=== PATIENT | male | born 1955 | race Caucasian/White ===

== ENCOUNTER 2016-09-07 17:57 | Emergency (ER) | payer OTHER ==
[~2016-09-07] VITALS: Ht 170.2 cm; Wt 80.5 kg
[~2016-09-07 17:57] MED LIST: ACET-1256 PO; CLC100X PO; DTR/5 PO; LISI-461 PO; PANT40TA2 PO; PXL20 PO; ROPI0.5T PO; ROSU5TAB PO
[2016-09-07 18:02] VITALS: TEMP 36.8; Ht 170.2 cm; Wt 80.5 kg
[2016-09-07] MEDS ORDERED: OFLOXACIN 0.3% OP SOLN 5 ML BTL OTL STA (18:26)
[2016-09-07] MEDS ORDERED: DIPH-437 PO (18:32)
[2016-09-07] MEDS ORDERED: DOCU100C31 PO (18:32)
[2016-09-07] MEDS ORDERED: OFLO0.3D4 OTL (18:32)
--- NOTE | 2016-09-07 18:34 | EMERGENCY ROOM VISIT NOTE ---
History First contact with patient: 18:14 Chief Complaint: EAR PAIN Stated Complaint: L EAR BLEEDING History of Present Illness The patient is a 61 year old male who presents to the Emergency Room via private vehicle with complaints of "left ear bleeding". The patient states that earlier today, approximately 1.5 hours prior to arrival he was backing up a lawnmower when a stick penetrated the left ear canal. He notes minimal pain but has noticed bleeding therefore came here for evaluation. His tetanus is up- to-date. Review of Systems A complete 6-point Review of Systems was discussed with the patient, with pertinent positives and negatives listed in the History of Present Illness. All remaining Review of Systems questions can be considered negative unless otherwise specified. Past Medical/Surgical History Medical Problems: (1) Anxiety State Nos (2) Corneal abrasion (3) CORNEAL FOREIGN BODY (4) Depressive Disorder Nec (5) Esophageal Reflux (6) Eye foreign body (7) FX CERVICAL VERT NOS-CL (8) GI bleed (9) GI bleed (10) HYPERLIPIDEMIA NEC/NOS (11) HYPERTENSION NOS (12) Lumbago Family History FH: dementia FH: heart disease FATHER Hypertension Social History Smoking Status: Never Smoker Alcohol Use: none Drug Use: none Marital Status: Housing Status: lives alone Occupation Status: disabled Current/Historical Medications Scheduled Docusate Sodium (Docusate Sodium), 1 CAP PO BID Lisinopril (Lisinopril), 10 MG PO QAM Ofloxacin (Otic) (Floxin Otic), 2 DROPS OTL DAILY Oxybutynin Chloride (Ditropan), 5 MG PO HS Pantoprazole (Pantoprazole Sodium), 40 MG PO QAM Paroxetine (Paroxetine HCl), 20 MG PO HS Ropinirole Hydrochloride (Requip), 0.5 MG PO HS Rosuvastatin Calcium (Crestor), 5 MG PO QAM Scheduled PRN Acetaminophen (Tylenol), 1,000 MG PO TID PRN for Pain Acetaminophen/Diphenhydramine (Tylenol Pm), 1 TAB PO HS PRN for Sleep Allergies Coded Allergies: No Known Allergies (Unverified , 08/30/16) Physical Exam Vital Signs Date Time Temp Pulse Resp B/P (MAP) Pulse Ox O2 Delivery O2 Flow Rate FiO2 09/07/16 18:42 65 124/69 98 09/07/16 18:02 36.8 73 18 114/75 96 Room Air Physical Exam VITAL SIGNS - Vital signs and nursing notes were reviewed. Patient is afebrile , normotensive, non-tachycardic and is saturating well on room air 96%. GENERAL -61-year-old male appearing his stated age who is in no acute distress. Communicates well with provider and answers questions appropriately. SKIN - Without rashes. Dry blood in the ear canal. HEAD - NC/AT. EARS - No deformities of external structures noted on gross examination bilaterally. No pain elicited with palpation of the tragus bilaterally. There is dry blood in the left ear canal, with evidence of abrasion/superficial laceration inside the ear canal. No active bleeding. There is dry blood around the TM periphery. The TM does appear to be intact. Medical Decision & Procedures Medications Administered Medications (Trade) Dose Ordered Sig/Stephanie Route Start Time Stop Time Status Last Admin Dose Admin Ofloxacin (Ocuflox 0.3% Oph Soln) 1 drops NOW STAT OTL 09/07/16 18:26 09/07/16 18:29 DC 09/07/16 18:43 1 DROPS Medical Decision Patient was seen and evaluated as above. After obtaining a thorough history and physical examination and was apparent the patient is likely experiencing a small cut on the external ear canal however a very miniscule tympanic perforation Ruled out. For this reason I'll place him on an antibiotic ear drop which is safe in case there is tympanic her for a shunt. This will be ofloxacin eardrops. Patient was provided with this as well as a short-term prescription. He is to take this as directed until he follows up with either his family doctor or ENT doctor which number was provided. His tetanus is up-to -date. He was educated upon worrisome symptoms which to return, had questions prior to discharge, and was discharged home in good condition. In the evaluation treatment this patient following differential diagnoses entertained: Tympanic memory perforation, external ear canal laceration, hemorrhage, among others. Impression Primary Impression: Trauma of ear canal Departure Information Dispostion Home / Self-Care Condition GOOD Prescriptions Ofloxacin (Otic) (FLOXIN OTIC) 0.3 % Dick 2 DROPS OTL DAILY, #10 ML Prov: Edson Berg PA-C 09/07/16 Referrals Renee Galan D.O. (PCP) Solitario Marcos MD Patient Instructions My [facility] Additional Instructions You have been treated in the Emergency Department for an trauma to your ear canal. You were prescribed Ofloxacin to be taken daily. This is an antibiotic.2-3 drops in the left ear daily (one every 8 hours) until you see your family doctor (or 10 days) Stop this medication and contact a medical provider if you were to develop any significant adverse side effects including: wheezing, shortness of breath, passing out, vomiting, or a diffuse rash. Always take antibiotics as directed and COMPLETE the ENTIRE course regardless of the improvement of your symptoms. Please do not submerge her head in water until your ears rechecked by your family doctor or the listed your nose and throat doctor. If you choose to follow-up with your nose and throat doctor please call the number listed to schedule an appointment as soon as possible. If not, please call your family doctor to schedule follow-up. Essentially, you do not want to submerge your head under water until your ear is healed. You will know it is healed by having either your family doctor or the ear nose and throat doctor evaluate it. Please return if worsening pain, or if bleeding would develop. For pain and fever control, you can use the following [id number] medicines (if >12 yo): - Regular strength (325mg/tab) Tylenol (acetaminophen) 2 tabs every 4-6 hours as needed. Do not exceed 12 tablets in a 24 hour period. Avoid taking more than 3 grams (3000 mg) of Tylenol per day. This includes any other sources of acetaminophen you may take on a regular basis. - Regular strength (200 mg/tab) Advil (ibuprofen) 1-2 tabs every 4-6 hours as needed. Do not exceed a dose of 3200 mg per day. You should follow-up with your Primary Care Provider from today's Emergency Department visit. Return to the emergency department if you develop the following symptoms despite treatment course outlined above: headache, fever, intractable pain, increased redness, swelling, or purulent discharge. Please return to emergency department with any new/concerning symptoms.
--- NOTE | 2016-09-07 18:38 | EMERGENCY ROOM VISIT NOTE ---
ED Visit Note First contact with patient: 18:14 I have seen and examined this patient with Edson Berg and generally agree with the treatment plan as discussed. Problem List Medical Problems: (1) Anxiety State Nos Status: Chronic (2) Corneal abrasion Status: Resolved (3) CORNEAL FOREIGN BODY Status: Resolved (4) Depressive Disorder Nec Status: Chronic (5) Esophageal Reflux Status: Chronic (6) Eye foreign body Status: Resolved (7) FX CERVICAL VERT NOS-CL Status: Resolved (8) GI bleed Status: Resolved (9) GI bleed Status: Resolved (10) HYPERLIPIDEMIA NEC/NOS Status: Chronic (11) HYPERTENSION NOS Status: Chronic (12) Lumbago Status: Chronic Current/Historical Medications Scheduled Docusate Sodium (Docusate Sodium), 1 CAP PO BID Lisinopril (Lisinopril), 10 MG PO QAM Ofloxacin (Otic) (Floxin Otic), 2 DROPS OTL DAILY Oxybutynin Chloride (Ditropan), 5 MG PO HS Pantoprazole (Pantoprazole Sodium), 40 MG PO QAM Paroxetine (Paroxetine HCl), 20 MG PO HS Ropinirole Hydrochloride (Requip), 0.5 MG PO HS Rosuvastatin Calcium (Crestor), 5 MG PO QAM Scheduled PRN Acetaminophen (Tylenol), 1,000 MG PO TID PRN for Pain Acetaminophen/Diphenhydramine (Tylenol Pm), 1 TAB PO HS PRN for Sleep Allergies Coded Allergies: No Known Allergies (Unverified , 08/30/16) Vital Signs Date Time Temp Pulse Resp B/P (MAP) Pulse Ox O2 Delivery O2 Flow Rate FiO2 09/07/16 18:02 36.8 73 18 114/75 96 Room Air Departure Information Impression Primary Impression: Trauma of ear canal Dispostion Home / Self-Care Condition GOOD Prescriptions Ofloxacin (Otic) (FLOXIN OTIC) 0.3 % Dick 2 DROPS OTL DAILY, #10 ML Prov: Edson Berg PA-C 09/07/16 Referrals Renee GalanDDgODg (PCP) Solitario Marcos MD Forms WORK / SCHOOL INSTRUCTIONS, HOME CARE DOCUMENTATION FORM, IMPORTANT VISIT INFORMATION Patient Instructions My [facility] Additional Instructions You have been treated in the Emergency Department for an trauma to your ear canal. You were prescribed Ofloxacin to be taken daily. This is an antibiotic. Stop this medication and contact a medical provider if you were to develop any significant adverse side effects including: wheezing, shortness of breath, passing out, vomiting, or a diffuse rash. Always take antibiotics as directed and COMPLETE the ENTIRE course regardless of the improvement of your symptoms. Please do not submerge her head in water until your ears rechecked by your family doctor or the listed your nose and throat doctor. If you choose to follow-up with your nose and throat doctor please call the number listed to schedule an appointment as soon as possible. If not, please call your family doctor to schedule follow-up. Essentially, you do not want to submerge your head under water until your ear is healed. You will know it is healed by having either your family doctor or the ear nose and throat doctor evaluate it. Please return if worsening pain, or if bleeding would develop. For pain and fever control, you can use the following sfrr-cha-prhnedi medicines (if >12 yo): - Regular strength (325mg/tab) Tylenol (acetaminophen) 2 tabs every 4-6 hours as needed. Do not exceed 12 tablets in a 24 hour period. Avoid taking more than 3 grams (3000 mg) of Tylenol per day. This includes any other sources of acetaminophen you may take on a regular basis. - Regular strength (200 mg/tab) Advil (ibuprofen) 1-2 tabs every 4-6 hours as needed. Do not exceed a dose of 3200 mg per day. You should follow-up with your Primary Care Provider from today's Emergency Department visit. Return to the emergency department if you develop the following symptoms despite treatment course outlined above: headache, fever, intractable pain, increased redness, swelling, or purulent discharge. Please return to emergency department with any new/concerning symptoms.
[2016-09-07 18:42] VITALS: BP 124/69; PULSE 65; O2SAT 98
== END 2016-09-07 18:54 | disposition home or self-care (01) ==
LOC: C.EDB 17:58 → C.EDD 18:54
DX: S09.91XA Unspecified injury of ear, initial encounter (principal); W22.8XXA Striking against or struck by other objects, initial encounter; I10 Essential (primary) hypertension; E78.5 Hyperlipidemia, unspecified; K21.9 Gastro-esophageal reflux disease without esophagitis; F32.9 Major depressive disorder, single episode, unspecified; F41.9 Anxiety disorder, unspecified; Z87.19 Personal history of other diseases of the digestive system; Z87.81 Personal history of (healed) traumatic fracture; Z79.899 Other long term (current) drug therapy; Z82.49 Family history of ischemic heart disease and other diseases of the circulatory system

== ENCOUNTER → 2016-09-09 | Day surgery (SDC) | payer OTHER ==
[2016-08-30 10:40] VITALS: BMI 28.0
[~2016-09-09] VITALS: Ht 172.7 cm; Wt 84.1 kg
[~2016-09-09] MED LIST changes: -CLC100X PO; +DIPH-437 PO; +DOCU100C31 PO; +LIDOCAINE HCL 2% 2 ML VIAL (20MG/ML) ONE; +LRS10 PO; +OFLO0.3D4 OTL; +PROPOFOL IV EMULSION 10 MG/ML 20 ML VIAL IV ONE
[2016-09-09 15:17] VITALS: Ht 172.7 cm; Wt 84.1 kg
--- NOTE | 2016-09-09 16:00 | Endo History and Physical ---
History & Physical Date of Service: Sep 09, 2016. Chief Complaint: HX OF RECTAL BLEEDING SEPTEMBER 2016 Referring Physician: DR PAYAN History of Present Illness 61 yo CM who presents for screening colonoscopy. Past Medical History Arthritis, Anxiety, Hypertension Past Surgical History Hx Cardiac Surgery: No Hx Internal Defibrillator: No Hx Pacemaker: No Hx Abdominal Surgery: No Hx Post-Op Nausea and Vomiting: No Hx Cancer Surgery: No Hx Thoracic Surgery: Yes (CERVICAL SURGERY "2 SCREWS IN NECK") Hx Orthopedic: Yes (CERVICAL FUSION( LIMITED ROM) -DUE TO FRACTURE, RIGHT ELBOW SURGERY) Hx Urinary Tract Surgery: No Family History None Social History Smoking Status: Never Smoker Hx Substance Use: No Hx Alcohol Use: No Allergies Coded Allergies: No Known Allergies (Unverified , 09/09/16) Current Medications Reported Home Medications Medications Dose Route/Sig Max Daily Dose Days Date Category Tylenol Pm (Acetaminophen/Diphenhydramine HCl) 500 Mg/25 Mg Tab 1 Tab PO HS PRN 09/07/16 Reported Docusate Sodium 100 Mg Cap 1 Cap PO BID 7 09/07/16 Reported Floxin Otic (Ofloxacin (Otic)) 0.3 % Dick 2 Drops OTL DAILY 09/07/16 Rx Crestor (Rosuvastatin Calcium) 5 Mg Tab 5 Mg PO QAM 08/30/16 Reported Tylenol (Acetaminophen) 500 Mg Tab 1,000 Mg PO TID PRN 08/30/16 Reported Ditropan (Oxybutynin Chloride) 5 Mg Tab 5 Mg PO HS 08/30/16 Reported Lisinopril 10 Mg Tab 10 Mg PO QAM 11/24/15 Reported Pantoprazole Sodium (Pantoprazole) 40 Mg Tab 40 Mg PO QAM 11/24/15 Reported Paroxetine HCl (Paroxetine) 20 Mg Tab 20 Mg PO HS 11/24/15 Reported Requip (Ropinirole Hydrochloride) 0.5 Mg Tab 0.5 Mg PO HS 11/24/15 Reported Vital Signs Weight (Kilograms): 84.09 Height (Feet): 5 Height (Inches): 8 Date Time Temp Pulse Resp B/P (MAP) Pulse Ox O2 Delivery O2 Flow Rate FiO2 09/09/16 15:26 36.7 54 20 125/67 (86) 96 Room Air Physical Exam General Appearance: WD/WN, no apparent distress Respiratory/Chest: Auscultation: breath sounds normal Cardiovascular: Heart Auscultation: RRR Abdomen: Bowel Sounds: normal Inspection & Palpation: soft, non-distended, no tenderness, guarding & rebound Assessment and Plan Assessment: 61 yo CM who presents for screening colonoscopy. Plan: Proceed with colonoscopy.
--- NOTE | 2016-09-09 16:43 | Discharge Instructions ---
Endoscopy Patient Instructions Date / Procedure(s) Performed Sep 09, 2016. Colonoscopy Allergy Information Coded Allergies: No Known Allergies (Unverified , 09/09/16) Discharge Date / Findings Sep 09, 2016. Colon polyps Diverticulosis Internal hemorrhoids Medication Instructions OK to resume all medications today as prescribed Reported Home Medications Medications Dose Route/Sig Max Daily Dose Days Date Category Tylenol Pm (Acetaminophen/Diphenhydramine HCl) 500 Mg/25 Mg Tab 1 Tab PO HS PRN 09/07/16 Reported Docusate Sodium 100 Mg Cap 1 Cap PO BID 7 09/07/16 Reported Floxin Otic (Ofloxacin (Otic)) 0.3 % Dick 2 Drops OTL DAILY 09/07/16 Rx Crestor (Rosuvastatin Calcium) 5 Mg Tab 5 Mg PO QAM 08/30/16 Reported Tylenol (Acetaminophen) 500 Mg Tab 1,000 Mg PO TID PRN 08/30/16 Reported Ditropan (Oxybutynin Chloride) 5 Mg Tab 5 Mg PO HS 08/30/16 Reported Lisinopril 10 Mg Tab 10 Mg PO QAM 11/24/15 Reported Pantoprazole Sodium (Pantoprazole) 40 Mg Tab 40 Mg PO QAM 11/24/15 Reported Paroxetine HCl (Paroxetine) 20 Mg Tab 20 Mg PO HS 11/24/15 Reported Requip (Ropinirole Hydrochloride) 0.5 Mg Tab 0.5 Mg PO HS 11/24/15 Reported Provider Instructions Activity Restrictions - No exercising or heavy lifting for 24 hours. - Do not drink alcohol the day of the procedure. - Do not drive a car or operate machinery until the day after the procedure. - Do not make any important decisions or sign important papers in 24 hours after the procedure. Following Day: - Return to full activity which may include returning to work/school. Diet Start your diet with liquids and light foods (jello, soup, juice, toast). Then eat your usual diet if not nauseated. Treatment For Common After Affects For mild abdominal pain, bloating, or excessive gas: - Rest - Eat lightly - Lie on right side Follow-Up Information Follow-up with DR PAYAN as scheduled Anesthesia Information What You Should Know You have had a procedure that required some medicine to reduce anxiety and discomfort. This treatment is called moderate sedation. After receiving the treatment, you may be sleepy, but you will be able to breathe on your own. The effects of the treatment may last for several hours. Follow these instructions along with Activity/Diet recommendations noted above: * Do NOT do anything where dizziness or clumsiness would be dangerous. * Rest quietly at home today, then you can be up and about tomorrow. * Have a responsible person stay with you the rest of today. * You may have had an I.V. today. If so, you may take the dressing off later today. Recommendations Call your doctor if: * Trouble breathing * Continuous vomiting for more than 24 hours * Temperature above 101 degrees * Severe abdominal pain or bloating * Pain not relieved by pain medicine ordered * There is increased drainage or redness from any incision * A large amount of rectal bleeding greater than 2-3 tablespoons. (If you had a polyp/s removed or have hemorrhoids, a small amount of blood - from the rectum is to be expected.) * You have any unanswered questions or concerns. IN THE EVENT OF A SERIOUS EMERGENCY, GO TO THE NEAREST EMERGENCY ROOM Your discharge instructions were prepared by provider Brady Vincent. Patient Instructions Signature Page Chon Karimi Patient (or Guardian) Signature/Date: I have read and understand the instructions given to me by my caregivers. Caregiver/RN/Doctor Signature/Date: The above-named patient and/or guardian has received patient instructions on this date. + Original Patient Signature Page (only) stays with chart. Please make copy for patient.
--- NOTE | 2016-09-09 17:07 | GI REPORT ---
Procedure Date: 09/09/2016 4:14 PM Procedure: Colonoscopy Indications: Screening for colorectal malignant neoplasm Medicines: Monitored Anesthesia Care Complications: No immediate complications. Estimated Blood Loss: Estimated blood loss: none. Procedure: Pre-Anesthesia Assessment: - Prior to the procedure, a History and Physical was performed, and patient medications and allergies were reviewed. The patient's tolerance of previous anesthesia was also reviewed. The risks and benefits of the procedure and the sedation options and risks were discussed with the patient. All questions were answered, and informed consent was obtained. Prior Anticoagulants: The patient has taken no previous anticoagulant or antiplatelet agents. ASA Grade Assessment: III - A patient with severe systemic disease. After reviewing the risks and benefits, the patient was deemed in satisfactory condition to undergo the procedure. After I obtained informed consent, the scope was passed under direct vision. Throughout the procedure, the patient's blood pressure, pulse, and oxygen saturations were monitored continuously. The scope was introduced through the anus and advanced to the terminal ileum. The colonoscopy was performed without difficulty. The patient tolerated the procedure well. The quality of the bowel preparation was good. The terminal ileum, ileocecal valve, appendiceal orifice, and rectum were photographed. Findings: A 12 mm polyp was found in the ascending colon. The polyp was flat. The polyp was removed with a piecemeal technique using a hot snare. Resection and retrieval were complete. To prevent bleeding after the polypectomy, two hemostatic clips were successfully placed (MR conditional). There was no bleeding at the end of the procedure. A 5 mm polyp was found in the ascending colon. The polyp was sessile. The polyp was removed with a hot snare. Resection and retrieval were complete. Multiple small-mouthed diverticula were found in the sigmoid colon. Non-bleeding internal hemorrhoids were found during retroflexion. The hemorrhoids were small. Impression: - One 12 mm polyp in the ascending colon, removed piecemeal using a hot snare. Resected and retrieved. Clips (MR conditional) were placed. - One 5 mm polyp in the ascending colon, removed with a hot snare. Resected and retrieved. - Diverticulosis in the sigmoid colon. - Non-bleeding internal hemorrhoids. Recommendation: - Resume previous diet. - Continue present medications. - Repeat colonoscopy for surveillance based on pathology results. - Return to primary care physician as previously scheduled. Brady Vincent DO 09/09/2016 5:07:16 PM This report has been signed electronically. Note Initiated On: 09/09/2016 4:14 PM I attest to the content of the Intraoperative Record and orders documented therein, exceptions below
[2016-09-09 17:15] VITALS: BP 129/89; PULSE 52; O2SAT 100
--- NOTE | 2016-09-09 17:15 | Anesthesiology Progress Note ---
Anesthesia Post Op Note Date & Time Sep 09, 2016 at 17:15 Vital Signs Pain Intensity: 0 Vital Signs Past 12 Hours Date Time Temp Pulse Resp B/P (MAP) Pulse Ox O2 Delivery O2 Flow Rate FiO2 09/09/16 17:00 55 20 129/89 (102) 100 Room Air 09/09/16 16:45 56 16 101/66 (78) 96 Room Air 09/09/16 15:26 36.7 54 20 125/67 (86) 96 Room Air Notes Mental Status: alert / awake / arousable, participated in evaluation Pt Amnestic to Procedure: Yes Nausea / Vomiting: adequately controlled Pain: adequately controlled Airway Patency, RR, SpO2: stable & adequate BP & HR: stable & adequate Hydration State: stable & adequate Anesthetic Complications: no major complications apparent
== END | disposition home or self-care (01) ==
LOC: C.GI 14:54
PROVIDERS: ATTEND Internal Medicine
DX: Z12.11 Encounter for screening for malignant neoplasm of colon (principal); D12.2 Benign neoplasm of ascending colon; K57.30 Diverticulosis of large intestine without perforation or abscess without bleeding; D64.9 Anemia, unspecified; K62.5 Hemorrhage of anus and rectum; F41.9 Anxiety disorder, unspecified; I10 Essential (primary) hypertension; M19.90 Unspecified osteoarthritis, unspecified site; Z79.899 Other long term (current) drug therapy

== ENCOUNTER 2016-09-27 12:50 | Emergency (ER) | payer OTHER ==
[~2016-09-27] VITALS: Ht 170.2 cm; Wt 81.9 kg
[~2016-09-27 12:50] MED LIST changes: -DTR/5 PO; -LIDOCAINE HCL 2% 2 ML VIAL (20MG/ML) ONE; -LRS10 PO; +OXYB5TAB74 PO; -PANT40TA2 PO; -PROPOFOL IV EMULSION 10 MG/ML 20 ML VIAL IV ONE; +PRT/40 PO
[2016-09-27 12:53] VITALS: TEMP 36.9; Ht 170.2 cm; Wt 81.9 kg
[2016-09-27] MEDS ORDERED: LRS10 PO (13:03)
[2016-09-27] MEDS ORDERED: LIDO/EPINEPHRINE/SOD BICARB 20 ML VIAL INFIL ONE (13:08)
--- NOTE | 2016-09-27 13:27 | EMERGENCY ROOM VISIT NOTE ---
ED Visit Note First contact with patient: 13:02 Staff note: I have reviewed the Patients chart and have discussed this case with my PA. I generally agree with the ED note and findings.
[2016-09-27 13:53] VITALS: BP 136/86; PULSE 88; O2SAT 98
--- NOTE | 2016-09-27 20:17 | EMERGENCY ROOM VISIT NOTE ---
ED Visit Note First contact with patient: 13:02 CHIEF COMPLAINT: Arm laceration HISTORY OF PRESENT ILLNESS: This 61-year-old male patient presents to the emergency department after they cut the left forearm about 45 minutes ago. The patient was using a pocket knife to cut a piece of cable when it slipped and caused a stab injury to the left forearm . There is no bleeding and there is no pain. The patient denies any other injuries. The patient rates the pain as dull and 2/10. The patient's tetanus shot is up to date. REVIEW OF SYSTEMS: A 6 system review of systems was completed with positives and pertinent negatives listed in the HPI. ALLERGIES: No known allergies MEDICATIONS: See EMR PMH: See EMR SOCIAL HISTORY: Lives locally PHYSICAL EXAM: Vital Signs: Reviewed Nurse's notes, vital signs stable. GENERAL : White male, in no acute distress, well-developed, well-nourished. Skin: There is a 1.5 cm long laceration on the volar aspect of the left forearm. The edges gape apart retraction. There is no foreign material in the wound and it looks clean. There is no active bleeding. No deep structures such as tendons, bones, or significant blood vessels are seen in the base of the wound. Strength 5/5 of the left upper extremity. Capillary refill less than two seconds. Normal sensation to light and sharp touch. EMERGENCY DEPARTMENT COURSE: I examined the patient. Verbal consent was obtained to perform the procedure. Using sterile technique the wound was cleansed with Betadine. The area was sterilely draped. 2 ml of 1% buffered lidocaine was used to anesthetize the laceration on the arm. Once the patient was anesthetized, the wound was copiously irrigated under pressure with sterile saline. The wound was explored and was as described above. The laceration was repaired using 2 simple interrupted 4-0 nylon sutures with the wound edges being well approximated. The patient tolerated the procedure well. Hemostasis was achieved. The area was cleaned with sterile saline and dressed with bacitracin ointment and bandage. The patient was discharged home in good condition. Problem List Medical Problems: (1) Anxiety State Nos Status: Chronic (2) Corneal abrasion Status: Resolved (3) CORNEAL FOREIGN BODY Status: Resolved (4) Depressive Disorder Nec Status: Chronic (5) Esophageal Reflux Status: Chronic (6) Eye foreign body Status: Resolved (7) FX CERVICAL VERT NOS-CL Status: Resolved (8) GI bleed Status: Resolved (9) GI bleed Status: Resolved (10) HYPERLIPIDEMIA NEC/NOS Status: Chronic (11) HYPERTENSION NOS Status: Chronic (12) Lumbago Status: Chronic Current/Historical Medications Scheduled Baclofen (Baclofen), 0.5 TAB PO UD Docusate Sodium (Docusate Sodium), 1 CAP PO BID Lisinopril (Lisinopril), 10 MG PO QAM Pantoprazole (Pantoprazole Sodium), 40 MG PO QAM Paroxetine (Paroxetine HCl), 20 MG PO HS Ropinirole Hydrochloride (Requip), 0.5 MG PO HS Rosuvastatin Calcium (Crestor), 5 MG PO QAM Scheduled PRN Acetaminophen (Tylenol), 1,000 MG PO TID PRN for Pain Acetaminophen/Diphenhydramine (Tylenol Pm), 1 TAB PO HS PRN for Sleep Allergies Coded Allergies: No Known Allergies (Unverified , 09/27/16) Vital Signs Date Time Temp Pulse Resp B/P (MAP) Pulse Ox O2 Delivery O2 Flow Rate FiO2 09/27/16 13:53 88 16 136/86 98 09/27/16 12:53 36.9 73 18 140/85 96 Room Air Medications Administered Medications (Trade) Dose Ordered Sig/Stephanie Route Start Time Stop Time Status Last Admin Dose Admin Lidocaine/ Epinephrine (Buffered Xylocaine/ Epinephrine 1% Inj) 20 ml STK-MED ONCE INFIL 09/27/16 13:08 09/27/16 13:09 DC 09/27/16 13:10 20 ML Departure Information Impression Primary Impression: Forearm laceration Dispostion Home / Self-Care Condition GOOD Forms HOME CARE DOCUMENTATION FORM, IMPORTANT VISIT INFORMATION Patient Instructions My [facility] Additional Instructions Keep wound clean and dry. Do not allow any crusting or dried blood to accumulate on sutures. If this occurs, use a mild soap/water on a Q-tip to clean the wound. Do not use Peroxide to clean the wound as this can delay healing Use an antibiotic ointment like Bacitracin for 3-4 days, then let wound dry. You may bathe and shower as normal, but DO NOT SOAK the wound. Suture removal in about 10 days with your Family Doctor or in the ER. Return sooner for any signs of infection, increasing redness, swelling, or drainage.
== END 2016-09-27 13:54 | disposition home or self-care (01) ==
LOC: C.EDB 12:51 → C.EDD 13:54
DX: S51.812A Laceration without foreign body of left forearm, initial encounter (principal); W26.0XXA Contact with knife, initial encounter; E78.5 Hyperlipidemia, unspecified; I10 Essential (primary) hypertension; K21.9 Gastro-esophageal reflux disease without esophagitis; F41.9 Anxiety disorder, unspecified; F32.9 Major depressive disorder, single episode, unspecified; Z87.19 Personal history of other diseases of the digestive system; Z87.81 Personal history of (healed) traumatic fracture; Z79.899 Other long term (current) drug therapy

== ENCOUNTER → 2017-06-03 | Outpatient (CLI) | payer OTHER ==
[~2017-06-03] MED LIST changes: +GADAVIST IV PRN; +LRS10 PO; -OFLO0.3D4 OTL; -OXYB5TAB74 PO; +PANT40TA2 PO; -PRT/40 PO
--- NOTE | 2017-06-03 13:31 | DIAGNOSTIC IMAGING REPORT ---
ORBITS FOR MRI CLINICAL HISTORY: 61 years-old Male presenting with PRE MRI. TECHNIQUE: 3 views of the orbits were obtained. COMPARISON: None. FINDINGS: No radiopaque intraorbital foreign body. Bony orbits grossly intact. Paranasal sinuses grossly clear. Hypoplastic right frontal sinus. Visualized portion of the calvarium intact. The patient is edentulous. Two lag screw fixation of the dens. IMPRESSION: No intraorbital metallic foreign body to preclude MRI exam. Electronically signed by: Alec Green M.D. 06/03/2017 1:29 PM Dictated Date/Time: 06/03/2017 1:29 PM
--- NOTE | 2017-06-03 14:32 | DIAGNOSTIC IMAGING REPORT ---
MRI OF THE BRAIN COMBO CLINICAL HISTORY: Dizziness. Weight loss. COMPARISON STUDY: CT scan of the facial bones dated 12/25/2008. TECHNIQUE: MRI of the brain was performed utilizing various T1 and T2-weighted sequences in the axial, sagittal, and coronal planes. Contrast-enhanced sequences were acquired following the administration of 7.5 cc of Gadavist. FINDINGS: Brain parenchyma: There is encephalomalacia with internal septations identified in the right frontal lobe, with associated ex vacuo dilatation of the frontal horn of the right lateral ventricle. This has been present dating back to at least 2008. There is no hemorrhage or mass effect. There is no restricted diffusion to suggest acute ischemia. No enhancing mass lesion is identified on the postcontrast images. Esquivel-white matter differentiation is preserved. No extra-axial fluid collection is seen. The cerebellar tonsils are normal in configuration. Ventricles, sulci, and cisterns: Normal in configuration. Pituitary and sella: Unremarkable. Intracranial vasculature: Normal flow voids are maintained at the skull base. Orbits: The bony orbits are grossly intact. Orbital contents are normal in appearance noting bilateral ocular lens implants. Sinuses and mastoids: Clear. Calvarium: Unremarkable. Cervical cord: Partially visualized cervical spinal cord is normal in morphology and signal intensity. IMPRESSION: 1. No acute intracranial abnormality. 2. 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 Correlation with the patient's medical history will be required. Electronically signed by: Steven Ch M.D. 06/03/2017 2:31 PM Dictated Date/Time: 06/03/2017 2:23 PM
== END | disposition home or self-care (01) ==
LOC: C.MRI 13:02
PROVIDERS: ATTEND Family Medicine
DX: R42 Dizziness and giddiness (principal); R63.4 Abnormal weight loss; G93.89 Other specified disorders of brain

== ENCOUNTER 2017-08-11 09:15 | Emergency (ER) | payer OTHER ==
[~2017-08-11] VITALS: Ht 170.2 cm; Wt 73.0 kg
[~2017-08-11 09:15] MED LIST changes: -GADAVIST IV PRN
[2017-08-11 09:20] VITALS: TEMP 36.8; Ht 170.2 cm; Wt 73.0 kg
--- NOTE | 2017-08-11 09:45 | EMERGENCY ROOM VISIT NOTE ---
History Report prepared by Mikaela: Niyah Sheets Under the Supervision of: Dr. Navneet Cui M.D. First contact with patient: 09:33 Chief Complaint: DIZZY Stated Complaint: DIZZINESS History of Present Illness The patient is a 62 year old white male with a past medical history of esophageal reflux, GI bleed, HLD, HTN who presents to the ED with a cc of dizziness beginning last night around 1800. Positive fall, blurry vision. Negative fevers, cough, nausea, vomiting, neck pain, any substance or stimulant use, history of dizziness, or smoking. He reports that he was walking to mow his lawn when he suddenly got dizzy, had blurry vision, and fell. The patient did not eat or drink anything yesterday. He states he feels lightheaded all the time and that getting up too quickly worsens his symptoms. He notes his symptoms feel the same. He saw Dr. Owusu this morning. The patient is not currently on any blood thinning medications. Source of History: patient Onset: 1800 this morning Position: head, other (upper and lower extremities) Quality: other (dizziness) Timing: constant Modifying Factors (Worsening): other (getting up too quickly) Associated Symptoms: + neck pain, No fevers, No cough, No nausea, No vomiting Note: Positive fall, blurry vision. Negative any substance or stimulant use, history of dizziness, or smoking. Review of Systems See HPI for pertinent positives and negatives. A total of ten systems were reviewed and were otherwise negative. Past Medical & Surgical Medical Problems: (1) Anxiety State Nos (2) Corneal abrasion (3) CORNEAL FOREIGN BODY (4) Depressive Disorder Nec (5) Esophageal Reflux (6) Eye foreign body (7) FX CERVICAL VERT NOS-CL (8) GI bleed (9) GI bleed (10) HYPERLIPIDEMIA NEC/NOS (11) HYPERTENSION NOS (12) Lumbago Family History FH: dementia FH: heart disease FATHER Hypertension Social History Smoking Status: Never Smoker Alcohol Use: none Drug Use: none Marital Status: Housing Status: lives alone Occupation Status: disabled Current/Historical Medications Scheduled Docusate Sodium (Docusate Sodium), 1 CAP PO BID Glucosamine-Chondroitin (Glucosamine & Chondroitin 500-400 mg), 1 CAP PO TID Lisinopril (Lisinopril), 10 MG PO QAM Pantoprazole (Pantoprazole Sodium), 40 MG PO QAM Paroxetine (Paroxetine HCl), 20 MG PO HS Rosuvastatin Calcium (Crestor), 5 MG PO QAM [XFactor Plus], 1 DOSE PO DAILY Scheduled PRN Acetaminophen (Tylenol), 1,000 MG PO TID PRN for Pain Acetaminophen/Diphenhydramine (Tylenol Pm), 1 TAB PO HS PRN for Sleep Baclofen (Baclofen), 0.5 MG PO UD PRN for PRN Allergies Coded Allergies: No Known Allergies (Unverified , 08/11/17) Physical Exam Vital Signs Date Time Temp Pulse Resp B/P (MAP) Pulse Ox O2 Delivery O2 Flow Rate FiO2 08/11/17 11:50 63 18 117/83 100 08/11/17 10:12 97 Room Air 08/11/17 10:11 61 08/11/17 09:20 36.8 102 16 118/73 97 Room Air Physical Exam GENERAL: Awake, alert, well-appearing, NAD. Edentulous. HENT: Normocephalic, atraumatic. Small bruise to left forehead. EYES: Normal conjunctiva. Sclera non-icteric. PERRL. No anisocoria. NECK: Supple. No nuchal rigidity. FROM. No midline C spine TTP. RESPIRATORY: CTAB, no rhonchi, wheezing, crackles CARDIAC: RRR, no MRG ABDOMEN: Soft, NTND, BS+ MSK: No chest wall TTP, no LE edema NEURO: GCS 15, CN 2-12 intact, moves all 4s on command SKIN: No rash or jaundice noted. Medical Decision & Procedures ER Provider Diagnostic Interpretation: Radiology results as stated below per my review and radiologist interpretation: CHEST ONE VIEW PORTABLE CLINICAL HISTORY: 62 years-old Male presenting with EVALUATE ALTERED MENTAL STATUS/WEAKNESS. TECHNIQUE: Portable upright AP view of the chest was obtained. COMPARISON: 02/16/2012. FINDINGS: Cardiomediastinal silhouette normal. No focal opacity. No large effusion or pneumothorax. Osseous structures normal. Upper abdomen normal. IMPRESSION: 1. No acute cardiopulmonary disease. Electronically signed by: Alec Green M.D. 08/11/2017 10:07 AM Laboratory Results 08/11/17 10:25 Red Blood Count 4.17, Mean Corpuscular Volume 89.9, Mean Corpuscular Hemoglobin 31.4, Mean Corpuscular Hemoglobin Concent 34.9, Mean Platelet Volume 8.8, Neutrophils (%) (Auto) 69.0, Lymphocytes (%) (Auto) 17.9, Monocytes (%) (Auto) 11.4, Eosinophils (%) (Auto) 0.6, Basophils (%) (Auto) 0.3, Neutrophils # (Auto ) 4.48, Lymphocytes # (Auto) 1.16, Monocytes # (Auto) 0.74, Eosinophils # (Auto ) 0.04, Basophils # (Auto) 0.02 08/11/17 10:25 Test 08/11/17 10:25 08/11/17 11:10 White Blood Count 6.49 K/uL (4.8-10.8) Red Blood Count 4.17 M/uL (4.7-6.1) Hemoglobin 13.1 g/dL (14.0-18.0) Hematocrit 37.5 % (42-52) Mean Corpuscular Volume 89.9 fL (80-100) Mean Corpuscular Hemoglobin 31.4 pg (25-34) Mean Corpuscular Hemoglobin Concent 34.9 g/dl (32-36) Platelet Count 200 K/uL (130-400) Mean Platelet Volume 8.8 fL (7.4-10.4) Neutrophils (%) (Auto) 69.0 % Lymphocytes (%) (Auto) 17.9 % Monocytes (%) (Auto) 11.4 % Eosinophils (%) (Auto) 0.6 % Basophils (%) (Auto) 0.3 % Neutrophils # (Auto) 4.48 K/uL (1.4-6.5) Lymphocytes # (Auto) 1.16 K/uL (1.2-3.4) Monocytes # (Auto) 0.74 K/uL (0.11-0.59) Eosinophils # (Auto) 0.04 K/uL (0-0.5) Basophils # (Auto) 0.02 K/uL (0-0.2) RDW Standard Deviation 42.0 fL (36.4-46.3) RDW Coefficient of Variation 12.9 % (11.5-14.5) Immature Granulocyte % (Auto) 0.8 % Immature Granulocyte # (Auto) 0.05 K/uL (0.00-0.02) Prothrombin Time 11.0 SECONDS (9.0-12.0) Prothromb Time International Ratio 1.0 (0.9-1.1) Activated Partial Thromboplast Time 25.0 SECONDS (21.0-31.0) Partial Thromboplastin Ratio 1.0 Anion Gap 7.0 mmol/L (3-11) Est Creatinine Clear Calc Drug Dose 71.2 ml/min Estimated GFR () 94.1 Estimated GFR (Non- 81.2 BUN/Creatinine Ratio 19.4 (10-20) Calcium Level 8.2 mg/dl (8.5-10.1) Phosphorus Level 3.4 mg/dl (2.5-4.9) Magnesium Level 2.2 mg/dl (1.8-2.4) Total Bilirubin 0.6 mg/dl (0.2-1) Direct Bilirubin 0.1 mg/dl (0-0.2) Aspartate Amino Transf (AST/SGOT) 23 U/L (15-37) Alanine Aminotransferase (ALT/SGPT) 39 U/L (12-78) Alkaline Phosphatase 63 U/L (45-117) Troponin I < 0.015 ng/ml (0-0.045) Total Protein 6.8 gm/dl (6.4-8.2) Albumin 3.5 gm/dl (3.4-5.0) Thyroid Stimulating Hormone (TSH) 1.300 uIu/ml (0.300-4.500) Urine Color YELLOW Urine Appearance CLEAR (CLEAR) Urine pH 5.5 (4.5-7.5) Urine Specific [place] 1.021 (1.000-1.030) Urine Protein NEG (NEG) Urine Glucose (UA) NEG (NEG) Urine Ketones NEG (NEG) Urine Occult Blood NEG (NEG) Urine Nitrite NEG (NEG) Urine Bilirubin NEG (NEG) Urine Urobilinogen NEG (NEG) Urine Leukocyte Esterase NEG (NEG) Laboratory results reviewed by me ECG Per My Interpretation Indication: other (dizziness) Rate (beats per minute): 60 Rhythm: normal sinus Findings: no ectopy, other (normal axis, no STS changes or TWI) ED Course 0937: The patient was evaluated in room A4. A complete history and physical exam was performed. 1135: I reevaluated the patient. Discussed results and discharge instructions: He verbalized understanding and agreement. The patient is ready for discharge. Medical Decision The patient is a 62 year old white male with a past medical history of esophageal reflux, GI bleed, HLD, HTN who presents to the ED with a cc of dizziness beginning last night around 1800. Positive fall, blurry vision. Negative fevers, cough, nausea, vomiting, neck pain, any substance or stimulant use, history of dizziness, or smoking. Nursing notes reviewed. Ancillary studies and prior records reviewed. Differential diagnosis: Etiologies such as metabolic, infection, hypo/hyperglycemia, electrolyte abnormalities, cardiac sources, intracerebral event, toxicologic, neurologic, as well as others were entertained. Patient was seen and evaluated the bedside. The patient did have a fall while walking down an embankment yesterday. Patient states that he did strike his head. Patient did claim that he had some blurry vision for approximately 10-15 minutes. The patient is not taking any blood thinning medications at this time. The patient denies any focal neuro deficits. Of note the patient did not eat or drink very much yesterday. Patient on exam does have a small bruise to left forehead. Patient has no midline C-spine tenderness to palpation. Patient did blood work completed, EKG, troponin, chest x-ray, CT brain. Patient's blood work showed some very mild anemia. The patient did have mild hypocalcemia. Patient was told that he may increase the red meat in his diet and to supplement with calcium and vitamin D. Patient's EKG was nonischemic and without evidence of overt arrhythmia. Troponin negative. Patient's chest x -ray was clear and the patient CT the brain was also negative. The patient may have suffered a concussion. Also of note the patient had not been eating or drinking anything. The patient was told that he should make sure that he eats more frequently and hydrate liberally with clear liquids and avoid alcohol. I do not believe patient requires further evaluation or treatment at this time. Patient was told return if he has any working worsening neurologic symptoms, headache, recurrent episodes of falls or other issues. The patient family member in agreement with the plan of care. Patient was deemed suitable for outpatient follow-up and treatment at this time. Patient was given strict follow-up, discharge, and return precautions. All questions were answered. Patient was deemed suitable for outpatient follow-up at this time. Patient agreed with the plan of care and was safely discharged home. Medication Reconcilliation Current Medication List: was personally reviewed by me Blood Pressure Screening Patient's blood pressure: Normal blood pressure Blood pressure disposition: Did not require urgent referral Impression Primary Impression: Lightheadedness Additional Impressions: Hypocalcemia Anemia Scribe Attestation The scribe's documentation has been prepared under my direction and personally reviewed by me in its entirety. I confirm that the note above accurately reflects all work, treatment, procedures, and medical decision making performed by me. Departure Information Dispostion Home / Self-Care Referrals Renee Galan D.O. (PCP) Forms HOME CARE DOCUMENTATION FORM, IMPORTANT VISIT INFORMATION Patient Instructions Dizziness Fainting Poss Causes, ED Hypocalcemia, ED Mechanical Fall, My [facility] Additional Instructions Please return to the emergency department if you have worsening or recurrent symptoms not amenable to at-home treatment. Please call for a follow-up appointment with her primary care physician. Please take your medications as prescribed. If you have other concerns and/or complaints please feel free to also call your primary care physician's office or return the ED for further evaluation, management, and treatment. Please make sure that you hydrate liberally and try to eat smaller more frequent meals. Take your medications as prescribed. You have been examined and treated today on an emergency basis only. This is not a substitute for, or an effort to provide, complete comprehensive medical care. It is impossible to recognize and treat all injuries or illnesses in a single emergency department visit. It is therefore important that you follow up closely with [facility], your PCP, and/or your specialist(s). Call as soon as possible for an appointment. Thank you for your time and consideration. I look forward to speaking with you again soon. Please don't hesitate to call us if you have any questions. Problem Qualifiers
--- NOTE | 2017-08-11 10:08 | DIAGNOSTIC IMAGING REPORT ---
CHEST ONE VIEW PORTABLE CLINICAL HISTORY: 62 years-old Male presenting with EVALUATE ALTERED MENTAL STATUS/WEAKNESS. TECHNIQUE: Portable upright AP view of the chest was obtained. COMPARISON: 02/16/2012. FINDINGS: Cardiomediastinal silhouette normal. No focal opacity. No large effusion or pneumothorax. Osseous structures normal. Upper abdomen normal. IMPRESSION: 1. No acute cardiopulmonary disease. Electronically signed by: Alec Green M.D. 08/11/2017 10:07 AM Dictated Date/Time: 08/11/2017 10:06 AM
[2017-08-11 10:12] VITALS: O2SAT 97
[2017-08-11 10:39] LABS: BASO % 0.3 %; BASO ABS # 0.02 K/uL (0-0.2); EOS % 0.6 %; EOS ABS # 0.04 K/uL (0-0.5); HEMATOCRIT 37.5 % (42-52); HEMOGLOBIN 13.1 g/dL (14.0-18.0); IG# 0.05 K/uL (0.00-0.02); LYMPH % 17.9 %; LYMPH ABS # 1.16 K/uL (1.2-3.4); MEAN CELL VOLUME 89.9 fL (80-100); MEAN CORPUSCULAR HEMOGLOBIN 31.4 pg (25-34); MEAN CORPUSCULAR HGB CONC 34.9 g/dl (32-36); MEAN PLATELET VOLUME 8.8 fL (7.4-10.4); MONO % 11.4 %; MONO ABS # 0.74 K/uL (0.11-0.59); NEUT ABS # 4.48 K/uL (1.4-6.5); PLATELET COUNT 200 K/uL (130-400); RED CELL DISTRIBUTION WIDTH CV 12.9 % (11.5-14.5); WHITE BLOOD COUNT 6.49 K/uL (4.8-10.8)
[2017-08-11] MEDS ORDERED: [UNRECOGNIZED DRUG - OTHER] PO (10:40)
[2017-08-11] MEDS ORDERED: GLUC1CAP33 PO (10:40)
--- NOTE | 2017-08-11 10:57 | DIAGNOSTIC IMAGING REPORT ---
HEAD WITHOUT CONTRAST (CT) CLINICAL HISTORY: 62 years-old Male presenting with EVALUATE ALTERED MENTAL STATUS/WEAKNESS, dizziness, left parietal head injury today. TECHNIQUE: Multidetector CT imaging of the head was performed without the use of intravenous contrast. IV contrast: None. A dose lowering technique was used consistent with the principles of ALARA (as low as reasonably achievable). COMPARISON: MR brain from 06/03/2017. CT DOSE (mGy.cm): The estimated cumulative dose is 614.27 mGy.cm. FINDINGS: Line Department Supervisor topogram: Unremarkable. Slight ex vacuo dilatation of the frontal horn of right lateral ventricle, unchanged. Redemonstration of cystic encephalomalacia in the inferior right frontal lobe, which is chronic dating back to at least 2008. No mass effect or midline shift. No hemorrhage or acute territorial infarct. No extra-axial fluid collection. Paranasal sinuses and mastoid air cells clear. Calvarium intact. IMPRESSION: 1. No acute intracranial abnormality. Electronically signed by: Alec Green M.D. 08/11/2017 10:56 AM Dictated Date/Time: 08/11/2017 10:51 AM
[2017-08-11 11:08] LABS: ALBUMIN 3.5 gm/dl (3.4-5.0); ALKALINE PHOSPHATASE 63 U/L (45-117); ALT/SGPT 39 U/L (12-78); AST/SGOT 23 U/L (15-37); BLOOD UREA NITROGEN 19 mg/dl (7-18); CALCIUM 8.2 mg/dl (8.5-10.1); CARBON DIOXIDE 25 mmol/L (21-32); CREATININE 0.98 mg/dl (0.60-1.40); GLUCOSE 109 mg/dl (70-99); PHOSPHORUS 3.4 mg/dl (2.5-4.9); POTASSIUM 3.8 mmol/L (3.5-5.1); SODIUM 136 mmol/L (136-145); TOTAL PROTEIN 6.8 gm/dl (6.4-8.2)
[2017-08-11 11:50] VITALS: BP 117/83; PULSE 63; O2SAT 100
== END 2017-08-11 12:30 | disposition home or self-care (01) ==
LOC: C.EDB 09:17 → C.EDA 12:30
DX: R42 Dizziness and giddiness (principal); E83.51 Hypocalcemia; D64.9 Anemia, unspecified; S00.83XA Contusion of other part of head, initial encounter; W17.81XA Fall down embankment (hill), initial encounter; K21.9 Gastro-esophageal reflux disease without esophagitis; E78.5 Hyperlipidemia, unspecified; I10 Essential (primary) hypertension; F41.9 Anxiety disorder, unspecified; F32.9 Major depressive disorder, single episode, unspecified; Z82.49 Family history of ischemic heart disease and other diseases of the circulatory system; Z79.899 Other long term (current) drug therapy

== ENCOUNTER 2023-06-09 07:12 | Inpatient (IN) ==
--- NOTE | 2023-05-19 13:06 | PAT Medication Instructions ---
Medication Instructions Date of Service May 19, 2023 Home Medications acetaminophen 500 mg tablet 500 mg PO Q8H PRN Pain celecoxib 100 mg capsule 100 mg PO BID docusate sodium 100 mg capsule (Stool Softener) 100 mg PO HS meclizine 12.5 mg tablet 12.5 mg PO TID PRN Vertigo polyethylene glycol 3350 17 gram/dose oral powder (Miralax) 17 g PO DAILY PRN Constipation ASK your surgeon for instructions celecoxib 100 mg capsule 100 mg PO BID DO NOT take the morning of surgery polyethylene glycol 3350 17 gram/dose oral powder (Miralax) 17 g PO DAILY PRN Constipation Take morning of surgery With a small sip of water, OTHERWISE NOTHING TO EAT OR DRINK AFTER MIDNIGHT: acetaminophen 500 mg tablet 500 mg PO Q8H PRN Pain (if needed) meclizine 12.5 mg tablet 12.5 mg PO TID PRN Vertigo (if needed) Take evening before surgery acetaminophen 500 mg tablet 500 mg PO Q8H PRN Pain (if needed) docusate sodium 100 mg capsule (Stool Softener) 100 mg PO HS meclizine 12.5 mg tablet 12.5 mg PO TID PRN Vertigo (if needed) polyethylene glycol 3350 17 gram/dose oral powder (Miralax) 17 g PO DAILY PRN Constipation (if needed) Other Notes If you have any questions please call us at [phone] or [phone] or [phone] or [phone]
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
[~2023-06-09 07:12] MED LIST changes: -ACET-1256 PO; +BUPIVACAINE 0.5 % 5 MG/1 ML PF 10ML VIAL ONE; -DIPH-437 PO; -DOCU100C31 PO; -LISI-461 PO; -LRS10 PO; -PANT40TA2 PO; -PXL20 PO; -ROPI0.5T PO; -ROSU5TAB PO
[2023-06-09] MEDS ORDERED: fentaNYL citrate PF 100 MCG/2 ML VIAL ONE (07:30)
[2023-06-09] MEDS ORDERED: MIDAZOLAM HCL 1 MG/ML 2ML VIAL ONE (07:30)
[2023-06-09] MEDS: ACETAMINOPHEN 500 MG TAB PO SCH ×2 (07:50→13:01)
[2023-06-09] MEDS: CeleBREX 200 MG CAP PO SCH (07:51)
[2023-06-09] MEDS: traMADol HCL 50 MG TABLET PO SCH (07:51)
[2023-06-09] MEDS: Scopolamine 1 MG TDSY TD SCH (07:51)
[2023-06-09] MEDS: dexAMETHasone**PF** 10 MG/ML VIAL IV SCH (07:51)
[2023-06-09] MEDS: FAMOTIDINE 20 MG TAB PO SCH (07:51)
[2023-06-09] MEDS: LR 60ML/HR IV SCH (07:52)
[2023-06-09] MEDS ORDERED: fentaNYL citrate PF 100 MCG/2 ML VIAL IV PRN (07:55)
[2023-06-09] MEDS ORDERED: ATROPINE SULFATE 0.1 MG/ML 10ML SYR IV PRN ×2 (07:55)
[2023-06-09] MEDS ORDERED: ePHEDrine sulfate 50 MG/ML AMP IV PRN ×2 (07:55)
[2023-06-09] MEDS ORDERED: ONDANSETRON INJ 2 MG/ML 2 ML VIAL IV PRN ×2 (07:55→10:46)
[2023-06-09] MEDS: LR 500ML BOLUS, THEN 15ML/HR IV SCH (08:19)
--- NOTE | 2023-06-09 08:33 | History & Physical Bridge Note ---
Date of Service June 09, 2023 History & Physical Bridge Note I have examined the patient, reviewed the History & Physical and in the interval since the performance of the History & Physical I have noted the following changes of clinical significance: no changes noted
[2023-06-09] MEDS: TRANEXAMIC ACID 1,000 MG **IV Pre-op IV SCH (08:36)
[2023-06-09] MEDS: ceFAZolin 2000MG 2,000 MG/15 ML SYR IV SCH ×2 (09:06→17:29)
[2023-06-09] MEDS ORDERED: LIDOCAINE 2% 2 ML VIAL/AMP(20MG/ML) INFIL ONE (09:15)
[2023-06-09] MEDS ORDERED: ONDANSETRON INJ 2 MG/ML 2 ML VIAL ONE (09:15)
[2023-06-09] MEDS ORDERED: PROPOFOL IV EMULSION 10 MG/ML 100 ML VIAL IV ONE ×2 (09:15)
[2023-06-09] MEDS: TRANEXAMIC ACID 1,000 MG **IV Intra-op IV SCH (10:07)
[2023-06-09] MEDS: ROPIV 0.5% 246mg, Ketorolac 30mg, EPINEPHrine 0.5mg in NSS INFIL SCH (10:09)
[2023-06-09] MEDS: ROPIVACAINE 0.5% HCL/PF 246 MG, Ketorolac (*for OR use only*) 30 MG, EPINEPHrine 30MG/3... INFIL SCH (10:10)
[2023-06-09] MEDS: ORTHO JOINT ANESTHETIC ONE (10:14)
[2023-06-09] MEDS ORDERED: bisacodyL 10 MG SUPP PR PRN (10:46)
[2023-06-09] MEDS ORDERED: HYDROmorphone INJ 0.5 MG/0.5 ML SYR IV PRN (10:46)
[2023-06-09] MEDS ORDERED: TAMSULOSIN HCL 0.4 MG CAP PO PRN (10:46)
[2023-06-09] MEDS ORDERED: ALUMINUM/MAGNESIUM SUSP 30 ML UDC PO PRN (10:46)
[2023-06-09] MEDS ORDERED: METOCLOPRAMIDE HCL INJ 5 MG/ML 2 ML VIAL IV PRN (10:46)
[2023-06-09] MEDS ORDERED: MAGNESIUM HYDROXIDE SUSP 30 ML UDC PO PRN (10:46)
[2023-06-09] MEDS ORDERED: NALOXONE HCL 0.4 MG/1 ML VIAL/CARP IV PRN (10:46)
[2023-06-09] MEDS ORDERED: diphenhydrAMINE 50 MG/ML VIAL IV PRN (10:46)
--- NOTE | 2023-06-09 10:46 | Operative Report ---
Post Operative Report Pre & Post Diagnosis Operation Date: 06/09/23 09:10 Pre-Op Diagnosis: Right Hip Osteoarthritis Post-Op Diagnosis: Right Hip Osteoarthritis I identified the patient and participated in the time-out.: Yes Procedure Operation Date: 06/09/23 09:10 Actual Procedures p Right Total Hip Arthroplasty(Right) - Alec Reynolds MD Surgeon Alec Reynolds MD Pot Liner Damaso Luque PA-C Estimated Blood Loss 300 Findings Consistent with Post-Op Diagnosis Specimens femoral head Description of Procedure I was present during the entire case assisting with positioning, prepping, draping, wound retraction, wound closure dressing and abduction pillow placement. No fellow present. Please see Dr. Reynolds procedure note for specifics of the case. I attest to the content of the Intraoperative Record and any orders documented therein. Any exceptions are noted below.
[2023-06-09] MEDS ORDERED: POLYETHYLENE (MIRALAX) 17 GM PACK PO PRN (10:49)
[2023-06-09] MEDS ORDERED: ACETAMINOPHEN 500 MG TAB PO PRN (10:49)
--- NOTE | 2023-06-09 10:54 | Operative Report ---
Post Operative Report Pre & Post Diagnosis Operation Date: 06/09/23 09:10 Pre-Op Diagnosis: Right Hip Osteoarthritis Post-Op Diagnosis: Right Hip Osteoarthritis I identified the patient and participated in the time-out.: Yes Procedure Operation Date: 06/09/23 09:10 Actual Procedures p Right Total Hip Arthroplasty(Right) - Alec Reynolds MD Surgeon Alec Reynolds MD Stock Layer Damaso Luque PA-C. No resident or fellow was available to assist. Estimated Blood Loss 300 Findings Consistent with Post-Op Diagnosis Specimens Right femoral head Anesthesia Type Spinal MAC Complications none Disposition Disposition: Recovery Room Indications 67-year-old male with right hip arthritis refractory to conservative management. X-rays demonstrate [id number] disease, subchondral sclerosis, and marginal osteophyte formation. I had a long discussion with him about the risks and benefits of surgery, alternatives to surgery, and expected outcomes. After reviewing all these he elected to proceed with surgery. All questions were a nswered. Informed consent was signed. Description of Procedure Patient was identified in the preoperative holding area where the surgical site, right hip, was marked. A spinal anesthetic was placed, then the patient was brought back to the main operating room, placed in the operating table and moved into the lateral decubitus position. Axillary roll was placed. All bony prominences were padded. Perioperative antibiotics and tranexamic acid 1 gram IV were administered. The operative extremity was prepped and draped in the normal sterile fashion. Prior to incision a multidisciplinary timeout was called. All in the room were in agreement. We began by making an incision for a posterior approach to the hip. We dissected down through subcutaneous tissues to the level of the fascia. The fascia was incised in line with the incision. Charnley bow was placed. Fatty tissue was reflected posteriorly off the back of the greater trochanter to expose the piriformis and short external rotators of the hip. Quadratus femoris was taken off the femur subperiosteally. The piriformis and short external rotators were dissected off the posterior aspect of the hip. A box cut was made in the capsule. Inferior hip capsule was released off the femur. The femoral head was dislocated. The femoral neck cut was made at our preoperative template. The acetabulum was then exposed. The labrum was sharply excised. Contents of the cotyloid fossa were removed with electrocautery. We then began reaming at a size 8 mm less than our preoperative template. We reamed up by 1 [address] the way up to a size 56 mm cup. This gave us good bleeding cancellus bone circumferentially. The acetabulum was then irrigated out and dried. The real Moorcroft Gription cup was then impacted down into position with 45 degrees of lateral opening and 25 degrees of anteversion. A single cancellous bone screw was placed up into the ilium. Excellent fixation was obtained. A trial liner for a 36 mm femoral head was then placed. Next we turned our attention to the femur. The lateral neck was removed with a box osteotome. Intramedullary guide was used to establish the intramedullary canal. We then broached all the way up to a size 4 Actis stem. We began trialing with a high offset neck and a +1.5 head. Hip was reduced. Leg lengths were symmetric. The hip was stable in extension and external rotation, and stable in the sleeper position. At 90 degrees of hip flexion the hip could be internally rotated 70 degrees before levering out of the cup. I was very happy with the stability exam. Therefore the hip was dislocated and the femoral trial was removed. The acetabulum was re-exposed, and the trial liner was removed. [place] hole eliminator screw was placed. An Altrx polyethylene liner for a 36 mm femoral head was then impacted into the shell. The locking mechanism was checked to ensure that it had engaged which it had. The femur was re-exposed. The femoral canal was irrigated and dried. The real size 4 high offset Actis femoral stem was opened up. This was impacted down into position. The 36 mm ceramic femoral head with +1.5 mm offset was opened up and gently impacted down onto the trunnion. The hip was atraumatically reduced. Another 1 gram of IV tranexamic acid was started prior to closure. The wound was irrigated out with sterile Betadine solution. The periarticular injection cocktail was then placed. The short external rotators, piriformis, and posterior capsule were repaired through drill holes in the greater trochanter using #2 Vicryl. The fascia was run with a looped #1 PDS. The subcutaneous layer was closed with #1 PDS. The dermal layer was closed with 2-0 Vicryl. Zip line was used for the skin followed by a Silverlon dressing. A compressive dressing was then placed. The patient was then rolled supine. Leg lengths were rechecked and were symmetric. An abduction pillow was placed. Sedation was lifted and the patient was transferred to the recovery room in stable condition. Summary of implants: Depuy Moorcroft Gription Acetabular Shell Sector Cup, 56 mm outer diameter Moorcroft Cancellous bone screw, 6.5 x 40 mm [place] hole eliminator Moorcroft Altrx Polyethylene Acetabular Liner, Neutral, with a 36 mm inner diameter DePuy Actis collared cementless Femoral stem, 12/14 taper, size 4 high offset 36 mm ceramic femoral head with +1.5 offset Postoperative course: Patient will be admitted overnight from the recovery room. Patient will be weightbearing as tolerated with posterior hip precautions. Aspirin for DVT prophylaxis. Iron supplementation for surgical blood loss anemia. I attest to the content of the Intraoperative Record and any orders documented therein. Any exceptions are noted below.
--- NOTE | 2023-06-09 11:20 | Anesthesiology Progress Note ---
Date of Service June 09, 2023 Anesthesia Post Procedure Vital Signs Vital Signs: Temp Pulse Pulse Resp BP Pulse Ox O2 Del Method 06/09/23 11:15 36.5 C 78 21 109/73 98 Room Air 06/09/23 11:05 77 16 121/78 97 Room Air 06/09/23 10:55 76 19 115/71 100 Room Air 06/09/23 10:45 36.2 C L 88 16 126/78 98 Oxymask 06/09/23 07:39 36.8 C 79 20 141/101 H 96 Room Air O2 Flow Rate 06/09/23 11:15 06/09/23 11:05 06/09/23 10:55 06/09/23 10:45 5 06/09/23 07:39 Notes Mental Status: alert / awake / arousable Patient Amnestic to Procedure: Yes Nausea / Vomiting: adequately controlled Pain: adequately controlled Airway Patency, RR, SpO2: stable & adequate BP & HR: stable & adequate Hydration State: stable & adequate Neuraxial Anesthesia: was administered and sensory block is resolving Anesthetic Complications: no major complications apparent
[2023-06-09] MEDS: SODIUM CHLORIDE 0.9% 1,000 ML IV SCH (12:15)
[2023-06-09] MEDS: Scopolamine CHECK PATCH PLACEMENT SCH (13:01)
[2023-06-09] MEDS: KETOROLAC TROMETHAMINE 15 MG/ML VIAL IV SCH (13:02)
--- NOTE | 2023-06-09 13:47 | XRay Report ---
SINGLE VIEW PELVIS CLINICAL HISTORY: Postoperative examination. FINDINGS: An AP view of the pelvis is compared to study dated 05/27/2023. The skeletal structures are o steopenic. A bipolar right hip arthroplasty is in near anatomic alignment. A single cortical lag scre w transfixes the acetabular cup. No acute fracture is seen. Mild arthritic change is noted in the lef t hip. Bony overgrowth and sclerotic change is seen in the pubic symphysis. Subcutaneous gas and soft tissue edema overlying the right hip are expected postsurgical findings. Phleboliths are seen in the pelvis. IMPRESSION: Expected postoperative findings status post right hip arthroplasty. No acute fracture is seen. Electronically signed by: Steven Ch M.D. 06/09/2023 1:45 PM
--- OUTSIDE RECORDS SUMMARY | 2023-06-09 16:25 | External Medical Summary | Continuity of Care Document ---
Author Name Unknown Organization [address] Address [address] [place] [address] [phone] Care Team Providers Care Software Test Technician Name Role Phone Renee Galan Primary Care Physician [phone] [facility]counter [facility] [id number] Date(s): 05/31/23 - 05/31/[address] [place] [address], [address] [place] [address] [place] [phone] Encounter Diagnosis Body mass index [BMI] 24.0-24.9, adult(Discharge Diagnosis) - 05/31/23 Pre-op exam(Discharge Diagnosis) - 05/31/23 Urinary disorder(Discharge Diagnosis) - 05/31/23 Encounter for other preprocedural examination(Final) - Discharge Disposition: Home or Self Care Attending Physician: DO Galan Kristen M Allergies, Adverse Reactions, Alerts No Known Allergies Assessment and Plan Extracted from: Title:Office Visit Note Author:DO Galan Kriste n M Date:05/31/23 1.Pre-op exam -Benefit >risk -labs reviewed -EKG normal -UC ordered and here -I would strongly encourage care coordination for inpatient rehab even if for a couple days patient has very little support at home. BP recheck 140/80--will continue to follow no change as of now Immunizations Given and Recorded Vaccine Date Status Refusal Reason influenza virus vaccine, inactivated 12/14/22 Abelardo rded influenza virus vaccine, inactivated 1 12/07/21 Gi jessica influenza virus vaccine, inactivated 2 11/18/20 Re corded influenza virus vaccine, inactivated 12/03/19 Abelardo rded influenza virus vaccine, inactivated 3 12/22/18 Gi jessica influenza virus vaccine, inactivated 12/02/17 Give n influenza virus vaccine, inactivated 4 11/15/16 Re corded influenza virus vaccine, inactivated 12/05/15 Give n influenza virus vaccine, inactivated 12/19/14 Give n influenza virus vaccine, inactivated 12/12/13 Give n influenza virus vaccine, inactivated 01/04/13 Give n influenza virus vaccine, inactivated 12/16/11 Give n SARS-CoV-2 (COVID-19) mRNA-1273 vaccine 5 06/20/21 Recorded SARS-CoV-2 (COVID-19) mRNA-1273 vaccine 6 01/12/21 Recorded SARS-CoV-2 (COVID-19) mRNA-1273 vaccine 05/16/20 R ecorded SARS-CoV-2 (COVID-19) mRNA-1273 vaccine 7 04/18/20 Recorded zoster vaccine, inactivated 8 07/09/20 Recorded zoster vaccine, inactivated 9 02/29/20 Recorded tetanus/diphtheria/pertuss, acel (Tdap) 10 06/03/20 Given tetanus/diphtheria/pertuss, acel (Tdap) 12/03/19 R ecorded tetanus/diphtheria/pertuss, acel (Tdap) 03/21/14 R ecorded tetanus/diphtheria/pertuss, acel (Tdap) 11 03/21/14 Recorded tetanus/diphtheria/pertuss, acel (Tdap) 02/13/07 R ecorded pneumococcal 23-valent vaccine 12/03/19 Recorded zoster vaccine live 06/10/16 Recorded zoster vaccine live 12 06/09/16 Recorded 1Result Comment: Zakia Espinoza CMA 2Result Comment: [facility] 3Early/Late Reason: Patient Not Available/Off Unit 4Result Comment: [11/16/2016] given at [facility] 5Result Comment: 2021-09-08: Historical information-source unspecified 6Result Comment: 2021-09-08: Historical information-source unspecified 7Result Comment: 2020-04-24: Historical information-source unspecified 8Result Comment: 2020-09-03: Historical information-source unspecified 9Result Comment: 2020-04-24: Historical information-source unspecified 10Result Comment: Kelly Guthrie LPN 11Result Comment: 2020-04-24: Historical information-source unspecified 12Result Comment: 2020-04-24: Historical information-source unspecified Medications celecoxib 100 mg oral capsule Start: 03/28/23 19:22:00 EST, See Instructions, Disp# 60 cap, Refills: 0, TAKE 1 CAPSULE BY MOUTH TWICE DAILY WITH FOOD, Pharmacy: [facility] Start Date: 03/28/23 Status: Ordered Colace Start: 10/29/21 9:16:00 EDT, 50 mg =, 1 softgel at night Start Date: 10/29/21 Status: Ordered meclizine 12.5 mg oral tablet Start: 12/08/22 11:28:00 EDT, See Instructions, Disp# 100 tab, Refills: 3, TAKE 1 TABLET BY MOUTH EVERY 8 HOURS NEEDED FOR DIZZINESS, Pharmacy: [facility] [address] Start Date: 12/08/22 Status: Ordered MiraLax oral powder for reconstitution Start: 09/18/19 7:43:00 EDT, 17 g =, PO, Daily Start Date: 09/18/19 Status: Ordered PARoxetine 20 mg oral tablet Start: 05/27/23 9:58:00 EST, See Instructions, Disp# 90 tab, Refills: 3, Take 1 tablet by mouth once daily, Pharmacy: [facility] Start Date: 05/27/23 Status: Ordered rosuvastatin 10 mg oral tablet Start: 03/17/23 14:36:00 EST, See Instructions, Disp# 90 tab, Refills: 3, Take 1 tablet by mouth once daily, Pharmacy: [facility] [address] Start Date: 03/17/23 Status: Ordered Tylenol 500 mg oral tablet Start: 07/16/13 9:30:00, 1 tab, PO, q6h, PRN: as needed for pain Start Date: 07/16/13 Status: Ordered Voltaren 1% topical gel Start: 07/07/21 8:15:00 EDT, 4 g =, topical, qid, Disp# 100 g, Refills: 1, not to exceed 16 grams/day/single joint of lower extremities, Pharmacy: [facility] [address] Start Date: 07/07/21 Status: Ordered Mental Status 05/31/23 Barriers to Learning one year None evide nt Mandatory Health Literacy Documentation Yes Health Literacy Communication Barriers N ever Primary Language Belarusian Problem List Condition Confirmation Course Effective Dates Status H ealth Status Informant Overactive bladder Confirmed Active C1 cervical fracture 1 Confirmed 09/18/01 Active C2 cervical fracture Confirmed Active Closed fracture of symphysis pubis Confirmed Active Frontal lobe dementia Confirmed Active DEPRESSION Confirmed Active Depression Confirmed Active Foot joint disorder Confirmed Active Urinary disorder Confirmed Active Dizziness Confirmed Active Vision changes Confirmed Active Frontotemporal dementia Confirmed Active GERD (gastroesophageal reflux disease) Confirmed Active DINORAH (generalized anxiety disorder) Confirmed Active Greater trochanteric bursitis of right hip Confirmed Active Decreased hearing of left ear Confirmed Active H/O fall Confirmed Active HTN (hypertension) Confirmed Active Hyperlipidemia Confirmed Active HYPERTENSION Confirmed Active Loss of balance Confirmed Active Iron deficiency Confirmed Active Hypotension Confirmed Active Memory loss Confirmed Active Osteoarthritis of right hip Confirmed Active Pre-op exam Confirmed Active RLS (restless legs syndrome) Confirmed Active Sacroiliitis Confirmed Active Seizures 2 Confirmed Active Esophageal ulcer Confirmed Active Vertigo Confirmed Active 1s/p fall 2s/p frontal contusion Diagnosis Diagnosis Type Effective Dates Health Status Cl inical Service Informant Body mass index [BMI] 24.0-24.9, adult Discharge Diagnosis 05/31/23 Non-Specified Pre-op exam Discharge Diagnosis 05/31/23 Urinary disorder Discharge Diagnosis 05/31/23 Procedures Procedure Date Related Diagnosis Body Site Status Colonoscopy 1 02/04/22 Completed Colonoscopy 02/11/21 Completed X-ray of cervical spine 2 05/25/19 Completed Plain X-ray of left and righ t shoulder 3 04/10/19 Completed Hip X-ray 4 09/11/18 Completed Colonoscopy and biopsy of colon 5 07/05/18 Completed Colonoscopy 6, 7 09/09/16 Complete d Visceral Arterial Duplex 8 11/03/15 Completed Colonoscopy 9, 10, 11 10/03/15 Com pleted Esophagogastroduodenoscopy 12, 13 10/03/15 Completed Repair of tendon left thumb 14 07/14/15 Completed Injection of sacroiliac joint 01/22/15 Completed CTR - Carpal tunnel release 15 07/04/14 Completed Colposcopy 08/21/13 Completed cataract right eye 12/26/12 Comple chelita XR Left Wrist 16 11/29/12 Complete d Nose fracture 12/2008 Completed ORIF C2 17 10/19/01 Completed Neck fracture 2001 Completed Elbow fracture 18 Complet ed 1One 4 mm polyp in the ascending colon, removed with a cold snare. Resceted and retrieved. Non bleeding internal hemorrohoids. 2IMPRESSION: 1. No acute cervical spinal fracture or subluxation 2. Status post C2 internal fixation. Unchanged postoperative appearance. 3. Moderate multilevel degenerative disc disease and facet arthrosis within the cervical spine. 3impression: no change in mild degenerative chanes within the right shoulder. no fractures. 4XR hip RT 2-3V w pelvis IMPRESSION: No acute fractures Moerate osteoarthritic changes 5To return for re-evaution in June 2021 6await path results. 7fragments of tubular adenoma; repeat in 3 years 8The abdominal aorta is patent and within normal limits: No aneurysm or stenosis identified. No evidence of stenosis in the celiac, hepatic, splenic, superior mesenteric or inferior mesentericarteries. The splenic and superior mesentereic veins are patent with normal flow No significant stenosis of the bilateral proximal renal arteries 91. Severe degree of ischemic colitis involving sigmoid, descending colon, and splenic flexure area.Multiple biopsies obtained. 2. Mild degree of internal hemorrhoids. 7. Preparation suboptimal. 10Pathology results: Descending colon, biopsy--Colonic mucosa wiht chronic ischemic colitis and mild regenerative atypia. Separate fragments of necroinflammatory debris. See note. Note: The clinical impression of ischemic colitis is noted. 11Repeat in 2023 121. Linear esophageal ulcer. 2. Distal reflux esophagitis. 3. Small sliding hiatus hernia. 4 Mild degree of gastritis, biopsied obtained. 13Pathology results: Stomach, antrum, biopsy--Antral mucosa with no significant histopathologic change. See note. Note: Wathin-starry stain is negative for infectious microorganisms 14pinning of the interphlangeal joint of left thumb and repair of zone 2 extensor hallucis longus tendon laceration 15Dr Will performed [facility] 17s/p fall 18right, as a teen Results Orders for Microbiology Reports Name Date Urine Culture (CULTURE, URINE) 05/31/23 Microbiology Reports TEST:Urine.Cx STATUS:Auth (Verified) BODY SITE: SOURCE:Urine COLLECTED DATE/TIME:05/31/23 11:44 AM Status FINAL 06/02/2023 Vital Signs Most recent to oldest [Reference Range]: 1 Height 173.5 cm (05/31/23 11:06 AM) Patient Weight 75.1 kg (05/31/23 11:06 AM) Body Mass Index 24.95 kg/m2 (05/31/23 11:06 AM) Temperature [36.5-37.9 DegC] 35.8 DegC *LOW* (05/31/23 11:06 AM) Heart Rate 74 bpm (05/31/23 11:06 AM) Blood Pressure 160/100mmHg (05/31/23 11:06 AM) Cuff Pulse Pressure 60 mmHg (05/31/23 11:06 AM) Social History Social History Type Response Smoking Status Never smoked cigaret idalmis Sex Male FCM Outpt Note * DO Galan Kristen M: PERFORM, MODIFY Event Display: FCM Outpt Note Authored Date: [id number] Chief Complaint Preop right hip replacement 06/09/23. History of Present Illness Pt presents for pre-op for right hip replacement. HE states his only problem is right hip pain. He had his labs and ekg done at hospital. There was issues with the UC and will repeat here. Review of Systems Review of Systems: Consitutional: No weight loss of significance, no weight gain of significance. Denies fever, insomnia, frequent headaches or fatigue. Eyes: Denies visual change, diplopia, blurred vision, redness, dry eyes, allergic eye irritation Ears: Denies hearing acuity decrease. Denies exposure to loud sounds. Denies tinnitus. Deneisdischarge. Nose: Denies allergies, rhinitis, postnasal drip, nasal polyps, sinus disease or nasal congestion. Denies nosebleeds. Mouth: Denies sore throat, bleeding, non-healing sores, tongue dysfunction or salivary gland dysfunction. Respiratory: Denies history of asthma, wheezing, shortness of breath, persistent cough or mucous production. Cardiovascular: Denies elevated blood pressure, arrhythmia, palpitations, chest pain or shortnessof breath. Gastrointestinal: Denies nausea, heartburn, vomiting, hematemesis, constipation, diarrhea, mucousproduction, melena, hematochezia or abdominal pain. Musculoskeletal: Denies muscular pain Denies muscle spasm, twitching, weakness or palpitations. Integumentary: Denies history of skin cancer. Denies excessive sun exposure. Denies no new moles or skin changes. Lymphatic: Denies new swelling of joints or lymph nodes. Endocrine: Denies thyroid difficulties or neck enlargement. Neurological: Denies paralysis, muscular weakness, dysaesthesia, gait troubles. Psychiatric: Denies mood swings, depressive symptoms, suicidal ideation. Physical Exam Vitals & Measurements T:35.8C HR:74(Monitored) BP:160/100 SpO2:97% HT:173.5cm WT:75.1kg WT:75.100kg(Dosing) BMI:24.95 PHQ2 Data(Data Documented on:05/31/2023 11:05) Emotional health assessment NEGATIVE G: AAAOx3, NAD H: RR normal S1/S2 no M/R/G L: CTA b/l no r/r/w HEENT: external ear canal and TM wnl, oral mucosa moist, no lymphadenopathy A: soft +bs nt nd E: no c/C/E b/l, pos distal pulses P: normal affect and insight, no homicidal/suicidal ideation n: cn2-12 intact no focal deficit Images Labs and EKG from 05/27/23 Assessment/Plan 1.Pre-op exam -Benefit >risk -labs reviewed -EKG normal -UC ordered and here -I would strongly encourage care coordination for inpatient rehab even if for a couple days patienthas very little support at home. BP recheck 140/80--will continue to follow no change as of now Attestation I spent4 mintime in previsit planning including prepping note and chart review . I spent24 time in face to face interaction with patient concerning the issues that brought them in today. 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 DINORAH (generalized anxiety disorder) GERD (gastroesophageal reflux disease) Greater trochanteric bursitis of right hip H/O fall HTN (hypertension) Hyperlipidemia HYPERTENSION Hypotension Iron deficiency Loss of balance Memory loss Osteoarthritis of right hip Overactive bladder Pre-op exam RLS (restless legs syndrome) Sacroiliitis Seizures Vertigo Vision changes Historical Arm numbness Back pain Bilateral carpal tunnel syndrome Blood urea abnormal Bug bite Cataracts, bilateral Cervical ca Cold right foot Constipation Contusion of wrist Procedure/Surgical History Colonoscopy| Service Date: 02/04/2022olonoscopy| Service Date: 02/11/2021X-ray of cervical spine| Service Date: 05/25/2019Plain X-ray of left and right shoulder| Service Date: 04/10/2019Hip X-ray| Service Date: 09/11/2018Colonoscopy and biopsy of colon| Service Date: 07/05/2018 Colonoscopy| Service Date: 09/09/2016Visceral Arterial Duplex| Service Date: 11/03/2015Colonoscopy| Service Date: 10/03/2015Esophagogastroduodenoscopy| Service Date: 10/03/2015Repair of tendon left thumb| Service Date: 07/14/2015Injection of sacroiliac joint| Service Date: 01/22/2015CTR - Carpal tunnel release| Service Date: 07/04/2014Colposcopy| Service Date: 08/21/2013cataract right eye| Service Date: 12/26/2012XR Left Wrist| Service Date: 11/29/2012Nose fracture| Service Date: 12/2008ORIF C2| Service Date: 10/19/2001Neck fracture| Service Date: 2001Elbow fracture Medications acetaminophen(Tylenol 500 mg oral tablet), 1 tab, PO, q6h, PRN celecoxib(celecoxib 100 mg oral capsule), See Instructions diclofenac topical(Voltaren 1% topical gel), 4 g, topical, qid, 1 refills docusate(Colace), 50 mg meclizine(meclizine 12.5 mg oral tablet), See Instructions, 3 refills PARoxetine(PARoxetine 20 mg oral tablet), See Instructions, 3 refills polyethylene glycol 3350(MiraLax oral powder for reconstitution), 17 g, PO, Daily rosuvastatin(rosuvastatin 10 mg oral tablet), See Instructions, 3 refills Allergies NKA Social History Smoking Status Never smoked cigarettes Substance Abuse - Denies Substance Abuse Tobacco - Denies Tobacco Use Use:Never smoker Family History Heart attack: Father. Heart disease: Unknown. Health Status Family Member(s) Family Member(s) Relationship: Father, Age: 70 Years Immunizations Vaccine Date Status influenza virus vaccine, inactivated 12/14/2022 Recorded influenza virus vaccine, inactivated 12/07/2021 Given Comments : Zakia Espinoza, [facility] SARS-CoV-2 (COVID-19) mRNA-1273 vaccine 06/20/2021 Recorded Comments : 2021-09-08: Historical information-source unspecified SARS-CoV-2 (COVID-19) mRNA-1273 vaccine 01/12/2021 Recorded Comments : 2021-09-08: Historical information-source unspecified influenza virus vaccine, inactivated 11/18/2020 Recorded Comments : gisel pederson zoster vaccine, inactivated 07/09/2020 Recorded Comments : 2020-09-03: Historical information-source unspecified tetanus/diphtheria/pertuss, acel (Tdap) 06/03/2020 Given Comments : Kelly Guthrie LPN SARS-CoV-2 (COVID-19) mRNA-1273 vaccine 05/16/2020 Recorded SARS-CoV-2 (COVID-19) mRNA-1273 vaccine 04/18/2020 Recorded Comments : 2020-04-24: Historical information-source unspecified zoster vaccine, inactivated 02/29/2020 Recorded Comments : 2020-04-24: Historical information-source unspecified tetanus/diphtheria/pertuss, acel (Tdap) 12/03/2019 Recorded pneumococcal 23-valent vaccine 12/03/2019 Recorded influenza virus vaccine, inactivated 12/03/2019 Recorded influenza virus vaccine, inactivated 12/22/2018 Given Comments : Patient Not Available/Off Unit influenza virus vaccine, inactivated 12/02/2017 Given influenza virus vaccine, inactivated 11/15/2016 Recorded Comments : [11/16/2016] given at [facility] zoster vaccine live 06/10/2016 Recorded zoster vaccine live 06/09/2016 Recorded Comments : 2020-04-24: Historical information-source unspecified influenza virus vaccine, inactivated 12/05/2015 Given influenza virus vaccine, inactivated 12/19/2014 Given tetanus/diphtheria/pertuss, acel (Tdap) 2014 Recorded tetanus/diphtheria/pertuss, acel (Tdap) 03/21/2014 Recorded Comments : 2020-04-24: Historical information-source unspecified influenza virus vaccine, inactivated 12/12/2013 Given influenza virus vaccine, inactivated 01/04/2013 Given influenza virus vaccine, inactivated 12/16/2011 Given tetanus/diphtheria/pertuss, acel (Tdap) 02/13/2007 Recorded Recommendations Health Maintenance Pending(in the next year) OverDue Medicare Annual Wellness Visit due04/13/23and every 1year Due Adult Social Determinants of Health Screening due05/31/23Unknown Frequency Falls Plan of Care due05/31/23Unknown Frequency Hepatitis C Screening due05/31/23One-time only Due In Future Adult Influenza Vaccine not due until09/18/23and every 1year Satisfied(in the past 1 year) Satisfied Adult Influenza Vaccine on12/14/22.Satisfied by SUSHANT Espinoza Donna Body Mass Index on05/31/23.Satisfied by KORY Wiggins Angela Lipid Screening on06/18/22.Satisfied by Contributor_system, [email or web address] Electronic Signature on File Electronically Reviewed/Signed by: Renee Galan DO Author Signature Dt/Tm:05/31/2023 11:47 AM Department of Family Medicine Electronically Reviewed/Signed by: Renee Galan DO Cosigner Signature Dt/Tm: 05/31/2023 12:28 PM Department of Family Medicine [facility] Patient Care team information Care Team Personnel Name: DO Galan Kristen M Position: Physician - Family Med Member Role: Primary Care Provider Address: Address: [address] [place] [address] Name: Matthew Benites Joy Position: Pharmacist Schedule II Member Role: Pharmacy - Lifetime Care Team Related Persons Name: YENI SOOD Address: home No Address Provided"
[2023-06-09] MEDS: oxyCODONE HCL IR 5 MG TAB (IMMEDIATE RELEASE) PO PRN (16:57)
[2023-06-09] MEDS: FERROUS GLUCONATE 324 MG TAB PO SCH (17:29)
[2023-06-09] MEDS: DOCUSATE SODIUM 100 MG CAP PO SCH (20:22)
[2023-06-09] MEDS: SENNA 8.6 MG TAB PO SCH (20:22)
[2023-06-09] MEDS ORDERED: CELECOXIB 100 MG CAP PO SCH (21:00)
[2023-06-09] MEDS ORDERED: DOCUSATE SODIUM 100 MG CAP PO SCH (21:00)
[2023-06-10 07:02] LABS: Basophils # (auto) 0.02 K/uL (0.00-0.20); Basophils % (auto) 0.2 %; Hematocrit (blood only) 29.8 % (42.0-52.0); Hemoglobin 10.2 g/dl (14.0-18.0); Immature Granulocytes # (auto) 0.05 K/uL (0.01-0.20); Immature Granulocytes % (auto) 0.4 %; Lymphocytes # (auto) 1.22 K/uL (1.20-3.40); Lymphocytes % (auto) 9.7 %; Mean Corpuscular Hemoglobin 31.6 pg (25.0-34.0); Mean Corpuscular Hgb Conc 34.2 g/dL (32.0-36.0); Mean Corpuscular Volume 92.3 fL (80.0-100.0); Mean Platelet Volume 9.8 fL (9.4-12.4); Monocytes # (auto) 1.42 K/uL (0.11-0.59); Monocytes % (auto) 11.3 %; Neutrophils # (auto) 9.84 K/uL (1.40-6.50); Neutrophils % (auto) 78.4 %; Platelet Count 153 K/uL (130-400); RDW Coefficient of Variation 12.8 % (11.5-14.5); RDW Standard Deviation 43.2 fL (36.4-46.3); Red Blood Count 3.23 M/uL (4.70-6.10); White Blood Count 12.55 K/ul (4.8-10.8)
[2023-06-10 07:29] LABS: BUN Creatinine Ratio 20.7 (10-20); Calcium 8.7 mg/dl (8.6-10.3); Est GFR (African American) 74.1 ml/min; Est GFR (Non-African American) 63.9 ml/min
[2023-06-10] MEDS: ASPIRIN 81 MG ECTAB PO SCH (09:18)
[2023-06-10] MEDS: MULTIVITAMIN TAB PO SCH (09:18)
[2023-06-10] MEDS: dexAMETHasone 4 MG TAB PO SCH (09:19)
--- NOTE | 2023-06-10 09:42 | Orthopedic Progress Note ---
Date of Service June 10, 2023 Assessment & Plan (1) S/P total hip arthroplasty: Plan: PT/OT Total hip precautions reviewed Pain controlled p.o. medication DVT prophylaxis with aspirin and EMILEE stockings Keep Silverlon dressing in place Ice with easy wrap Abduction pillow use x 6 weeks Weightbearing as tolerated with walker assistance Plan is to discharge to a rehab or nursing home facility for rehab for the first 2 weeks postoperatively Follow-up at [facility] orthopedics as previously scheduled. With questions contact our clinic at [phone] Admission and Anticipated Discharge Date Admission Date: June 09, 2023 Subjective This 67-year-old male is day 1 status post right total hip arthroplasty. Patient states that he is doing very well this morning. He states that his pain is well-controlled with the medication he has been given. Patient states that he would like to go to a rehab facility, preferably [facility]. He lives alone and states that we discussed placement at his preoperative visit for at least the first 2 weeks for rehab. After speaking with case management they state that most likely [facility] will not accept him and he will need to go to another place for rehab. Case management states that the patient will most likely need to stay over the weekend before they can find placement for him. Currently he denies chest pain, shortness of breath, fever, chills, sweats or numbness or tingling in his right lower extremity. He also denies nausea, vomiting, diarrhea or difficulty voiding. Review of Systems Review of Systems: All systems reviewed & are unremarkable except as noted in Subjective Physical Exam Physical Exam: Right hip: Outer dressing was removed. Silverlon is clean dry and intact and left in place. Patient is able to perform active straight leg raise test. He is able to actively dorsi and plantarflex foot without issue. His quad strength is 4 out of 5. He tolerates light passive hip flexion near 90 degrees and only experiences a slight clicking sensation with light passive internal and external hip rotation. He has no pain with logroll testing. He is neurovascularly intact. Results & Data Vital Signs (Past 12 Hours) Vital Signs Temp Pulse Resp BP Pulse Ox O2 Del Method 06/10/23 07:05 36.9 C 84 18 151/86 H 97 Room Air 06/10/23 03:27 36.6 C 64 18 161/91 H 98 Room Air 06/09/23 22:52 36.5 C 71 16 135/81 96 Room Air Diagnostic Findings Laboratory Results WBC 12.55 K/ul (4.8-10.8) H 06/10/23 06:37 RBC 3.23 M/uL (4.70-6.10) L 06/10/23 06:37 Hgb 10.2 g/dl (14.0-18.0) L 06/10/23 06:37 Hct 29.8 % (42.0-52.0) L 06/10/23 06:37 MCV 92.3 fL (80.0-100.0) 06/10/23 06:37 MCH 31.6 pg (25.0-34.0) 06/10/23 06:37 MCHC 34.2 g/dL (32.0-36.0) 06/10/23 06:37 RDW Std Deviation 43.2 fL (36.4-46.3) 06/10/23 06:37 RDW Coeff of Jeffy 12.8 % (11.5-14.5) 06/10/23 06:37 Plt Count 153 K/uL (130-400) 06/10/23 06:37 MPV 9.8 fL (9.4-12.4) 06/10/23 06:37 Immature Gran % (Auto) 0.4 % 06/10/23 06:37 Neut % (Auto) 78.4 % 06/10/23 06:37 Lymph % (Auto) 9.7 % 06/10/23 06:37 Towns % (Auto) 11.3 % 06/10/23 06:37 Eos % (Auto) 0.0 % 06/10/23 06:37 Baso % (Auto) 0.2 % 06/10/23 06:37 Neut # (Auto) 9.84 K/uL (1.40-6.50) H 06/10/23 06:37 Lymph # (Auto) 1.22 K/uL (1.20-3.40) 06/10/23 06:37 Towns # (Auto) 1.42 K/uL (0.11-0.59) H 06/10/23 06:37 Eos # (Auto) 0.00 K/uL (0.00-0.50) 06/10/23 06:37 Baso # (Auto) 0.02 K/uL (0.00-0.20) 06/10/23 06:37 Immature Gran # (Auto) 0.05 K/uL (0.01-0.20) 06/10/23 06:37 Sodium 138 mmol/L (136-145) 06/10/23 06:37 Potassium 4.0 mmol/L (3.5-5.1) 06/10/23 06:37 Chloride 107 mmol/L (98-107) 06/10/23 06:37 Carbon Dioxide 25 mmol/L (21-32) 06/10/23 06:37 Anion Gap 6 (3-11) 06/10/23 06:37 BUN 24 mg/dl (6-23) H 06/10/23 06:37 Creatinine 1.16 mg/dl (0.6-1.4) 06/10/23 06:37 Est Cr Clr Drug Dosing 51.0 ml/min 06/10/23 06:37 Est GFR ( Amer) 74.1 ml/min 06/10/23 06:37 Est GFR (Non-Af Amer) 63.9 ml/min 06/10/23 06:37 BUN/Creatinine Ratio 20.7 (10-20) H 06/10/23 06:37 Glucose 101 mg/dl (70-99(Fasting)) H 06/10/23 06:37 Calcium 8.7 mg/dl (8.6-10.3) 06/10/23 06:37 Impressions Pelvis X-Ray 06/09/23 10:46 SINGLE VIEW PELVIS CLINICAL HISTORY: Postoperative examination. FINDINGS: An AP view of the pelvis is compared to study dated 05/27/2023. The skeletal structures are osteopenic. A bipolar right hip arthroplasty is in near anatomic alignment. A single cortical lag screw transfixes the acetabular cup. No acute fracture is seen. Mild arthritic change is noted in the left hip. Bony overgrowth and sclerotic change is seen in the pubic symphysis. Subcutaneous gas and soft tissue edema overlying the right hip are expected postsurgical findings. Phleboliths are seen in the pelvis. IMPRESSION: Expected postoperative findings status post right hip arthroplasty. No acute fracture is seen. Electronically signed by: Steven Ch M.D. 06/09/2023 1:45 PM
[2023-06-10] MEDS: MECLIZINE 12.5 MG TAB PO PRN (13:28)
[2023-06-10] MEDS: CeleBREX 200 MG CAP PO SCH (19:20)
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
[2023-06-11] MEDS: LORazepam 0.5 MG TAB PO STA (02:10)
[2023-06-11 05:51] LABS: Basophils # (auto) 0.01 K/uL (0.00-0.20); Basophils % (auto) 0.1 %; Hematocrit (blood only) 29.9 % (42.0-52.0); Hemoglobin 10.7 g/dl (14.0-18.0); Immature Granulocytes # (auto) 0.08 K/uL (0.01-0.20); Immature Granulocytes % (auto) 0.6 %; Lymphocytes # (auto) 1.56 K/uL (1.20-3.40); Lymphocytes % (auto) 11.6 %; Mean Corpuscular Hemoglobin 32.4 pg (25.0-34.0); Mean Corpuscular Hgb Conc 35.8 g/dL (32.0-36.0); Mean Corpuscular Volume 90.6 fL (80.0-100.0); Mean Platelet Volume 9.9 fL (9.4-12.4); Monocytes # (auto) 1.45 K/uL (0.11-0.59); Monocytes % (auto) 10.8 %; Neutrophils # (auto) 10.38 K/uL (1.40-6.50); Neutrophils % (auto) 76.9 %; Platelet Count 158 K/uL (130-400); RDW Standard Deviation 42.5 fL (36.4-46.3); White Blood Count 13.48 K/ul (4.8-10.8)
[2023-06-11 06:06] LABS: Albumin Globulin Ratio 1.7 (0.9-2); Albumin Level 3.8 gm/dl (3.4-5.0); BUN Creatinine Ratio 28.4 (10-20); Calcium 8.8 mg/dl (8.6-10.3); Creatinine Clr Calc Pharmacy 67.3 ml/min; Est GFR (African American) 101.6 ml/min; Est GFR (Non-African American) 87.6 ml/min; Globulin 2.2 gm/dl (2.5-4.0); Potassium 3.8 mmol/L (3.5-5.1)
--- NOTE | 2023-06-11 10:35 | Hospitalist Progress Note ---
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 Has had waxing and waning periods of confusion since admission, but symptoms worsening in the past day 06/09 --> Review of medications he was given Oxycodone 5mg in the morning hours followed by 10mg dose around 13:48 prior to having worsening mental status Overnight team consulted for increased confusion, placement of soft limb restraints for safety Was provided atovan 0.5mg PO x 1 Patient was alert to self/place but not events, appears to be clearing some Would AVOID further benzodiazepines however to prevent worsened confusion Suspect restraint also causing him increased agitation and hopefully able to dc this evening off meds Continue tylenol 1gm q8h as ordered by primary Avoid opiates Delirium prevention strategies, can add melatonin HS prn for sleep CXR obtained, no focal consolidation or pulm edema/atelectasis, 97% on RA Is incontinent at baseline given FTD however attempt UA/cx w/ condom cath as able, may need to st cath. WBC elevated but ?2nd stress/reactive. +BS on exam but no BM. Bowel regimen per primary could consider low dose zyprexa or seroquel if needed as recommended by UTD for tx of agitation in patients w/ frontotemporal dementia Monitor on repeat exams (2) S/P total hip arthroplasty: Plan: POD#2 s/p RIGHT DARIEL Dr Reynolds on 06/08, post op management per primary service. DVT proph w/ ASA 81mg BID. Needing rehab placement at dc avoid opiates as above but would also avoid benzodiazepines could consider low dose zyprexa or seroquel if needed but would hold off benzos/opiates as able. continue tylenol as needed for pain/fever Plan Thank you for allowing hospitalist service to participate in the care of Mr Gallegos Please call with any questions/concerns. Admission and Anticipated Discharge Date Admission Date: June 10, 2023 Supervising Physician Co-Signing Physician Notes The patient was not seen by me. The chart was reviewed. Case discussed with HEIDY Jackson. Agree with assessment and plan Subjective BRIDGE NOTE: Patient evaluated this morning. Hospitalist service consulted last night and seen this morning for concerns for confusion above his baseline. Patient w/ hx frontotemporal dementia at baseline and is alert to person/place but not year or event at present time but does report he has some hip pain from surgery with trying to move around/stand on it. Currently trying to get himself repositioned in bed but unable due to restraints. Opiates have been held further -- he had gotten 5mg twice yesterday in am and additional 10mg dose in afternoon prior to confusion worsening. Holding off further for now. Overnight team provided dose of lorazepam but will hold off further benzos especially given his underlying dementia at baseline RN to obtain urine for examination, does have incontinence at baseline will attempt w/ condom cath. CXR to be obtained to eval for any aspiration overnight contributing given borderline temp but no documented true elevation given WBC elevation and no additional steroids provided. Will hopefully able to discontinue restraints this afternoon as medication wearing off, continue tylenol 1gm q8h for pain control in the meantime. Physical Exam Physical Exam: General 67 yo male attempting to get himself comfortable in bed, moving all extremities, reports he is in the hospital but not alert to events however knows he had hip done/pain at times but not needing anything but repositioned, restraint w/ soft limb RUE HEENT; head atraumatic,normocephalic, mmm Resp: diminished in the bases, no w/c/r, on room air CV: RRR, no significant mrg, no pitting edema/calf tenderness GI: +BS, soft/NT GI: no barrera, bedding is wet with urine MSK/Neuro: dressing to R hip c/d/i, slight redness around incision, ?irritation, minimal edema, slightly tender to palpation Psych: AO to person/place, not year - cooperative with care Results & Data Results & Data Vital Signs (Past 12 Hours) 06/11/23 Range/Units 05:38 WBC 13.48 H (4.8-10.8) K/ul RBC 3.30 L (4.70-6.10) M/uL Hgb 10.7 L (14.0-18.0) g/dl Hct 29.9 L (42.0-52.0) % MCV 90.6 (80.0-100.0) fL MCH 32.4 (25.0-34.0) pg MCHC 35.8 (32.0-36.0) g/dL RDW Std Deviation 42.5 (36.4-46.3) fL RDW Coeff of Jeffy 13.0 (11.5-14.5) % Plt Count 158 (130-400) K/uL MPV 9.9 (9.4-12.4) fL Immature Gran % (Auto) 0.6 % Neut % (Auto) 76.9 % Lymph % (Auto) 11.6 % [place] % (Auto) 10.8 % Eos % (Auto) 0.0 % Baso % (Auto) 0.1 % Neut # (Auto) 10.38 H (1.40-6.50) K/uL Lymph # (Auto) 1.56 (1.20-3.40) K/uL [place] # (Auto) 1.45 H (0.11-0.59) K/uL Eos # (Auto) 0.00 (0.00-0.50) K/uL Baso # (Auto) 0.01 (0.00-0.20) K/uL Immature Gran # (Auto) 0.08 (0.01-0.20) K/uL Sodium 136 (136-145) mmol/L Potassium 3.8 (3.5-5.1) mmol/L Chloride 104 (98-107) mmol/L Carbon Dioxide 24 (21-32) mmol/L Anion Gap 8 (3-11) BUN 25 H (6-23) mg/dl Creatinine 0.88 (0.6-1.4) mg/dl Est Cr Clr Drug Dosing 67.3 ml/min Est GFR ( Amer) 101.6 ml/min Est GFR (Non-Af Amer) 87.6 ml/min BUN/Creatinine Ratio 28.4 H (10-20) Glucose 103 H (70-99(Fasting)) mg/dl Calcium 8.8 (8.6-10.3) mg/dl Total Bilirubin 1.0 (0.2-1.0) mg/dl AST 151 H (13-39) U/L ALT 37 (7-52) U/L Alkaline Phosphatase 45 (34-104) U/L Total Protein 6.0 (6.0-8.3) gm/dl Albumin 3.8 (3.4-5.0) gm/dl Globulin 2.2 L (2.5-4.0) gm/dl Albumin/Globulin Ratio 1.7 (0.9-2) Laboratory Results Chest X-Ray 06/11/23 10:25 XR chest 1V portable CLINICAL HISTORY: Altered mental status, issues w/ PO intake COMPARISON STUDY: Chest radiograph May 25, 2018. FINDINGS: Lung volumes are normal. Lungs are clear. There is no pneumothorax or pleural effusion. Cardiac size is normal. Mediastinal contours are normal. There is no evidence for pulmonary edema. IMPRESSION: No acute cardiopulmonary findings. ACT 112: Negative or not required by law. Electronically signed by: Homero Jaimes M.D. 06/11/2023 10:48 AM PG Care Time/CCT Total # of Minutes Spent Total Time Spent with Patient: Total time spent is greater than 50% in coordination of care (as documented) at patient's floor/unit and/or counseling patient: Coding Level of Care Code None Diagnoses Frontotemporal dementia G31.09; F02.80 S/P total hip arthroplasty Z96.649
--- NOTE | 2023-06-11 10:50 | XRay Report ---
XR chest 1V portable CLINICAL HISTORY: Altered mental status, issues w/ PO intake COMPARISON STUDY: Chest radiograph May 25, 2018. FINDINGS: Lung volumes are normal. Lungs are clear. There is no pneumothorax or pleural effusion. Car diac size is normal. Mediastinal contours are normal. There is no evidence for pulmonary edema. IMPRESSION: No acute cardiopulmonary findings. ACT 112: Negative or not required by law. Electronically signed by: Homero Jaimes M.D. 06/11/2023 10:48 AM
--- NOTE | 2023-06-11 12:30 | Orthopedic Progress Note ---
Date of Service June 11, 2023 Assessment & Plan (1) S/P total hip arthroplasty: Plan: Postop day 2-status post right total hip arthroplasty with Dr. Reynolds PT/OT when able to participate Total hip precautions Oxycodone held for now due to cognitive status. Resume Tylenol as needed for pain. DVT prophylaxis with aspirin 81 mg p.o. twice daily and JOMAR stockings Keep Silverlon dressing in place; reinforce today with Tegaderm at the distal aspect. Ice with easy wrap as needed pain and swelling Abduction pillow use x 6 weeks ; when in bed (if able) and when sitting in chair. If unable to use abduction pillow may use standard pillow between knees when in bed. Weightbearing as tolerated with walker assistance Most likely will need [facility] facility at discharge-Currently pending. Case management involved. Appreciate hospitalist assistance. Follow-up at [facility] orthopedics as previously scheduled. With questions contact our clinic at [phone] Admission and Anticipated Discharge Date Admission Date: June 10, 2023 Subjective Lying in bed, currently in arm restraints. When I entered the room his left leg was hanging off the bed and his right leg was abducted. He was repositioned in bed. Did not complain of any pain in his right hip but did request Tylenol. Per nursing he is pulling at his dressing. There is also some increased redness and swelling around the right hip incision. Was not able to participate in PT or OT today due to being restrained. Review of Systems Review of Systems: Unobtainable due to cognitive status Physical Exam Musculoskeletal: Exam of his right lower extremity: No distal edema. Jomar stocking is in place. Dorsalis pedis and posterior tibial pulses are 1+. He is unable to follow commands for adequate dorsiflexion plantarflexion inversion or eversion of the right ankle. No effusion of the right knee. Silverlon dressing is in place over right hip incision. This was lifted and the incision is clean, dry and intact. Zipline in place. He does have surrounding ecchymosis and edema of the hip incision. There is a Silverlon was reinforced on the distal edge with a Tegaderm. Tolerates gentle movement of the right hip but does reproduce some pain. He was repositioned in bed today and a standard pillow was placed between his knees. Results & Data Vital Signs (Past 12 Hours) Vital Signs O2 Del Method 06/11/23 08:15 Room Air Laboratory Results 06/11/23 Range/Units 05:38 WBC 13.48 H (4.8-10.8) K/ul RBC 3.30 L (4.70-6.10) M/uL Hgb 10.7 L (14.0-18.0) g/dl Hct 29.9 L (42.0-52.0) % MCV 90.6 (80.0-100.0) fL MCH 32.4 (25.0-34.0) pg MCHC 35.8 (32.0-36.0) g/dL RDW Std Deviation 42.5 (36.4-46.3) fL RDW Coeff of Jeffy 13.0 (11.5-14.5) % Plt Count 158 (130-400) K/uL MPV 9.9 (9.4-12.4) fL Immature Gran % (Auto) 0.6 % Neut % (Auto) 76.9 % Lymph % (Auto) 11.6 % [place] % (Auto) 10.8 % Eos % (Auto) 0.0 % Baso % (Auto) 0.1 % Neut # (Auto) 10.38 H (1.40-6.50) K/uL Lymph # (Auto) 1.56 (1.20-3.40) K/uL [place] # (Auto) 1.45 H (0.11-0.59) K/uL Eos # (Auto) 0.00 (0.00-0.50) K/uL Baso # (Auto) 0.01 (0.00-0.20) K/uL Immature Gran # (Auto) 0.08 (0.01-0.20) K/uL Sodium 136 (136-145) mmol/L Potassium 3.8 (3.5-5.1) mmol/L Chloride 104 (98-107) mmol/L Carbon Dioxide 24 (21-32) mmol/L Anion Gap 8 (3-11) BUN 25 H (6-23) mg/dl Creatinine 0.88 (0.6-1.4) mg/dl Est Cr Clr Drug Dosing 67.3 ml/min Est GFR ( Amer) 101.6 ml/min Est GFR (Non-Af Amer) 87.6 ml/min BUN/Creatinine Ratio 28.4 H (10-20) Glucose 103 H (70-99(Fasting)) mg/dl Calcium 8.8 (8.6-10.3) mg/dl Total Bilirubin 1.0 (0.2-1.0) mg/dl AST 151 H (13-39) U/L ALT 37 (7-52) U/L Alkaline Phosphatase 45 (34-104) U/L Total Protein 6.0 (6.0-8.3) gm/dl Albumin 3.8 (3.4-5.0) gm/dl Globulin 2.2 L (2.5-4.0) gm/dl Albumin/Globulin Ratio 1.7 (0.9-2)
[2023-06-11] MEDS ORDERED: OLANZAPINE 2.5 MG TAB PO PRN (14:01)
[2023-06-11] MEDS: OLANZAPINE 2.5 MG TAB PO PRN (17:12)
--- NOTE | 2023-06-11 19:57 | Billing Data ---
Date of Service June 11, 2023 Coding Level of Care Code 59501 IN/OBS CONSULT LVL 3,45M
[2023-06-12 05:53] LABS: Basophils # (auto) 0.03 K/uL (0.00-0.20); Basophils % (auto) 0.3 %; Eosinophils # (auto) 0.03 K/uL (0.00-0.50); Eosinophils % (auto) 0.3 %; Hematocrit (blood only) 28.5 % (42.0-52.0); Hemoglobin 9.7 g/dl (14.0-18.0); Immature Granulocytes # (auto) 0.09 K/uL (0.01-0.20); Immature Granulocytes % (auto) 0.8 %; Lymphocytes # (auto) 1.47 K/uL (1.20-3.40); Lymphocytes % (auto) 13.2 %; Mean Corpuscular Hemoglobin 31.8 pg (25.0-34.0); Mean Corpuscular Volume 93.4 fL (80.0-100.0); Mean Platelet Volume 9.7 fL (9.4-12.4); Neutrophils # (auto) 8.55 K/uL (1.40-6.50); Neutrophils % (auto) 76.4 %; Platelet Count 157 K/uL (130-400); RDW Standard Deviation 44.6 fL (36.4-46.3); Red Blood Count 3.05 M/uL (4.70-6.10); White Blood Count 11.17 K/ul (4.8-10.8)
[2023-06-12 06:13] LABS: Calcium 8.6 mg/dl (8.6-10.3); Creatinine Clr Calc Pharmacy 66.5 ml/min; Est GFR (African American) 101.1 ml/min; Est GFR (Non-African American) 87.2 ml/min; Potassium 3.7 mmol/L (3.5-5.1)
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
--- NOTE | 2023-06-12 11:05 | Orthopedic Progress Note ---
Date of Service June 12, 2023 Assessment & Plan (1) S/P total hip arthroplasty: Plan: Postop day 3-status post right total hip arthroplasty, with post-op delirium, moderately improved today Appreciate internal medicine assistance in managing his delirium and dementia PT/OT when able to participate Total hip precautions Tylenol as needed for pain. No narcotics. Ice. DVT prophylaxis with aspirin 81 mg p.o. twice daily and EMILEE stockings Keep Silverlon dressing in place Abduction pillow use x 6 weeks when in bed (if able) and when sitting in chair. If unable to use abduction pillow may use standard pillow between knees when in bed. Weightbearing as tolerated with walker assistance Most likely will need care home facility at discharge-Currently pending. Case management involved. Follow-up at [facility] orthopedics as previously scheduled. Admission and Anticipated Discharge Date Admission Date: June 10, 2023 Subjective Patient had a challenging day yesterday as he was quite disoriented. Had to be in restraints. Has not been eating much as he says he is full. Not following his hip precautions. Was noted to be trying to eat the foam hip abductor pillow. Seen by internal medicine who is following him.Per nursing he is a little better this morning than he was yesterday.Reports minimal pain in his right hip. No numbness or tingling. Physical Exam Physical Exam: General he is still disoriented. Per my questioning he believes he is in [place]. When asked the year for me he said 2013 but when corrected did seem to know it was 2023. Right hip exam shows his dressing to be clean and dry. No deformity. There is some hematoma under the skin as expected. Moderate swelling appropriate for this stage postoperatively. Distally neurovascularly intact. Results & Data Vital Signs (Past 12 Hours) Vital Signs Temp Pulse Resp BP Pulse Ox O2 Del Method 06/12/23 08:12 37.2 C 98 H 18 122/80 96 Room Air
[2023-06-12] MEDS: OLANZAPINE 2.5 MG TAB PO PRN (11:46)
[2023-06-12] MEDS: SODIUM CHLORIDE 0.9% 1,000 ML IV SCH (11:51)
--- NOTE | 2023-06-12 14:21 | CT Scan Report ---
CT head/brain wo con CLINICAL HISTORY: ams Technique: Contiguous axial CT images of the head were acquired from the base of the skull to the ej yeyo without intravenous contrast administration. Images were viewed in brain, subdural and bone [facility] . Automated dose lowering techniques and/or adjustment according to patient size were utilized for this exam. Comparison: Comparison is made to CT head 06/04/2018 Findings: Exam is limited by patient motion. Areas of decreased attenuation are present in the periventricular and subcortical white matter bilaterally consistent with small vessel ischemic disease. Generalized c erebral atrophy with commensurate enlargement of the ventricles, sulci, and cisterns is also present. There is no acute intracranial hemorrhage or evidence of acute territorial infarction. No shift of t he midline structures, mass effect, or extra-axial abnormalities are shown. Atherosclerotic calcific ations are present in the intracranial segments of the internal carotid arteries. Right frontal lobe encephalomalacia is unchanged from prior exam. Imaged portions of the paranasal sinuses and mastoid air cells are clear. The orbits appear normal. There are no acute fractures of the calvaria or scalp swelling. Impression: No acute intracranial hemorrhage, no evidence of acute territorial infarction or other acute intracra nial disease process. ACT 112: Negative or not required by law. Electronically signed by: Elia Whitehead M.D. 06/12/2023 2:20 PM
[2023-06-12 15:53] LABS: Appearance Urine Clear (Clear); Bacteria Urine Automated Negative (Negative); Blood Urine Negative (Negative); Color Urine Dark Yellow; Glucose Urine UA Negative (Negative); Ketones Urine 2+ (Negative); Leukocyte Esterase Urine Negative (Negative); Nitrite Urine Negative (Negative); Protein Urine 1+ (Negative); RBC Urine Automated 0-4 /hpf (0-4); Specific Gravity Urine 1.028 (1.000-1.030); Urobilinogen Urine Negative (Negative); pH Urine 5.5 (4.5-7.5)
[2023-06-12 15:57] LABS: Bilirubin Urine 1+ (Negative)
--- NOTE | 2023-06-13 07:27 | Hospitalist Progress Note ---
<Statement entered by Sandra Chan MD - 06/13/23 18:13> 67 y/o with frontotemporal dementia and delirium following DARIEL. Stopped metoclopramide and benadryl from orders since these may exacerbate delirium (but no doses given per MAR), will schedule flomax since having some symptoms of urinary retention. 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 Has had waxing and waning periods of confusion since admission, but symptoms worsening in the past day 06/09 --> Review of medications he was given Oxycodone 5mg in the morning hours followed by 10mg dose around 13:48 prior to having worsening mental status/need for consultation Overnight team consulted for increased confusion, placement of soft limb restraints for safety -Provided ativan 0.5mg PO x 1 overnight 06/09-06/10 -Would AVOID further benzodiazepines to prevent worsened confusion, avoid opiates, continue Tylenol 1gm q8h and appears comfortable Added OLANZAPINE if needed given FTD 06/12 Suspect most of symptoms from delirium in the hospital in patient w/ FTD. WBC trending down, likely reactive from surgery/stress CT head NEGATIVE, does note significant brain volume loss/microvascular changes. UA negative for any bacteria/nitrite/leuk esterase or WBC. CXR w/o acute process but will repeat given issues w/ choking w/ water this morning however did well for me yesterday. ?related to olanzapine. Speech to see. Son reports he has had issues with this in the past. s/p 1L IVF overnight for hydration/poor PO intake (suspected due to access/in restraints for safety, high risk for dislocation of his hip and had been eating adductor pillow 2 days ago). Not as dehydrated on exam on repeat and holding off further for now Continue zyprexa 2.5mg PO q4h agitation/hallucinations- cautious use, only if absolutely needed -Had gotten 2 doses past 24 hours Sleepy this morning, issues w/ fluids at times (speech to see) -- no issues for them but will monitor, aspiration precautions Dizziness x 1 this morning, PCP noting hx BPPV/meclizine use and RN to administer x 1, improvement w/ such Review of medications for pain show patient had refused last 5 doses of Tylenol however were scheduled and made 1000mg q8h prn to use for fever/pain and provide dose x 1 now Records requested from PCP office for review * Per son, did not know about Neurology appt or dx FTD suspected. PCP noting patient to have mild-moderate dementia with little family support which has lead to depression and made memory issues worse, relies on meals on wheels and has come to office in the past and said no money. HOWEVER, he notes he has been working on obtaining POA paperwork. If patient has returned to driving this should be suspended Restrains REMOVED IMPROVEMENT IN MENTATION/BACK TO BASELINE PER NURSING AFTERNOON 06/12, if remains such would plan for dc to [facility] in AM (2) S/P total hip arthroplasty: Plan: s/p RIGHT DARIEL Dr Reynolds on 06/08, post op management per primary service. DVT proph w/ ASA 81mg BID. Needing rehab placement at dc as above avoid opiates as above but would also avoid benzodiazepines as likely to worsen MS Zyprexa preferred in FTD for agitation/hallucinations --> had received 2 doses 06/11 and available but cautious use Restraints removed this afternoon, can use 1;1 if needed Plan Thank you for allowing hospitalist service to participate in the care of Mr Gallegos. Restraints removed this afternoon, doing well per nursing/back to baseline Hospitalist service can follow up in AM but if remaining stable overnight would plan for dc to [facility] in AM. CM notified Admission and Anticipated Discharge Date Admission Date: June 10, 2023 Subjective Evaluated this morning, much more calm this morning/sleeping in bed. Difficult to arouse initially but was awoken. Initially reported dizziness but then denied. Got two doses of Zyprexa yesterday, discussed removing restraints and can use 1:1 sitter if needed to avoid further agitation. Taking in water but trying to get excessive intake and RN reported some choking with water but did take his pills this morning. 98% on RA but will check CXR to ensure not aspirating. UA did not appear infected. Denied abdominal pain and not painful on palpation on exam. Speech consulted for completeness however suspect likely from Zyprexa use and got 2 doses and will attempt to avoid unless absolutely needed. PCP messaged me this morning, poor short term memory at baseline. Messaged community mental health social worker and sending most recent office visit but reports baseline memory disorder Patient reports year 2023, in hospital but said "I thought I had another brain surgery". PCP messaged little family support and recs for inpatient rehab upon discharge. Tylenol changed to prn for pain/fever/headache as had been scheduled and refusing prior. CM following and patient needing placement. Per son, did not know about Neurology appt or dx FTD suspected. PCP noting patient to have mild-moderate dementia with little family support which has lead to depression and made memory issues worse, relies on meals on wheels and has come to office in the past and said no money. Physical Exam Physical Exam: General 67 yo male attempting resting in bed this morning, appears more alert to person, knows 2023, initially talking about brain surgery, did not remember having his hip done Head atraumatic, normocephalic, ?baseline blindness (only able to see things right in front of him as brought to his face), mm improved from day prior, trachea midline Resp: even/unlabored, on room air 98% CV: RRR, no significant m/r/g, no pitting edema GI: +BS, soft/NT : no barrera MSK/Neuro: moves all extremities, limited by b/l upper extremities in soft limbs but strength w/ booking agent intact bilaterally, pulses palpable dressing to hip c/d/i, some eechymosis, mild tenderness/edema, calves nontender, pulses palpable Psych: alert to person/year, intermittent to hospital/events, delirium on top of dementia suspected at baseline Results & Data Results & Data Vital Signs (Past 12 Hours) Vital Signs Temp Pulse Resp BP Pulse Ox O2 Del Method 06/13/23 07:15 37.5 C 79 18 151/92 H 98 Room Air 06/12/23 19:47 36.9 C 102 H 18 179/90 H 96 Room Air Laboratory Results 06/13/23 06/12/23 Range/Units 08:09 Unknown WBC 8.39 (4.8-10.8) K/ul RBC 3.05 L (4.70-6.10) M/uL Hgb 9.6 L (14.0-18.0) g/dl Hct 29.1 L (42.0-52.0) % MCV 95.4 (80.0-100.0) fL MCH 31.5 (25.0-34.0) pg MCHC 33.0 (32.0-36.0) g/dL RDW Std Deviation 45.4 (36.4-46.3) fL RDW Coeff of Jeffy 13.1 (11.5-14.5) % Plt Count 191 (130-400) K/uL MPV 9.7 (9.4-12.4) fL Sodium 140 (136-145) mmol/L Potassium 3.5 (3.5-5.1) mmol/L Chloride 109 H (98-107) mmol/L Carbon Dioxide 22 (21-32) mmol/L Anion Gap 9 (3-11) BUN 28 H (6-23) mg/dl Creatinine 0.81 (0.6-1.4) mg/dl Est Cr Clr Drug Dosing 73.1 ml/min Est GFR ( Amer) 105.1 ml/min Est GFR (Non-Af Amer) 90.7 ml/min BUN/Creatinine Ratio 34.6 H (10-20) Glucose 97 (70-99(Fasting)) mg/dl Calcium 8.4 L (8.6-10.3) mg/dl Magnesium 2.1 (1.7-2.4) mg/dl Total Bilirubin 1.4 H (0.2-1.0) mg/dl AST 113 H (13-39) U/L ALT 53 H (7-52) U/L Alkaline Phosphatase 45 (34-104) U/L Total Protein 6.0 (6.0-8.3) gm/dl Albumin 3.4 (3.4-5.0) gm/dl Globulin 2.6 (2.5-4.0) gm/dl Albumin/Globulin Ratio 1.3 (0.9-2) Urine Color Dark Yellow Urine Appearance Clear (Clear) Urine pH 5.5 (4.5-7.5) Ur Specific [place] 1.028 (1.000-1.030) Urine Protein 1+ H (Negative) Urine Glucose (UA) Negative (Negative) Urine Ketones 2+ H (Negative) Urine Blood Negative (Negative) Urine Nitrite Negative (Negative) Urine Bilirubin 1+ H (Negative) Urine Urobilinogen Negative (Negative) Ur Leukocyte Esterase Negative (Negative) Urine WBC (Auto) 1-5 (0-5) /hpf Urine RBC (Auto) 0-4 (0-4) /hpf U Hyaline Cast (Auto) 1-5 (0-5) /lpf U Epithel Cells (Auto) 10-20 H (0-5) /lpf Urine Bacteria (Auto) Negative (Negative) Diagnostic Findings Head CT 06/12/23 13:12 CT head/brain wo con CLINICAL HISTORY: ams Technique: Contiguous axial CT images of the head were acquired from the base of the skull to the vertex without intravenous contrast administration. Images were viewed in brain, subdural and bone windows. Automated dose lowering techniques and/or adjustment according to patient size were utilized for this exam. Comparison: Comparison is made to CT head 06/04/2018 Findings: Exam is limited by patient motion. Areas of decreased attenuation are present in the periventricular and subcortical white matter bilaterally consistent with small vessel ischemic disease. Generalized cerebral atrophy with commensurate enlargement of the ventricles, sulci, and cisterns is also present. There is no acute intracranial hemorrhage or evidence of acute territorial infarction. No shift of the midline structures, mass effect, or extra-axial abnormalities are shown. Atherosclerotic calcifications are present in the intracranial segments of the internal carotid arteries. Right frontal lobe encephalomalacia is unchanged from prior exam. Imaged portions of the paranasal sinuses and mastoid air cells are clear. The orbits appear normal. There are no acute fractures of the calvaria or scalp swelling. Impression: No acute intracranial hemorrhage, no evidence of acute territorial infarction or other acute intracranial disease process. ACT 112: Negative or not required by law. Electronically signed by: Elia Whitehead M.D. 06/12/2023 2:20 PM Chest X-Ray 06/13/23 10:17 XR chest 1V portable CLINICAL HISTORY: ?aspiration COMPARISON STUDY: Chest radiograph June 11, 2023. FINDINGS: Lung volumes are normal. Lungs are clear. There is no pneumothorax or pleural effusion. Cardiac size is normal. Mediastinal contours are normal. There is no evidence for pulmonary edema. IMPRESSION: No acute cardiopulmonary findings. ACT 112: Negative or not required by law. Electronically signed by: Homero Jaimes M.D. 06/13/2023 11:11 AM PG Care Time/CCT Total # of Minutes Spent Total Time Spent with Patient: Total time spent is greater than 50% in coordination of care (as documented) at patient's floor/unit and/or counseling patient: Coding Level of Care Code 90521 SUB INP/OBS CARE Diagnoses Frontotemporal dementia G31.09; F02.80 S/P total hip arthroplasty Z96.649
[2023-06-13 08:37] LABS: Hematocrit (blood only) 29.1 % (42.0-52.0); Hemoglobin 9.6 g/dl (14.0-18.0); Mean Corpuscular Hemoglobin 31.5 pg (25.0-34.0); Mean Corpuscular Volume 95.4 fL (80.0-100.0); Mean Platelet Volume 9.7 fL (9.4-12.4); Platelet Count 191 K/uL (130-400); RDW Coefficient of Variation 13.1 % (11.5-14.5); RDW Standard Deviation 45.4 fL (36.4-46.3); Red Blood Count 3.05 M/uL (4.70-6.10); White Blood Count 8.39 K/ul (4.8-10.8)
[2023-06-13] MEDS: ACETAMINOPHEN 500 MG TAB PO PRN (08:43)
[2023-06-13 08:57] LABS: Albumin Globulin Ratio 1.3 (0.9-2); Albumin Level 3.4 gm/dl (3.4-5.0); BUN Creatinine Ratio 34.6 (10-20); Bilirubin,Total 1.4 mg/dl (0.2-1.0); Calcium 8.4 mg/dl (8.6-10.3); Creatinine Clr Calc Pharmacy 73.1 ml/min; Est GFR (African American) 105.1 ml/min; Est GFR (Non-African American) 90.7 ml/min; Globulin 2.6 gm/dl (2.5-4.0); Magnesium 2.1 mg/dl (1.7-2.4); Potassium 3.5 mmol/L (3.5-5.1)
--- NOTE | 2023-06-13 09:43 | Orthopedic Progress Note ---
Date of Service June 13, 2023 Assessment & Plan (1) S/P total hip arthroplasty: Plan: Postop day 4-status post right total hip arthroplasty, with post-op delirium, moderately improved Appreciate internal medicine assistance in managing his delirium and dementia - likely due to hospitalization and frontotemporal delerium. UA negative. Continue to hold benzo/opioids. PT/OT when able to participate Total hip precautions Tylenol as needed for pain. No narcotics. Ice. DVT prophylaxis with aspirin 81 mg p.o. twice daily and EMILEE stockings Keep Silverlon dressing in place Abduction pillow use x 6 weeks when in bed (if able) and when sitting in chair. If unable to use abduction pillow may use standard pillow between knees when in bed. Weightbearing as tolerated with walker assistance Most likely will need group home facility at discharge-Currently pending. Case management involved. Follow-up at [facility] orthopedics as previously scheduled. Admission and Anticipated Discharge Date Admission Date: June 10, 2023 Subjective Patient seen and examined bedside. He is sleeping and difficult to arouse but does briefly wake and says that he is doing okay. Physical Exam Physical Exam: Patient was somnolent during exam and knee occasionally aroused. Dressing over right hip was clean, dry and intact. Bruising and swelling expected postop. Patient did not appear to have any discomfort when compressing thigh. He was able to slightly wiggle his toes and dorsiflex/plantarflex his ankle. Tolerate some light passive range of motion with his hip. Results & Data Vital Signs (Past 12 Hours) Vital Signs Temp Pulse Resp BP Pulse Ox O2 Del Method 06/13/23 07:28 Room Air 06/13/23 07:15 37.5 C 79 18 151/92 H 98 Room Air Laboratory Results 06/13/23 06/12/23 Range/Units 08:09 Unknown WBC 8.39 (4.8-10.8) K/ul RBC 3.05 L (4.70-6.10) M/uL Hgb 9.6 L (14.0-18.0) g/dl Hct 29.1 L (42.0-52.0) % MCV 95.4 (80.0-100.0) fL MCH 31.5 (25.0-34.0) pg MCHC 33.0 (32.0-36.0) g/dL RDW Std Deviation 45.4 (36.4-46.3) fL RDW Coeff of Jeffy 13.1 (11.5-14.5) % Plt Count 191 (130-400) K/uL MPV 9.7 (9.4-12.4) fL Sodium 140 (136-145) mmol/L Potassium 3.5 (3.5-5.1) mmol/L Chloride 109 H (98-107) mmol/L Carbon Dioxide 22 (21-32) mmol/L Anion Gap 9 (3-11) BUN 28 H (6-23) mg/dl Creatinine 0.81 (0.6-1.4) mg/dl Est Cr Clr Drug Dosing 73.1 ml/min Est GFR ( Amer) 105.1 ml/min Est GFR (Non-Af Amer) 90.7 ml/min BUN/Creatinine Ratio 34.6 H (10-20) Glucose 97 (70-99(Fasting)) mg/dl Calcium 8.4 L (8.6-10.3) mg/dl Magnesium 2.1 (1.7-2.4) mg/dl Total Bilirubin 1.4 H (0.2-1.0) mg/dl AST 113 H (13-39) U/L ALT 53 H (7-52) U/L Alkaline Phosphatase 45 (34-104) U/L Total Protein 6.0 (6.0-8.3) gm/dl Albumin 3.4 (3.4-5.0) gm/dl Globulin 2.6 (2.5-4.0) gm/dl Albumin/Globulin Ratio 1.3 (0.9-2) Urine Color Dark Yellow Urine Appearance Clear (Clear) Urine pH 5.5 (4.5-7.5) Ur Specific [place] 1.028 (1.000-1.030) Urine Protein 1+ H (Negative) Urine Glucose (UA) Negative (Negative) Urine Ketones 2+ H (Negative) Urine Blood Negative (Negative) Urine Nitrite Negative (Negative) Urine Bilirubin 1+ H (Negative) Urine Urobilinogen Negative (Negative) Ur Leukocyte Esterase Negative (Negative) Urine WBC (Auto) 1-5 (0-5) /hpf Urine RBC (Auto) 0-4 (0-4) /hpf U Hyaline Cast (Auto) 1-5 (0-5) /lpf U Epithel Cells (Auto) 10-20 H (0-5) /lpf Urine Bacteria (Auto) Negative (Negative)
--- NOTE | 2023-06-13 11:12 | XRay Report ---
XR chest 1V portable CLINICAL HISTORY: ?aspiration COMPARISON STUDY: Chest radiograph June 11, 2023. FINDINGS: Lung volumes are normal. Lungs are clear. There is no pneumothorax or pleural effusion. Car diac size is normal. Mediastinal contours are normal. There is no evidence for pulmonary edema. IMPRESSION: No acute cardiopulmonary findings. ACT 112: Negative or not required by law. Electronically signed by: Homero Jaimes M.D. 06/13/2023 11:11 AM
[2023-06-13 16:13] LABS: Appearance Urine Clear (Clear); Bilirubin Urine Negative (Negative); Blood Urine Negative (Negative); Color Urine Dark Yellow; Glucose Urine UA Negative (Negative); Ketones Urine 2+ (Negative); Leukocyte Esterase Urine Negative (Negative); Nitrite Urine Negative (Negative); Protein Urine Negative (Negative); Specific Gravity Urine 1.028 (1.000-1.030); Urobilinogen Urine Negative (Negative)
[2023-06-14] MEDS: TAMSULOSIN HCL 0.4 MG CAP PO SCH (08:20)
--- NOTE | 2023-06-14 09:50 | Orthopedic Progress Note ---
Date of Service June 14, 2023 Assessment & Plan (1) S/P total hip arthroplasty: Plan: Postop day 5-status post right total hip arthroplasty, with post-op delirium, moderately improved Appreciate internal medicine assistance in managing his delirium and dementia - likely due to hospitalization and frontotemporal delerium. UA negative. Continue to hold benzo/opioids. PT/OT when able to participate Total hip precautions Tylenol as needed for pain. No narcotics. Ice. DVT prophylaxis with aspirin 81 mg p.o. twice daily and EMILEE stockings Keep Silverlon dressing in place Abduction pillow use x 6 weeks when in bed (if able) and when sitting in chair. If unable to use abduction pillow may use standard pillow between knees when in bed. Weightbearing as tolerated with walker assistance Discharge to [facility] for rehabilitation today Follow-up at [facility] orthopedics as previously scheduled. With questions contact our clinic at [phone] Admission and Anticipated Discharge Date Admission Date: June 10, 2023 Subjective This 67-year-old male is day 5 status post right total hip arthroplasty. Patient is no longer in restraints for being combative following his surgery. He was recently approved for discharge to [facility] for rehab. Order was placed today for transfer to the rehab facility. Patient states that he still has pain in his right hip and significant weakness. He requires two-person assistance to transition from his bed to the bedside chair. Otherwise he denies chest pain, shortness of breath, fever, chills, numbness or tingling in his right lower extremity. He also denies nausea, vomiting, diarrhea or difficulty voiding. Review of Systems Review of Systems: All systems reviewed & are unremarkable except as noted in Subjective Physical Exam Physical Exam: Right hip: Silverlon is clean dry and intact and left in place. Patient is able to perform active straight leg raise test. He is able to actively dorsi and plantarflex foot without issue. His quad strength is 3+ out of 5. He tolerates light passive hip flexion near 90 degrees and only experiences a slight pulling sensation with light passive internal and external hip rotation. He has no pain with logroll testing. He is neurovascularly intact. Results & Data Vital Signs (Past 12 Hours) Vital Signs Temp Pulse Resp BP Pulse Ox O2 Del Method 06/14/23 07:21 36.8 C 75 16 124/76 100 Room Air
--- NOTE | 2023-06-14 09:53 | Discharge Summary ---
Date of Service June 14, 2023 Admission HPI Per Admitting Provider History of Present Illness (including history relevant to procedure): This 67-year-old male presents the clinic today for his preoperative history and physical. Patient states that he has had hip pain for several months. He localizes most of his pain to the lateral aspect of his hip with intermittent radiation into his medial thigh. He describes the pain as sharp in character. Patient states that he uses Tylenol for pain control. Occasionally he will use some IcyHot on his thigh. He had an injection into his trochanteric bursa on 03/02/[address] Vizcarra. Patient states that he is failed conservative dimple tment with physical therapy. He states that as of late he has noticed that his leg feels very heavy and feels like he is going to trip when walking. Patient is electing to proceed with surgical intervention at this time. Review Of Systems: Point review of systems is performed and is unremarkable except for those things stated in the HPI and past medical history. Past Medical History: Problems: Vertigo Frontal lobe dementia Greater trochanteric bursitis of right hip Frontotemporal dementia Foot joint disorder Loss of balance Hypotension Dizziness DINORAH (generalized anxiety disorder) Hyperlipidemia Vision changes GERD (gastroesophageal reflux disease) Decreased hearing of left ear H/O fall Iron deficiency Osteoarthritis of right hip Esophageal ulcer Sacroiliitis RLS (restless legs syndrome) Overactive bladder HTN (hypertension) Depression DEPRESSION HYPERTENSION Seizures Memory loss Closed fracture of symphysis pubis C2 cervical fracture C1 cervical fracture Procedure History Procedure Procedure Date Comments Elbow fracture - right, as a teen Colonoscopy 02/04/2022 - One 4 mm polyp in the ascending colon, removed with a cold snare. Resceted and retrieved. Non bleeding internal hemorrohoids. Colonoscopy 02/11/2021 X-ray of cervical spine 05/25/2019 - IMPRESSION:1. No acute cervical spinal fracture or subluxation2. Status post C2 internal fixation. Unchanged postoperative appearance.3. Moderate multilevel degenerative disc disease and facet arthrosis within the cervical spine. Plain X-ray of left and right shoulder 04/10/2019 - impression: no change in mild degenerative chanes within the right shoulder. no fractures. Hip X-ray 09/11/2018 - XR hip RT 2-3V w pelvisIMPRESSION: No acute fractures Moerate osteoarthritic changes Colonoscopy and biopsy of colon 07/05/2018 - To return for re-evaution in June 2021 Colonoscopy 09/09/2016 - fragments of tubular adenoma; repeat in 3 years - await path results. Visceral Arterial Duplex 11/03/2015 - The abdominal aorta is patent and within normal limits: No aneurysm or stenosis identified.No evidence of stenosis in the celiac, hepatic, splenic, superior mesenteric or inferior mesenteric arteries.The splenic and superior mesentereic veins are patent with normal flowNo significant stenosis of the bilateral proximal renal arteries Esophagogastroduodenoscopy 10/03/2015 - Pathology results: Stomach, antrum, biopsy--Antral mucosa with no significant histopathologic change. See note. Note: Wathin-starry stain is negative for infectious microorganisms - 1. Linear esophageal ulcer.2. Distal reflux esophagitis.3. Small sliding hiatus hernia.4 Mild degree of gastritis, biopsied obtained. Colonoscopy 10/03/2015 - Repeat in 2023 - Pathology results: Descending colon, biopsy--Colonic mucosa wiht chronic ischemic colitis and mild regenerative atypia. Separate fragments of necroinflammatory debris. See note. Note: The clinical impression of ischemic colitis is noted. - 1. Severe degree of ischemic colitis involving sigmoid, descending colon, and splenic flexure area. Multiple biopsies obtained.2. Mild degree of internal hemorrhoids.7. Preparation suboptimal. Repair of tendon left thumb 07/14/2015 - pinning of the interphlangeal joint of left thumb and repair of zone 2 extensor hallucis longus tendon laceration Injection of sacroiliac joint 01/22/2015 CTR - Carpal tunnel release 07/04/2014 - Dr Solis performed Colposcopy 08/21/2013 cataract right eye 12/26/2012 XR Left Wrist 11/29/2012 - [facility] Nose fracture 12/2008 ORIF C2 10/19/2001 - s/p fall Neck fracture 2001 Allergies and Sensitivities: NKA Current Home Meds: (Last Updated 05/26 14:23) PARoxetine (PARoxetine 20 mg oral tablet) Take 1 tablet by mouth once daily acetaminophen (Tylenol 500 mg oral tablet) 1 tab PO q6h PRN: as needed for pain celecoxib (celecoxib 100 mg oral capsule) TAKE 1 CAPSULE BY MOUTH TWICE DAILY WITH FOOD diclofenac topical (Voltaren 1% topical gel) 4 g topical qid not to exceed 16 grams/day/single joint of lower extremities docusate (Colace) 50 mg 1 softgel at night meclizine (meclizine 12.5 mg oral tablet) TAKE 1 TABLET BY MOUTH EVERY 8 HOURS NEEDED FOR DIZZINESS polyethylene glycol 3350 (MiraLax oral powder for reconstitution) 17 g PO Daily rosuvastatin (rosuvastatin 10 mg oral tablet) Take 1 tablet by mouth once daily Initial Wt: 05/26 75.1 kg 165 lb Admission Exam Per Admitting Provider Physical Exam: (relevant to the procedure, including heart and lung evaluation) General: Alert and oriented x 3 with proper grooming and hygiene Eyes: Pupils are equal and reactive to light with accommodation. Extraocular movements are intact Throat: Posterior oropharynx clear with absence of edema, erythema or exudate. Patient has dentures. There is no sign of gingival infection Cardiac: Regular rate and rhythm with no murmurs or gallops appreciated Lungs: Clear to auscultation throughout with no wheezing, rales or rhonchi Abdomen: Nonobese, nondistended, nontender with NABS Extremities: Right hip; patient has no pain with resistance applied while performing an active straight leg raise test. Stinchfield test is positive, ALCIDES test is positive. Scour test is positive. Impingement tests positive. Flexion is limited to 110 degrees, internal rotation to 0 degrees and external rotation to 30 degrees. Patient experiences tenderness to palpation over his posterior lateral hip as well as in his groin. Neuro: Cranial nerves II through XII are intact no motor or sensory deficit Skin: Normal in appearance no open skin areas or discharge Principal Diagnosis Right hip osteoarthritis Discharge Exam Right hip: Silverlon is clean dry and intact and left in place. Patient is able to perform active straight leg raise test. He is able to actively dorsi and plantarflex foot without issue. His quad strength is 3+ out of 5. He tolerates light passive hip flexion near 90 degrees and only experiences a slight pulling sensation with light passive internal and external hip rotation. He has no pain with logroll testing. He is neurovascularly intact. Discharge Data Allergies Allergy/AdvReac Type Severity Reaction Status Date / Time No Known Allergies Allergy Verified 06/09/23 07:48 Consultations 06/11/23 00:49 Consult Hospitalist Routine 06/12/23 14:45 HIM [Consult Health Information Management] Routine Procedures Performed Operation Date: 06/09/23 09:10 Actual Procedures p Right Total Hip Arthroplasty(Right) - Alec Reynolds MD Ordered Studies 06/12/23 13:12 CT head/brain wo con Urgent Hospital Course (1) S/P total hip arthroplasty: Patient required an extended stay in the hospital following his total hip arthroplasty. He was approved for discharge today to [facility]. The discharge was placed. Patient also had some postop delirium and agitation that required soft restraint taking for short-term basis. He is lucid today and states that he definitely needs rehab because his right lower extremity feels very weak. He required 2 person maximum assistance to transfer from his bed to the bedside chair. Patient's follow-up is already scheduled with our clinic. Postop day 5-status post right total hip arthroplasty, with post-op delirium, moderately improved Appreciate internal medicine assistance in managing his delirium and dementia - likely due to hospitalization and frontotemporal delerium. UA negative. Continue to hold benzo/opioids. PT/OT when able to participate Total hip precautions Tylenol as needed for pain. No narcotics. Ice. DVT prophylaxis with aspirin 81 mg p.o. twice daily and EMILEE stockings Keep Silverlon dressing in place Abduction pillow use x 6 weeks when in bed (if able) and when sitting in chair. If unable to use abduction pillow may use standard pillow between knees when in bed. Weightbearing as tolerated with walker assistance Discharge to [facility] for rehabilitation today Follow-up at [facility] orthopedics as previously scheduled. With questions contact our clinic at [phone] Total Time Total Time Spent Total Time Spent (In Minutes): 25 mins Discharge Plan Discharge Items Patient Disposition: Transfer Inpatient Rehab Fac Reason For Visit: POST SURGICAL CARE Discharge Diagnosis: Right hip osteoarthritis Activity: As commented below Lifting: None Bathing: Keep incision dry Bathing Comment: May shower tomorrow Sexual Activity: Wait until after follow-up appointment Exercise/Sports: Wait until after follow-up appointment Driving/Machine Use: No driving until cleared by laboratory specialist Weightbearing: Right weightbearing Weightbearing Comment: as tolerated with walker assistance Non-emergency contact: Surgeon Call non-emergency contact if: you have any medication questions, your pain is not controlled, your temperature is above 101.5, your wound has increased drainage and your wound pain has increased Follow-up/Referrals: Meet Luque PA-C [Physician Web Knitter] - 06/22/23 11:15 am Renee Galan DO [Primary Care Provider] - Diet: Regular Addtl Attending Provider Instructions: Post-operative Instructions Dear Patient and Family/Friends, Before you are discharged from the hospital, it is important to know what to expect when you get home after surgery. To that end, we have created this sheet of discharge instructions which covers many commonly asked questions. Make sure you go through this sheet in its entirety with your nurse before you are discharged. Please note that we will go over the specifics of your surgery and recovery when you return for your first post-operative visit. Sincerely, Dr. Reynolds Medications 1. Oxycodone 5 mg: Take 1-2 tabs every 4-6 hours as needed for postoperative pain control. A prescription for this medication will be sent to your pharmacy. 2. Celebrex 100 mg: Take your regular daily dosage for pain and inflammation relief. 3. Extra strength Tylenol 500 mg: continue your daily regimen for pain relief. 4. Aspirin 81 mg: Take 1 tab twice daily for the first 30 days postoperatively for blood clot prevention. Please purchase this medication. Pain Expect to be in a fair amount of pain after surgery. Remember, our goal is not to eliminate your pain, but to make it tolerable. It is a good idea to stay ahead of your pain by taking the medications you were prescribed once you get home. Typically, the pain starts improving 3-7 days after surgery. You should start weaning off the narcotic pain medication (oxycodone, hydrocodone, hydromorphone, morphine) as soon as your pain improves. Please call our office if your pain is not adequately controlled. Ice Ice your operative site at least 5 times a day for 15-30 minutes at a time. Make sure you have a thin cloth between the ice or cooling unit and your skin to prevent de paz bite. This is especially important if you received a nerve block. Continue icing your operative site for the first 5-7 days after surgery, then as needed. Diet/Nausea/Vomiting Start by drinking clear liquids and eating crackers. If you can tolerate this, then you may resume your normal diet. If you feel nauseated or vomit, take Zofran/ondansetron (if prescribed). Please call our office if you have intractable nausea or vomiting, or, if after hours, you may go to the Emergency Room for help. Constipation Constipation is a common side effect of narcotic pain medication. If you have not had a bowel movement within 2 days after surgery, we recommend purchasing an over the counter laxative such as Milk of Magnesia, Dulcolax, or Miralax from a local pharmacy, and taking it as instructed. Call our clinic if any questions. Nerve block The anesthesia team sometimes places a nerve block to help with post-operative pain control. This results in significant numbness and inability to move the extremity. The nerve block usually wears off in 8-12 hours, but sometimes can last up to 24 hours. Please call our office if you are still unable to move your extremity after 24 hours, unless you received a pain pump to take home. Nerve blocks typically wear off quickly, so start taking pain medication as soon as you start feeling soreness near your surgical site. Weight bearing and Range of Motion. Do not bear any weight through your operative extremity immediately after surgery. If you had upper extremity surgery, do not lift anything with that arm. If you are in a knee brace, keep it locked in place until your follow-up. We will discuss your weight bearing, range of motion, and lifting restrictions in detail at your first post-operative appointment. Continuous Passive Motion (CPM) Machine If you were prescribed a CPM machine, it will start after your first post- operative appointment, at which time we will give you instructions on the range of motion settings and duration of treatment Physical therapy You will be given a prescription for physical therapy or occupational therapy at your first post-operative appointment. Typically, patients start therapy within 1 week of surgery Wound care and showering Leave Silverlon dressing in place until your follow up appointment. It is a water-proof dressing that is removed 14 days after surgery. It is normal to see some dried blood on the dressing. Do not remove your dressing, paper strips or sutures yourself unless you are given permission. Showering is allowed the day after surgery. You may shower with Silverlon dressing in place. Do not scrub or remove any dressings. The wound should not be submerged underwater (i.e. in a bathtub or pool) until 4 weeks after surgery EMILEE stockings If you were given white stockings, these are to be worn at all times except to shower (on both legs) for the first 2 weeks after surgery. Driving You may not drive while taking narcotic pain medication or while in a cast, splint, sling or brace. You, the patient, need to make the final determination about when you are safe to drive, however, the earliest you may consider driving after surgery is below: Hand/Wrist/Elbow Surgery: 3 days Shoulder Surgery: 2 weeks Hip,/Knee/Ankle Surgery: 4 weeks Fracture repair: 6 weeks Return to Work Your return to work depends on what surgery was done and what type of work you do. Please bring any paperwork your employer needs completed to your first post-operative visit. Also, bring a description of your job duties, as this helps us to understand what risks you may face at work. Travel Avoid long distance travel (greater than 1 hour) in airplanes and cars for the first 6 weeks after surgery. If you must travel, you need to have a Doppler ultrasound done before you travel to rule out a blood clot in your legs. Follow-up You should have a follow-up appointment already scheduled 1-2 days after surgery. If not, please contact our office to make this appointment before you leave the hospital. When to call the office It is normal to have swelling and bruising in the limb that was operated on. This will improve with time. It is also normal to have fevers for the first 2 days after surgery. Reasons you should call your doctor include: Uncontrolled pain; Nausea, vomiting, or constipation that does not improve with medication; Fevers over 101.5, chills, sweats; Drainage or bleeding from the wound; Foul odo r; Spreading areas of redness; Any other concerns Pending Studies at Discharge: No Stand-Alone Forms: My [facility] Skilled Items Patient informed of condition?: Yes DNR: No Discharge Level of Care: Acute rehab Communicable Disease: No Discharge Prognosis: Stable Lines: None Urinary Catheter: No Medications and DC Order Prescriptions: New aspirin 81 mg Tablet,Delayed Release (Dr/Ec) 81 mg PO BID 30 Days Qty: 60 0RF oxycodone 5 mg Tablet 5 - 10 mg PO Q4H MDD 6 tabs PRN (Reason: pain) Qty: 28 0RF Continued acetaminophen 500 mg Tablet 500 mg PO Q8H PRN (Reason: Pain) meclizine 12.5 mg Tablet 12.5 mg PO TID PRN (Reason: Vertigo) celecoxib 100 mg Capsule 100 mg PO BID docusate sodium [Stool Softener] 100 mg Capsule 100 mg PO HS polyethylene glycol 3350 [Miralax] 17 gram/dose Powder 17 g PO DAILY PRN (Reason: Constipation) Discharge Orders: Discharge Order (Routine); Ordered 06/14/23 Ordered By: Meet Luque Admission Data Admit Date/Time: 06/10/23 16:55 Attending Provider: Justin Holden Admit Provider: Alec Reynolds Primary Care Provider: Renee Galan Other Providers: [facility]; Bharti Spencer [facility]; Kvng Frausto
--- NOTE | 2023-06-14 12:41 | Hospitalist Progress Note ---
Date of Service June 14, 2023 Assessment & Plan (1) Frontotemporal dementia: Plan: Delirium on Frontotemporal Dementia Known history of prior traumatic brain injury, seen by [facility] in September 2022 for cognitive changes/memory issues and was diagnosed with frontotemporal dementia secondary to TBI Has had waxing and waning periods of confusion since admission, but symptoms worsening in the past day 06/09 --> Review of medications he was given Oxycodone 5mg in the morning hours followed by 10mg dose around 13:48 prior to having worsening mental status/need for consultation Overnight team consulted for increased confusion, placement of soft limb restraints for safety -Provided ativan 0.5mg PO x 1 overnight 06/09-06/10 -Would AVOID further benzodiazepines to prevent worsened confusion, avoid opiates, continue Tylenol 1gm q8h and appears comfortable Added OLANZAPINE if needed given FTD 06/12 Suspect most of symptoms from delirium in the hospital in patient w/ FTD. WBC trending down, likely reactive from surgery/stress CT head NEGATIVE, does note significant brain volume loss/microvascular changes. UA negative for any bacteria/nitrite/leuk esterase or WBC. CXR w/o acute process but will repeat given issues w/ choking w/ water this morning however did well for me yesterday. ?related to olanzapine. Speech to see. Son reports he has had issues with this in the past. s/p 1L IVF overnight for hydration/poor PO intake (suspected due to access/in restraints for safety, high risk for dislocation of his hip and had been eating adductor pillow 2 days ago). Not as dehydrated on exam on repeat and holding off further for now Continue zyprexa 2.5mg PO q4h agitation/hallucinations- cautious use, only if absolutely needed -Had gotten 2 doses past 24 hours Sleepy this morning, issues w/ fluids at times (speech to see) -- no issues for them but will monitor, aspiration precautions Dizziness x 1 this morning, PCP noting hx BPPV/meclizine use and RN to administer x 1, improvement w/ such Review of medications for pain show patient had refused last 5 doses of Tylenol however were scheduled and made 1000mg q8h prn to use for fever/pain and provide dose x 1 now Records requested from PCP office for review * Per son, did not know about Neurology appt or dx FTD suspected. PCP noting patient to have mild-moderate dementia with little family support which has lead to depression and made memory issues worse, relies on meals on wheels and has come to office in the past and said no money. HOWEVER, he notes he has been working on obtaining POA paperwork. If patient has returned to driving this should be suspended Restrains REMOVED IMPROVEMENT IN MENTATION/BACK TO BASELINE PER NURSING AFTERNOON 06/12, if remains such would plan for dc to [facility] in AM (2) S/P total hip arthroplasty: Plan: s/p RIGHT DARIEL Dr Reynolds on 06/08, post op management per primary service. DVT proph w/ ASA 81mg BID. Needing rehab placement at dc as above avoid opiates as above but would also avoid benzodiazepines as likely to worsen MS Nayprexa preferred in FTD for agitation/hallucinations --> had received 2 doses 06/11 and available but cautious use Restraints removed this afternoon, can use 1;1 if needed Plan Thank you for allowing hospitalist service to participate in the care of Mr Gallegos. Restraints removed this afternoon, doing well per nursing/back to baseline From hospitalist point of view, safe to [facility] to [facility] Admission and Anticipated Discharge Date Admission Date: June 10, 2023 Subjective Patient seen and examined, plan by Ortho is to discharge to rehab Review of Systems Review of Systems: All systems reviewed are negative, apart from the ones contained in the history. Physical Exam Physical Exam: The patient is awake, alert and oriented 3, well developed and well nourished, normocephalic and atraumatic, lying in bed and in no acute distress. HEENT--PERRL, EOMI, mucous membranes and oropharynx mildly dry Neck--supple. No JVD. No bruits. Thyroid normal, trachea midline, no adenopathy. Heart--normal S1 and S2. No murmurs, rubs or gallops. Lungs--clear bilaterally, no respiratory distress, no accessory muscle use. Abdomen--normal bowel sounds and soft. Extremities--no cyanosis or clubbing. No edema. Dermatologic--normal skin turgor, normal color, no abnormal lymph nodes, no rash. Neurologic--cranial nerves II through XII grossly intact. Rheumatologic--normal range of motion. Psychiatric--normal affect. Results & Data Results & Data Vital Signs (Past 12 Hours) Vital Signs Temp Pulse Resp BP Pulse Ox O2 Del Method 06/14/23 07:21 98.2 F 75 16 124/76 100 Room Air PG Care Time/CCT Total # of Minutes Spent Total Time Spent with Patient: Total time spent is greater than 50% in coordination of care (as documented) at patient's floor/unit and/or counseling patient: Coding Level of Care Code 15525 SUB INP/OBS CARE 2/35MIN Diagnoses Frontotemporal dementia G31.09; F02.80 S/P total hip arthroplasty Z96.649 Time Spent (min) 35
== END 2023-06-14 14:39 | DRG 470 ==
LOC: ASU 07:12 → 3E 07:12 → OBSVTOIN 10:46 → SUATTDRO 06-10 16:55 → 3E 06-10 21:02

== ENCOUNTER 2023-06-28 18:11 | Inpatient (IN) ==
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
[2023-06-28 20:26] LABS: Basophils # (auto) 0.03 K/uL (0.00-0.20); Basophils % (auto) 0.4 %; Eosinophils # (auto) 0.08 K/uL (0.00-0.50); Hematocrit (blood only) 21.9 % (42.0-52.0); Hemoglobin 7.2 g/dl (14.0-18.0); Immature Granulocytes # (auto) 0.05 K/uL (0.01-0.20); Immature Granulocytes % (auto) 0.6 %; Lymphocytes # (auto) 1.94 K/uL (1.20-3.40); Lymphocytes % (auto) 24.8 %; Mean Corpuscular Hemoglobin 30.9 pg (25.0-34.0); Mean Corpuscular Hgb Conc 32.9 g/dL (32.0-36.0); Mean Platelet Volume 8.6 fL (9.4-12.4); Monocytes # (auto) 0.91 K/uL (0.11-0.59); Monocytes % (auto) 11.7 %; Neutrophils % (auto) 61.5 %; Platelet Count 708 K/uL (130-400); RDW Coefficient of Variation 13.2 % (11.5-14.5); RDW Standard Deviation 45.2 fL (36.4-46.3); Red Blood Count 2.33 M/uL (4.70-6.10); White Blood Count 7.81 K/ul (4.8-10.8)
[2023-06-28 20:37] LABS: Albumin Globulin Ratio 1.1 (0.9-2); Albumin Level 3.3 gm/dl (3.4-5.0); BUN Creatinine Ratio 32.9 (10-20); Bilirubin,Total 0.7 mg/dl (0.2-1.0); Calcium 8.8 mg/dl (8.6-10.3); Creatinine Clr Calc Pharmacy 91.1 ml/min; Est GFR (African American) 108.9 ml/min; Total Protein 6.3 gm/dl (6.0-8.3)
[2023-06-28 20:58] LABS: Polychromasia 1+
[2023-06-28] MEDS: PROPOFOL IV EMULSION 10 MG/ML 20 ML VIAL IV STA (21:37)
[2023-06-28] MEDS: PROPOFOL IV EMULSION 10 MG/ML 20 ML VIAL IV ONE (21:37)
--- NOTE | 2023-06-28 21:44 | Emergency Department Note ---
Pre Sedation Assessment Vital Signs Temp Pulse Resp BP Pulse Ox O2 Del Method O2 Flow Rate 06/28/23 21:35 86 20 125/79 97 Room Air 06/28/23 21:30 77 18 115/72 98 Room Air 06/28/23 21:25 82 22 100 Room Air 06/28/23 21:25 120/78 06/28/23 21:20 133/88 06/28/23 21:20 81 22 99 Room Air 06/28/23 21:15 82 20 130/79 98 Room Air 06/28/23 21:10 85 24 132/82 100 Room Air 06/28/23 21:07 87 20 135/82 99 Room Air 06/28/23 21:05 88 22 139/88 99 Nasal Cannula 2 06/28/23 21:00 83 6 L 98 06/28/23 20:55 89 16 144/83 H 96 Nasal Cannula 2 06/28/23 20:52 88 18 129/89 98 Nasal Cannula 2 06/28/23 20:50 89 16 66/47 L 96 Nasal Cannula 2 06/28/23 20:45 91 H 16 117/82 98 Nasal Cannula 2 06/28/23 20:40 88 16 124/78 96 Nasal Cannula 2 06/28/23 20:35 93 H 15 113/84 97 Nasal Cannula 2 06/28/23 18:35 85 06/28/23 18:20 37 C 82 18 134/81 95 Room Air Cardiovascular + regular rate and + regular rhythm Respiratory + clear to auscultation bilaterally Pre-Sedation Airway Assessment Smoking Status: Never smoker Hx Sleep Apnea: No Short, Thick Neck: Yes Thyromental Distance: > or= 3.5 Finger Breadths Oral Cavity: + Dentures Mallampati Class: II ASA: ASA3 NPO Status Last Oral Intake of Fluids Comment: unknown Last Intake of Solids Comment: unknown Notes The planned sedation has been discussed with the patient. Informed Consent was obtained. I have identified the patient, determined the appropriateness of sedation and have assessed the patient immediately prior to the procedure. All medicine(s) and interventions are by my order.
--- NOTE | 2023-06-28 21:45 | Emergency Department Note ---
Post Sedation Assessment Vital Signs Temp Pulse Resp BP Pulse Ox O2 Del Method O2 Flow Rate 06/28/23 21:35 86 20 125/79 97 Room Air 06/28/23 21:30 77 18 115/72 98 Room Air 06/28/23 21:25 82 22 100 Room Air 06/28/23 21:25 120/78 06/28/23 21:20 133/88 06/28/23 21:20 81 22 99 Room Air 06/28/23 21:15 82 20 130/79 98 Room Air 06/28/23 21:10 85 24 132/82 100 Room Air 06/28/23 21:07 87 20 135/82 99 Room Air 06/28/23 21:05 88 22 139/88 99 Nasal Cannula 2 06/28/23 21:00 83 6 L 98 06/28/23 20:55 89 16 144/83 H 96 Nasal Cannula 2 06/28/23 20:52 88 18 129/89 98 Nasal Cannula 2 06/28/23 20:50 89 16 66/47 L 96 Nasal Cannula 2 06/28/23 20:45 91 H 16 117/82 98 Nasal Cannula 2 06/28/23 20:40 88 16 124/78 96 Nasal Cannula 2 06/28/23 20:35 93 H 15 113/84 97 Nasal Cannula 2 06/28/23 18:35 85 06/28/23 18:20 37 C 82 18 134/81 95 Room Air Recovery Score Activity: Moves 4 extremities Respiration: Deep Breath/Cough Circulation: +/-20% PreAnes Value Consciousness: Fully Awake Oxygen Saturation: > 92% On Room Air Post Anesthesia Score: 10 Post Sedation Plan On clinical assessment, the patient appears to have tolerated the sedation without complications. Patient is recovering as anticipated. Patient will continue to be monitored by nursing and may be discharged when sedation discharge criteria are met per below protocol. Upon Completions of procedure up to 15 minutes continue every 5 minute vital signs and the P.A.R. score; then discharge to a Phase I or Fast Track to Phase II per the following guidelines: * Discharge Patient to appropriate Phase II area if PAR is 8 or greater or return to pre- procedure baseline. The post - procedure orders will be as directed. * If PAR score is less than 8 or not return to pre-procedure baseline then patient will follow Phase I monitoring till PAR is reached for Phase II. The Phase I may be done in procedure room or may call to secure a Phase I area. * If naloxone or flumazenil are used for reversal, hold in Phase I for continued monitoring from when last reversal dose was given for a minimum of 60 minutes or longer pending the nurse and/or physician discretion of patient condition before discharge to Phase II. Please call the Sedation Physician to re-evaluate and complete post-note for discharge to Phase II area. Do NOT discharge from procedure sedation or Phase 1 until post- sedation evaluation note is complete by procedure /sedation MD Sedation Discharge Instructions to be given to the patient at discharge to home. Sedation Data Sedation Times Sedation Start Date: 06/28/23 Sedation Start Time: 20:48 Sedation End Date: 06/28/23 Sedation End Time: 21:15 Total Sedation Time: 27 Procedure Times Procedure Start Time:: 20:48 Procedure End Time: 21:00
--- NOTE | 2023-06-28 22:10 | History & Physical Report ---
Date of Service June 28, 2023 Assessment & Plan (1) Closed dislocation of right hip: Plan: Patient was at [facility] rehab, and woke up on 06/27 complaining of right hip pain He reportedly fell on Saturday 06/24, but was able to participate in PT the following days EMS took x-ray on arrival and found right hip dislocation ED attempted hip reduction, but was unsuccessful Plan is to go to the OR with Dr. Colon at 7 AM on 06/28 Acetaminophen p.o. q4h as needed for pain 13 Dilaudid 0.5-1.0 mg IV q4h as needed for breakthrough pain NPO at midnight A.m. CBC, BMP (2) S/P total hip arthroplasty: Plan: Right total hip arthroplasty on 06/[address] Colon (3) Acute blood loss anemia: Plan: Hgb 7.2 on arrival No signs of active bleeding or bruising around the right hip on clinical exam Per [facility] records, patient has been downtrending gradually since surgery, and this may indicate an acute blood loss anemia in the setting of recent surgery Hold celecoxib Iron panel, retic count, and peripheral smear ordered, pending Trend H&H q4h x 2 Blood consent form obtained over the phone with patient's son & [id number] (see HPI) Type & Cross; 2u pRBCs ordered, held Transfuse for Hgb < 7.0 (4) Frontotemporal dementia: Plan: Patient exhibited some agitation in the ED Will trial Zyprexa 2.5 mg ODT daily PRN for agitation Plan Disposition: Admit to PCU telemetry Full code Keep n.p.o. for now Plan is for surgery on 06/28 at 7 AM VTE PPx: SCDs/teds (will hold chemical DVT PPx prior to surgery) Note: Patient is normally on aspirin 81 mg p.o. BID for DVT PPx, will hold for now prior to surgery History of Present Illness Chief Complaint: Right hip pain Primary Care Provider: DO Chon Frazier is a 68-year-old male with PMH of orthostatic hypotension, frontotemporal dementia, and BPPV. He presented via EMS from [facility] for right hip p ain on 06/27. EMS took an x-ray and found that the right hip was dislocated. Patient has consistently reported 5/10 pain in his right hip and lower back. He is a poor historian at this time. Patient had recent hip surgery with Dr. Colon on 06/08; right hip arthroplasty. He was then discharged from [facility] on 06/13. Per [facility] staff, patient reportedly fell on Saturday 06/24, but then was able to participate in physical therapy and perform maneuvers such as a stand and pivot with two-person assistance from bed to wheelchair without pain or difficulty. Nursing staff also reported that the patient would occasionally "thrash" in the middle of the night. It is believed that the patient woke up with a rate hip dislocation. At present, patient is unable to explain what happened today. He received propofol in the ED prior to attempted hip reduction; however this was not successful. Patient's vitals are stable at time of admission. ED course: Propofol 100 mg IV ROS: Patient endorses Patient denies Phone discussion with patient's son and [id number] to provide them an update regarding OR time for tomorrow. Note: Blood consent form was obtained over the phone, as patient does not exhibit capacity to make medical decision at time of admission. Case was discussed with patient's son (Chon Jerez) and patient's [id number] (Angelica) over the phone. While there is no power of food processing scientist paperwork at present, Chon Jerez is patient's only living child. Over the phone, it was reported that the patient did have a blood transfusion around 20 years ago after falling off the roof and sustaining a traumatic injury. While he has never made his wishes known regarding blood transfusions ahead of time, his son believes that he would be okay with a blood transfusion if needed. Both Dr. Debora Shepard and patient's nurse (Tushar Guthrie RN) were present to witness and verify this phone call conversation. Please call patient's son and/or patient's [id number] following surgery to provide updates, and ask for one of them to come in and sign blood consent form. Please see Dr. Shepard's attestation for any additional changes to treatment plan. Allergies Allergy/AdvReac Type Severity Reaction Status Date / Time No Known Allergies Allergy Verified 06/09/23 07:48 Home Medications Medication Instructions Recorded Confirmed Type acetaminophen 500 mg tablet 500 mg PO Q8H PRN Pain 05/25/18 06/28/23 History celecoxib 100 mg capsule 100 mg PO BID 05/17/23 06/28/23 History docusate sodium 100 mg capsule 100 mg PO HS 05/17/23 06/28/23 History (Stool Softener) meclizine 12.5 mg tablet 12.5 mg PO TID PRN Vertigo 05/17/23 06/28/23 History polyethylene glycol 3350 17 17 g PO DAILY PRN Constipation 05/17/23 06/28/23 History gram/dose oral powder (Miralax) aspirin 81 mg tablet,delayed 81 mg PO BID DVT prophylaxis 30 06/10/23 06/28/23 Rx release days #60 tabs oxycodone 5 mg tablet 5 - 10 mg (1 - 2 x 5 mg) PO Q4H 06/10/23 06/28/23 Rx PRN pain #28 tabs paroxetine HCl 20 mg tablet 20 mg PO DAILY 06/28/23 06/28/23 History rosuvastatin 10 mg tablet 10 mg PO DAILY 06/28/23 06/28/23 History Past Med/Surg History Medical History BPPV (benign paroxysmal positional vertigo) Frontotemporal dementia History of blood transfusion Hyperlipidemia hx of taking a statin, states he currently is not taking (05/17/23 Wendy EDUARDO) History of colon polyps Memory loss d/t brain trauma Osteoarthritis GERD (gastroesophageal reflux disease) controlled, stable per pt Chronic diarrhea Hearing deficit Depression Anxiety Brain trauma "fell off roof 2000, broke neck, brain swelling" Hypertension pt used to take lisinopril, states he currently is not taking (05/17/23 Wendy EDUARDO) Orthostatic hypotension Surgical History History of cranial surgery per pt he has "2 screws holding skull on" History of open reduction and internal fixation (ORIF) procedure right arm--hardware removed History of carpal tunnel release of both wrists History of colonoscopy History of tooth extraction all teeth History of eye surgery right eye "had to be put back in after my fall" Family History Brother Family hx colonic polyps Other No family history of adverse response to anesthesia Social History Smoking Status: Never smoker Second Hand Exposure: No; Do You Dip or Chew Tobacco: No; Hx Alcohol Use: No Hx Substance Use: No Preferred Language: Kyrgyz Communication Ability: Effective Communication Ability Comment: unable to read well due to poor eye sight, but has drivers license Retail Loss Prevention Officer Required: No Beliefs That Will Affect Care: None Current Living Situation: Rehab Current Living Situation Comment: [facility] Feels Safe at Home: Yes Assistive Devices: Denture - Upper, Denture - Lower, Glasses and Hearing Aid - Bilateral Assistive Devices Comment: patient did not have assistive devices with him upon admission Review of Systems Review of Systems: See HPI above Physical Exam Physical Exam: General: Alternates between states of being lethargic/sedated and agitation; non-toxic appearing; frail appearing; SpO2 97% on RA HEENT: normocephalic, atraumatic; no scleral icterus; PERRLA w/ EOMs intact; moist mucus membrane; missing dentistry; unable to assess vision and hearing Neck: supple; no lymphadenopathy; trachea midline Skin: warm, dry without signs of tenting; no cyanosis; no rashes, bruising, lesions, or erythema noted CV: chest wall NTP; RRR; S1/S2 normal; no murmurs/rubs/gallops; pulses intact and symmetric at radial, DP, and PT Lungs: no acute respiratory distress; symmetrical chest wall expansion; clear breath sounds across all lung silva w/o adventitious sounds; no wheezing ABD: Soft, NTP; BS present; no rebound/guarding; no distention Right hip: TTP at point of protrusion; no signs of ecchymosis, bruising, or active bleeding on the hip MSK: Occasional tremors and shaking; no edema noted in the LEs b/l, nonerythematous; patient demonstrates ability to wiggle toes bilaterally (right foot is neurovascularly intact) Neuro: Responds to some questioning, such as where his pain is it; not alert and oriented; sedated/agitated; difficult to understand speech; unable to assess sensation at this time Results & Data Results & Data Vital Signs (Past 12 Hours) Vital Signs Temp Pulse Resp BP Pulse Ox O2 Del Method O2 Flow Rate 06/28/23 21:35 86 20 125/79 97 Room Air 06/28/23 21:30 77 18 115/72 98 Room Air 06/28/23 21:25 82 22 100 Room Air 06/28/23 21:25 120/78 06/28/23 21:20 133/88 06/28/23 21:20 81 22 99 Room Air 06/28/23 21:15 82 20 130/79 98 Room Air 06/28/23 21:10 85 24 132/82 100 Room Air 06/28/23 21:07 87 20 135/82 99 Room Air 06/28/23 21:05 88 22 139/88 99 Nasal Cannula 2 06/28/23 21:00 83 6 L 98 06/28/23 20:55 89 16 144/83 H 96 Nasal Cannula 2 06/28/23 20:52 88 18 129/89 98 Nasal Cannula 2 06/28/23 20:50 89 16 66/47 L 96 Nasal Cannula 2 06/28/23 20:45 91 H 16 117/82 98 Nasal Cannula 2 06/28/23 20:40 88 16 124/78 96 Nasal Cannula 2 06/28/23 20:35 93 H 15 113/84 97 Nasal Cannula 2 06/28/23 18:35 85 06/28/23 18:20 37 C 82 18 134/81 95 Room Air Laboratory Results Abnormal lab results 06/28/23 Range/Units 19:59 RBC 2.33 L (4.70-6.10) M/uL Hgb 7.2 L (14.0-18.0) g/dl Hct 21.9 L (42.0-52.0) % Plt Count 708 H (130-400) K/uL MPV 8.6 L (9.4-12.4) fL [place] # (Auto) 0.91 H (0.11-0.59) K/uL BUN 24 H (6-23) mg/dl BUN/Creatinine Ratio 32.9 H (10-20) Glucose 102 H (70-99(Fasting)) mg/dl AST 43 H (13-39) U/L Albumin 3.3 L (3.4-5.0) gm/dl Diagnostic Findings Laboratory Results WBC 9.11 K/ul (4.8-10.8) 06/29/23 04:11 RBC 2.48 M/uL (4.70-6.10) L 06/29/23 04:11 Hgb 7.5 g/dl (14.0-18.0) L 06/29/23 04:11 Hct 23.3 % (42.0-52.0) L 06/29/23 04:11 MCV 94.0 fL (80.0-100.0) 06/29/23 04:11 MCH 30.2 pg (25.0-34.0) 06/29/23 04:11 MCHC 32.2 g/dL (32.0-36.0) 06/29/23 04:11 RDW Std Deviation 45.3 fL (36.4-46.3) 06/29/23 04:11 RDW Coeff of Jeffy 13.2 % (11.5-14.5) 06/29/23 04:11 Plt Count 706 K/uL (130-400) H 06/29/23 04:11 MPV 8.6 fL (9.4-12.4) L 06/29/23 04:11 Immature Gran % (Auto) 0.7 % 06/29/23 04:11 Neut % (Auto) 71.7 % 06/29/23 04:11 Lymph % (Auto) 16.2 % 06/29/23 04:11 [place] % (Auto) 10.0 % 06/29/23 04:11 Eos % (Auto) 0.9 % 06/29/23 04:11 Baso % (Auto) 0.5 % 06/29/23 04:11 Reticulocyte % (Auto) 3.94 % (0.50-2.00) H 06/28/23 19:59 Neut # (Auto) 6.53 K/uL (1.40-6.50) H 06/29/23 04:11 Lymph # (Auto) 1.48 K/uL (1.20-3.40) 06/29/23 04:11 [place] # (Auto) 0.91 K/uL (0.11-0.59) H 06/29/23 04:11 Eos # (Auto) 0.08 K/uL (0.00-0.50) 06/29/23 04:11 Baso # (Auto) 0.05 K/uL (0.00-0.20) 06/29/23 04:11 Reticulocyte # 0.090 10^6/uL (0.020-0.100) 06/28/23 19:59 Immature Gran # (Auto) 0.06 K/uL (0.01-0.20) 06/29/23 04:11 Polychromasia 1+ 06/29/23 04:11 Sodium 137 mmol/L (136-145) 06/29/23 04:11 Potassium 4.0 mmol/L (3.5-5.1) 06/29/23 04:11 Chloride 104 mmol/L (98-107) 06/29/23 04:11 Carbon Dioxide 25 mmol/L (21-32) 06/29/23 04:11 Anion Gap 8 (3-11) 06/29/23 04:11 BUN 24 mg/dl (6-23) H 06/29/23 04:11 Creatinine 0.74 mg/dl (0.6-1.4) 06/29/23 04:11 Est Cr Clr Drug Dosing 89.9 ml/min 06/29/23 04:11 Est GFR ( Amer) 108.3 ml/min 06/29/23 04:11 Est GFR (Non-Af Amer) 93.5 ml/min 06/29/23 04:11 BUN/Creatinine Ratio 32.4 (10-20) H 06/29/23 04:11 Glucose 100 mg/dl (70-99(Fasting)) H 06/29/23 04:11 Calcium 8.9 mg/dl (8.6-10.3) 06/29/23 04:11 Magnesium 2.1 mg/dl (1.7-2.4) 06/28/23 19:59 Iron 16 mcg/dl (35-175) L 06/28/23 19:59 Ferritin 413.4 ng/ml (8-388) H 06/28/23 19:59 Total Bilirubin 0.7 mg/dl (0.2-1.0) 06/28/23 19:59 AST 43 U/L (13-39) H 06/28/23 19:59 ALT 38 U/L (7-52) 06/28/23 19:59 Alkaline Phosphatase 78 U/L (34-104) 06/28/23 19:59 Total Protein 6.3 gm/dl (6.0-8.3) 06/28/23 19:59 Albumin 3.3 gm/dl (3.4-5.0) L 06/28/23 19:59 Globulin 3.0 gm/dl (2.5-4.0) 06/28/23 19:59 Albumin/Globulin Ratio 1.1 (0.9-2) 06/28/23 19:59 Nasal Screen MRSA (PCR) Negative (Negative) 06/29/23 Unknown Blood Type A Positive 06/28/23 23:35 Antibody Screen NEGATIVE 06/28/23 23:35 Crossmatch See Detail 06/28/23 23:35 Code Status & VTE Plan Code Status Full code (per paperwork signed by Dr. Elia Oliva on 06/14/2023; reconfirmed with patient's son and [id number] over the phone) VTE Prophylaxis Plan VTE Prophylaxis will be ordered: Yes Supervising Physician Co-Signing Physician Notes Patient seen and examined, chart reviewed, case discussed with GAYE Bautista and I agree with the assessment and plan as above. In brief, patient is a 68yo male with frontotemporal dementia presenting from [facility] for right hip pain. He did fall on 06/25/23 but has been able to walk and bear weight - pain started on 49 AM. Reduction attempt in the ER unsuccessful. Plan for OR reduction today with Dr. Reid Patient seen in 460-2, somnolent +S1/2, regular, no m/r/g Lungs CTA Abd soft, NT/ND Ext - warm, well perfused, no bruising or discoloration, NV intact, shortening of RLE Labs and images reviewed Patient does have a low Hgb of 7.2. Per record review, this has been declining since his surgery Assessment/Plan Dislocation of right hip prosthesis with unsuccessful reduction attempt in the ER -Plan for reduction in the OR today with Orthopedic surgery Patient is NPO, ASA on hold -Trend H/H - transfuse if <7, consent has been obtained via phone by Ioana. No bruising, firmness or discoloration to suggest post-operative bleed. Consider imaging if H/H continues to decline -Zyprexa PRN for agitation -Anemia workup with iron labs, peripheral smear and reticulocyte count -Remainder as above PG Care Time/CCT Total # of Minutes Spent Total Time Spent with Patient: Total time spent is greater than 50% in coordination of care (as documented) at patient's floor/unit and/or counseling patient: Coding [place] [address] INT INP/OBS CARE 3/75MIN Patient Type Established Medical Decision Making High Complexity Diagnoses Closed dislocation of right hip S73.004A S/P total hip arthroplasty Z96.649 Acute blood loss anemia D62 Frontotemporal dementia G31.09; F02.80
[2023-06-28] MEDS ORDERED: SODIUM CHLORIDE 0.9% 250 ML IV PRN ×2 (23:22→23:23)
[2023-06-29 00:44] LABS: Hemoglobin 7.3 g/dl (14.0-18.0)
[2023-06-29 00:58] LABS: Reticulocyte % 3.94 % (0.50-2.00)
[2023-06-29 01:00] LABS: Magnesium 2.1 mg/dl (1.7-2.4)
[2023-06-29] MEDS ORDERED: POLYETHYLENE (MIRALAX) 17 GM PACK PO PRN (01:02)
[2023-06-29] MEDS ORDERED: ONDANSETRON INJ 2 MG/ML 2 ML VIAL IV PRN ×2 (01:02→07:25)
[2023-06-29] MEDS: HYDROmorphone INJ 1 MG/ML SYRINGE IV PRN (01:08)
[2023-06-29 01:21] LABS: Ferritin 413.4 ng/ml (8-388)
[2023-06-29] MEDS: ACETAMINOPHEN 325 MG TAB PO PRN (01:40)
[2023-06-29] MEDS: KETOROLAC TROMETHAMINE 15 MG/ML VIAL IV PRN (04:36)
[2023-06-29 04:58] LABS: Basophils # (auto) 0.05 K/uL (0.00-0.20); Basophils % (auto) 0.5 %; Eosinophils # (auto) 0.08 K/uL (0.00-0.50); Eosinophils % (auto) 0.9 %; Hematocrit (blood only) 23.3 % (42.0-52.0); Hemoglobin 7.5 g/dl (14.0-18.0); Immature Granulocytes # (auto) 0.06 K/uL (0.01-0.20); Immature Granulocytes % (auto) 0.7 %; Lymphocytes # (auto) 1.48 K/uL (1.20-3.40); Lymphocytes % (auto) 16.2 %; Mean Corpuscular Hemoglobin 30.2 pg (25.0-34.0); Mean Corpuscular Hgb Conc 32.2 g/dL (32.0-36.0); Mean Platelet Volume 8.6 fL (9.4-12.4); Monocytes # (auto) 0.91 K/uL (0.11-0.59); Neutrophils # (auto) 6.53 K/uL (1.40-6.50); Neutrophils % (auto) 71.7 %; Platelet Count 706 K/uL (130-400); RDW Coefficient of Variation 13.2 % (11.5-14.5); RDW Standard Deviation 45.3 fL (36.4-46.3); Red Blood Count 2.48 M/uL (4.70-6.10); White Blood Count 9.11 K/ul (4.8-10.8)
[2023-06-29 05:07] LABS: BUN Creatinine Ratio 32.4 (10-20); Calcium 8.9 mg/dl (8.6-10.3); Creatinine Clr Calc Pharmacy 89.9 ml/min; Est GFR (African American) 108.3 ml/min; Est GFR (Non-African American) 93.5 ml/min
[2023-06-29 05:42] LABS: Polychromasia 1+
--- NOTE | 2023-06-29 06:49 | Orthopedic Consultation ---
Date of Consultation June 29, 2023 Assessment & Plan (1) Dislocation of internal right hip prosthesis: Plan I spoke with the patient's son, Chon Karimi, about his father. He needs to have his hip reduced under general anesthesia. We will plan to do that this morning. We will put him in a hip brace after surgery. However, I do not know if his mental status will improve from what he has been after surgery. Therefore, I am concerned that his hip could dislocate again as I expect he will continue to be noncompliant with hip precautions. Therefore, we need may need to do another operation to switch him to a more constrained prosthesis either dual mobility acetabulum or a constrained liner. We do not have the appropriate equipment in the hospital to do that today, but possibly tomorrow. In either case, for today he needs to have his hip reduced for his own comfort and to reduce the amount of narcotics he needs for pain control which will inevitably affect his mental status. Chon Jerez is in agreement with the plan. Verbal informed consent was obtained. Procedural site was marked. Proceed to the operating room this morning. Readmitted to internal medicine after his procedure. History of Present Illness Attending Physician: Debora Shepard DO History of Present Illness 68-year-old male, medical history significant for frontotemporal dementia, status post right total hip arthroplasty by myself approximately 3 weeks ago on June 09, 2023. Unfortunately, after surgery, patient has had altered mental status with difficulty following commands and not following his posterior hip precautions. He presented to the emergency room yesterday with a closed prosthetic hip dislocation on the right. The emergency room staff were unable to achieve a closed reduction under sedation. The on-call orthopedic physician, Dr. Rangel, contacted me about the patient last night. He was concerned he would not be able to achieve a closed reduction and a second attempt under sedation. I offered to reduce the hip this morning under general anesthesia. Patient was admitted to internal medicine overnight. He has been n.p.o. since midnight. Allergies Allergy/AdvReac Type Severity Reaction Status Date / Time No Known Allergies Allergy Verified 06/09/23 07:48 Home Medications Medication Instructions Recorded Confirmed Type acetaminophen 500 mg tablet 500 mg PO Q8H PRN Pain 05/25/18 06/28/23 History celecoxib 100 mg capsule 100 mg PO BID 05/17/23 06/28/23 History docusate sodium 100 mg capsule 100 mg PO HS 05/17/23 06/28/23 History (Stool Softener) meclizine 12.5 mg tablet 12.5 mg PO TID PRN Vertigo 05/17/23 06/28/23 History polyethylene glycol 3350 17 17 g PO DAILY PRN Constipation 05/17/23 06/28/23 History gram/dose oral powder (Miralax) aspirin 81 mg tablet,delayed 81 mg PO BID DVT prophylaxis 30 06/10/23 06/28/23 Rx release days #60 tabs oxycodone 5 mg tablet 5 - 10 mg (1 - 2 x 5 mg) PO Q4H 06/10/23 06/28/23 Rx PRN pain #28 tabs paroxetine HCl 20 mg tablet 20 mg PO DAILY 06/28/23 06/28/23 History rosuvastatin 10 mg tablet 10 mg PO DAILY 06/28/23 06/28/23 History Patient History Medical History (Updated 06/29/23 @ 06:57 by Alec Reynolds MD) BPPV (benign paroxysmal positional vertigo) Frontotemporal dementia History of blood transfusion Hyperlipidemia hx of taking a statin, states he currently is not taking (05/17/23 Wendy EDUARDO) History of colon polyps Memory loss d/t brain trauma Osteoarthritis GERD (gastroesophageal reflux disease) controlled, stable per pt Chronic diarrhea Hearing deficit Depression Anxiety Brain trauma "fell off roof 2000, broke neck, brain swelling" Hypertension pt used to take lisinopril, states he currently is not taking (05/17/23 Wendy EDUARDO) Orthostatic hypotension Surgical History (Updated 06/27/23 @ 00:07 by Gabriel Catherine) History of cranial surgery per pt he has "2 screws holding skull on" History of open reduction and internal fixation (ORIF) procedure right arm--hardware removed History of carpal tunnel release of both wrists History of colonoscopy History of tooth extraction all teeth History of eye surgery right eye "had to be put back in after my fall" Family History Brother Family hx colonic polyps Other No family history of adverse response to anesthesia Social History Smoking Status: Never smoker Second Hand Exposure: No; Do You Dip or Chew Tobacco: No; Hx Alcohol Use: No Hx Substance Use: No Preferred Language: Russian Communication Ability: Effective Communication Ability Comment: unable to read well due to poor eye sight, but has drivers license Security Incident Handler Required: No Beliefs That Will Affect Care: None Current Living Situation: Rehab Current Living Situation Comment: [facility] Feels Safe at Home: Yes Assistive Devices: Denture - Upper, Denture - Lower, Glasses and Hearing Aid - Bilateral Assistive Devices Comment: patient did not have assistive devices with him upon admission Physical Exam Physical Exam: On exam, he is sleepy, and difficult to arouse, however is able to follow commands. Right hip exam shows a well-healed incision. The hip is flexed, 80 ducted, and slightly internally rotated. The leg is shortened. These are all consistent with a posterior superior hip dislocation. Distally he is able to wiggle his toes. Palpable dorsalis pedis pulse. Toes are warm and well-perfused. Neurovascular intact. Results & Data Vital Signs (Past 12 Hours) Vital Signs Temp Pulse Pulse Resp BP BP Pulse Ox 06/29/23 03:54 36.7 C 94 H 20 146/78 H 94 06/29/23 01:03 38.2 C H 92 H 18 132/76 92 06/28/23 22:28 85 06/28/23 21:35 86 20 125/79 97 06/28/23 21:30 77 18 115/72 98 06/28/23 21:25 82 22 100 06/28/23 21:25 120/78 06/28/23 21:20 133/88 06/28/23 21:20 81 22 99 06/28/23 21:15 82 20 130/79 98 06/28/23 21:10 85 24 132/82 100 06/28/23 21:07 87 20 135/82 99 06/28/23 21:05 88 22 139/88 99 06/28/23 21:00 83 6 L 98 06/28/23 20:55 89 16 144/83 H 96 06/28/23 20:52 88 18 129/89 98 06/28/23 20:50 89 16 66/47 L 96 06/28/23 20:45 91 H 16 117/82 98 06/28/23 20:40 88 16 124/78 96 04/09/24 20:35 93 H 15 113/84 97 O2 Del Method O2 Flow Rate 06/29/23 03:54 Room Air 06/29/23 01:03 Room Air 06/28/23 22:28 06/28/23 21:35 Room Air 06/28/23 21:30 Room Air 06/28/23 21:25 Room Air 06/28/23 21:25 06/28/23 21:20 06/28/23 21:20 Room Air 06/28/23 21:15 Room Air 06/28/23 21:10 Room Air 06/28/23 21:07 Room Air 06/28/23 21:05 Nasal Cannula 2 06/28/23 21:00 06/28/23 20:55 Nasal Cannula 2 06/28/23 20:52 Nasal Cannula 2 06/28/23 20:50 Nasal Cannula 2 06/28/23 20:45 Nasal Cannula 2 06/28/23 20:40 Nasal Cannula 2 06/28/23 20:35 Nasal Cannula 2 Diagnostic Findings X-rays show a posterior superior hip dislocation.
[2023-06-29] MEDS ORDERED: PROPOFOL IV EMULSION 10 MG/ML 20 ML VIAL IV ONE (07:01)
[2023-06-29] MEDS ORDERED: MIDAZOLAM HCL 1 MG/ML 2ML VIAL ONE (07:01)
[2023-06-29] MEDS ORDERED: LIDOCAINE 2% 2 ML VIAL/AMP(20MG/ML) INFIL ONE (07:01)
[2023-06-29] MEDS ORDERED: fentaNYL citrate PF 100 MCG/2 ML VIAL ONE (07:01)
[2023-06-29] MEDS ORDERED: SUCCINYLCHOLINE 100MG/5ML SYR IV ONE (07:15)
[2023-06-29] MEDS ORDERED: ROCURONIUM BROMIDE 10 MG/ML 5 ML VIAL IV ONE (07:15)
[2023-06-29] MEDS ORDERED: ONDANSETRON INJ 2 MG/ML 2 ML VIAL ONE (07:15)
[2023-06-29] MEDS ORDERED: fentaNYL citrate PF 100 MCG/2 ML VIAL IV PRN (07:25)
[2023-06-29] MEDS ORDERED: ATROPINE SULFATE 0.1 MG/ML 10ML SYR IV PRN (07:25)
[2023-06-29] MEDS ORDERED: HYDROmorphone INJ 1 MG/ML SYRINGE IV PRN (07:25)
[2023-06-29] MEDS ORDERED: ePHEDrine sulfate 50 MG/ML AMP IV PRN (07:25)
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
--- NOTE | 2023-06-29 07:28 | XRay Report ---
XR hip RT 2V w pelvis HISTORY: 68 years-old Male r/o dislocation acute right hip pain COMPARISON: 06/09/2023 TECHNIQUE: AP view of the pelvis with 2 views of the right hip FINDINGS: Right hip arthroplasty. There is superior and posterior dislocation of the femoral head component wit hout acute fracture identified. Soft tissue swelling surrounds the right hip. 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 IMPRESSION: Dislocation of the right hip arthroplasty. ACT 112: Negative or not required by law. The above report was generated using voice recognition software. It may contain grammatical, syntax o r spelling errors. Electronically signed by: Saran Menard M.D. 06/29/2023 7:26 AM
[2023-06-29] MEDS ORDERED: SUGAMMADEX SODIUM 200 MG/2 ML VIAL IV ONE (07:52)
--- NOTE | 2023-06-29 08:08 | XRay Report ---
XR hip RT 1V CLINICAL HISTORY: s/p sedation COMPARISON: Pelvis and right hip radiographs June 28, 2023 at 7:42 PM. FINDINGS: There is persistent superior dislocation of the femoral component of the right hip arthrop lasty with respect to the acetabular cup. No acute fractures are noted. Chronic deformity at the symp hysis pubis is incidentally noted. IMPRESSION: Persistent dislocation of the femoral component of the right hip arthroplasty. ACT 112: Negative or not required by law. Electronically signed by: Homero Jaimes M.D. 06/29/2023 8:07 AM
--- NOTE | 2023-06-29 08:15 | Operative Report ---
Post Operative Report Pre & Post Diagnosis Operation Date: 06/29/23 07:00 Pre-Op Diagnosis: RIGHT Prosthetic HIP DISLOCATION Post-Op Diagnosis: RIGHT Prosthetic HIP DISLOCATION, unable to be reduced under general anesthesia I identified the patient and participated in the time-out.: Yes Procedure Operation Date: 06/29/23 07:00 Actual Procedures Right Hip Closed Reduction(Right) - Alec Reynolds MD Surgeon Alec Reynolds MD Languages And Literature Instructor None Estimated Blood Loss 0 Findings Consistent with Post-Op Diagnosis Specimens None Anesthesia Type General Complications none Disposition Disposition: Recovery Room Indications 68-year-old male, with medical history significant for frontotemporal dementia, status post a right total hip arthroplasty by myself on June 09, 2023, presented to the emergency room yesterday evening from [facility] complaining of right hip pain. An x-ray had been obtained which showed a prosthetic hip dislocation. Per report, the patient had taken a fall approximately 3 days ago at his facility. However he was able to stand and transfer afterwards. Yesterday however he started complaining of hip pain and was unable to stand and transfer. He was noted to be "thrashing while he sleeps". After surgery on June 08 he had seen a decline in his mental status and was not compliant with the posterior hip precautions he had been given. The emergency room had attempted a closed reduction under sedation yesterday evening. Unfortunately, this was unsuccessful. He was therefore admitted to the hospital overnight for a closed reduction under general anesthesia this morning. He was kept n.p.o. I discussed with his son Chon about the procedure. Procedure was indicated to reduce the dislocation in order to decrease his pain. We do not have the appropriate components to do a revision total hip arthroplasty today, therefore I discussed with the son that we would not attempt an open reduction today as we would need to have all available revision arthroplasty components available at the time of an open reduction. I talked to the son about the risks and benefits of the procedure, including the possibility that the hip would not reduce under general anesthesia and that he could possibly need an additional procedure to reduce and stabilize his hip. Verbal informed consent was given by the son and documented in his chart. The procedural site was marked. Description of Procedure Patient was brought to the operating room where general anesthesia was administered on the hospital bed including full muscle paralysis. He was then carefully moved onto the operating room table. C-arm fluoroscopy was brought in and was used to confirm that we could achieve adequate fluoroscopic visualization of the hip. This also confirmed the posterior superior hip dislocation. A sheet was then wrapped around his inner thigh in order to provide a medial to lateral force on the proximal femur. 1 nurse was position holding the sheet. A second operating room nurse was position to hold down the bilateral anterior superior iliac spines to stabilize the pelvis to the operating room table. Prior to beginning the closed reduction a timeout was called. All in the room were in agreement. With the 2 operating room nurses in appropriate position stabilizing the pelvis and providing a medial to lateral force on the proximal femur I then attempted a closed reduction by pulling longitudinal traction with the hip flexed approximately 45 degrees and isolating internal and external rotation as well as slight adduction and abduction. Unfortunately, this reduction attempt was unsuccessful as was confirmed with fluoroscopy. Next, a second attempt was made with myself standing up on the operating room table and playing the leg towards the ceiling had more of a 75 degree of flexion angle for the hip. Again the hip was oscillated in internal and external rotation and adduction to attempt to reduce it. Once again unfortunately, this was unsuccessful, again confirmed with fluoroscopy. Next, we tried another attempt without using the sheet in order to eliminate this as a possible confounder for the attempted reduction. Unfortunately, however this third reduction attempt was also unsuccessful. At this point, fluoroscopy was brought in and and we checked to ensure that there were no fractures which was confirmed. I decided to not attempt a fourth closed reduction maneuver given the fact that he had an excellent stability exam in the operating room when I initially reduced his hip. Likely there is interposed s oft tissue blocking the reduction. Patient will require another procedure to do an open reduction. He was then awoke from anesthesia and transferred to recovery room in stable condition. Postoperative course: I spoke with his son Chon, after the procedure and informed him that we were unable to achieve a closed reduction. I also spoke to him while the nurse Cirilo Oh RN, was standing by about the need to do another procedure of an open reduction, right prosthetic hip dislocation, and revision right total hip arthroplasty. I explained the rationale for the procedure. We talked about the risks and benefits of the procedure. I also talked with him about his low hemoglobin which was 7.2 on his admission to the hospital. Given that he will lose some blood from this revision procedure I think it would be in his best interest that we give him a blood transfusion today of at least 1 unit if not 2. Will leave the final determination on the amount of blood transfused to his internal medicine physician, Dr. Patricia, who I also spoke with about the patient. After reviewing all of the options, his son consented to the blood transfusion today as well as the additional procedure to gabrielle. Patient will be allowed to eat today but should be kept n.p.o. after midnight tonight. I spoke with the [employer] vendor about the revision surgery tomorrow and he will be working on getting the constrained liners and all other appropriate revision total hip equipment available for surgery tomorrow morning. I attest to the content of the Intraoperative Record and any orders documented therein. Any exceptions are noted below.
[2023-06-29] MEDS ORDERED: SODIUM CHLORIDE 0.9% 250 ML IV PRN (08:20)
--- NOTE | 2023-06-29 08:37 | Fluoroscopy Report ---
FL hip RT 1V CLINICAL HISTORY: RIGHT CLOSED REDUCTION HIPright hip arthroplasty dislocation COMPARISON STUDY: Radiograph 06/28/2023 FLUOROSCOPY TIME: 9.9 seconds FLUOROSCOPY IMAGES: 1 EXPOSURE DOSE: 1.54 mGy FINDINGS: Right hip arthroplasty with superior dislocation of the femoral head prosthesis. Severe deg eneration of the pubic symphysis. No acute fracture identified. IMPRESSION: Fluoroscopic assistance as above. ACT 112: Negative or not required by law. Electronically signed by: Saran Menard M.D. 06/29/2023 8:35 AM
--- NOTE | 2023-06-29 08:58 | Anesthesiology Progress Note ---
Date of Service June 29, 2023 Anesthesia Post Procedure Vital Signs Vital Signs: Temp Pulse Pulse Pulse Resp BP BP 06/29/23 08:30 36.6 C 79 20 115/76 06/29/23 08:20 74 12 130/79 06/29/23 08:10 75 15 125/79 06/29/23 08:04 36.2 C L 82 16 124/80 06/29/23 07:21 81 06/29/23 07:06 36.8 C 78 20 114/68 06/29/23 03:54 36.7 C 94 H 20 146/78 H 06/29/23 01:03 38.2 C H 92 H 18 132/76 06/28/23 22:28 85 06/28/23 21:35 86 20 125/79 06/28/23 21:30 77 18 115/72 06/28/23 21:25 82 22 06/28/23 21:25 120/78 06/28/23 21:20 133/88 06/28/23 21:20 81 22 06/28/23 21:15 82 20 130/79 06/28/23 21:10 85 24 132/82 06/28/23 21:07 87 20 135/82 06/28/23 21:05 88 22 139/88 06/28/23 21:00 83 6 L 06/28/23 20:55 89 16 144/83 H 06/28/23 20:52 88 18 129/89 06/28/23 20:50 89 16 66/47 L 06/28/23 20:45 91 H 16 117/82 06/28/23 20:40 88 16 124/78 06/28/23 20:35 93 H 15 113/84 06/28/23 18:35 85 06/28/23 18:20 37 C 82 18 134/81 Pulse Ox O2 Del Method O2 Flow Rate 06/29/23 08:30 97 Room Air 06/29/23 08:20 100 Oxymask 2 06/29/23 08:10 99 Oxymask 4 06/29/23 08:04 99 Oxymask 6 06/29/23 07:21 06/29/23 07:06 97 Room Air 06/29/23 03:54 94 Room Air 06/29/23 01:03 92 Room Air 06/28/23 22:28 06/28/23 21:35 97 Room Air 06/28/23 21:30 98 Room Air 06/28/23 21:25 100 Room Air 06/28/23 21:25 06/28/23 21:20 06/28/23 21:20 99 Room Air 06/28/23 21:15 98 Room Air 06/28/23 21:10 100 Room Air 06/28/23 21:07 99 Room Air 06/28/23 21:05 99 Nasal Cannula 2 06/28/23 21:00 98 06/28/23 20:55 96 Nasal Cannula 2 06/28/23 20:52 98 Nasal Cannula 2 06/28/23 20:50 96 Nasal Cannula 2 06/28/23 20:45 98 Nasal Cannula 2 06/28/23 20:40 96 Nasal Cannula 2 06/28/23 20:35 97 Nasal Cannula 2 06/28/23 18:35 06/28/23 18:20 95 Room Air Transfer of Care Handoff Completed per policy Notes Mental Status: alert / awake / arousable and participated in evaluation Patient Amnestic to Procedure: Yes Nausea / Vomiting: adequately controlled Pain: adequately controlled Airway Patency, RR, SpO2: stable & adequate BP & HR: stable & adequate Hydration State: stable & adequate Anesthetic Complications: no major complications apparent and Pt Satisfied with anesthetic care Notes: lethargicanddemented at baseline
[2023-06-29] MEDS: PANTOprazole 40 MG in SYRINGE 0 ML IV SCH (09:38)
[2023-06-29] MEDS: ROSUVASTATIN CALCIUM 10 MG TAB PO SCH (10:22)
[2023-06-29] MEDS: PARoxetine HCL 20 MG TAB PO SCH (10:22)
--- NOTE | 2023-06-29 11:53 | Hospitalist Progress Note ---
Date of Service June 29, 2023 Assessment & Plan (1) Closed dislocation of right hip: Plan: Patient was at [facility] rehab, and woke up on 06/27 complaining of right hip pain He reportedly fell on Saturday 06/24, but was able to participate in PT the following days EMS took x-ray on arrival and found right hip dislocation ED attempted hip reduction, but was unsuccessful. Dr. Reynolds unable to relocate under general anesthesia on 06/28 Plan for revision of DARIEL on 06/29 Advance diet today and NPO after midnight for otmorrow dc toradol and holding ASA due to anemia and possible bleeding Acetaminophen p.o. q4h as needed for pain 13 Dilaudid 0.5-1.0 mg IV q4h as needed for breakthrough pain A.m. CBC, BMP (2) S/P total hip arthroplasty: Plan: Right total hip arthroplasty on 06/[address] Reynolds was at rehab when fall with dislocation occurred revision planned 06/29 holding ASA for DVT proph (3) Acute blood loss anemia: Plan: Hgb 7.2 on arrival and now stable at 7.5, normocytic, but with significant reactive thrombocytosis likely either to anemia or to hip dislocation TBili normal so not likely hemolysis Probably combination of acute blood loss on chronic anemia iron studies not complete but serum Fe low at 16, ferritin high as APR No signs of active bleeding or bruising around the right hip on clinical exam, no GI bleeding noted Per [facility] records, patient has been downtrending gradually since surgery, and this may indicate an acute blood loss anemia in the setting of recent surgery Hold celecoxib, ASA, and dc toradol started on admission Peripheral smear not much significant but recommended SPEP given progressive anemia to r/o MGUS Blood consent form obtained over the phone with patient's son & damigel [id number] transfuse 1 unit PRBCs today as per Ortho recommendation as surgery tomorrow will involve significant blood loss Check CBC, B12, folate and rest of iron panel this evening Check fecal occult (4) Frontotemporal dementia: Plan: Patient exhibited some agitation in the ED likely from pain continue Zyprexa 2.5 mg ODT daily PRN for agitation (5) Depression: Plan: COntinue Paxil Plan Disposition: continued stay on PCU telemetry Full code VTE PPx: SCDs/teds Note: Patient is normally on aspirin 81 mg p.o. BID for DVT PPx, will hold for now prior to surgery Admission and Anticipated Discharge Date Admission Date: June 28, 2023 Subjective Pt drowsy but wakes up easily and tells me he is cold and is shaking.Has pain in right hip. No bleeding from anywhere and had not yet had a BM to assess for any GI bleeding as per RN. He is otherwise somewhat confused. I discussed his care with Ortho who attempted to relocate the hip under general anesthesia today but could not. Plan for revision of DARIEL tomorrow. Tele with NSR rates 80s Physical Exam Constitutional: WD/WN, vitals as above Respiratory: normal respiratory effort, lungs clear to auscultation Cardiovascular: Rate/Rhythm: regular rate and regular rhythm Heart Sounds: no murmur Extremities: + edema (trace pitting edema legs bilat) Gastrointestinal (Abdomen): normal bowel sounds, soft, nontender, no hepatosplenomegaly Musculoskeletal: Extremities: + leg internally rotated (right) and + leg foreshortened (right); + extremities abnormal to inspection (right hip incision well healed) Neurologic: + not awake (sleeping but wakes up easil y) Results & Data Results & Data Vital Signs (Past 12 Hours) Vital Signs Temp Pulse Pulse Pulse Resp BP BP 06/29/23 11:00 36.8 C 83 16 114/64 06/29/23 10:30 36.8 C 77 16 113/71 06/29/23 10:15 36.9 C 81 16 110/67 06/29/23 09:54 36.5 C 78 18 108/67 06/29/23 08:48 36.4 C L 74 16 130/75 06/29/23 08:30 36.6 C 79 20 115/76 06/29/23 08:20 74 12 130/79 06/29/23 08:10 75 15 125/79 06/29/23 08:04 36.2 C L 82 16 124/80 06/29/23 07:21 81 06/29/23 07:06 36.8 C 78 20 114/68 06/29/23 03:54 36.7 C 94 H 20 146/78 H 06/29/23 01:03 38.2 C H 92 H 18 132/76 Pulse Ox O2 Del Method O2 Flow Rate 06/29/23 11:00 96 06/29/23 10:30 99 06/29/23 10:15 98 06/29/23 09:54 96 06/29/23 08:48 96 Room Air 06/29/23 08:30 97 Room Air 06/29/23 08:20 100 Oxymask 2 06/29/23 08:10 99 Oxymask 4 06/29/23 08:04 99 Oxymask 6 06/29/23 07:21 06/29/23 07:06 97 Room Air 06/29/23 03:54 94 Room Air 06/29/23 01:03 92 Room Air Laboratory Results CBC, BMP, Fe studies, LFTs reviewed PG Care Time/CCT Total # of Minutes Spent Total Time Spent with Patient: Total time spent is greater than 50% in coordination of care (as documented) at patient's floor/unit and/or counseling patient: Coding Level of Care Code 33612 SUB INP/OBS CARE 3/50MIN Diagnoses Closed dislocation of right hip S73.004A S/P total hip arthroplasty Z96.649 Acute blood loss anemia D62 Frontotemporal dementia G31.09; F02.80 Depression F32.9
[2023-06-29 14:03] LABS: Appearance Urine Clear (Clear); Bacteria Urine Automated None Seen (None Seen); Bilirubin Urine Negative (Negative); Blood Urine Negative (Negative); Cast Urine Automated 0-2 /lpf (0-2); Color Urine Dark Yellow; Epithelial Cell Urine Auto 0-2 /hpf (0-2); Glucose Urine UA Negative (Negative); Ketones Urine Trace (Negative); Leukocyte Esterase Urine Negative (Negative); Mucus Urine Present (None Prsent); Nitrite Urine Negative (Negative); Protein Urine 1+ (Negative); RBC Urine Automated 0-2 /hpf (0-2); Specific Gravity Urine 1.031 (1.000-1.030); Urobilinogen Urine Negative (Negative); WBC Urine Automated 0-5 /hpf (0-5)
[2023-06-29 18:13] LABS: Basophils # (auto) 0.05 K/uL (0.00-0.20); Basophils % (auto) 0.7 %; Eosinophils # (auto) 0.11 K/uL (0.00-0.50); Eosinophils % (auto) 1.5 %; Hematocrit (blood only) 24.6 % (42.0-52.0); Hemoglobin 8.1 g/dl (14.0-18.0); Immature Granulocytes # (auto) 0.05 K/uL (0.01-0.20); Immature Granulocytes % (auto) 0.7 %; Lymphocytes # (auto) 1.37 K/uL (1.20-3.40); Lymphocytes % (auto) 18.5 %; Mean Corpuscular Hemoglobin 30.3 pg (25.0-34.0); Mean Corpuscular Hgb Conc 32.9 g/dL (32.0-36.0); Mean Corpuscular Volume 92.1 fL (80.0-100.0); Mean Platelet Volume 8.6 fL (9.4-12.4); Monocytes # (auto) 0.81 K/uL (0.11-0.59); Neutrophils % (auto) 67.6 %; Platelet Count 630 K/uL (130-400); RDW Coefficient of Variation 14.3 % (11.5-14.5); RDW Standard Deviation 48.4 fL (36.4-46.3); Red Blood Count 2.67 M/uL (4.70-6.10); White Blood Count 7.39 K/ul (4.8-10.8)
[2023-06-29 18:28] LABS: Iron 34 mcg/dl (35-175); Total Iron Binding Cap Calc 231 mcg/dl (250-450); Transferrin (FE) Percent Satur 15 % (20-50); Unsaturated Iron Binding Cap 197 mcg/dl (155-355)
[2023-06-29 18:52] LABS: Folate (Folic Acid),Ser orPlas 17.41 ng/ml (>5.38)
[2023-06-29] MEDS: DOCUSATE SODIUM 100 MG CAP PO SCH (20:58)
[2023-06-29] MEDS: HYDROmorphone INJ 0.5 MG/0.5 ML SYR IV PRN (21:03)
--- NOTE | 2023-06-30 00:36 | Emergency Department Note ---
ED Visit Note Procedure note: Date of procedure: 06/28/2023 Time of procedure: 2047 Right hip dislocation reduction: Time out was performed at 2047 Consent was obtained and signed for right hip dislocation/reduction attempt. Under sedation, utilizing traction with flexion at the hip and the right knee, internal and external rotation was applied without successful reduction of the right hip despite multiple attempts. Secondary to multiple attempts and prolonged sedation time procedure was aborted. Patient tolerated the procedure without issue. Motor and sensory function remained intact in the right lower extremity on reevaluation following the procedure attempt. .
[2023-06-30] MEDS ORDERED: BUPIVACAINE 0.5 % 5 MG/1 ML PF 10ML VIAL ONE (06:33)
[2023-06-30 06:51] LABS: Basophils # (auto) 0.05 K/uL (0.00-0.20); Basophils % (auto) 0.6 %; Eosinophils # (auto) 0.23 K/uL (0.00-0.50); Eosinophils % (auto) 2.9 %; Hemoglobin 8.6 g/dl (14.0-18.0); Immature Granulocytes # (auto) 0.06 K/uL (0.01-0.20); Immature Granulocytes % (auto) 0.8 %; Lymphocytes # (auto) 1.47 K/uL (1.20-3.40); Lymphocytes % (auto) 18.7 %; Mean Corpuscular Hemoglobin 29.8 pg (25.0-34.0); Mean Corpuscular Hgb Conc 31.9 g/dL (32.0-36.0); Mean Corpuscular Volume 93.4 fL (80.0-100.0); Mean Platelet Volume 8.6 fL (9.4-12.4); Monocytes # (auto) 0.77 K/uL (0.11-0.59); Monocytes % (auto) 9.8 %; Neutrophils % (auto) 67.2 %; Platelet Count 655 K/uL (130-400); Red Blood Count 2.89 M/uL (4.70-6.10); White Blood Count 7.88 K/ul (4.8-10.8)
[2023-06-30 07:09] LABS: BUN Creatinine Ratio 28.2 (10-20); Calcium 8.7 mg/dl (8.6-10.3); Creatinine Clr Calc Pharmacy 85.3 ml/min; Est GFR (Non-African American) 91.5 ml/min; Potassium 4.2 mmol/L (3.5-5.1)
[2023-06-30] MEDS: CYANOCOBALAMIN 1000 MCG/ML VIAL IM SCH (08:20)
[2023-06-30] MEDS: LACTATED RINGER'S 1,000 ML IV SCH ×2 (08:46→10:28)
[2023-06-30] MEDS ORDERED: LIDOCAINE 2% 2 ML VIAL/AMP(20MG/ML) INFIL ONE ×2 (09:47→11:44)
[2023-06-30] MEDS ORDERED: MIDAZOLAM HCL 1 MG/ML 2ML VIAL ONE (09:47)
[2023-06-30] MEDS ORDERED: DEXAMETHASONE SOD INJ 4 MG/ML VIAL ONE (09:47)
[2023-06-30] MEDS ORDERED: ONDANSETRON INJ 2 MG/ML 2 ML VIAL ONE (09:47)
[2023-06-30] MEDS ORDERED: PROPOFOL IV EMULSION 10 MG/ML 20 ML VIAL IV ONE (09:47)
[2023-06-30] MEDS ORDERED: fentaNYL citrate PF 100 MCG/2 ML VIAL ONE ×3 (09:48→12:16)
--- NOTE | 2023-06-30 10:23 | Orthopedic Progress Note ---
Date of Service June 30, 2023 Assessment & Plan (1) Dislocation of internal right hip prosthesis: Plan: Status post unsuccessful attempts at closed reduction right hip yesterday. He is on for a right total hip revision with Dr. Reynolds later today. He is currently NPO. Consent has been obtained by Dr. Reynolds and is on patient chart. Ancef and TXA ordered for preoperative doses to be given closer to his surgery time. Bedrest Ice to right hip as needed. Will continue to follow. Admission and Anticipated Discharge Date Admission Date: June 28, 2023 Subjective Patient awake in bed, doing well. Complains of right hip pain. Physical Exam Musculoskeletal: Exam of right hip: right leg shortened, held in a flexed position. Distal pulses 1+, I am able to straigten his leg. He is able to move his ankle. Does not follow commands to check strength. Gross sensation seems to be intact, but compromised due to patient's confusion. Results & Data Vital Signs (Past 12 Hours) Vital Signs Temp Pulse Pulse Resp BP Pulse Ox O2 Del Method 06/30/23 07:54 89 06/30/23 07:40 36.6 C 89 17 148/79 H 97 Room Air 06/30/23 03:08 36.9 C 72 16 133/78 96 Room Air 06/29/23 22:55 36.5 C 87 18 138/76 92 Room Air
--- NOTE | 2023-06-30 10:47 | Orthopedic Progress Note ---
Date of Service June 30, 2023 Assessment & Plan (1) Dislocation of internal right hip prosthesis: Plan: Informed consent is already been obtained from his son as the patient's mental status is not amenable to providing informed consent. He has been n.p.o. since midnight last night. Surgical sites been marked. Plan is to proceed to the operating room today for an open reduction of the right prosthetic hip dislocation and revision to a dual mobility cup versus a constrained liner. Readmit to internal medicine after surgery. Admission and Anticipated Discharge Date Admission Date: June 28, 2023 Subjective patient seen and examined on a.m. rounds. He reports his hip still hurts. Denies numbness or tingling in his foot. Physical Exam Physical Exam: on exam, his mental status is improved from yesterday. Still confused however. He is able to follow commands. Right lower extremity exam shows the leg to be shortened and internally rotated. Adducted and slightly flexed at the hip. he is able to wiggle his toes and fi res his tib ant gastrocsoleus. Reports sensation intact to light touch over the dorsal and plantar aspects of the foot. Results & Data Vital Signs (Past 12 Hours) Vital Signs Temp Pulse Pulse Resp BP Pulse Ox O2 Del Method 06/30/23 07:54 89 06/30/23 07:40 36.6 C 89 17 148/79 H 97 Room Air 06/30/23 03:08 36.9 C 72 16 133/78 96 Room Air 06/29/23 22:55 36.5 C 87 18 138/76 92 Room Air Laboratory Results Hemoglobin this morning was 8.6, hematocrit 27. Platelets 655.
[2023-06-30] MEDS ORDERED: PROMETHAZINE HCL 6.25 MG in SODIUM CHLORIDE 0.9% 50 ML IV PRN (10:53)
[2023-06-30] MEDS ORDERED: ePHEDrine sulfate 50 MG/ML AMP IV PRN (10:53)
[2023-06-30] MEDS ORDERED: ATROPINE SULFATE 0.1 MG/ML 10ML SYR IV PRN (10:53)
[2023-06-30] MEDS ORDERED: ONDANSETRON INJ 2 MG/ML 2 ML VIAL IV PRN ×2 (10:53→14:12)
[2023-06-30] MEDS: TRANEXAMIC ACID / 0.7% NACL 1000MG/100ML BAG IV ONE (11:05)
[2023-06-30] MEDS: TRANEXAMIC ACID / 0.7% NACL 1,000 MG/100 ML BAG IV ONE (11:05)
[2023-06-30] MEDS: ceFAZolin 2000MG 2,000 MG/15 ML SYR IV ONE (11:18)
[2023-06-30] MEDS ORDERED: ROCURONIUM BROMIDE 10 MG/ML 5 ML VIAL IV ONE ×10 (11:44→12:50)
[2023-06-30] MEDS ORDERED: PHENYLEPHRINE 100MCG/ML 10ML SYR IV ONE (12:10)
[2023-06-30] MEDS ORDERED: SUGAMMADEX SODIUM 200 MG/2 ML VIAL IV ONE (12:27)
[2023-06-30] MEDS ORDERED: ALBUMIN HUMAN 5% 12.5 GM/250 ML VIAL IV ONE (12:47)
--- NOTE | 2023-06-30 13:26 | Operative Report ---
Post Operative Report Pre & Post Diagnosis Operation Date: 06/30/23 10:40 Pre-Op Diagnosis: Dislocation of internal right hip prosthesis I identified the patient and participated in the time-out.: Yes Procedure Operation Date: 06/30/23 10:40 Actual Procedures p Right Hip Prosthetic Open Reduction Internal Fixation with Total Hip Revision(Right) - Alec Reynolds MD Surgeon Alec Goldstein University [employer] Rec[employer]iter [place] Estimated Blood Loss 0 Findings Consistent with Post-Op Diagnosis Irreducible closed dislocation total hip replacement likely been out for several weeks with marked contraction adhesions and inability to be located without University Relations Recruiter attending surgeon Specimens See Dr. Goldstein'sreport Indications Inability to relocate total hip dislocation required attending level assistance I was requested to come in urgently. Description of Procedure Please see attending surgeon's operative report. I was there to help with the assistance of retraction and tissue mobilization and resection and ultimately relocation of his hip. I was present approximately 40 minutes. I attest to the content of the Intraoperative Record and any orders documented therein. Any exceptions are noted below.
[2023-06-30 13:49] LABS: Hemoglobin 7.5 g/dl (14.0-18.0)
[2023-06-30] MEDS: ORTHO JOINT ANESTHETIC ONE (13:58)
[2023-06-30] MEDS: ROPIVACAINE 0.5% HCL/PF 246 MG, Ketorolac (*for OR use only*) 30 MG, EPINEPHrine 30MG/3... INFIL SCH (13:58)
[2023-06-30] MEDS ORDERED: MoRPHine SULFATE 2 MG/ML CARP ONE (13:58)
[2023-06-30] MEDS: ceFAZolin 2,000 MG/15 ML IV PUSH IV ONE (13:59)
[2023-06-30] MEDS ORDERED: METOCLOPRAMIDE HCL INJ 5 MG/ML 2 ML VIAL IV PRN (14:12)
[2023-06-30] MEDS ORDERED: NALOXONE HCL 0.4 MG/1 ML VIAL/CARP IV PRN (14:12)
[2023-06-30] MEDS ORDERED: oxyCODONE HCL IR 5 MG TAB (IMMEDIATE RELEASE) PO PRN (14:12)
[2023-06-30] MEDS ORDERED: MAGNESIUM HYDROXIDE SUSP 30 ML UDC PO PRN (14:12)
[2023-06-30] MEDS ORDERED: TAMSULOSIN HCL 0.4 MG CAP PO PRN (14:12)
[2023-06-30] MEDS ORDERED: bisacodyL 10 MG SUPP PR PRN (14:12)
[2023-06-30] MEDS ORDERED: ALUMINUM/MAGNESIUM SUSP 30 ML UDC PO PRN (14:12)
[2023-06-30] MEDS ORDERED: VANCOMYCIN CONSULT ACTIVE PRN (14:12)
--- NOTE | 2023-06-30 14:15 | Operative Report ---
Post Operative Report Pre & Post Diagnosis Operation Date: 06/30/23 10:40 Pre-Op Diagnosis: Dislocation of internal right hip prosthesis Post-Op Diagnosis: Dislocation of internal right hip prosthesis I identified the patient and participated in the time-out.: Yes Procedure Operation Date: 06/30/23 10:40 Actual Procedures p Right Hip Prosthetic dislocation Open Reduction with Total Hip Revision(Right) - Alec Reynolds MD Surgeon Alec Reynolds MD Junior Php Developer Rodney Arias MD, Jose Martin Brownlee MD and HOWARD Luque PA-C Estimated Blood Loss 500 Findings Consistent with Post-Op Diagnosis Specimens cultures were sent. 2 sets of swabs, 1 superficial to the fascia and the second 1 deep to the fascia. Tissue cultures also sent. Anesthesia Type General Complications none Disposition Disposition: Recovery Room Indications 68-year-old male, medical history injury significant for frontotemporal dementia, Status post total hip arthroplasty by myself on June 09, 2023. He presented to the emergency room on Tuesday evening, 2 days ago, from his rehab facility, with a complaint of right hip pain. X-rays at the facility had shown a dislocation. He underwent an attempted closed reduction in the emergency room Under heavy IV sedation on Tuesday night. This was unsuccessful. Yesterday, I attempted a closed reduction under general anesthesia and muscle paralysis which was also unsuccessful. he has had a lot of changes to his mental status since after his first surgery and has not been able to follow his posterior hip precautions. therefore, it is uncertain how long ago he dislocated his hip. He did have reported fall at his facility 3 days ago. Having failed a closed reduction he is now a candidate for an open reduction of his prosthetic hip dislocation as well as revision total hip to a dual mobility liner to decrease the risk of recurrent dislocation. I had a long discussion with patient's son about the risks and benefits of surgery, alternatives to surgery, and expected outcomes. Patient was not able to provide informed consent given his mental status. His son did give consent for the procedure. The risks and benefits the procedure procedure were explained at length. All questions were answered. Informed consent was signed. Description of Procedure Patient was identified in the preoperative holding area where his surgical site was marked. He was brought back to the operating room where he was placed on the operating room table and general anesthesia was administered. Perioperative antibiotics were administered. 2 g of IV tranexamic acid were administered. He had received 1 unit of blood overnight and his hemoglobin this morning was 8.6. We started another unit of blood given the expected blood loss with the procedure. He was carefully moved in the lateral decubitus position. Axillary roll was placed. All bony prominences were padded. He was prepped and draped in the usual sterile fashion. Prior to incision a multidisciplinary timeout was called. All in the room were in agreement. I began by opening up his previous incision. This was extended proximally another 2 cm and distally another 3 cm to expose normal tissue planes. Fragments of the Vicryl suture and PDS suture were then removed from the wound. culture swabs were obtained of the subcutaneous tissues prior to entering the fascia. The fascia was then opened by cutting his previous suture and removing the PDS suture through the fascia. There is a significant amount of hematoma under the fascia. This was evacuated. Deep culture swabs were obtained. Additionally tissue from the subfascial layer was removed and sent for culture. There is significant scarring of the quadratus femoris to the gluteus meaghan. This was released with electrocautery to expose the normal soft tissue plane. His gluteal sling was released. A Charnley bow was then placed. The femoral prosthesis was noted and the femoral head was removed. We then proceeded to expose the hip. My partner Dr. Jt Henderson assisted me during this portion of the procedure. Patient had abundant scar tissue around the hip indicating some chronicity to the hip dislocation. The gluteus minimus tendon and superior capsule was excised with electrocautery. We did not dissect out the sciatic nerve but I placed a retractor directly on the posterior aspect of the acetabular component taking great care to not place any retractors near the sciatic nerve. Inferior capsule was then released. Anterior capsule was then further released. Once we had completed our capsular releases we were then able to assess the femoral stem. It was securely fixated. Due to concern for fracture elected to not remove the femoral stem. Retractor was placed to retract the femoral head anteriorly and expose the acetabulum. Polyethylene liner of the acetabulum was circumferentially exposed. The extraction device was used to remove the polyethylene liner. We then remove th e apex hole eliminator. We placed a +4 polyethylene liner for a 28 head. Trial 28 head was placed on the trunnion. We attempted to reduce this to see if we could get a constrained liner in him. Unfortunately however the +4 liner sat so proud that we could not get the head over the liner and reduced the hip. Therefore, the trial femoral head was removed and the acetabulum was reexposed. We elected to do a dual mobility component as an alternative. The apex hole eliminator screw was placed back into the center of the acetabular shell. The acetabulum was irrigated out and dried. The metal liner 56/49 for the dual mobility acetabular component was then impacted into the shell. The Eckert taper engaged which we are happy with. Next, we opened up a 49/28 by mentum Ultrex polyethylene outer head and a 28+1.5 offset ceramic inner head. These were assembled on the back table. The trunnion was cleaned and dried. The bipolar head was then tapped onto the trunnion. We attempted to reduce the hip. Unfortunately, we are not able to achieve enough distal translation of the femoral head to reduce the hip. Therefore, we remove the femoral head. Additional soft tissue releases were undertaken of the anterior capsule of the hip. We also released subperiosteally along the femur along the posterior border of the vastus lateralis. Meticulous hemostasis was ensured. After approximately 3-4 more attempts, each of which was by additional soft tissue releases we were finally able to reduce the, dual mobility head into the shell With significant difficulty. Approximately 45 minutes to an hour was spent performing all of our soft tissue releases to attempt to get the femoral head reduced into the acetabular shell. With the hip reduced we then brought the hip into extension. There was still some anterior capsular tightness. This was released with electrocautery. I was then able to get him into approximately 20 degrees of hip extension. He was stable in the sleeper position. Leg lengths were checked and were symmetric. Wound was then irrigated out with approximately 3 L of normal saline. The wound was dried and meticulous hemostasis was ensured. wound was dried and 2 g of vancomycin powder was then placed throughout the wound around the prosthesis and below the fascia. The posterior capsular layer was not amenable to repair to the posterior aspect of the greater trochanter. Therefore, the fascia was run with a looped #1 PDS. #1 PDS was used in the subcutaneous fat layer. Skin was closed with 2-0 Prolene in vertical mattress fashion. A Prevena wound VAC was placed. Patient was then awoke from anesthesia, and transferred to recovery room in stable condition. Postoperative course: Should be noted that the patient was given a second unit of blood starting just prior to closure. He will be readmitted to the internal medicine service. He will be weightbearing as tolerated with a walker, posterior hip precautions, and a brace. We will keep him on vancomycin, Ancef, and rifampin until his cultures return. Aspirin for DVT prophylaxis. I attest to the content of the Intraoperative Record and any orders documented therein. Any exceptions are noted below.
[2023-06-30] MEDS ORDERED: ACETAMINOPHEN 500 MG TAB PO PRN (14:17)
--- NOTE | 2023-06-30 14:21 | Operative Report ---
Post Operative Report Pre & Post Diagnosis Operation Date: 06/30/23 10:40 Pre-Op Diagnosis: Dislocation of internal right hip prosthesis Post-Op Diagnosis: Dislocation of internal right hip prosthesis I identified the patient and participated in the time-out.: Yes Procedure Operation Date: 06/30/23 10:40 Actual Procedures p Right Hip Prosthetic dislocation Open Reduction with Total Hip Revision(Right) - Alec Reynolds MD Surgeon Alec Reynolds MD Cryogenics Engineer Rodney Arias MD, Jose Martin Brownlee MD and HOWARD Luque PA-C Estimated Blood Loss 500 Findings Consistent with Post-Op Diagnosis Specimens none Description of Procedure I was present during the entire case assisting with positioning, prepping, draping, wound retraction, wound closure and prevena placement. Fellow and Dr. Arias also present. I served as an extra set of hands during the case. Please see Dr. Reynolds procedure note for specifics of the case. I attest to the content of the Intraoperative Record and any orders documented therein. Any exceptions are noted below.
--- NOTE | 2023-06-30 14:26 | Operative Report ---
Post Operative Report Pre & Post Diagnosis Operation Date: 06/30/23 10:40 Pre-Op Diagnosis: Dislocation of internal right hip prosthesis Post-Op Diagnosis: Dislocation of internal right hip prosthesis I identified the patient and participated in the time-out.: Yes Procedure Operation Date: 06/30/23 10:40 Actual Procedures p Right Hip Prosthetic dislocation Open Reduction with Total Hip Revision(Right) - Alec Reynolds MD Surgeon Alec Reynolds MD Pallet Assembler Rodney Arias MD, Jose Martin Brownlee MD and HOWARD Luque PA-C Estimated Blood Loss 500 Findings Consistent with Post-Op Diagnosis Same as postoperative diagnosis. Specimens The fluid from the Right hip and tissue around the hip were sent for culture and sensitivity. Description of Procedure Please see detailed operative note. I attest to the content of the Intraoperative Record and any orders documented therein. Any exceptions are noted below.
[2023-06-30] MEDS: fentaNYL citrate PF 100 MCG/2 ML VIAL IV PRN (14:57)
--- NOTE | 2023-06-30 15:07 | Anesthesiology Progress Note ---
Date of Service June 30, 2023 Anesthesia Post Procedure Vital Signs Vital Signs: Temp Pulse Pulse Pulse Resp BP BP 06/30/23 15:00 70 19 123/70 06/30/23 14:50 67 15 117/61 06/30/23 14:40 72 19 118/80 06/30/23 14:30 70 17 117/77 06/30/23 14:21 36.2 C L 66 17 114/71 06/30/23 10:22 37.1 C 78 18 142/86 H 06/30/23 07:54 89 06/30/23 07:40 36.6 C 89 17 148/79 H 06/30/23 03:08 36.9 C 72 16 133/78 06/29/23 22:55 36.5 C 87 18 138/76 06/29/23 19:47 37.5 C 80 16 119/73 06/29/23 16:00 92 H Pulse Ox O2 Del Method 06/30/23 15:00 95 Room Air 06/30/23 14:50 99 Room Air 06/30/23 14:40 96 Room Air 06/30/23 14:30 98 Room Air 06/30/23 14:21 96 Room Air 06/30/23 10:22 96 Room Air 06/30/23 07:54 06/30/23 07:40 97 Room Air 06/30/23 03:08 96 Room Air 06/29/23 22:55 92 Room Air 06/29/23 19:47 97 Room Air 06/29/23 16:00 Transfer of Care Handoff Completed per policy Notes Mental Status: alert / awake / arousable and participated in evaluation Patient Amnestic to Procedure: Yes Nausea / Vomiting: adequately controlled Pain: adequately controlled Airway Patency, RR, SpO2: stable & adequate BP & HR: stable & adequate Hydration State: stable & adequate Anesthetic Complications: no major complications apparent
[2023-06-30] MEDS: ceFAZolin 330 MG/ML 1 GM VIAL ONE (15:49)
[2023-06-30] MEDS: KETOROLAC TROMETHAMINE 15 MG/ML VIAL IV SCH (15:49)
[2023-06-30] MEDS: SODIUM CHLORIDE 0.9% 1,000 ML IV SCH (15:57)
--- NOTE | 2023-06-30 17:05 | Hospitalist Progress Note ---
Date of Service June 30, 2023 Assessment & Plan (1) Closed dislocation of right hip: Plan: Patient was at [facility] rehab, and woke up on 06/27 complaining of right hip pain He reportedly fell on Saturday 06/24, but was able to participate in PT the following days EMS took x-ray on arrival and found right hip dislocation ED attempted hip reduction, but was unsuccessful. Dr. Reynolds unable to relocate under general anesthesia on 06/28 Now s/p very difficult revision of DARIEL on 06/29 with EBL 500 mL, evacuation of hematoma and multiple swabs taken of deep tissue for culture. Transfused 2 units intraoperatively of blood Acetaminophen p.o. q4h as needed for pain 13 Dilaudid 0.5-1.0 mg IV q4h as needed for breakthrough pain Follow deep wound cultures Will need close monitoring of CBC, BMP, blood pressures PT/OT evaluations when okay with orthopedics Aspirin twice daily for DVT prophylaxis reinstituted (2) S/P total hip arthroplasty: Plan: Right total hip arthroplasty on 06/[address] Reynolds was at rehab when fall with dislocation occurred Now s/p revision on 06/29 as above Reinstituted aspirin twice daily for DVT prophylaxis (3) Acute blood loss anemia: Plan: Hgb 7.2 on arrival, normocytic, but with significant reactive thrombocytosis likely either to anemia or to hip dislocation TBili normal so not likely hemolysis Probably combination of acute blood loss on chronic anemia and intraoperatively found large hematoma under the fascia likely bleeding from the dislocation iron studies consistent with mild iron deficiency with transferrin saturation 15%, ferritin high as an acute phase reactant no GI bleeding noted Peripheral smear not much significant but recommended SPEP given progressive anemia to r/o MGUS Blood consent form obtained over the phone with patient's son & [id number]-was transfused 1 unit PRBCs on 06/28 prior to surgery and given 2 more units of blood intraoperatively for excessive blood loss during surgery B12 low normal, folate normal Check fecal occult-pending Peripheral smear reviewed-SPEP pending, reactive thrombocytosis Follow CBC in the morning Transfuse as needed Monitor for volume overload given IV fluids and large amount of blood products transfused Giving gentle IV fluids until adequately taking p.o. postoperatively (4) Frontotemporal dementia: Plan: Patient exhibited some agitation in the ED likely from pain continue Zyprexa 2.5 mg ODT daily PRN for agitation Continue pain control (5) Depression: Plan: COntinue Paxil Plan Disposition: continued stay on PCU telemetry, but eventually will need rehab placement Full code VTE PPx: SCDs/teds, aspirin Admission and Anticipated Discharge Date Admission Date: June 28, 2023 Subjective Pt had DARIEL revision today. Had 2 units PRBCs during surgery, EBL 500mL. ALso had significant old hematoma evacuated and fluid from joint sent for culture, started on abx. Pt still drowsy after return from PACU, having a lot of pain Tele with sinus rhythm, rates 70-80s Physical Exam Constitutional: WD/WN, vitals as above Respiratory: normal respiratory effort, lungs clear to auscultation Cardiovascular: Rate/Rhythm: regular rate and regular rhythm Heart Sounds: no murmur Extremities: + edema (trace pitting edema legs bilat) Gastrointestinal (Abdomen): normal bowel sounds, soft, nontender, no hepatosplenomegaly Musculoskeletal: Extremities: + extremities abnormal to inspection (right hip dressing in place) Neurologic: awake (sleeping but wakes up easily) Results & Data Results & Data Vital Signs (Past 12 Hours) Vital Signs Temp Pulse Pulse Pulse Resp BP BP 06/30/23 15:15 72 14 108/66 06/30/23 15:10 36.9 C 66 12 106/66 06/30/23 15:00 70 19 123/70 06/30/23 14:50 67 15 117/61 06/30/23 14:40 72 19 118/80 06/30/23 14:30 70 17 117/77 06/30/23 14:21 36.2 C L 66 17 114/71 06/30/23 10:22 37.1 C 78 18 142/86 H 06/30/23 07:54 89 06/30/23 07:40 36.6 C 89 17 148/79 H Pulse Ox O2 Del Method 06/30/23 15:15 97 Room Air 06/30/23 15:10 96 Room Air 06/30/23 15:00 95 Room Air 06/30/23 14:50 99 Room Air 06/30/23 14:40 96 Room Air 06/30/23 14:30 98 Room Air 06/30/23 14:21 96 Room Air 06/30/23 10:22 96 Room Air 06/30/23 07:54 06/30/23 07:40 97 Room Air Laboratory Results CBC, BMP reviewed PG Care Time/CCT Total # of Minutes Spent Total Time Spent with Patient: Total time spent is greater than 50% in coordination of care (as documented) at patient's floor/unit and/or counseling patient: Coding Level of Care Code 17808 SUB INP/OBS CARE 3/50MIN Diagnoses Closed dislocation of right hip S73.004A S/P total hip arthroplasty Z96.649 Acute blood loss anemia D62 Frontotemporal dementia G31.09; F02.80 Depression F32.9
--- NOTE | 2023-06-30 17:41 | XRay Report ---
XR pelvis 1-2V routine CLINICAL HISTORY: In PACU - Post Surgical COMPARISON STUDY: Right hip 06/28/2023. FINDINGS: The patient is status post open reduction of the right femoral prosthesis dislocation. The alignment is now anatomic. No acute fractures within the pelvis or hips. The hardware appears intact. A Lincoln catheter is noted. IMPRESSION: Status post open reduction of the right femoral prosthesis dislocation. Alignment appear s anatomic. No fractures. ACT 112: Negative or not required by law. Electronically signed by: Walter Llanos M.D. 06/30/2023 5:40 PM
[2023-06-30] MEDS: ceFAZolin 2000MG 2,000 MG/15 ML SYR IV SCH (20:03)
[2023-06-30] MEDS: diphenhydrAMINE 50 MG/ML VIAL IV PRN (20:08)
[2023-06-30] MEDS: SENNA 8.6 MG TAB PO SCH (20:35)
[2023-06-30] MEDS: rifAMPin 300 MG CAPSULE PO SCH (20:35)
[2023-06-30] MEDS: ASPIRIN 81 MG ECTAB PO SCH (20:35)
[2023-06-30] MEDS: DOCUSATE SODIUM 100 MG CAP PO SCH (21:00)
[2023-06-30] MEDS ORDERED: ASPIRIN 81 MG ECTAB PO SCH (21:00)
[2023-06-30] MEDS ORDERED: CeleBREX 200 MG CAP PO SCH (21:00)
[2023-06-30] MEDS: ACETAMINOPHEN 500 MG TAB PO SCH (22:14)
[2023-07-01] MEDS: oxyCODONE HCL IR 5 MG TAB (IMMEDIATE RELEASE) PO PRN (00:04)
[2023-07-01] MEDS ORDERED: VANCOMYCIN HCL 1,250 MG in SODIUM CHLORIDE 0.9% 500 ML IV SCH (00:15)
[2023-07-01] MEDS: VANCOMYCIN HCL 1,250 MG in SODIUM CHLORIDE 0.9% 250 ML IV SCH (00:45)
[2023-07-01] MEDS: OLANZapine ZYDIS 5 MG ORALLY DIS. TAB PO PRN (02:00)
[2023-07-01 04:46] LABS: Basophils # (auto) 0.03 K/uL (0.00-0.20); Basophils % (auto) 0.4 %; Eosinophils # (auto) 0.06 K/uL (0.00-0.50); Eosinophils % (auto) 0.8 %; Hematocrit (blood only) 22.8 % (42.0-52.0); Hemoglobin 7.4 g/dl (14.0-18.0); Immature Granulocytes # (auto) 0.05 K/uL (0.01-0.20); Immature Granulocytes % (auto) 0.7 %; Lymphocytes % (auto) 15.8 %; Mean Corpuscular Hemoglobin 29.7 pg (25.0-34.0); Mean Corpuscular Hgb Conc 32.5 g/dL (32.0-36.0); Mean Corpuscular Volume 91.6 fL (80.0-100.0); Mean Platelet Volume 8.4 fL (9.4-12.4); Monocytes # (auto) 0.77 K/uL (0.11-0.59); Monocytes % (auto) 10.2 %; Neutrophils # (auto) 5.47 K/uL (1.40-6.50); Neutrophils % (auto) 72.1 %; Platelet Count 428 K/uL (130-400); RDW Coefficient of Variation 14.8 % (11.5-14.5); RDW Standard Deviation 49.9 fL (36.4-46.3); Red Blood Count 2.49 M/uL (4.70-6.10); White Blood Count 7.58 K/ul (4.8-10.8)
[2023-07-01 05:03] LABS: BUN Creatinine Ratio 24.5 (10-20); Creatinine Clr Calc Pharmacy 65.2 ml/min; Est GFR (African American) 85.9 ml/min; Est GFR (Non-African American) 74.1 ml/min; Potassium 4.7 mmol/L (3.5-5.1)
[2023-07-01 05:23] LABS: Polychromasia 1+
[2023-07-01] MEDS: ACETAMINOPHEN 1,000 MG/100 ML VIAL IV SCH (05:49)
[2023-07-01] MEDS: dexAMETHasone 4 MG TAB PO SCH (07:38)
[2023-07-01] MEDS: MULTIVITAMIN TAB PO SCH (07:40)
[2023-07-01] MEDS: CELECOXIB 100 MG CAP PO SCH (07:40)
--- NOTE | 2023-07-01 11:09 | Orthopedic Progress Note ---
Date of Service July 01, 2023 Assessment & Plan (1) History of revision of total replacement of right hip joint: Plan: Weightbearing as tolerated with walker assistance and T scope brace Abduction pillow use x 6 weeks Continue vancomycin, Ancef and rifampin until a aerobic and anaerobic studies are finalized. Gram stain showed no growth on any other cultures Patient's hemoglobin is currently 7.4 and his hematocrit is 22.8. Transfusion of packed red blood cells will be per medicine service discretion DVT prophylaxis with aspirin and EMILEE stockings Pain controlled p.o. medication Patient will need a 1 week follow-up for Prevena removal He will also need transfer to either rehab or intermediate facility Case management to follow With questions contact her clinic at [phone] Admission and Anticipated Discharge Date Admission Date: June 28, 2023 Subjective This 68-year-old male is day 1 status post right total hip revision arthroplasty due to periprosthetic dislocation. Patient states he is doing fairly well this morning. He states he does have some pain in the hip area. States he is unable to lift leg off the bed. He is asking about going to [facility] for rehab. Currently he denies chest pain, shortness of breath, fever, chills, sweats or numbness or tingling in his right lower extremity. He also denies nausea, vomiting, diarrhea and currently has a Lincoln catheter in place. Review of Systems Review of Systems: All systems reviewed & are unremarkable except as noted in Subjective Physical Exam Physical Exam: Right lower extremity: Lanie is in place and working effectively. Patient does have some tenderness to palpation over the lateral aspect of the right hip. He is unable to perform an active straight leg raise test. He is able to actively dorsi and plantarflex his foot. I was able to passively straighten his leg to 0 degrees of extension. Light passive hip flexion to about 65 degrees of flexion causes some tension hip. As does very light passive internal and external hip rotation. I did place a T scope hip brace on the patient's right lower extremity today setting it to allow for 70 degrees of flexion. Patient states that the brace felt fairly comfortable. He was neurovascularly intact in the right lower extremity. Results & Data Vital Signs (Past 12 Hours) Vital Signs Temp Pulse Pulse Resp BP BP Pulse Ox 07/01/23 07:30 72 07/01/23 07:00 36.9 C 82 20 106/66 92 07/01/23 03:55 37.6 C H 86 14 128/74 91 07/01/23 02:04 37.3 C 92 H 18 100/55 L 92 O2 Del Method 07/01/23 07:30 07/01/23 07:00 Room Air 07/01/23 03:55 Room Air 07/01/23 02:04 Room Air Diagnostic Findings Laboratory Results WBC 7.58 K/ul (4.8-10.8) 07/01/23 04:31 RBC 2.49 M/uL (4.70-6.10) L 07/01/23 04:31 Hgb 7.4 g/dl (14.0-18.0) L 07/01/23 04:31 Hct 22.8 % (42.0-52.0) L 07/01/23 04:31 MCV 91.6 fL (80.0-100.0) 07/01/23 04:31 MCH 29.7 pg (25.0-34.0) 07/01/23 04:31 MCHC 32.5 g/dL (32.0-36.0) 07/01/23 04:31 RDW Std Deviation 49.9 fL (36.4-46.3) H 07/01/23 04:31 RDW Coeff of Jeffy 14.8 % (11.5-14.5) H 07/01/23 04:31 Plt Count 428 K/uL (130-400) H 07/01/23 04:31 MPV 8.4 fL (9.4-12.4) L 07/01/23 04:31 Immature Gran % (Auto) 0.7 % 07/01/23 04:31 Neut % (Auto) 72.1 % 07/01/23 04:31 Lymph % (Auto) 15.8 % 07/01/23 04:31 Nuckolls % (Auto) 10.2 % 07/01/23 04:31 Eos % (Auto) 0.8 % 07/01/23 04:31 Baso % (Auto) 0.4 % 07/01/23 04:31 Reticulocyte % (Auto) 3.94 % (0.50-2.00) H 06/28/23 19:59 Neut # (Auto) 5.47 K/uL (1.40-6.50) 07/01/23 04:31 Lymph # (Auto) 1.20 K/uL (1.20-3.40) 07/01/23 04:31 Nuckolls # (Auto) 0.77 K/uL (0.11-0.59) H 07/01/23 04:31 Eos # (Auto) 0.06 K/uL (0.00-0.50) 07/01/23 04:31 Baso # (Auto) 0.03 K/uL (0.00-0.20) 07/01/23 04:31 Reticulocyte # 0.090 10^6/uL (0.020-0.100) 06/28/23 19:59 Immature Gran # (Auto) 0.05 K/uL (0.01-0.20) 07/01/23 04:31 Polychromasia 1+ 07/01/23 04:31 Peripher Smr Path Cons 06/28/23 19:59 Sodium 133 mmol/L (136-145) L 07/01/23 04:31 Potassium 4.7 mmol/L (3.5-5.1) 07/01/23 04:31 Chloride 103 mmol/L (98-107) 07/01/23 04:31 Carbon Dioxide 24 mmol/L (21-32) 07/01/23 04:31 Anion Gap 6 (3-11) 07/01/23 04:31 BUN 25 mg/dl (6-23) H 07/01/23 04:31 Creatinine 1.02 mg/dl (0.6-1.4) 07/01/23 04:31 Est Cr Clr Drug Dosing 65.2 ml/min 07/01/23 04:31 Est GFR ( Amer) 85.9 ml/min 07/01/23 04:31 Est GFR (Non-Af Amer) 74.1 ml/min 07/01/23 04:31 BUN/Creatinine Ratio 24.5 (10-20) H 07/01/23 04:31 Glucose 102 mg/dl (70-99(Fasting)) H 07/01/23 04:31 Calcium 8.0 mg/dl (8.6-10.3) L 07/01/23 04:31 Magnesium 2.1 mg/dl (1.7-2.4) 06/28/23 19:59 Iron 34 mcg/dl (35-175) L 06/29/23 17:38 TIBC 231 mcg/dl (250-450) L 06/29/23 17:38 Unsaturated IBC 197 mcg/dl (155-355) 06/29/23 17:38 Transferrin % Sat 15 % (20-50) L 06/29/23 17:38 Ferritin 413.4 ng/ml (8-388) H 06/28/23 19:59 Total Bilirubin 0.7 mg/dl (0.2-1.0) 06/28/23 19:59 AST 43 U/L (13-39) H 06/28/23 19:59 ALT 38 U/L (7-52) 06/28/23 19:59 Alkaline Phosphatase 78 U/L (34-104) 06/28/23 19:59 Total Protein 6.3 gm/dl (6.0-8.3) 06/28/23 19:59 Albumin 3.3 gm/dl (3.4-5.0) L 06/28/23 19:59 Globulin 3.0 gm/dl (2.5-4.0) 06/28/23 19:59 Albumin/Globulin Ratio 1.1 (0.9-2) 06/28/23 19:59 Vitamin B12 252 pg/ml (180-914) 06/29/23 17:38 Folate 17.41 ng/ml (>5.38) 06/29/23 17:38 Urine Color Dark Yellow 06/29/23 Unknown Urine Appearance Clear (Clear) 06/29/23 Unknown Urine pH 6.0 (4.5-7.5) 06/29/23 Unknown Ur Specific [place] 1.031 (1.000-1.030) H 06/29/23 Unknown Urine Protein 1+ (Negative) H 06/29/23 Unknown Urine Glucose (UA) Negative (Negative) 06/29/23 Unknown Urine Ketones Trace (Negative) H 06/29/23 Unknown Urine Blood Negative (Negative) 06/29/23 Unknown Urine Nitrite Negative (Negative) 06/29/23 Unknown Urine Bilirubin Negative (Negative) 06/29/23 Unknown Urine Urobilinogen Negative (Negative) 06/29/23 Unknown Ur Leukocyte Esterase Negative (Negative) 06/29/23 Unknown Urine WBC (Auto) 0-5 /hpf (0-5) 06/29/23 Unknown Urine RBC (Auto) 0-2 /hpf (0-2) 06/29/23 Unknown U Hyaline Cast (Auto) 0-2 /lpf (0-2) 06/29/23 Unknown U Epithel Cells (Auto) 0-2 /hpf (0-2) 06/29/23 Unknown Urine Bacteria (Auto) None Seen (None Seen) 06/29/23 Unknown Urine Mucus Present (None Prsent) A 06/29/23 Unknown Nasal Screen MRSA (PCR) Negative (Negative) 06/29/23 Unknown Stool Occult Bld Scrn Cancelled 06/29/23 Unknown Blood Type A Positive 06/28/23 23:35 Antibody Screen NEGATIVE 06/28/23 23:35 Crossmatch See Detail 06/28/23 23:35 Impressions Hip/Pelvis X-Ray 06/28/23 19:05 XR hip RT 2V w pelvis HISTORY: 68 years-old Male r/o dislocation acute right hip pain COMPARISON: 06/09/2023 TECHNIQUE: AP view of the pelvis with 2 views of the right hip FINDINGS: Right hip arthroplasty. There is superior and posterior dislocation of the femoral head component without acute fracture identified. Soft tissue swelling surrounds the right hip. 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 IMPRESSION: Dislocation of the right hip arthroplasty. ACT 112: Negative or not required by law. The above report was generated using voice recognition software. It may contain grammatical, syntax or spelling errors. Electronically signed by: Saran Menard M.D. 06/29/2023 7:26 AM Hip X-Ray 06/29/23 07:00 FL hip RT 1V CLINICAL HISTORY: RIGHT CLOSED REDUCTION HIPright hip arthroplasty dislocation COMPARISON STUDY: Radiograph 06/28/2023 FLUOROSCOPY TIME: 9.9 seconds FLUOROSCOPY IMAGES: 1 EXPOSURE DOSE: 1.54 mGy FINDINGS: Right hip arthroplasty with superior dislocation of the femoral head prosthesis. Severe degeneration of the pubic symphysis. No acute fracture identified. IMPRESSION: Fluoroscopic assistance as above. ACT 112: Negative or not required by law. Electronically signed by: Saran Menard M.D. 06/29/2023 8:35 AM Pelvis X-Ray 06/30/23 14:12 XR pelvis 1-2V routine CLINICAL HISTORY: In PACU - Post Surgical COMPARISON STUDY: Right hip 06/28/2023. FINDINGS: The patient is status post open reduction of the right femoral prosthesis dislocation. The alignment is now anatomic. No acute fractures within the pelvis or hips. The hardware appears intact. A Lincoln catheter is noted. IMPRESSION: Status post open reduction of the right femoral prosthesis dislocation. Alignment appears anatomic. No fractures. ACT 112: Negative or not required by law. Electronically signed by: Walter Llanos M.D. 06/30/2023 5:40 PM
[2023-07-01] MEDS ORDERED: SODIUM CHLORIDE 0.9% 250 ML IV PRN (11:16)
[2023-07-01] MEDS: LACTATED RINGER'S 250 ML IV ONE (11:30)
--- NOTE | 2023-07-01 14:46 | Hospitalist Progress Note ---
Date of Service July 01, 2023 Assessment & Plan (1) Closed dislocation of right hip: Plan: Patient was at [facility], and woke up on 06/27 complaining of right hip pain He reportedly fell on Saturday 06/24, but was able to participate in PT the following days EMS took x-ray on arrival and found right hip dislocation ED attempted hip reduction, but was unsuccessful. Dr. Reynolds unable to relocate under general anesthesia on 06/28 Now s/p very difficult revision of DARIEL on 06/29 with EBL 500 mL, evacuation of hematoma and multiple swabs taken of deep tissue for culture. Transfused i unit preop, 2 units intraoperatively of blood, and now getting a 4th unit on POD#1 Acetaminophen p.o. q4h as needed for pain 13 Dilaudid 0.5-1.0 mg IV q4h as needed for breakthrough pain Follow deep wound cultures-Gram stain with mod WBCs, no organisms Will need close monitoring of CBC, BMP, blood pressures PT/OT evaluations when okay with orthopedics Aspirin twice daily for DVT prophylaxis reinstituted (2) S/P total hip arthroplasty: Plan: Right total hip arthroplasty on 06/[address] Reynolds was at rehab when fall with dislocation occurred Now s/p revision on 06/29 as above Reinstituted aspirin twice daily for DVT prophylaxis (3) Acute blood loss anemia: Plan: Hgb 7.2 on arrival, normocytic, but with significant reactive thrombocytosis likely either to anemia or to hip dislocation TBili normal so not likely hemolysis Probably combination of acute blood loss on chronic anemia and intraoperatively found large hematoma under the fascia likely bleeding from the dislocation Fe studies c/w mild iron deficiency with transferrin saturation 15%, ferritin high as an acute phase reactant no GI bleeding noted Peripheral smear not much significant but recommended SPEP given progressive anemia to r/o MGUS Was transfused 1 unit PRBCs on 06/28 prior to surgery and given 2 more units of blood intraoperatively for excessive blood loss during surgery Hypotensive in 80s systolc on 06/30, hgb down again to 7.4--> give a 4th unit PRBCs B12 low normal, folate normal Check fecal occult-pending Peripheral smear reviewed-SPEP pending, reactive thrombocytosis Follow CBC in the morning Monitor for volume overload given IV fluids and large amount of blood products transfused (4) Frontotemporal dementia: Plan: Patient exhibited some agitation in the ED likely from pain continue Zyprexa 2.5 mg ODT daily PRN for agitation Continue pain control Much improved mentation on 06/30 (5) Depression: Plan: Continue Paxil Plan Disposition: continued stay on PCU telemetry, but eventually will need rehab placement Full code VTE PPx: SCDs/teds, aspirin Admission and Anticipated Discharge Date Admission Date: June 28, 2023 Subjective Pt reports some pain in hip, feeling cold and then hot as per nursing. Much more awake and oriented today. Hypotensive earlier and now getting another unit of blood transfused. Denies CP, SOB No BM yet Tele with NSR rate 70-80s Physical Exam Constitutional: WD/WN, vitals as above Respiratory: normal respiratory effort, lungs clear to auscultation Cardiovascular: Rate/Rhythm: regular rate and regular rhythm Heart Sounds: no murmur Extremities: + edema (trace pitting edema legs bilat) Gastrointestinal (Abdomen): normal bowel sounds, soft, nontender, no hepatosplenomegaly Musculoskeletal: Extremities: + extremities abnormal to inspection (right hip dressing in place, hip immobilizer in place on right) Neurologic: awake; no focal motor deficits (can move ankles and feet bilat) and not confused Psychiatric: Orientation: alert, oriented to person, oriented to place and cooperative Genitourinary: Lincoln in place with clear yellow urine Results & Data Results & Data Vital Signs (Past 12 Hours) Vital Signs Temp Pulse Pulse Pulse Resp BP BP 07/01/23 14:10 36.9 C 73 18 105/67 07/01/23 13:54 37.5 C 75 16 105/63 07/01/23 13:30 37.4 C 77 18 105/62 07/01/23 13:00 37.6 C H 81 18 104/67 07/01/23 12:40 36.8 C 78 20 107/67 07/01/23 12:25 37.3 C 76 18 100/63 07/01/23 12:07 36.8 C 75 18 110/70 07/01/23 11:50 37.0 C 75 16 07/01/23 11:41 76 18 07/01/23 07:30 72 07/01/23 07:00 36.9 C 82 20 106/66 04/12/24 03:55 37.6 C H 86 14 BP Pulse Ox O2 Del Method 07/01/23 14:10 97 07/01/23 13:54 95 07/01/23 13:30 96 07/01/23 13:00 94 07/01/23 12:40 98 07/01/23 12:25 96 07/01/23 12:07 97 07/01/23 11:50 97 Room Air 07/01/23 11:41 101/64 95 Room Air 07/01/23 07:30 07/01/23 07:00 92 Room Air 07/01/23 03:55 128/74 91 Room Air Laboratory Results CBC, BMP, wound cxs reviewed PG Care Time/CCT Total # of Minutes Spent Total Time Spent with Patient: Total time spent is greater than 50% in coordination of care (as documented) at patient's floor/unit and/or counseling patient: Coding Level of Care Code 33796 SUB INP/OBS CARE 2/35MIN Diagnoses Closed dislocation of right hip S73.004A S/P total hip arthroplasty Z96.649 Acute blood loss anemia D62 Frontotemporal dementia G31.09; F02.80 Depression F32.9
[2023-07-02] MEDS: MELATONIN 3 MG TAB PO PRN (00:52)
[2023-07-02] MEDS: LORazepam 0.5 MG in SYRINGE 0.25 ML IV STA (03:46)
[2023-07-02 04:10] LABS: Basophils # (auto) 0.02 K/uL (0.00-0.20); Basophils % (auto) 0.2 %; Eosinophils # (auto) 0.08 K/uL (0.00-0.50); Eosinophils % (auto) 0.8 %; Hemoglobin 8.6 g/dl (14.0-18.0); Immature Granulocytes # (auto) 0.08 K/uL (0.01-0.20); Immature Granulocytes % (auto) 0.8 %; Lymphocytes # (auto) 1.35 K/uL (1.20-3.40); Lymphocytes % (auto) 12.8 %; Mean Corpuscular Hemoglobin 29.4 pg (25.0-34.0); Mean Corpuscular Hgb Conc 33.1 g/dL (32.0-36.0); Mean Corpuscular Volume 88.7 fL (80.0-100.0); Mean Platelet Volume 8.9 fL (9.4-12.4); Monocytes # (auto) 0.87 K/uL (0.11-0.59); Monocytes % (auto) 8.2 %; Neutrophils # (auto) 8.16 K/uL (1.40-6.50); Neutrophils % (auto) 77.2 %; Platelet Count 447 K/uL (130-400); RDW Standard Deviation 48.3 fL (36.4-46.3); Red Blood Count 2.93 M/uL (4.70-6.10); White Blood Count 10.56 K/ul (4.8-10.8)
[2023-07-02 04:41] LABS: BUN Creatinine Ratio 22.1 (10-20); Calcium 8.3 mg/dl (8.6-10.3); Est GFR (African American) 93.6 ml/min; Est GFR (Non-African American) 80.8 ml/min; Magnesium 1.8 mg/dl (1.7-2.4); Potassium 3.8 mmol/L (3.5-5.1)
--- NOTE | 2023-07-02 09:00 | Hospitalist Progress Note ---
Date of Service July 02, 2023 Assessment & Plan (1) Closed dislocation of right hip: Plan: Patient was at [facility], and woke up on 06/27 complaining of right hip pain He reportedly fell on Saturday 06/24, but was able to participate in PT the following days EMS took x-ray on arrival and found right hip dislocation ED attempted hip reduction, but was unsuccessful. Dr. Reynolds unable to relocate under general anesthesia on 06/28 Now s/p very difficult revision of DARIEL on 06/29 with EBL 500 mL, evacuation of hematoma and multiple swabs taken of deep tissue for culture. Transfused i unit preop, 2 units intraoperatively of blood, and a 4th unit on POD#1 Hemoglobin has now stabilized at 8.6 and he is hemodynamically stable Acetaminophen p.o. q4h as needed for pain 13 Continue Dilaudid 0.5-1.0 mg IV q4h as needed for breakthrough pain Follow deep wound cultures-Gram stain with mod WBCs, no organisms and cultures negative thus far Will need close monitoring of CBC, BMP, blood pressures PT/OT evaluations when not as agitated Aspirin twice daily for DVT prophylaxis reinstituted (2) Acute encephalopathy: Plan: Having worsening agitation and confusion on the night of 06/30 and 07/01 trying to pull off medical equipment and hit staff, yelling and confused I believe this is likely related to pain as well as lack of sleep Discussed with nursing about staying on top of pain control Will give IM Zyprexa to help with severe agitation Cloth mitts to prevent him from hurting himself by pulling his Lincoln catheter out and pulling off his hip brace Supportive care, promote sleep-wake cycles Ensure he is hydrated if not taking p.o. and moving bowels regularly Lincoln catheter in place and is draining (3) S/P total hip arthroplasty: Plan: Right total hip arthroplasty on 06/[address] Reynolds was at rehab when fall with dislocation occurred Now s/p revision on 06/29 as above Reinstituted aspirin twice daily for DVT prophylaxis (4) Acute blood loss anemia: Plan: Hgb 7.2 on arrival, normocytic, but with significant reactive thrombocytosis likely either to anemia or to hip dislocation TBili normal so not likely hemolysis Probably combination of acute blood loss on chronic anemia and intraoperatively found large hematoma under the fascia likely bleeding from the dislocation Fe studies c/w mild iron deficiency with transferrin saturation 15%, ferritin high as an acute phase reactant no GI bleeding noted Peripheral smear not much significant but recommended SPEP given progressive anemia to r/o MGUS Was transfused 1 unit PRBCs on 06/28 prior to surgery and given 2 more units of blood intraoperatively for excessive blood loss during surgery Hypotensive in 80s systolc on 06/30, hgb down again to 7.4--> gave a 4th unit PRBCs and hemoglobin now stable at 8.6 B12 low normal, folate normal Check fecal occult-pending Peripheral smear reviewed-SPEP pending, reactive thrombocytosis Follow CBC in the morning Monitor for volume overload given IV fluids and large amount of blood products transfused (5) Frontotemporal dementia: Plan: Patient exhibited some agitation in the ED likely from pain continue Zyprexa 2.5 mg ODT daily PRN for agitation Continue pain control Much improved mentation on 06/30 but worsened again on 07/01 as above (6) Depression: Plan: Continue Paxil Plan Disposition: continued stay on PCU telemetry, but eventually will need rehab placement Full code VTE PPx: SCDs/teds, aspirin Admission and Anticipated Discharge Date Admission Date: June 28, 2023 Subjective Patient very agitated through the night as per nursing report. He was flailing around, trying to rip off his hip immobilizer, trying to hit staff and trying to rip out his Lincoln catheter and IV. He was given IV Ativan, a dose of Dilaudid for pain, as well as oral Zyprexa. When I saw him this morning, he was agitated and yelling, doing similar things trying to rip off equipment. He did calm down slightly when I talked to him. I do believe that he gets like this when he is having a lot of pain-the nurse was unable to give him further IV Dilaudid which did help but later he became agitated and was yelling out again. Cloth mitts were placed and he was also given a low-dose of IM Zyprexa which helped him rest. Telemetry with sinus bradycardia and normal sinus rhythm with rates in the 50s to 80s I also called his son and left a voicemail explaining that the patient was agitated and asked if the son could come in to sit with him. Physical Exam Constitutional: WD/WN, vitals as above Agitated, he would not let me examine him Respiratory: normal respiratory effort; no cough Cardiovascular: Extremities: + edema (trace pitting edema legs bilat) Musculoskeletal: Extremities: + extremities abnormal to inspection (right hip dressing in place, hip immobilizer in place on right) Neurologic: awake; no focal motor deficits (can move ankles and feet bilat) Psychiatric: Orientation: alert, oriented to person and + guarded; + uncooperative Results & Data Results & Data Vital Signs (Past 12 Hours) Vital Signs Temp Pulse Pulse Resp BP BP Pulse Ox 07/02/23 08:00 79 07/02/23 07:43 36.7 C 75 18 105/60 98 07/02/23 03:25 36.9 C 84 17 120/78 94 07/02/23 00:29 78 07/01/23 23:01 36.5 C 72 18 105/61 94 O2 Del Method 07/02/23 08:00 07/02/23 07:43 Room Air 07/02/23 03:25 Room Air 07/02/23 00:29 07/01/23 23:01 Room Air Laboratory Results CBC, BMP, magnesium and wound cultures reviewed PG Care Time/CCT Total # of Minutes Spent Total Time Spent with Patient: Total time spent is greater than 50% in coordination of care (as documented) at patient's floor/unit and/or counseling patient: Coding Level of Care Code 35193 SUB INP/OBS CARE 3/50MIN Diagnoses Closed dislocation of right hip S73.004A Acute encephalopathy G93.40 S/P total hip arthroplasty Z96.649 Acute blood loss anemia D62 Frontotemporal dementia G31.09; F02.80 Depression F32.9
[2023-07-02] MEDS: OLANZapine 10 MG/2.1 ML SDV IM STA (10:46)
[2023-07-03 06:28] LABS: BUN Creatinine Ratio 22.4 (10-20); Basophils # (auto) 0.02 K/uL (0.00-0.20); Basophils % (auto) 0.2 %; Calcium 8.5 mg/dl (8.6-10.3); Creatinine Clr Calc Pharmacy 87.5 ml/min; Eosinophils # (auto) 0.29 K/uL (0.00-0.50); Eosinophils % (auto) 3.3 %; Est GFR (African American) 107.1 ml/min; Est GFR (Non-African American) 92.4 ml/min; Hematocrit (blood only) 26.4 % (42.0-52.0); Hemoglobin 8.6 g/dl (14.0-18.0); Immature Granulocytes % (auto) 2.2 %; Lymphocytes # (auto) 1.15 K/uL (1.20-3.40); Lymphocytes % (auto) 12.9 %; Magnesium 1.8 mg/dl (1.7-2.4); Mean Corpuscular Hemoglobin 29.3 pg (25.0-34.0); Mean Corpuscular Hgb Conc 32.6 g/dL (32.0-36.0); Mean Corpuscular Volume 89.8 fL (80.0-100.0); Monocytes # (auto) 0.69 K/uL (0.11-0.59); Monocytes % (auto) 7.8 %; Neutrophils # (auto) 6.54 K/uL (1.40-6.50); Neutrophils % (auto) 73.6 %; Platelet Count 463 K/uL (130-400); Potassium 3.7 mmol/L (3.5-5.1); RDW Coefficient of Variation 14.8 % (11.5-14.5); RDW Standard Deviation 48.5 fL (36.4-46.3); Red Blood Count 2.94 M/uL (4.70-6.10); White Blood Count 8.89 K/ul (4.8-10.8)
[2023-07-03] MEDS: MECLIZINE 12.5 MG TAB PO PRN (07:44)
[2023-07-03] MEDS: CYANOCOBALAMIN (B-12) 500 MCG TABLET PO SCH (08:58)
--- NOTE | 2023-07-03 09:53 | Hospitalist Progress Note ---
Date of Service July 03, 2023 Assessment & Plan (1) Closed dislocation of right hip: Plan: Patient was at [facility] rehab, and woke up on 06/27 complaining of right hip pain He reportedly fell on Saturday 06/24, but was able to participate in PT the following days EMS took x-ray on arrival and found right hip dislocation ED attempted hip reduction, but was unsuccessful. Dr. Reynolds unable to relocate under general anesthesia on 06/28 Now s/p very difficult revision of DARIEL on 06/29 with EBL 500 mL, evacuation of hematoma and multiple swabs taken of deep tissue for culture. Transfused 1 unit PRBCs preop, 2 units intraoperatively, and a 4th unit on POD#1 Hemoglobin has now stabilized at 8.6 and he remains hemodynamically stable Continue acetaminophen p.o. q4h as needed for pain 13 Continue Dilaudid 0.5-1.0 mg IV q4h as needed for breakthrough pain Follow deep wound cultures-Gram stain with mod WBCs, no organisms and cultures negative thus far. On Rifampin empirically as per Ortho Will need close monitoring of CBC, BMP, blood pressures PT/OT evaluations pending due to agitation and delirium hopefully can be completed today Aspirin twice daily for DVT prophylaxis reinstituted Continue abduction pillow and hip immobilizer (2) Acute encephalopathy: Plan: Having worsening agitation and confusion on the night of 06/30 and 07/01 trying to pull off medical equipment and hit staff, yelling and confused I believe this is likely related to pain as well as lack of sleep Discussed with nursing about staying on top of pain control Received 1 dose IM Zyprexa 07/01 to help with severe agitation Cloth mitts to prevent him from hurting himself by pulling his Lincoln catheter out and pulling off his hip brace have now been removed He was given IV Benadryl on 07/02 by nursing supposedly for sleep but it is not indicated for this-I have discontinued this order as it can worsen delirium Supportive care, promote sleep-wake cycles-will give scheduled Zyprexa p.o. at bedtime Ensure he is hydrated if not taking p.o. and moving bowels regularly Lincoln catheter in place and is draining (3) S/P total hip arthroplasty: Plan: Right total hip arthroplasty on 06/[address] Reynolds was at rehab when fall with dislocation occurred Now s/p revision on 06/29 as above Reinstituted aspirin twice daily for DVT prophylaxis (4) Acute blood loss anemia: Plan: Hgb 7.2 on arrival, normocytic, but with significant reactive thrombocytosis likely either to anemia or to hip dislocation TBili normal so not likely hemolysis Probably combination of acute blood loss on chronic anemia and intraoperatively found large hematoma under the fascia likely bleeding from the dislocation Fe studies c/w mild iron deficiency with transferrin saturation 15%, ferritin high as an acute phase reactant no GI bleeding noted Peripheral smear not much significant but recommended SPEP given progressive anemia to r/o MGUS Was transfused 1 unit PRBCs on 06/28 prior to surgery and given 2 more units of blood intraoperatively for excessive blood loss during surgery Hypotensive in 80s systolic on 06/30, hgb down again to 7.4--> gave a 4th unit PRBCs and hemoglobin now stable at 8.6 B12 low normal-replaced with IM and now po B12 Folate normal Check fecal occult-pending Peripheral smear reviewed-SPEP pending, reactive thrombocytosis Follow CBC in the morning Monitor for volume overload given IV fluids and large amount of blood products transfused (5) Frontotemporal dementia: Plan: Patient Continues to have some agitation likely from pain and lack of sleep Make Zyprexa 2.5 mg ODT at bedtime scheduled Continue pain control Much improved mentation on 06/30 but worsened again on 07/01 and slightly better on 07/02 (6) Depression: Plan: Continue Paxil Plan Disposition: continued stay on PCU telemetry, but eventually will need rehab placement, PT and OT were finally able to work with him on 07/02 Full code VTE PPx: SCDs/teds, aspirin Admission and Anticipated Discharge Date Admission Date: June 28, 2023 Subjective Patient out of restraints today but remains confused and is frequently flailing his arms around and in and out of sleep when I saw him. He was able to tell me that he is having pain in his hip. Telemetry with normal sinus rhythm with rates in the 70s to 80s Physical Exam Constitutional: WD/WN, vitals as above Respiratory: normal respiratory effort, lungs clear to auscultation normal respiratory effort; no cough Cardiovascular: Rate/Rhythm: regular rate and regular rhythm Heart Sounds: no murmur Gastrointestinal (Abdomen): normal bowel sounds, soft, nontender, no hepatosplenomegaly Musculoskeletal: Extremities: + extremities abnormal to inspection (right hip dressing in place, hip immobilizer in place on right) Neurologic: Lethargic but wakes up to verbal stimulus, frequently putting arms up in the air Psychiatric: Orientation: + not alert and + not oriented x 3 Apperance: + disheveled Genitourinary: Lincoln catheter in place draining clear yellow urine Results & Data Results & Data Vital Signs (Past 12 Hours) Vital Signs Temp Pulse Pulse Resp BP BP Pulse Ox 07/03/23 08:00 95 H 07/03/23 07:07 36.9 C 83 15 109/61 94 07/03/23 03:30 36.8 C 81 15 99/61 L 96 07/03/23 01:00 07/03/23 00:35 80 07/03/23 00:00 87 107/66 07/02/23 22:24 36.9 C 74 17 92/48 L 94 Pulse Ox O2 Del Method O2 Del Method 07/03/23 08:00 07/03/23 07:07 Room Air 07/03/23 03:30 Room Air 07/03/23 01:00 96 Room Air 07/03/23 00:35 07/03/23 00:00 07/02/23 22:24 Room Air Laboratory Results CBC, BMP, magnesium reviewed Wound cultures from intraoperatively all preliminary negative PG Care Time/CCT Total # of Minutes Spent Total Time Spent with Patient: Total time spent is greater than 50% in coordination of care (as documented) at patient's floor/unit and/or counseling patient: Coding Level of Care Code 71851 SUB INP/OBS CARE 3/50MIN Diagnoses Closed dislocation of right hip S73.004A Acute encephalopathy G93.40 S/P total hip arthroplasty Z96.649 Acute blood loss anemia D62 Frontotemporal dementia G31.09; F02.80 Depression F32.9
[2023-07-03] MEDS: HYDROmorphone INJ 0.5 MG/0.5 ML SYR IV PRN (17:55)
[2023-07-03] MEDS: OLANZapine ZYDIS 5 MG ORALLY DIS. TAB PO SCH (21:53)
--- NOTE | 2023-07-04 09:40 | Orthopedic Progress Note ---
Date of Service July 04, 2023 Assessment & Plan (1) History of revision of total replacement of right hip joint: Plan: Weightbearing as tolerated with walker assistance and T scope brace Abduction pillow use x 6 weeks Continue vancomycin and rifampin. ID consulted. DVT prophylaxis with aspirin and EMILEE stockings Pain control per primary Follow up with [facility] in 1 week for prevena removal He will also need transfer to either rehab or snf facility Case management to follow With questions contact her clinic at [phone] Admission and Anticipated Discharge Date Admission Date: June 28, 2023 Subjective Pt seen and examined bedside. S/p right hip open reduction right total hip revision. Nurse bedside as well. Reports patients blood pressure was low this morning and he reported being somewhat dizzy. He says his pain is better after the pain medication. Denies SOB, F/C. NO N/t or calf pain. Physical Exam Physical Exam: General: Pt laying in hospital bed AA&O, in NAD, calm and cooperative during ex am Lower Extremity: Prevena intact and suctioning properly. Pt has full ROM of ankle and all 5 digits. Calf supple and non tender. Sensation in tact distally. Skin pink and perfusable. SCDs in place. Hip brace and abduction pillow in place. Results & Data Vital Signs (Past 12 Hours) Vital Signs Temp Pulse Pulse Resp BP BP Pulse Ox 07/04/23 09:25 98/55 L 07/04/23 08:53 37.3 C 81 18 90/47 L 94 07/04/23 07:39 83 07/04/23 06:52 37.4 C 86 20 135/74 94 07/04/23 02:40 36.8 C 79 16 124/74 94 07/03/23 23:29 80 07/03/23 22:49 37.3 C 80 20 130/75 93 O2 Del Method 07/04/23 09:25 07/04/23 08:53 Room Air 07/04/23 07:39 07/04/23 06:52 Room Air 07/04/23 02:40 Room Air 07/03/23 23:29 07/03/23 22:49 Room Air Laboratory Results Microbiology 06/30/23 12:30 Gram Stain - Final Hip,Right Aerobic and Anaerobic Culture - Preliminary No growth to date. 06/30/23 11:45 Gram Stain - Final Hip Aerobic and Anaerobic Culture - Preliminary No growth to date. One of his cultures growing coag negative staph
[2023-07-04 12:39] LABS: Basophils # (auto) 0.04 K/uL (0.00-0.20); Basophils % (auto) 0.6 %; Eosinophils # (auto) 0.21 K/uL (0.00-0.50); Eosinophils % (auto) 3.2 %; Hematocrit (blood only) 26.7 % (42.0-52.0); Hemoglobin 8.4 g/dl (14.0-18.0); Immature Granulocytes # (auto) 0.09 K/uL (0.01-0.20); Immature Granulocytes % (auto) 1.4 %; Lymphocytes # (auto) 1.31 K/uL (1.20-3.40); Lymphocytes % (auto) 19.8 %; Mean Corpuscular Hemoglobin 29.1 pg (25.0-34.0); Mean Corpuscular Hgb Conc 31.5 g/dL (32.0-36.0); Mean Corpuscular Volume 92.4 fL (80.0-100.0); Mean Platelet Volume 8.7 fL (9.4-12.4); Monocytes # (auto) 0.72 K/uL (0.11-0.59); Monocytes % (auto) 10.9 %; Neutrophils # (auto) 4.24 K/uL (1.40-6.50); Neutrophils % (auto) 64.1 %; Platelet Count 406 K/uL (130-400); RDW Coefficient of Variation 14.2 % (11.5-14.5); RDW Standard Deviation 48.1 fL (36.4-46.3); Red Blood Count 2.89 M/uL (4.70-6.10); White Blood Count 6.61 K/ul (4.8-10.8)
--- NOTE | 2023-07-04 12:48 | Hospitalist Progress Note ---
Date of Service July 04, 2023 Assessment & Plan (1) Closed dislocation of right hip: Plan: Patient was at [facility] rehab, and woke up on 06/27 complaining of right hip pain. Unfortunately, he suffered dislocation of right hip prosthesis that was initially placed on June 08 of this year. He subsequently had revision of the right total hip arthroplasty on June 29. Appreciate orthopedic consultation and recommendations. (2) Acute encephalopathy: Plan: Delirium developed while hospitalized. Seroquel at bedtime replaces Zyprexa. Supportive care. Will discontinue one-on-one supervision probably tomorrow morning, July 04 at which point he can return to [facility]. (3) S/P total hip arthroplasty: Plan: Right total hip arthroplasty on 06/09/[address] Reynolds. Unfortunately, he suffered a dislocation of the prosthesis while at rehab at [facility]. Subsequent revision on June 29. Continue aspirin 81 mg twice daily for DVT prophylaxis. (4) Acute blood loss anemia: Plan: He has received multiple units of packed red blood cells this admission. Hemoglobin now stable at 8.6. Oral iron replacement has been started. Serial labs. (5) Frontotemporal dementia: Plan: Chronic. Supportive care. Seroquel at bedtime replaces Zyprexa. Will likely discontinue one-on-one supervision tomorrow morning, July 04 (6) Depression: Plan: Stable. Treated with Paxil Plan Hopeful discharge to [facility] tomorrowJuly 04 Admission and Anticipated Discharge Date Admission Date: June 28, 2023 Subjective Awake and alert. He still appears to be confused. Seroquel 25 mg at bedtime replaces Zyprexa. Cultures are negative. Rifampin has been discontinued. He is now on iron supplementation until his hemoglobin returns to normal. Hemoglobin stable at 8.6. Will discontinue one-on-one supervision tomorrow morning, July 04, and then he can return to [facility]. Review of Systems 2 Review of Systems: The patient is unable to reliably answer any questions regarding review of systems at this time Physical Exam 2 Physical Exam: General-alert but disoriented. No fever, no chills HEENT-head atraumatic and normocephalic, pupils equal and reactive to light, extraocular muscles intact Neck-no lymphadenopathy or thyromegaly, trachea midline Chest-clear to auscultation. No rales, wheezing or rhonchi Cardiac-regular rate and rhythm, normal S1 and S2, no murmurs Abdomen-normal bowel sounds, nontender, no hepatosplenomegaly Extremities-no cyanosis, clubbing, or edema Skinright hip surgical site unremarkable Neuro-cranial nerves II through XII intact, motor and sensory function within normal limits, strength symmetrical, no focal deficits Psych-normal affect, normal mood Results & Data Results & Data Vital Signs (Past 12 Hours) Vital Signs Temp Pulse Pulse Resp BP Pulse Ox O2 Del Method 07/04/23 11:09 36.9 C 74 20 110/66 95 Room Air 07/04/23 09:25 98/55 L 07/04/23 08:53 37.3 C 81 18 90/47 L 94 Room Air 07/04/23 07:39 83 07/04/23 06:52 37.4 C 86 20 135/74 94 Room Air 07/04/23 02:40 36.8 C 79 16 124/74 94 Room Air Laboratory Results 07/04/23 12:22 PG Care Time/CCT Total # of Minutes Spent Total Time Spent with Patient: Total time spent is greater than 50% in coordination of care (as documented) at patient's floor/unit and/or counseling patient: Coding Level of Care Code 96758 SUB INP/OBS CARE 3/50MIN Diagnoses Closed dislocation of right hip S73.004A Acute encephalopathy G93.40 S/P total hip arthroplasty Z96.649 Acute blood loss anemia D62 Frontotemporal dementia G31.09; F02.80 Depression F32.9
[2023-07-04 12:52] LABS: Calcium 8.2 mg/dl (8.6-10.3); Est GFR (African American) 110.8 ml/min; Est GFR (Non-African American) 95.6 ml/min; Potassium 3.9 mmol/L (3.5-5.1)
[2023-07-04] MEDS ORDERED: VANCOMYCIN CONSULT ACTIVE PRN (13:14)
--- NOTE | 2023-07-04 13:46 | Pharmacy Report ---
Pharmacy PK ABX Note - Date of Service July 04, 2023 - Assessment and Plan Assessment 68 year old M receiving started on vancomycin and rifampin for joint infection. Preliminary cultures with coagulase negative staph. Patient is s/p hip replacement 06/08. He suffered dislocation of prosthesis and required hip revision 06/29. Day # 1 of antimicrobial therapy. Plan Vancomycin * Loading dose: 1750 mg iv x 1 (~23 mg/kg iv) * Maintenance dose: 1250 mg IV every 12 hours * Regimen is predicted to achieve target AUC/RAIMUNDO of 400-600 mg/L.hr * Will plan to collect level if continued >48 hours Pharmacy will continue to follow and will adjust dose/frequency as necessary. Thank you. Pharmacy has transitioned to AUC monitoring for vancomycin. AUC/RAIMUNDO is the preferred PK/PD target and is associated with decreased risk of nephrotoxicity compared to traditional trough targets.
[2023-07-04] MEDS: VANCOMYCIN HCL 1,750 MG in SODIUM CHLORIDE 0.9% 500 ML IV ONE (14:04)
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
[2023-07-04] MEDS: FERROUS SULFATE 325 MG TAB PO SCH (17:41)
[2023-07-04] MEDS: QUEtiapine FUMARATE 25 MG TABLET PO SCH (20:58)
[2023-07-04] MEDS: rifAMPin 300 MG CAPSULE PO SCH (20:58)
[2023-07-04] MEDS: VANCOMYCIN HCL 1,250 MG in SODIUM CHLORIDE 0.9% 250 ML IV SCH (23:26)
[2023-07-05 06:29] LABS: Creatinine Clr Calc Pharmacy 103.9 ml/min; Est GFR (Non-African American) 99.2 ml/min
--- NOTE | 2023-07-05 09:27 | Infectious Disease Progress Nt ---
Date of Service July 05, 2023 Assessment & Plan (1) History of revision of total replacement of right hip joint: (2) Depression: (3) S/P total hip arthroplasty: Plan #Right hip revision with hematoma evacuation and liner exchange, OR CoNS 06/29 #R DARIEL 06/08 68-year-old male, frontotemporal dementia, orthostatic hypotension, Status post total hip arthroplasty on 06/09/23. Patient presented with right hip pain on 06/27 to [facility] from [facility] after he s/p fall. Xrays at the facility had shown a dislocation. He underwent an attempted closed reduction in the emergency room, which was unsuccessful followed by a closed reduction under general anesthesia which was also unsuccessful. Admission vitals stable, WBC 10.5, Cr 0.9, MRSA screen negative. He didnt receive abx prior to procedures. He underwent difficult revision on 06/29 with evacuation of hematoma, polyethylene liner exchanged. He was also TF prbcs intraoperatively. OR notes .. significant amount of hematoma under the fascia.. evacuated. Deep culture swabs were obtained. Additionally tissue from the subfascial layer was removed and sent for culture, vancomycin powder added. OR cx growing CoNS, rare no sensi to follow RECOMMEND: sensi to ConS pending, I called micro, apparently growth in just one colony Blood cultures, if these are neg at 48 hours, plan to place PICC line C/W Vancomycin, pharmacy following levels Rifampin started, pharm following to ensure no drug interactions, monitor LFTs Anticipate 6 weeks, possible suppressive therapy ID will follow Marisol Vazquez MD Infectious Diseases [facility], [facility] Admission and Anticipated Discharge Date Admission Date: June 28, 2023 Subjective Subsequent visit was provided via telemedicine using two-way real-time interactive telecommunication between the patient and the telemedicine provider. For the duration of the visit, the provider was performing the assessment from a different facility than the patient. This includesuse of bluetooth stethoscope forauscultationperformed by the telepresenter that the telemedicine provider can hear if described in the physical exam. Tape Cutter contact information: Please call [facility] . (Phone Number For Physician Use Only) After establishing a telemedicine visit, patient was: Patient was verified with two unique identifiers, Patient/authorized rep acknowledged consent and understanding and Gave permission to continue telehealth session Time Spent with Patient: Subsequent => 35 min Physical Exam Physical Exam: NAD answers minimal questions but confused R hip with stabilizer PIV Results & Data Vital Signs (Past 12 Hours) Vital Signs Temp Pulse Pulse Resp BP BP Pulse Ox 07/05/23 07:00 36.5 C 74 18 143/77 H 96 07/05/23 03:29 37.1 C 71 16 136/80 95 07/04/23 22:39 36.8 C 73 18 127/77 95 07/04/23 22:00 75 O2 Del Method 07/05/23 07:00 Room Air 07/05/23 03:29 Room Air 07/04/23 22:39 Room Air 07/04/23 22:00 Laboratory Results Short CBC 07/04/23 Range/Units 12:22 WBC 6.61 (4.8-10.8) K/ul Hgb 8.4 L (14.0-18.0) g/dl Hct 26.7 L (42.0-52.0) % Plt Count 406 H (130-400) K/uL BMP 07/04/23 07/05/23 12:22 05:50 Sodium 136 Potassium 3.9 Chloride 104 Carbon Dioxide 25 BUN 14 Creatinine 0.70 0.64 Glucose 111 H Calcium 8.2 L Microbiology 06/30/23 11:45 Hip Gram Stain - Final 06/30/23 11:45 Hip Aerobic and Anaerobic Culture - Final No growth 06/30/23 11:45 Hip,Right Gram Stain - Final 06/30/23 11:45 Hip,Right Aerobic and Anaerobic Culture - Preliminary Coag neg staph not lugdunensis 06/30/23 12:30 Hip,Right Gram Stain - Final 06/30/23 12:30 Hip,Right Aerobic and Anaerobic Culture - Preliminary No growth to date. Medications Administered Current Inpatient Medications Acetaminophen (Acetaminophen 325 Mg Tab) 650 mg PO Q4H PRN PRN Reason: Fever/Mild Pain (Pain 1,2,3) Stop: 07/28/23 23:39 Last Admin: 07/05/23 03:22 Dose: 650 mg Al Hydrox/Mg Hydrox/Simethicone (Aluminum/Magnesium Susp 30 Ml Udc) 15 ml PO Q4H PRN PRN Reason: Heartburn Stop: 07/30/23 14:11 Aspirin (Aspirin 81 Mg Ectab) 81 mg PO BID SAMANTHA Stop: 07/30/23 20:59 Last Admin: 07/05/23 08:19 Dose: 81 mg Bisacodyl (Bisacodyl 10 Mg Supp) 10 mg MN DAILY PRN PRN Reason: Constipation Stop: 07/30/23 14:11 Celecoxib (Celecoxib 100 Mg Cap) 100 mg PO BID [facility] Stop: 07/31/23 08:59 Last Admin: 07/05/23 08:19 Dose: 100 mg Cyanocobalamin (Cyanocobalamin (B-12) 500 Mcg Tablet) 1,000 mcg PO QAM [facility] Stop: 08/02/23 08:59 Last Admin: 07/05/23 08:19 Dose: 1,000 mcg Docusate Sodium (Docusate Sodium 100 Mg Cap) 100 mg PO BID [facility] Stop: 07/30/23 20:59 Last Admin: 07/05/23 08:19 Dose: 100 mg Ferrous Sulfate (Ferrous Sulfate 325 Mg Tab) 325 mg PO BIDM [facility] Stop: 08/03/23 16:59 Last Admin: 07/05/23 08:18 Dose: 325 mg Vancomycin HCl 1,250 mg/ (Sodium Chloride) 275 mls @ 200 mls/hr IV Q12H [facility] Stop: 08/16/23 00:00 Last Infusion: 07/05/23 00:49 Dose: Infused Magnesium Hydroxide (Magnesium Hydroxide Susp 30 Ml Udc) 30 ml PO Q6H PRN PRN Reason: Constipation Stop: 07/30/23 14:11 Meclizine HCl (Meclizine 12.5 Mg Tab) 12.5 mg PO TID PRN PRN Reason: Vertigo Stop: 07/29/23 01:01 Last Admin: 07/03/23 07:44 Dose: 12.5 mg Melatonin (Melatonin 3 Mg Tab) 6 mg PO HS PRN PRN Reason: Sleep Stop: 08/01/23 00:10 Last Admin: 07/04/23 20:56 Dose: 6 mg Miscellaneous Information (Vancomycin Consult Active) 1 each N/A UD PRN PRN Reason: Consult Stop: 08/03/23 13:13 Multivitamins (Multivitamin Tab) 1 tab PO QAM [facility] Stop: 07/31/23 08:59 Last Admin: 07/05/23 08:19 Dose: 1 tab Naloxone HCl (Naloxone Hcl 0.4 Mg/1 Ml Vial/Carp) 0.1 mg IV Q5M PRN PRN Reason: Oversedation/Resp Depression Stop: 07/30/23 14:11 Ondansetron HCl (Ondansetron Inj 2 Mg/Ml 2 Ml Vial) 4 mg IV Q6H PRN PRN Reason: Nausea And Vomiting Stop: 07/30/23 14:11 Oxycodone HCl (Oxycodone Hcl Ir 5 Mg Tab (Immediate Release)) 5 - 10 mg PO Q4H PRN PRN Reason: pain Stop: 07/14/23 14:16 Last Admin: 07/04/23 20:55 Dose: 10 mg Paroxetine HCl (Paroxetine Hcl 20 Mg Tab) 20 mg PO DAILY SAMANTHA Stop: 07/29/23 08:59 Last Admin: 07/05/23 08:19 Dose: 20 mg Polyethylene Glycol (Polyethylene (Miralax) 17 Gm Pack) 17 gm PO DAILY PRN PRN Reason: Constipation Stop: 07/29/23 01:01 Quetiapine Fumarate (Quetiapine Fumarate 25 Mg Tablet) 25 mg PO HS SAMANTHA Stop: 08/03/23 20:59 Last Admin: 07/04/23 20:58 Dose: 25 mg Rifampin (Rifampin 300 Mg Capsule) 300 mg PO BID SAMANTHA Stop: 08/15/23 20:59 Last Admin: 07/05/23 08:19 Dose: 300 mg Rosuvastatin Calcium (Rosuvastatin Calcium 10 Mg Tab) 10 mg PO DAILY SAMANTHA Stop: 07/29/23 08:59 Last Admin: 07/05/23 08:19 Dose: 10 mg Sennosides (Senna 8.6 Mg Tab) 17.2 mg PO HS SAMANTHA Stop: 07/30/23 20:59 Last Admin: 07/04/23 20:57 Dose: 17.2 mg
[2023-07-05 09:41] LABS: Albumin 2.9 g/dL (3.8-4.8); Alpha 1 Globulin 0.5 g/dL (0.2-0.3); Alpha 2 Globulin 0.9 g/dL (0.5-0.9); Beta-1-Globulin 0.4 g/dL (0.4-0.6); Beta-2-Globulin 0.4 g/dL (0.2-0.5); Gamma Globulin 0.9 g/dL (0.8-1.7); Monoclonal Protein Band 1 0.4 g/dL (NONE DETECTED); Monoclonal Protein Band 2 DNR g/dL (NONE DETECTED); Monoclonal Protein Band 3 DNR g/dL (NONE DETECTED); Total Protein 5.9 g/dL (6.1-8.1)
--- NOTE | 2023-07-05 10:23 | Orthopedic Progress Note ---
Date of Service July 05, 2023 Assessment & Plan (1) History of revision of total replacement of right hip joint: Plan: Weightbearing as tolerated with walker assistance and T scope brace Abduction pillow use x 6 weeks Continue vancomycin and rifampin. ID consulted. ID recommends PICC/midline placement for administration of the vancomycin Patient signed consent for PICC line placement. I attempted to contact this time to keep him in the loop. There is no answer so I left a message on his machine to contact me back. DVT prophylaxis with aspirin and EMILEE stockings Pain control per primary Follow up with [facility] in 1 week for prevena removal He will also need transfer to either rehab or senior care facility Case management to follow With questions contact her clinic at [phone] Admission and Anticipated Discharge Date Admission Date: June 28, 2023 Subjective This 68-year-old male seen today 5 days status post right hip revision arthroplasty status post dislocation. Patient is alert and oriented but states he has difficulty remembering things due to the previous traumatic brain injury. His T scope hip brace is in place. His Prevena is functioning properly. Currently he denies any pain. He also has no complaint of chest pain, shortness of breath, fever, chills, sweats or numbness or tingling in his right lower extremity. States that his right leg does feel weak. He states he does not remember speaking with the infectious disease doctor. He states that he will need to go to rehab has been to [facility] before but is not sure if that is where he will be going following discharge at this point. Review of Systems Review of Systems: All systems reviewed & are unremarkable except as noted in Subjective Physical Exam Physical Exam: Right lower extremity: Lanie is in place and working effectively. Patient does have some tenderness to palpation over the lateral aspect of the right hip. He is unable to perform an active straight leg raise test. He is able to actively dorsi and plantarflex his foot. I was able to passively straighten his leg to 0 degrees of extension. Light passive hip flexion to about 60 degrees of flexion causes no pain. Patient does feel some slight tension with very light passive internal and external hip rotation. T scope hip brace in proper position and patient states that he feels comfortable. He was neurovascularly intact in the right lower extremity. Results & Data Vital Signs (Past 12 Hours) Vital Signs Temp Pulse Resp BP BP Pulse Ox O2 Del Method 04/16/24 07:00 36.5 C 74 18 143/77 H 96 Room Air 07/05/23 03:29 37.1 C 71 16 136/80 95 Room Air 07/04/23 22:39 36.8 C 73 18 127/77 95 Room Air Diagnostic Findings Laboratory Results WBC 6.61 K/ul (4.8-10.8) 07/04/23 12: RBC 2.89 M/uL (4.70-6.10) L 07/04/23 12:22 Hgb 8.4 g/dl (14.0-18.0) L 07/04/23 12:22 Hct 26.7 % (42.0-52.0) L 07/04/23 12: MCV 92.4 fL (80.0-100.0) 07/04/23 12: MCH 29.1 pg (25.0-34.0) 07/04/23 12: MCHC 31.5 g/dL (32.0-36.0) L 07/04/23 12: RDW Std Deviation 48.1 fL (36.4-46.3) H 07/04/23 12: RDW Coeff of Jeffy 14.2 % (11.5-14.5) 07/04/23 12: Plt Count 406 K/uL (130-400) H 07/04/23 12:22 MPV 8.7 fL (9.4-12.4) L 07/04/23 12: Immature Gran % (Auto) 1.4 % 07/04/23 12: Neut % (Auto) 64.1 % 07/04/23 12:22 Lymph % (Auto) 19.8 % 07/04/23 12: [place] % (Auto) 10.9 % 07/04/23 12: Eos % (Auto) 3.2 % 07/04/23 12: Baso % (Auto) 0.6 % 07/04/23 12:22 Reticulocyte % (Auto) 3.94 % (0.50-2.00) H 06/28/23 19:59 Neut # (Auto) 4.24 K/uL (1.40-6.50) 07/04/23 12: Lymph # (Auto) 1.31 K/uL (1.20-3.40) 07/04/23 12:22 [place] # (Auto) 0.72 K/uL (0.11-0.59) H 07/04/23 12:22 Eos # (Auto) 0.21 K/uL (0.00-0.50) 07/04/23 12:22 Baso # (Auto) 0.04 K/uL (0.00-0.20) 07/04/23 12:22 Reticulocyte # 0.090 10^6/uL (0.020-0.100) 06/28/23 19:59 Immature Gran # (Auto) 0.09 K/uL (0.01-0.20) 07/04/23 12:22 Polychromasia 1+ 07/01/23 04:31 Peripher Smr Path Cons 06/28/23 19:59 Sodium 136 mmol/L (136-145) 07/04/23 12:22 Potassium 3.9 mmol/L (3.5-5.1) 07/04/23 12:22 Chloride 104 mmol/L (98-107) 07/04/23 12:22 Carbon Dioxide 25 mmol/L (21-32) 07/04/23 12:22 Anion Gap 7 (3-11) 07/04/23 12:22 BUN 14 mg/dl (6-23) 07/04/23 12:22 Creatinine 0.64 mg/dl (0.6-1.4) 07/05/23 05:50 Est Cr Clr Drug Dosing 103.9 ml/min 07/05/23 05:50 Est GFR ( Amer) 115.0 ml/min 07/05/23 05:50 Est GFR (Non-Af Amer) 99.2 ml/min 07/05/23 05:50 BUN/Creatinine Ratio 20.0 (10-20) 07/04/23 12:22 Glucose 111 mg/dl (70-99(Fasting)) H 07/04/23 12:22 Calcium 8.2 mg/dl (8.6-10.3) L 07/04/23 12:22 Magnesium 1.8 mg/dl (1.7-2.4) 07/03/23 05:31 Iron 34 mcg/dl (35-175) L 06/29/23 17:38 TIBC 231 mcg/dl (250-450) L 06/29/23 17:38 Unsaturated IBC 197 mcg/dl (155-355) 06/29/23 17:38 Transferrin % Sat 15 % (20-50) L 06/29/23 17:38 Ferritin 413.4 ng/ml (8-388) H 06/28/23 19:59 Total Bilirubin 0.7 mg/dl (0.2-1.0) 06/28/23 19:59 AST 43 U/L (13-39) H 06/28/23 19:59 ALT 38 U/L (7-52) 06/28/23 19:59 Alkaline Phosphatase 78 U/L (34-104) 06/28/23 19:59 Total Protein 6.3 gm/dl (6.0-8.3) 06/28/23 19:59 Total Protein (PEP) 5.9 g/dL (6.1-8.1) L 06/30/23 05:53 Albumin 3.3 gm/dl (3.4-5.0) L 06/28/23 19:59 Albumin (PEP) 2.9 g/dL (3.8-4.8) L 06/30/23 05:53 Globulin 3.0 gm/dl (2.5-4.0) 06/28/23 19:59 Albumin/Globulin Ratio 1.1 (0.9-2) 06/28/23 19:59 Iigbf-7-Tmoacpqwx 0.5 g/dL (0.2-0.3) H 06/30/23 05:53 Mjryk-8-Macyxjqua 0.9 g/dL (0.5-0.9) 06/30/23 05:53 Ziye-9-Bynunslq 0.4 g/dL (0.4-0.6) 06/30/23 05:53 Kngj-2-Fkupatrn 0.4 g/dL (0.2-0.5) 06/30/23 05:53 Gamma Globulins 0.9 g/dL (0.8-1.7) 06/30/23 05:53 Monoclonal Peak 3 DNR g/dL (NONE DETECTED) 06/30/23 05:53 Ser Monoclonl Protein 0.4 g/dL (NONE DETECTED) H 06/30/23 05:53 Ser Monoclonal Prot 2 DNR g/dL (NONE DETECTED) 06/30/23 05:53 PEP Interpretation SEE NOTE 06/30/23 05:53 Vitamin B12 252 pg/ml (180-914) 06/29/23 17:38 Folate 17.41 ng/ml (>5.38) 06/29/23 17:38 Urine Color Dark Yellow 06/29/23 Unknown Urine Appearance Clear (Clear) 06/29/23 Unknown Urine pH 6.0 (4.5-7.5) 06/29/23 Unknown Ur Specific [place] 1.031 (1.000-1.030) H 06/29/23 Unknown Urine Protein 1+ (Negative) H 06/29/23 Unknown Urine Glucose (UA) Negative (Negative) 06/29/23 Unknown Urine Ketones Trace (Negative) H 06/29/23 Unknown Urine Blood Negative (Negative) 06/29/23 Unknown Urine Nitrite Negative (Negative) 06/29/23 Unknown Urine Bilirubin Negative (Negative) 06/29/23 Unknown Urine Urobilinogen Negative (Negative) 06/29/23 Unknown Ur Leukocyte Esterase Negative (Negative) 06/29/23 Unknown Urine WBC (Auto) 0-5 /hpf (0-5) 06/29/23 Unknown Urine RBC (Auto) 0-2 /hpf (0-2) 06/29/23 Unknown U Hyaline Cast (Auto) 0-2 /lpf (0-2) 06/29/23 Unknown U Epithel Cells (Auto) 0-2 /hpf (0-2) 06/29/23 Unknown Urine Bacteria (Auto) None Seen (None Seen) 06/29/23 Unknown Urine Mucus Present (None Prsent) A 06/29/23 Unknown Nasal Screen MRSA (PCR) Negative (Negative) 06/29/23 Unknown Stool Occult Bld Scrn Cancelled 06/29/23 Unknown Blood Type A Positive 06/28/23 23:35 Antibody Screen NEGATIVE 06/28/23 23:35 Crossmatch See Detail 06/28/23 23:35 Impressions Hip/Pelvis X-Ray 06/28/23 19:05 XR hip RT 2V w pelvis HISTORY: 68 years-old Male r/o dislocation acute right hip pain COMPARISON: 06/09/2023 TECHNIQUE: AP view of the pelvis with 2 views of the right hip FINDINGS: Right hip arthroplasty. There is superior and posterior dislocation of the femoral head component without acute fracture identified. Soft tissue swelling surrounds the right hip. 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 IMPRESSION: Dislocation of the right hip arthroplasty. ACT 112: Negative or not required by law. The above report was generated using voice recognition software. It may contain grammatical, syntax or spelling errors. Electronically signed by: Saran Menard M.D. 06/29/2023 7:26 AM Hip X-Ray 06/29/23 07:00 FL hip RT 1V CLINICAL HISTORY: RIGHT CLOSED REDUCTION HIPright hip arthroplasty dislocation COMPARISON STUDY: Radiograph 06/28/2023 FLUOROSCOPY TIME: 9.9 seconds FLUOROSCOPY IMAGES: 1 EXPOSURE DOSE: 1.54 mGy FINDINGS: Right hip arthroplasty with superior dislocation of the femoral head prosthesis. Severe degeneration of the pubic symphysis. No acute fracture identified. IMPRESSION: Fluoroscopic assistance as above. ACT 112: Negative or not required by law. Electronically signed by: Saran Menard M.D. 06/29/2023 8:35 AM Pelvis X-Ray 06/30/23 14:12 XR pelvis 1-2V routine CLINICAL HISTORY: In PACU - Post Surgical COMPARISON STUDY: Right hip 06/28/2023. FINDINGS: The patient is status post open reduction of the right femoral prosthesis dislocation. The alignment is now anatomic. No acute fractures within the pelvis or hips. The hardware appears intact. A Lincoln catheter is noted. IMPRESSION: Status post open reduction of the right femoral prosthesis dislocation. Alignment appears anatomic. No fractures. ACT 112: Negative or not required by law. Electronically signed by: Walter Llanos M.D. 06/30/2023 5:40 PM
--- NOTE | 2023-07-05 15:18 | Hospitalist Progress Note ---
Date of Service July 05, 2023 Assessment & Plan (1) Closed dislocation of right hip: Plan: Patient was at [facility] rehab, and woke up on 06/27 complaining of right hip pain. Unfortunately, he suffered dislocation of right hip prosthesis that was initially placed on June 08 of this year. He subsequently had revision of the right total hip arthroplasty on June 29. Appreciate orthopedic consultation and recommendations. Staph isolated from the right hip area at the time of surgery on June 29. Infectious disease has recommended intravenous vancomycin therapy for 6 weeks. PICC line needs to be placed but getting consent may be a problem if there is not a medical POA. (2) Acute encephalopathy: Plan: Delirium developed while hospitalized. Seroquel at bedtime replaces Zyprexa. Supportive care. (3) S/P total hip arthroplasty: Plan: Right total hip arthroplasty on 06/09/[address] Reynolds. Unfortunately, he suffered a dislocation of the prosthesis while at rehab at [facility]. Subsequent revision on June 29. Continue aspirin 81 mg twice daily for DVT prophylaxis, oral rifampin for concerns about biofilm developing on the prosthesis from orthopedic standpoint, and parenteral vancomycin for the next 6 weeks. (4) Acute blood loss anemia: Plan: He has received multiple units of packed red blood cells this admission. Hemoglobin now stable. Oral iron replacement has been started. Serial labs. (5) Frontotemporal dementia: Plan: Chronic. Supportive care. Seroquel at bedtime replaces Zyprexa. (6) Depression: Plan: Stable. Treated with Paxil Plan Hopeful discharge back to [facility] after PICC line has been placed. He will continue with intravenous vancomycin for the next 6 weeks. Admission and Anticipated Discharge Date Admission Date: June 28, 2023 Subjective Alert. Demented. Afebrile. No significant change in clinical status. Infectious disease recommends intravenous vancomycin for 6 weeks. Hopefully there is a medical POA who can sign the consent form for PICC line placement since he does not have the capacity to make that decision. Review of Systems 2 Review of Systems: The patient is unable to reliably answer any questions regarding review of systems at this time Physical Exam 2 Physical Exam: General-alert but disoriented. No fever, no chills HEENT-head atraumatic and normocephalic, pupils equal and reactive to light, extraocular muscles intact Neck-no lymphadenopathy or thyromegaly, trachea midline Chest-clear to auscultation. No rales, wheezing or rhonchi Cardiac-regular rate and rhythm, normal S1 and S2, no murmurs Abdomen-normal bowel sounds, nontender, no hepatosplenomegaly Extremities-no cyanosis, clubbing, or edema Skinright hip surgical site unremarkable Neuro-cranial nerves II through XII intact, motor and sensory function within normal limits, strength symmetrical, no focal deficits Psych-normal affect, normal mood Results & Data Results & Data Vital Signs (Past 12 Hours) Vital Signs Temp Pulse Resp BP BP Pulse Ox O2 Del Method 07/05/23 10:45 36.7 C 73 16 102/65 97 Room Air 07/05/23 07:00 36.5 C 74 18 143/77 H 96 Room Air 07/05/23 03:29 37.1 C 71 16 136/80 95 Room Air Laboratory Results 07/04/23 12:22 07/05/23 05:50 PG Care Time/CCT Total # of Minutes Spent Total Time Spent with Patient: Total time spent is greater than 50% in coordination of care (as documented) at patient's floor/unit and/or counseling patient: Coding Level of Care Code 36986 SUB INP/OBS CARE 3/50MIN Diagnoses Closed dislocation of right hip S73.004A Acute encephalopathy G93.40 S/P total hip arthroplasty Z96.649 Acute blood loss anemia D62 Frontotemporal dementia G31.09; F02.80 Depression F32.9
[2023-07-06 07:39] LABS: Basophils # (auto) 0.05 K/uL (0.00-0.20); Basophils % (auto) 0.8 %; Eosinophils # (auto) 0.23 K/uL (0.00-0.50); Eosinophils % (auto) 3.6 %; Hematocrit (blood only) 26.7 % (42.0-52.0); Hemoglobin 8.3 g/dl (14.0-18.0); Immature Granulocytes % (auto) 1.6 %; Lymphocytes # (auto) 1.04 K/uL (1.20-3.40); Lymphocytes % (auto) 16.1 %; Mean Corpuscular Hemoglobin 28.7 pg (25.0-34.0); Mean Corpuscular Hgb Conc 31.1 g/dL (32.0-36.0); Mean Corpuscular Volume 92.4 fL (80.0-100.0); Monocytes # (auto) 0.75 K/uL (0.11-0.59); Monocytes % (auto) 11.6 %; Neutrophils # (auto) 4.27 K/uL (1.40-6.50); Neutrophils % (auto) 66.3 %; Platelet Count 413 K/uL (130-400); RDW Coefficient of Variation 13.6 % (11.5-14.5); RDW Standard Deviation 46.7 fL (36.4-46.3); Red Blood Count 2.89 M/uL (4.70-6.10); White Blood Count 6.44 K/ul (4.8-10.8)
[2023-07-06 07:59] LABS: BUN Creatinine Ratio 17.2 (10-20); Calcium 8.6 mg/dl (8.6-10.3); Creatinine Clr Calc Pharmacy 103.9 ml/min; Est GFR (Non-African American) 99.2 ml/min; Potassium 3.8 mmol/L (3.5-5.1)
--- NOTE | 2023-07-06 09:33 | Hospitalist Progress Note ---
Date of Service July 06, 2023 Assessment & Plan (1) Closed dislocation of right hip: Plan: Patient was at [facility] rehab, and woke up on 06/27 complaining of right hip pain. Unfortunately, he suffered dislocation of right hip prosthesis that was initially placed on June 08 of this year. He subsequently had revision of the right total hip arthroplasty on June 29. Appreciate orthopedic consultation and recommendations. Staph isolated from the right hip area at the time of surgery on June 29. Infectious disease has recommended intravenous vancomycin therapy for 6 weeks. PICC line needs to be placed for ongoing IV antibiotic therapy. I spoke to the patient's son, also named Chon, who will come to the hospital today, July 05, to sign the consent form for the patient. (2) Acute encephalopathy: Plan: Delirium developed while hospitalized. Seroquel at bedtime replaces Zyprexa. Supportive care. (3) S/P total hip arthroplasty: Plan: Right total hip arthroplasty on 06/09/[address] Reynolds. Unfortunately, he suffered a dislocation of the prosthesis while at rehab at [facility]. Subsequent revision on June 29. Continue aspirin 81 mg twice daily for DVT prophylaxis, oral rifampin for concerns about biofilm developing on the prosthesis from orthopedic standpoint, and parenteral vancomycin for the next 6 weeks. (4) Acute blood loss anemia: Plan: He has received multiple units of packed red blood cells this admission. Hemoglobin now stable. Oral iron replacement has been started. Serial labs. (5) Frontotemporal dementia: Plan: Chronic. Supportive care. Seroquel at bedtime replaces Zyprexa. (6) Depression: Plan: Stable. Treated with Paxil Plan [facility] is determined that the patient is not suitable for their facility. His son has agreed to pursue center care placement at the time of discharge, hopefully this week after the PICC line is placed. He is medically stable for discharge. He will continue with intravenous vancomycin for the next 6 weeks. Admission and Anticipated Discharge Date Admission Date: June 28, 2023 Subjective The patient is awake and alert. No significant change in clinical status. I spoke to his son, Chon, by phone this morning and the son is going to come to the hospital to sign the consent form for PICC line or midline placement for ongoing IV antibiotic therapy post discharge. Infectious disease has recommended intravenous vancomycin for the next 6 weeks. Review of Systems 2 Review of Systems: The patient is unable to reliably answer any questions regarding review of systems at this time Physical Exam 2 Physical Exam: General-alert but disoriented. No fever, no chills HEENT-head atraumatic and normocephalic, pupils equal and reactive to light, extraocular muscles intact Neck-no lymphadenopathy or thyromegaly, trachea midline Chest-clear to auscultation. No rales, wheezing or rhonchi Cardiac-regular rate and rhythm, normal S1 and S2, no murmurs Abdomen-normal bowel sounds, nontender, no hepatosplenomegaly Extremities-no cyanosis, clubbing, or edema Skinright hip surgical site unremarkable Neuro-cranial nerves II through XII intact, motor and sensory function within normal limits, strength symmetrical, no focal deficits Psych-normal affect, normal mood Results & Data Results & Data Vital Signs (Past 12 Hours) Vital Signs Temp Pulse Pulse Resp BP BP Pulse Ox 07/06/23 07:15 36.7 C 62 17 146/86 H 98 07/06/23 04:00 37 C 76 16 146/83 H 07/05/23 23:00 37 C 71 18 144/80 H 96 07/05/23 22:00 77 O2 Del Method 07/06/23 07:15 Room Air 07/06/23 04:00 Room Air 07/05/23 23:00 Room Air 07/05/23 22:00 Laboratory Results 07/06/23 07:09 07/06/23 07:09 PG Care Time/CCT Total # of Minutes Spent Total Time Spent with Patient: Total time spent is greater than 50% in coordination of care (as documented) at patient's floor/unit and/or counseling patient: Coding Level of Care Code 09091 SUB INP/OBS CARE 3/50MIN Diagnoses Closed dislocation of right hip S73.004A Acute encephalopathy G93.40 S/P total hip arthroplasty Z96.649 Acute blood loss anemia D62 Frontotemporal dementia G31.09; F02.80 Depression F32.9
[2023-07-06] MEDS: VANCOMYCIN LEVEL ONE (10:21)
--- NOTE | 2023-07-06 11:38 | Pharmacy Report ---
Pharmacy PK ABX Note - Date of Service July 06, 2023 - Assessment and Plan Assessment 07/05: Vancomycin level today came back at ~12 mcg/ml - this dosing is correlating to goal AUC/RAIMUNDO 400-600. Plan to continue same regimen. 07/03: 68 year old M receiving started on vancomycin and rifampin for joint infection. Preliminary cultures with coagulase negative staph. Patient is s/p hip replacement 06/08. He suffered dislocation of prosthesis and required hip revision 06/29. Day # 1 of antimicrobial therapy. Plan Vancomycin * Continue vancomycin 1250 mg iv q 12 hours based upon level today Pharmacy will continue to follow and will adjust dose/frequency as necessary. Thank you. Pharmacy has transitioned to AUC monitoring for vancomycin. AUC/RAIMUNDO is the preferred PK/PD target and is associated with decreased risk of nephrotoxicity compared to traditional trough targets.
--- NOTE | 2023-07-06 12:41 | Infectious Disease Progress Nt ---
Date of Service July 06, 2023 Assessment & Plan (1) History of revision of total replacement of right hip joint: (2) Depression: (3) S/P total hip arthroplasty: Plan #Right hip revision with hematoma evacuation and liner exchange, OR CoNS 06/29 #R DARIEL 06/08 68-year-old male, frontotemporal dementia, orthostatic hypotension, Status post total hip arthroplasty on 06/09/23. Patient presented with right hip pain on 06/27 to [facility] from [facility] after he s/p fall. Xrays at the facility had shown a dislocation. He underwent an attempted closed reduction in the emergency room, which was unsuccessful followed by a closed reduction under general anesthesia which was also unsuccessful. Admission vitals stable, WBC 10.5, Cr 0.9, MRSA screen negative. He didnt receive abx prior to procedures. He underwent difficult revision on 06/29 with evacuation of hematoma, polyethylene liner exchanged. He was also TF prbcs intraoperatively. OR notes .. significant amount of hematoma under the fascia.. evacuated. Deep culture swabs were obtained. Additionally tissue from the subfascial layer was removed and sent for culture, vancomycin powder added. OR cx growing CoNS, rare no sensi to follow This has now been updated to Oxacillin R, Dapto S, Vanco S (RAIMUNDO 2), Tetracycline S, Bactrim R, Clinda R 07/03 Blood cultures NG RECOMMEND: Blood cultures are NG at 48 hours--> plan to place PICC line DC Vancomycin, Start Daptomycin 6mg/kg IV daily, check baseline CPK, hold statin Rifampin started, pharm following to ensure no drug interactions, monitor LFTs Plan: Daptomycin 450mg IV daily x 6 weeks through 08/10/23 - weekly CBC with diff, CMP, CPK levels Rifampin is better studied with Staph aureus bacteremia, d/w Ortho, from my standpoint does not need the Rifampin Once Daptomycin is completed, start doxycycline 100mg po BID with food for 1 year suppression. Strong recommendation for ID follow up in community for close follow up Marisol Vazquez MD Infectious Diseases [facility], [facility] Admission and Anticipated Discharge Date Admission Date: June 28, 2023 Subjective This patient recommendation is based on a telemedicine consult request which was completed asynchronously through chart review and information provided by the primary physician. The patient was not seen or examined today. The evaluation is consultative in nature and all patient care and treatment decisions can either be accepted or rejected by the patient's primary hospital-based treating physician using their own independent medical judgment for their patient. Time Spent Reviewing Chart: 31+ minutes Results & Data Vital Signs (Past 12 Hours) Vital Signs Temp Pulse Resp BP BP Pulse Ox O2 Del Method 07/06/23 11:53 36.8 C 73 15 106/67 97 Room Air 07/06/23 07:15 36.7 C 62 17 146/86 H 98 Room Air 07/06/23 04:00 37 C 76 16 146/83 H Room Air Laboratory Results Laboratory Results - last 48 hr 06/30/23 07/04/23 07/05/23 05:53 12:22 05:50 WBC RBC Hgb Hct MCV MCH MCHC RDW Std Deviation RDW Coeff of Jeffy Plt Count MPV Immature Gran % (Auto) Neut % (Auto) Lymph % (Auto) [place] % (Auto) Eos % (Auto) Baso % (Auto) Neut # (Auto) Lymph # (Auto) [place] # (Auto) Eos # (Auto) Baso # (Auto) Immature Gran # (Auto) Sodium 136 Potassium 3.9 Chloride 104 Carbon Dioxide 25 Anion Gap 7 BUN 14 Creatinine 0.70 0.64 Est Cr Clr Drug Dosing 95.0 103.9 Est GFR ( Amer) 110.8 115.0 Est GFR (Non-Af Amer) 95.6 99.2 BUN/Creatinine Ratio 20.0 Glucose 111 H Calcium 8.2 L Total Protein (PEP) 5.9 L Albumin (PEP) 2.9 L Kzjku-3-Dclpgaknt 0.5 H Anwxb-4-Npbrhmiby 0.9 Opdg-8-Qehvqijt 0.4 Lmmt-4-Qzoskqqv 0.4 Gamma Globulins 0.9 Monoclonal Peak 3 DNR Ser Monoclonl Protein 0.4 H Ser Monoclonal Prot 2 DNR PEP Interpretation SEE NOTE Random Vancomycin 07/06/23 07/06/23 07:09 09:39 WBC 6.44 RBC 2.89 L Hgb 8.3 L Hct 26.7 L MCV 92.4 MCH 28.7 MCHC 31.1 L RDW Std Deviation 46.7 H RDW Coeff of Jeffy 13.6 Plt Count 413 H MPV 9.0 L Immature Gran % (Auto) 1.6 Neut % (Auto) 66.3 Lymph % (Auto) 16.1 Hemphill % (Auto) 11.6 Eos % (Auto) 3.6 Baso % (Auto) 0.8 Neut # (Auto) 4.27 Lymph # (Auto) 1.04 L Hemphill # (Auto) 0.75 H Eos # (Auto) 0.23 Baso # (Auto) 0.05 Immature Gran # (Auto) 0.10 Sodium 137 Potassium 3.8 Chloride 106 Carbon Dioxide 25 Anion Gap 6 BUN 11 Creatinine 0.64 Est Cr Clr Drug Dosing 103.9 Est GFR ( Amer) 115.0 Est GFR (Non-Af Amer) 99.2 BUN/Creatinine Ratio 17.2 Glucose 105 H Calcium 8.6 Total Protein (PEP) Albumin (PEP) Fygkz-2-Vsskxzmev Beknt-9-Uluhjcour Jhwo-4-Ylbwjhxq Ajgk-8-Ucuhofxb Gamma Globulins Monoclonal Peak 3 Ser Monoclonl Protein Ser Monoclonal Prot 2 PEP Interpretation Random Vancomycin 11.9
[2023-07-06] MEDS: LORazepam 0.5 MG in SYRINGE 0.25 ML IV STA (18:44)
[2023-07-06] MEDS: QUEtiapine FUMARATE 25 MG TABLET PO SCH (20:09)
[2023-07-06] MEDS: OLANZapine 10 MG/2.1 ML SDV IM STA (21:55)
[2023-07-07] MEDS: OLANZapine 10 MG/2.1 ML SDV IM STA ×2 (00:31→02:50)
[2023-07-07] MEDS: HALOPERIDOL LACTATE 5 MG/ML 1 ML VIAL IM STA (01:31)
[2023-07-07] MEDS: LORazepam 1 MG in SYRINGE 0.5 ML IV STA (02:47)
[2023-07-07 06:49] LABS: Creatinine Clr Calc Pharmacy 97.8 ml/min; Est GFR (African American) 112.1 ml/min; Est GFR (Non-African American) 96.8 ml/min
[2023-07-07] MEDS: LORazepam 0.5 MG in SYRINGE 0.25 ML IV PRN (08:50)
--- NOTE | 2023-07-07 12:34 | Hospitalist Progress Note ---
Date of Service July 07, 2023 Assessment & Plan (1) Closed dislocation of right hip: Plan: Patient was at [facility], and woke up on 06/27 complaining of right hip pain. Unfortunately, he suffered dislocation of right hip prosthesis that was initially placed on June 08 of this year. He subsequently had revision of the right total hip arthroplasty on June 29. Appreciate orthopedic consultation and recommendations. Staph isolated from the right hip area at the time of surgery on June 29. Infectious disease has recommended intravenous vancomycin therapy for 6 weeks. PICC line needs to be placed for ongoing IV antibiotic therapy. Consent has been obtained. It was signed by his son. The procedure is pending. (2) Acute encephalopathy: Plan: Delirium developed while hospitalized. Seroquel dosage uptitrated today, July 06. Nighttime behavior continues to be a problem. Supportive care. (3) S/P total hip arthroplasty: Plan: Right total hip arthroplasty on 06/09/[address] Reynolds. Unfortunately, he suffered a dislocation of the prosthesis while at rehab at [facility]. Subsequent revision on June 29. Continue aspirin 81 mg twice daily for DVT prophylaxis, oral rifampin for concerns about biofilm developing on the prosthesis from orthopedic standpoint, and parenteral vancomycin for the next 6 weeks. He will need weekly lab studies while on antibiotics according to infectious disease (4) Acute blood loss anemia: Plan: He has received multiple units of packed red blood cells this admission. Hemoglobin now stable. Oral iron replacement has been started. Serial labs. (5) Frontotemporal dementia: Plan: Chronic. Supportive care. Unfortunately he has episodes of agitation. Continue Seroquel with dosage up titration today, July 06 (6) Depression: Plan: Stable. Treated with Paxil Plan [facility] has determined that the patient is not suitable for their facility. His son has agreed to pursue [facility] placement at the time of discharge. PICC line needs to be placed first and he needs to have his behavior control before they will accept him. He will continue with intravenous vancomycin for the next 6 weeks along with oral rifampin, the duration of rifampin to determined by orthopedics. Admission and Anticipated Discharge Date Admission Date: June 28, 2023 Subjective The patient is asleep at the time of my rounds. PICC line has been ordered and is pending. He had behavior issues again last night and apparently took a swing at a nurse. Seroquel increased from 25 mg twice a day to 3 times a day dosing. Infectious disease consultation recommended intravenous vancomycin for 6 weeks. Orthopedics has the patient also on oral rifampin. He will need weekly laboratory studies while he is on antibiotics. Hopeful eventual discharge to [facility] when behavior is controlled Review of Systems 2 Review of Systems: The patient is unable to reliably answer any questions regarding review of systems at this time Physical Exam 2 Physical Exam: General-asleep at the time of my examination today, July 06. No fever, no chills HEENT-head atraumatic and normocephalic, pupils equal and reactive to light Neck-no lymphadenopathy or thyromegaly, trachea midline Chest-clear to auscultation. No rales, wheezing or rhonchi Cardiac-regular rate and rhythm, normal S1 and S2, no murmurs Abdomen-normal bowel sounds, nontender, no hepatosplenomegaly Extremities-no cyanosis, clubbing, or edema Skinright hip surgical site unremarkable Neuro-cranial nerves II through XII intact, motor and sensory function within normal limits, strength symmetrical, no focal deficits Psych-baseline dementia. Occasional agitation Results & Data Results & Data Vital Signs (Past 12 Hours) Vital Signs Temp Pulse Resp BP BP Pulse Ox O2 Del Method 07/07/23 08:37 72 22 149/87 H 98 Room Air 07/07/23 03:14 36.6 C 91 H 19 167/85 H 94 Room Air 07/07/23 01:00 O2 Del Method 07/07/23 08:37 07/07/23 03:14 07/07/23 01:00 Room Air Laboratory Results 07/06/23 07:09 07/07/23 06:04 PG Care Time/CCT Total # of Minutes Spent Total Time Spent with Patient: Total time spent is greater than 50% in coordination of care (as documented) at patient's floor/unit and/or counseling patient: Coding Level of Care Code 47674 SUB INP/OBS CARE 3/50MIN Diagnoses Closed dislocation of right hip S73.004A Acute encephalopathy G93.40 S/P total hip arthroplasty Z96.649 Acute blood loss anemia D62 Frontotemporal dementia G31.09; F02.80 Depression F32.9
[2023-07-07] MEDS: QUEtiapine FUMARATE 25 MG TABLET PO SCH (15:27)
[2023-07-07] MEDS: traMADol HCL 50 MG TABLET PO PRN (23:20)
--- NOTE | 2023-07-08 10:18 | Orthopedic Progress Note ---
Date of Service July 08, 2023 Assessment & Plan (1) History of revision of total replacement of right hip joint: Plan: Weightbearing as tolerated with walker assistance and T scope brace PT/OT Abduction pillow use x 6 weeks Continue vancomycin and rifampin. ID consulted. ID recommends PICC/midline placement for administration of the vancomycin Patient signed consent for PICC line placement. DVT prophylaxis with aspirin and EMILEE stockings Pain control and psych meds per primary Follow up with [facility] in 1 week for Post op follow up Keep silverlon in place He will also need transfer to penitentiary facility (Transfer to [place] care pending Case management to follow With questions contact her clinic at [phone] Admission and Anticipated Discharge Date Admission Date: June 28, 2023 Subjective Patient is pleasantly resting in his bed this morning. The nurse states that he was just released from his restraints about an hour ago. Apparently he became combative yesterday and was swinging at the nurses. Medicine service increased Seroquel from 25 mg twice a day to 3 times a day dosing. Infectious disease consultation recommended intravenous vancomycin for 6 weeks. Currently patient is also on oral rifampin. He will need weekly laboratory studies while he is on antibiotics. Patient states that he thinks the plan is for him to be discharged to [facility] and [facility]entiary care. Review of Systems Review of Systems: All systems reviewed & are unremarkable except as noted in Subjective Physical Exam Physical Exam: Right lower extremity: Lanie was removed and Silverlon was placed yesterday. Patient does have some tenderness to palpation over the lateral aspect of the right hip. He is unable to perform an active straight leg raise test. He is able to actively dorsi and plantarflex his foot. I was able to passively straighten his leg near 0 degrees of extension. Light passive hip flexion to about 60 degrees of flexion causes no pain. T scope hip brace in proper position and patient states that it feels fairly comfortable. He was neurovascularly intact in the right lower extremity. Results & Data Vital Signs (Past 12 Hours) Vital Signs Temp Pulse Pulse Pulse Resp BP Pulse Ox 07/08/23 09:00 66 07/08/23 08:00 07/08/23 07:04 36.7 C 63 19 124/79 93 07/08/23 04:37 36.9 C 69 14 114/73 95 07/07/23 23:24 36.8 C 70 16 134/84 94 O2 Del Method 07/08/23 09:00 07/08/23 08:00 Room Air 07/08/23 07:04 Room Air 07/08/23 04:37 Room Air 07/07/23 23:24 Room Air Diagnostic Findings Laboratory Results WBC 6.44 K/ul (4.8-10.8) 07/06/23 07:09 RBC 2.89 M/uL (4.70-6.10) L 07/06/23 07:09 Hgb 8.3 g/dl (14.0-18.0) L 07/06/23 07:09 Hct 26.7 % (42.0-52.0) L 07/06/23 07:09 MCV 92.4 fL (80.0-100.0) 07/06/23 07:09 MCH 28.7 pg (25.0-34.0) 07/06/23 07:09 MCHC 31.1 g/dL (32.0-36.0) L 07/06/23 07:09 RDW Std Deviation 46.7 fL (36.4-46.3) H 07/06/23 07:09 RDW Coeff of Jeffy 13.6 % (11.5-14.5) 07/06/23 07:09 Plt Count 413 K/uL (130-400) H 07/06/23 07:09 MPV 9.0 fL (9.4-12.4) L 07/06/23 07:09 Immature Gran % (Auto) 1.6 % 07/06/23 07:09 Neut % (Auto) 66.3 % 07/06/23 07:09 Lymph % (Auto) 16.1 % 07/06/23 07:09 Morrison % (Auto) 11.6 % 07/06/23 07:09 Eos % (Auto) 3.6 % 07/06/23 07:09 Baso % (Auto) 0.8 % 07/06/23 07:09 Reticulocyte % (Auto) 3.94 % (0.50-2.00) H 06/28/23 19:59 Neut # (Auto) 4.27 K/uL (1.40-6.50) 07/06/23 07:09 Lymph # (Auto) 1.04 K/uL (1.20-3.40) L 07/06/23 07:09 Morrison # (Auto) 0.75 K/uL (0.11-0.59) H 07/06/23 07:09 Eos # (Auto) 0.23 K/uL (0.00-0.50) 07/06/23 07:09 Baso # (Auto) 0.05 K/uL (0.00-0.20) 07/06/23 07:09 Reticulocyte # 0.090 10^6/uL (0.020-0.100) 06/28/23 19:59 Immature Gran # (Auto) 0.10 K/uL (0.01-0.20) 07/06/23 07:09 Polychromasia 1+ 07/01/23 04:31 Peripher Smr Path Cons 06/28/23 19:59 Sodium 137 mmol/L (136-145) 07/06/23 07:09 Potassium 3.8 mmol/L (3.5-5.1) 07/06/23 07:09 Chloride 106 mmol/L (98-107) 07/06/23 07:09 Carbon Dioxide 25 mmol/L (21-32) 07/06/23 07:09 Anion Gap 6 (3-11) 07/06/23 07:09 BUN 11 mg/dl (6-23) 07/06/23 07:09 Creatinine 0.68 mg/dl (0.6-1.4) 07/07/23 06:04 Est Cr Clr Drug Dosing 97.8 ml/min 07/07/23 06:04 Est GFR ( Amer) 112.1 ml/min 07/07/23 06:04 Est GFR (Non-Af Amer) 96.8 ml/min 07/07/23 06:04 BUN/Creatinine Ratio 17.2 (10-20) 07/06/23 07:09 Glucose 105 mg/dl (70-99(Fasting)) H 07/06/23 07:09 Calcium 8.6 mg/dl (8.6-10.3) 07/06/23 07:09 Magnesium 1.8 mg/dl (1.7-2.4) 07/03/23 05:31 Iron 34 mcg/dl (35-175) L 06/29/23 17:38 TIBC 231 mcg/dl (250-450) L 06/29/23 17:38 Unsaturated IBC 197 mcg/dl (155-355) 06/29/23 17:38 Transferrin % Sat 15 % (20-50) L 06/29/23 17:38 Ferritin 413.4 ng/ml (8-388) H 06/28/23 19:59 Total Bilirubin 0.7 mg/dl (0.2-1.0) 06/28/23 19:59 AST 43 U/L (13-39) H 06/28/23 19:59 ALT 38 U/L (7-52) 06/28/23 19:59 Alkaline Phosphatase 78 U/L (34-104) 06/28/23 19:59 Total Protein 6.3 gm/dl (6.0-8.3) 06/28/23 19:59 Total Protein (PEP) 5.9 g/dL (6.1-8.1) L 06/30/23 05:53 Albumin 3.3 gm/dl (3.4-5.0) L 06/28/23 19:59 Albumin (PEP) 2.9 g/dL (3.8-4.8) L 06/30/23 05:53 Globulin 3.0 gm/dl (2.5-4.0) 06/28/23 19:59 Albumin/Globulin Ratio 1.1 (0.9-2) 06/28/23 19:59 Fkhtk-1-Tmtziafok 0.5 g/dL (0.2-0.3) H 06/30/23 05:53 Cgyoo-5-Ksrhitjzr 0.9 g/dL (0.5-0.9) 06/30/23 05:53 Srba-1-Cfmxmeed 0.4 g/dL (0.4-0.6) 06/30/23 05:53 Knrr-6-Slocnanb 0.4 g/dL (0.2-0.5) 06/30/23 05:53 Gamma Globulins 0.9 g/dL (0.8-1.7) 06/30/23 05:53 Monoclonal Peak 3 DNR g/dL (NONE DETECTED) 06/30/23 05:53 Ser Monoclonl Protein 0.4 g/dL (NONE DETECTED) H 06/30/23 05:53 Ser Monoclonal Prot 2 DNR g/dL (NONE DETECTED) 06/30/23 05:53 PEP Interpretation SEE NOTE 06/30/23 05:53 Vitamin B12 252 pg/ml (180-914) 06/29/23 17:38 Folate 17.41 ng/ml (>5.38) 06/29/23 17:38 Urine Color Dark Yellow 06/29/23 Unknown Urine Appearance Clear (Clear) 06/29/23 Unknown Urine pH 6.0 (4.5-7.5) 06/29/23 Unknown Ur Specific [place] 1.031 (1.000-1.030) H 06/29/23 Unknown Urine Protein 1+ (Negative) H 06/29/23 Unknown Urine Glucose (UA) Negative (Negative) 06/29/23 Unknown Urine Ketones Trace (Negative) H 06/29/23 Unknown Urine Blood Negative (Negative) 06/29/23 Unknown Urine Nitrite Negative (Negative) 06/29/23 Unknown Urine Bilirubin Negative (Negative) 06/29/23 Unknown Urine Urobilinogen Negative (Negative) 06/29/23 Unknown Ur Leukocyte Esterase Negative (Negative) 06/29/23 Unknown Urine WBC (Auto) 0-5 /hpf (0-5) 06/29/23 Unknown Urine RBC (Auto) 0-2 /hpf (0-2) 06/29/23 Unknown U Hyaline Cast (Auto) 0-2 /lpf (0-2) 06/29/23 Unknown U Epithel Cells (Auto) 0-2 /hpf (0-2) 06/29/23 Unknown Urine Bacteria (Auto) None Seen (None Seen) 06/29/23 Unknown Urine Mucus Present (None Prsent) A 06/29/23 Unknown Nasal Screen MRSA (PCR) Negative (Negative) 06/29/23 Unknown Stool Occult Bld Scrn Cancelled 06/29/23 Unknown Random Vancomycin 17.0 mcg/ml (10-20) 07/08/23 08:46 Blood Type A Positive 06/28/23 23:35 Antibody Screen NEGATIVE 06/28/23 23:35 Crossmatch See Detail 06/28/23 23:35 Impressions Hip/Pelvis X-Ray 06/28/23 19:05 XR hip RT 2V w pelvis HISTORY: 68 years-old Male r/o dislocation acute right hip pain COMPARISON: 06/09/2023 TECHNIQUE: AP view of the pelvis with 2 views of the right hip FINDINGS: Right hip arthroplasty. There is superior and posterior dislocation of the femoral head component without acute fracture identified. Soft tissue swelling surrounds the right hip. 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 IMPRESSION: Dislocation of the right hip arthroplasty. ACT 112: Negative or not required by law. The above report was generated using voice recognition software. It may contain grammatical, syntax or spelling errors. Electronically signed by: Saran Menard M.D. 06/29/2023 7:26 AM Hip X-Ray 06/29/23 07:00 FL hip RT 1V CLINICAL HISTORY: RIGHT CLOSED REDUCTION HIPright hip arthroplasty dislocation COMPARISON STUDY: Radiograph 06/28/2023 FLUOROSCOPY TIME: 9.9 seconds FLUOROSCOPY IMAGES: 1 EXPOSURE DOSE: 1.54 mGy FINDINGS: Right hip arthroplasty with superior dislocation of the femoral head prosthesis. Severe degeneration of the pubic symphysis. No acute fracture identified. IMPRESSION: Fluoroscopic assistance as above. ACT 112: Negative or not required by law. Electronically signed by: Saran Menard M.D. 06/29/2023 8:35 AM Pelvis X-Ray 06/30/23 14:12 XR pelvis 1-2V routine CLINICAL HISTORY: In PACU - Post Surgical COMPARISON STUDY: Right hip 06/28/2023. FINDINGS: The patient is status post open reduction of the right femoral prosthesis dislocation. The alignment is now anatomic. No acute fractures within the pelvis or hips. The hardware appears intact. A Lincoln catheter is noted. IMPRESSION: Status post open reduction of the right femoral prosthesis dislocation. Alignment appears anatomic. No fractures. ACT 112: Negative or not required by law. Electronically signed by: Walter Llanos M.D. 06/30/2023 5:40 PM
--- NOTE | 2023-07-08 11:19 | Pharmacy Report ---
Pharmacy PK ABX Note - Date of Service July 08, 2023 - Assessment and Plan Assessment 07/07: Vancomycin level = 17 mcg/ml at 08:46 AM today. 07/05: Vancomycin level today came back at ~12 mcg/ml - this dosing is correlating to goal AUC/RAIMUNDO 400-600. Plan to continue same regimen. 07/03: 68 year old M receiving started on vancomycin and rifampin for joint infection. Preliminary cultures with coagulase negative staph. Patient is s/p hip replacement 06/08. He suffered dislocation of prosthesis and required hip revision 06/29. Day # 1 of antimicrobial therapy. Plan Vancomycin * Current regimen: 1250 mg IV every 12 hours * Random level obtained today resulted as 17 mcg/mL. Predicted AUC at steady state: 466 mg/L.hr. This is within goal AUC/RAIMUNDO of 400-600 mg/L.hr but at the lower end of goal range for Osteomyelitis. * Increase to Vancomycin 1500 mg IV every 12 hours starting today at noon. * This is predicted to achieve target AUC/RAIMUNDO of 547 mg/L.hr with probability of nephrotoxicity at 13%. * Repeat random level ordered for: 07/10/23 @ 09:00. Pharmacy will continue to follow and will adjust dose/frequency as necessary. Thank you. Pharmacy has transitioned to AUC monitoring for vancomycin. AUC/RAIMUNDO is the preferred PK/PD target and is associated with decreased risk of nephrotoxicity compared to traditional trough targets.
[2023-07-08] MEDS: VANCOMYCIN HCL 1,500 MG in SODIUM CHLORIDE 0.9% 500 ML IV SCH (11:48)
--- NOTE | 2023-07-08 12:03 | Hospitalist Progress Note ---
Date of Service July 08, 2023 Assessment & Plan (1) Closed dislocation of right hip: Plan: Patient was at [facility], and woke up on 06/27 complaining of right hip pain. Unfortunately, he suffered dislocation of right hip prosthesis that was initially placed on June 08 of this year. He subsequently had revision of the right total hip arthroplasty on June 29. Appreciate orthopedic consultation and recommendations. Staph isolated from the right hip area at the time of surgery on June 29. Infectious disease has recommended intravenous vancomycin therapy for 6 weeks. PICC line pending for ongoing IV antibiotic therapy. Consent has been obtained. (2) Acute encephalopathy: Plan: Delirium developed while hospitalized. Seroquel dosage uptitrated on July 06. Today, July 07, he is alert and oriented. Will try to get the PICC line placed today, July 07. Supportive care. (3) S/P total hip arthroplasty: Plan: Right total hip arthroplasty on 06/09/[address] Reynolds. Unfortunately, he suffered a dislocation of the prosthesis while at rehab at [facility]. Subsequent revision on June 29. Continue aspirin 81 mg twice daily for DVT prophylaxis, oral rifampin for concerns about biofilm developing on the prosthesis from orthopedic standpoint, and parenteral vancomycin for the next 6 weeks. He will need weekly lab studies while on antibiotics according to infectious disease (4) Acute blood loss anemia: Plan: He has received multiple units of packed red blood cells this admission. Hemoglobin now stable. Oral iron replacement has been started. Serial labs. (5) Frontotemporal dementia: Plan: Chronic. Supportive care. Seroquel 3 times a day dosing seems to have helped. (6) Depression: Plan: Stable. Treated with Paxil Plan [facility] has determined that the patient is not suitable for their facility. His son has agreed to pursue [facility] placement at the time of discharge. PICC line needs to be placed. He will continue with intravenous vancomycin for the next 6 weeks along with oral rifampin. The duration of rifampin to determined by orthopedics. Admission and Anticipated Discharge Date Admission Date: June 28, 2023 Subjective The patient is remarkably alert and oriented today, July 07. Increasing the Seroquel to 3 times a day dosing may have been the answer here. Will try to get the PICC line placed today. The patient is aware that this needs to get done. His son signed the consent form. He will require intravenous vancomycin for the next 6 weeks according to infectious disease recommendations. Review of Systems 2 Review of Systems: Constitutional-no fever or chills ENT-no blurred vision, no double vision, no epistaxis, no sore throat Respiratory-no cough, no wheezing, no shortness of breath Cardiac-no palpitations, no chest pain, no syncope GI-no nausea, vomiting, diarrhea, melena, hematochezia -no urinary retention, no urinary incontinence, no dysuria, no hematuria Musculoskeletal-no joint pain, no muscle tenderness Skin-no bruising, no rashes, no pruritus Neuro-no isolated weakness, no paresthesia, no weakness Psych-no depression, no anxiety Physical Exam 2 Physical Exam: General-alert and oriented. No complaints. No fever, no chills HEENT-head atraumatic and normocephalic, pupils equal and reactive to light Neck-no lymphadenopathy or thyromegaly, trachea midline Chest-clear to auscultation. No rales, wheezing or rhonchi Cardiac-regular rate and rhythm, normal S1 and S2, no murmurs Abdomen-normal bowel sounds, nontender, no hepatosplenomegaly Extremities-no cyanosis, clubbing, or edema Skinright hip surgical site unremarkable Neuro-cranial nerves II through XII intact, motor and sensory function within normal limits, strength symmetrical, no focal deficits Psych-normal affect. Results & Data Results & Data Vital Signs (Past 12 Hours) Vital Signs Temp Pulse Pulse Resp BP Pulse Ox O2 Del Method 07/08/23 10:26 36.5 C 72 19 133/81 95 Room Air 07/08/23 09:00 66 07/08/23 08:00 Room Air 07/08/23 07:04 36.7 C 63 19 124/79 93 Room Air 07/08/23 04:37 36.9 C 69 14 114/73 95 Room Air Laboratory Results 07/06/23 07:09 07/07/23 06:04 PG Care Time/CCT Total # of Minutes Spent Total Time Spent with Patient: Total time spent is greater than 50% in coordination of care (as documented) at patient's floor/unit and/or counseling patient: Coding Level of Care Code 23382 SUB INP/OBS CARE 2/35MIN Diagnoses Closed dislocation of right hip S73.004A Acute encephalopathy G93.40 S/P total hip arthroplasty Z96.649 Acute blood loss anemia D62 Frontotemporal dementia G31.09; F02.80 Depression F32.9
[2023-07-09] MEDS: IRON SUCROSE 200 MG in 0.9 % SODIUM CHLORIDE 100 ML IV ONE (11:20)
--- NOTE | 2023-07-09 11:51 | Hospitalist Progress Note ---
Date of Service July 09, 2023 Assessment & Plan (1) Closed dislocation of right hip: Plan: Patient was at [facility] rehab, and woke up on 06/27 complaining of right hip pain. Unfortunately, he suffered dislocation of right hip prosthesis that was initially placed on June 08 of this year. He subsequently had revision of the right total hip arthroplasty on June 29. Appreciate orthopedic consultation and recommendations. Staph isolated from the right hip area at the time of surgery on June 29. Infectious disease has recommended intravenous vancomycin therapy for 6 weeks. PICC line has been placed in the right upper extremity on July 07. Switching to daptomycin appears to be cost prohibitive for him to return to the longterm. (2) Acute encephalopathy: Plan: Delirium developed while hospitalized. Seroquel dosage uptitrated to 25 mg 3 times daily on July 06. Mental status was noted to have improved greatly on July 07. Supportive care. (3) S/P total hip arthroplasty: Plan: Right total hip arthroplasty on 06/09/[address] Reynolds. Unfortunately, he suffered a dislocation of the prosthesis while at rehab at [facility]. Subsequent revision on June 29. Continue aspirin 81 mg twice daily for DVT prophylaxis, oral rifampin for concerns about biofilm developing on the prosthesis from orthopedic standpoint, and parenteral vancomycin for the next 6 weeks. He will need weekly lab studies while on antibiotics according to infectious disease (4) Acute blood loss anemia: Plan: He has received multiple units of packed red blood cells this admission. Hemoglobin now stable. Oral iron replacement has been started. Serial labs. (5) Iron deficiency: Plan: Continue parenteral iron replacement for 3 days. Currently day 1. (6) Frontotemporal dementia: Plan: Chronic. Supportive care. Seroquel 3 times a day dosing seems to have helped with behavior issues (7) Depression: Plan: Stable. Treated with Paxil Plan [facility] has determined that the patient is not suitable for their facility. His son has agreed to pursue [facility] placement at the time of discharge. Final arrangements are pending. He will remain on intravenous vancomycin for the next 6 weeks. The duration of rifampin to determined by orthopedics. Admission and Anticipated Discharge Date Admission Date: June 28, 2023 Subjective The patient remains alert and is oriented to name and place. The PICC line has been placed on the right upper extremity but is uncovered. And nursing staff instructed to cover it with a Mj wrap to prevent the patient from pulling it out. He remains on intravenous vancomycin currently. Switching to daptomycin may be cost prohibitive at the longterm. Iron levels are low and parenteral iron replacement has been started. Venofer day 1 of 3. He seems to be tolerating the Seroquel 25 mg 3 times a day quite well. He also remains on rifampin to prevent biofilm developing at the prosthetic site. This was ordered by orthopedics. Review of Systems 2 Review of Systems: Constitutional-no fever or chills ENT-no blurred vision, no double vision, no epistaxis, no sore throat Respiratory-no cough, no wheezing, no shortness of breath Cardiac-no palpitations, no chest pain, no syncope GI-no nausea, vomiting, diarrhea, melena, hematochezia -no urinary retention, no urinary incontinence, no dysuria, no hematuria Musculoskeletal-no joint pain, no muscle tenderness Skin-no bruising, no rashes, no pruritus Neuro-no isolated weakness, no paresthesia, no weakness Psych-no depression, no anxiety Physical Exam 2 Physical Exam: General-alert and oriented. No complaints. No fever, no chills HEENT-head atraumatic and normocephalic, pupils equal and reactive to light Neck-no lymphadenopathy or thyromegaly, trachea midline Chest-clear to auscultation. No rales, wheezing or rhonchi Cardiac-regular rate and rhythm, normal S1 and S2, no murmurs Abdomen-normal bowel sounds, nontender, no hepatosplenomegaly Extremities-no cyanosis, clubbing, or edema Skinright hip surgical site unremarkable Neuro-cranial nerves II through XII intact, motor and sensory function within normal limits, strength symmetrical, no focal deficits Psych-normal affect. Results & Data Results & Data Vital Signs (Past 12 Hours) Vital Signs Temp Pulse Resp BP Pulse Ox O2 Del Method 07/09/23 07:56 37.7 C H 80 18 143/76 H 97 Room Air Laboratory Results 07/06/23 07:09 07/07/23 06:04 PG Care Time/CCT Total # of Minutes Spent Total Time Spent with Patient: Total time spent is greater than 50% in coordination of care (as documented) at patient's floor/unit and/or counseling patient: Coding Level of Care Code 33282 SUB INP/OBS CARE 3/50MIN Diagnoses Closed dislocation of right hip S73.004A Acute encephalopathy G93.40 S/P total hip arthroplasty Z96.649 Acute blood loss anemia D62 Iron deficiency E61.1 Frontotemporal dementia G31.09; F02.80 Depression F32.9
[2023-07-10] MEDS: LORazepam 0.5 MG in SYRINGE 0.25 ML IV PRN (05:06)
[2023-07-10 08:12] LABS: Est GFR (African American) 117.3 ml/min; Est GFR (Non-African American) 101.2 ml/min
--- NOTE | 2023-07-10 10:20 | Pharmacy Report ---
Pharmacy PK ABX Note - Date of Service July 10, 2023 - Assessment and Plan Assessment 07/09: Vancomycin level = 20.9 mcg/mL, which is associated with a slightly supratherapeutic AUC of 610. Will reduce dose slightly. 07/07: Vancomycin level = 17 mcg/ml at 08:46 AM today. 07/05: Vancomycin level today came back at ~12 mcg/ml - this dosing is correlating to goal AUC/RAIMUNDO 400-600. Plan to continue same regimen. 07/03: 68 year old M receiving started on vancomycin and rifampin for joint infection. Preliminary cultures with coagulase negative staph. Patient is s/p hip replacement 06/08. He suffered dislocation of prosthesis and required hip revision 06/29. Day # 1 of antimicrobial therapy. Plan Vancomycin * Current regimen: 1250 mg IV every 12 hours * Random level obtained today resulted as 20.9 mcg/mL. Predicted AUC at steady state: 610 mg/L.hr * Goal AUC/RAIMUNDO of 400-600 mg/L.hr * Decrease to vancomycin 1250 mg IV every 12 hours starting today at 1600 * This is predicted to achieve target AUC/RAIMUNDO of 514 mg/L.hr with probability of nephrotoxicity at 8%. * Repeat random level ordered for: 07/12/23 @ 03:30. Pharmacy will continue to follow and will adjust dose/frequency as necessary. Thank you. Pharmacy has transitioned to AUC monitoring for vancomycin. AUC/RAIMUNDO is the preferred PK/PD target and is associated with decreased risk of nephrotoxicity compared to traditional trough targets.
[2023-07-10] MEDS: VANCOMYCIN LEVEL SCH (11:54)
[2023-07-10] MEDS: IRON SUCROSE 200 MG in 0.9 % SODIUM CHLORIDE 100 ML IV ONE (11:59)
--- NOTE | 2023-07-10 15:57 | Hospitalist Progress Note ---
Date of Service July 10, 2023 Assessment & Plan (1) Closed dislocation of right hip: Plan: Patient was at [facility] rehab, and woke up on 06/27 complaining of right hip pain. Unfortunately, he suffered dislocation of right hip prosthesis that was initially placed on June 08 of this year. He subsequently had revision of the right total hip arthroplasty on June 29. Appreciate orthopedic consultation and recommendations. Staph isolated from the right hip area at the time of surgery on June 29. Infectious disease has recommended intravenous vancomycin therapy for 6 weeks. PICC line has been placed in the right upper extremity on July 07. Switching to daptomycin appears to be cost prohibitive for him to return to the shelter. (2) Acute encephalopathy: Plan: Delirium developed while hospitalized. Seroquel dosage uptitrated to 25 mg 3 times daily on July 06. Mental status was noted to have improved greatly on July 07. Supportive care. (3) S/P total hip arthroplasty: Plan: Right total hip arthroplasty on 06/09/[address] Reynolds. Unfortunately, he suffered a dislocation of the prosthesis while at rehab at [facility]. Subsequent revision on June 29. Continue aspirin 81 mg twice daily for DVT prophylaxis, oral rifampin for concerns about biofilm developing on the prosthesis from orthopedic standpoint, and parenteral vancomycin for the next 6 weeks. He will need weekly lab studies while on antibiotics according to infectious disease (4) Acute blood loss anemia: Plan: He has received multiple units of packed red blood cells this admission. Hemoglobin now stable. Oral iron replacement has been started. Serial labs. (5) Iron deficiency: Plan: Continue parenteral iron replacement for 3 days. Currently day 2. (6) Frontotemporal dementia: Plan: Chronic. Supportive care. Seroquel 3 times a day dosing seems to have helped with behavior issues (7) Depression: Plan: Stable. Treated with Paxil Plan [facility] has determined that the patient is not suitable for their facility. His son has agreed to pursue [facility] at the time of discharge. Final arrangements are pending. He will remain on intravenous vancomycin for the next 6 weeks. The duration of rifampin to determined by orthopedics. Admission and Anticipated Discharge Date Admission Date: June 28, 2023 Subjective Awake and alert. Oriented to name and place. He has some discomfort on the lower aspect of the right hip surgical site. No overlying cellulitis. This may be from underlying hemorrhage causing the pain but no overt cellulitis. Parenteral Venofer day 2 of 3 today, July 09. Afebrile. Vital signs are stable. Infectious disease consultation appreciated. PICC line was placed on the right upper extremity on July 07. He will undergo 6 weeks of intravenous vancomycin therapy. Review of Systems 2 Review of Systems: Constitutional-no fever or chills ENT-no blurred vision, no double vision, no epistaxis, no sore throat Respiratory-no cough, no wheezing, no shortness of breath Cardiac-no palpitations, no chest pain, no syncope GI-no nausea, vomiting, diarrhea, melena, hematochezia -no urinary retention, no urinary incontinence, no dysuria, no hematuria Musculoskeletal-no joint pain, no muscle tenderness Skin-no bruising, no rashes, no pruritus Neuro-no isolated weakness, no paresthesia, no weakness Psych-no depression, no anxiety Physical Exam 2 Physical Exam: General-alert and oriented. No complaints. No fever, no chills HEENT-head atraumatic and normocephalic, pupils equal and reactive to light Neck-no lymphadenopathy or thyromegaly, trachea midline Chest-clear to auscultation. No rales, wheezing or rhonchi Cardiac-regular rate and rhythm, normal S1 and S2, no murmurs Abdomen-normal bowel sounds, nontender, no hepatosplenomegaly Extremities-no cyanosis, clubbing, or edema Skinright hip surgical site unremarkable Neuro-cranial nerves II through XII intact, motor and sensory function within normal limits, strength symmetrical, no focal deficits Psych-normal affect. Results & Data Results & Data Vital Signs (Past 12 Hours) Vital Signs Temp Pulse Pulse Resp BP BP Pulse Ox 07/10/23 12:35 37.2 C 75 16 137/82 97 07/10/23 12:18 37.2 C 80 16 154/82 H 96 07/10/23 11:59 37.4 C 79 16 157/73 H 96 07/10/23 08:06 37.0 C 72 16 159/78 H 92 07/10/23 07:30 77 18 145/82 H O2 Del Method 07/10/23 12:35 Room Air 07/10/23 12:18 Room Air 07/10/23 11:59 Room Air 07/10/23 08:06 Room Air 07/10/23 07:30 Laboratory Results 07/06/23 07:09 07/10/23 07:21 PG Care Time/CCT Total # of Minutes Spent Total Time Spent with Patient: Total time spent is greater than 50% in coordination of care (as documented) at patient's floor/unit and/or counseling patient: Coding Level of Care Code 00452 SUB INP/OBS CARE 2/35MIN Diagnoses Closed dislocation of right hip S73.004A Acute encephalopathy G93.40 S/P total hip arthroplasty Z96.649 Acute blood loss anemia D62 Iron deficiency E61.1 Frontotemporal dementia G31.09; F02.80 Depression F32.9
[2023-07-10] MEDS: VANCOMYCIN HCL 1,250 MG in SODIUM CHLORIDE 0.9% 250 ML IV SCH (17:10)
--- NOTE | 2023-07-11 09:18 | Orthopedic Progress Note ---
Date of Service July 11, 2023 Assessment & Plan (1) History of revision of total replacement of right hip joint: Plan: Patient is more oriented today during his exam. He is doing fair. He will be weightbearing as tolerated with walker assistance and T scope brace hip tscope brace was adjusted this morning at approximately 11:30 and nursing present as well as PT PT/OT Abduction pillow use x 6 weeks in bed, pillow between knees while seated in upright chair. Recommend continuing infectious disease's recommendations for IV antibiotics x 6 weeks, continue rifampin 6 months while on IV antibiotics, then transitioning to doxycycline 100mg BID x 1 year once IV antibiotics are completed. Recommend he be followed by infectious disease during this time as well Will need LFT, Chem panel monitored weekly while on IV antibiotics and rifampin. DVT prophylaxis with aspirin and EMILEE stockings Pain control and psych meds per primary Follow up with [facility] in 1 week for Post op follow up Keep silverlon in place, will have sutures removed this week upon Dr. Reynolds's approval Recommend transitioning to [facility] facility (Transfer to [place] care pending) Case management to follow With questions contact her clinic at [phone] Admission and Anticipated Discharge Date Admission Date: June 28, 2023 Subjective Patient is a 68-year-old male who is in a patient Dr. Sim off. He has a history of having a revision of a total hip arthroplasty of the right hip on 06/29/2028 that was found to be infected. He was seen bedside this a.m. He is alert and pleasant he is oriented to person. He states he is not having any pain in his hip he does complain of some pain in his back. He states he is not able to sleep very well otherwise he feels he is doing better. He denies any fevers or chills, chest pain or shortness of breath. He denies any calf pain. He does report he has been trying to participate with physical therapy. Review of Systems Review of Systems: Please refer to HPI Physical Exam Physical Exam: General: Patient is alert oriented to person he is pleasant and conversive this morning. Integumentary/musculoskeletal: PICC is in place. Negative for any erythema surrounding area.Patient is sitting upright in bed with abduction pillow in place. His skin is normal in color and temperature dressing, Silverlon, is in place and negative for any soiling. He has no palpable tenderness surrounding this area. He is able to actively assist do hip flexion and tolerates passive hip internal and external rotation. He is only able to do a straight leg raise without assistance. He is able to actively dorsiflex and plantarflex ankle. His calf is soft and nontender. Results & Data Vital Signs (Past 12 Hours) Vital Signs Temp Pulse Resp BP Pulse Ox O2 Del Method 07/11/23 07:15 37.1 C 81 18 144/80 H 94 Room Air
[2023-07-11 11:23] LABS: Basophils # (auto) 0.04 K/uL (0.00-0.20); Basophils % (auto) 0.5 %; Eosinophils # (auto) 0.22 K/uL (0.00-0.50); Eosinophils % (auto) 2.8 %; Hematocrit (blood only) 26.3 % (42.0-52.0); Hemoglobin 8.5 g/dl (14.0-18.0); Immature Granulocytes # (auto) 0.15 K/uL (0.01-0.20); Immature Granulocytes % (auto) 1.9 %; Lymphocytes # (auto) 1.24 K/uL (1.20-3.40); Lymphocytes % (auto) 15.6 %; Mean Corpuscular Hemoglobin 28.8 pg (25.0-34.0); Mean Corpuscular Hgb Conc 32.3 g/dL (32.0-36.0); Mean Corpuscular Volume 89.2 fL (80.0-100.0); Mean Platelet Volume 8.9 fL (9.4-12.4); Monocytes # (auto) 0.65 K/uL (0.11-0.59); Monocytes % (auto) 8.2 %; Neutrophils # (auto) 5.63 K/uL (1.40-6.50); Platelet Count 438 K/uL (130-400); RDW Coefficient of Variation 13.9 % (11.5-14.5); RDW Standard Deviation 45.2 fL (36.4-46.3); Red Blood Count 2.95 M/uL (4.70-6.10); White Blood Count 7.93 K/ul (4.8-10.8)
[2023-07-11 11:25] LABS: Albumin Level 3.1 gm/dl (3.4-5.0); Bilirubin,Total 0.6 mg/dl (0.2-1.0); Calcium 8.8 mg/dl (8.6-10.3); Creatinine Clr Calc Pharmacy 107.3 ml/min; Est GFR (African American) 116.5 ml/min; Est GFR (Non-African American) 100.5 ml/min; Potassium 3.9 mmol/L (3.5-5.1); Total Protein 6.1 gm/dl (6.0-8.3)
[2023-07-11] MEDS: ACETAMINOPHEN 500 MG TAB PO SCH (16:21)
[2023-07-11] MEDS: QUEtiapine FUMARATE 25 MG TABLET PO SCH ×2 (17:14→17:37)
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
[2023-07-12] MEDS: LORazepam 0.5 MG in SYRINGE 0.25 ML IV PRN (03:02)
[2023-07-12 03:38] LABS: Basophils # (auto) 0.05 K/uL (0.00-0.20); Basophils % (auto) 0.6 %; Eosinophils # (auto) 0.34 K/uL (0.00-0.50); Eosinophils % (auto) 4.2 %; Hematocrit (blood only) 29.9 % (42.0-52.0); Hemoglobin 9.4 g/dl (14.0-18.0); Immature Granulocytes # (auto) 0.11 K/uL (0.01-0.20); Immature Granulocytes % (auto) 1.3 %; Lymphocytes # (auto) 1.68 K/uL (1.20-3.40); Lymphocytes % (auto) 20.5 %; Mean Corpuscular Hemoglobin 28.2 pg (25.0-34.0); Mean Corpuscular Hgb Conc 31.4 g/dL (32.0-36.0); Mean Corpuscular Volume 89.8 fL (80.0-100.0); Mean Platelet Volume 8.8 fL (9.4-12.4); Monocytes # (auto) 0.82 K/uL (0.11-0.59); Neutrophils # (auto) 5.19 K/uL (1.40-6.50); Neutrophils % (auto) 63.4 %; Platelet Count 463 K/uL (130-400); RDW Coefficient of Variation 13.8 % (11.5-14.5); RDW Standard Deviation 44.5 fL (36.4-46.3); Red Blood Count 3.33 M/uL (4.70-6.10); White Blood Count 8.19 K/ul (4.8-10.8)
[2023-07-12 03:50] LABS: Albumin Level 3.3 gm/dl (3.4-5.0); Bilirubin,Total 0.7 mg/dl (0.2-1.0); Creatinine Clr Calc Pharmacy 97.8 ml/min; Est GFR (African American) 112.1 ml/min; Est GFR (Non-African American) 96.8 ml/min; Globulin 3.3 gm/dl (2.5-4.0); Magnesium 1.8 mg/dl (1.7-2.4); Potassium 3.9 mmol/L (3.5-5.1); Total Protein 6.6 gm/dl (6.0-8.3)
[2023-07-12] MEDS: VANCOMYCIN LEVEL ONE (04:37)
[2023-07-12] MEDS: HALOPERIDOL LACTATE 5 MG/ML 1 ML VIAL IM STA (04:49)
[2023-07-12] MEDS: IRON SUCROSE 300 MG in SODIUM CHLORIDE 0.9% 250 ML IV ONE (07:58)
--- NOTE | 2023-07-12 08:49 | Pharmacy Report ---
Pharmacy PK ABX Note - Date of Service July 12, 2023 - Assessment and Plan Assessment 07/11: Vancomycin level =24.5mcg/mL, which predicts a therapeutic AUC of 556, continue current regimen 07/09: Vancomycin level = 20.9 mcg/mL, which is associated with a slightly supratherapeutic AUC of 610. Will reduce dose slightly. 07/07: Vancomycin level = 17 mcg/ml at 08:46 AM today. 07/05: Vancomycin level today came back at ~12 mcg/ml - this dosing is correlating to goal AUC/RAIMUNDO 400-600. Plan to continue same regimen. 07/03: 68 year old M receiving started on vancomycin and rifampin for joint infection. Preliminary cultures with coagulase negative staph. Patient is s/p hip repla cement 06/08. He suffered dislocation of prosthesis and required hip revision 06/29. Day # 1 of antimicrobial therapy. Plan Vancomycin * Current regimen: 1250 mg IV every 12 hours * Random level obtained today resulted as 14.5 mcg/mL. Predicted AUC at steady state: 556 mg/L.hr with probability of nephrotoxicity at 10% * Goal AUC/RAIMUNDO of 400-600 mg/L.hr * Repeat random level to be ordered later this week or sooner based on clinical status Pharmacy will continue to follow and will adjust dose/frequency as necessary. Thank you. Pharmacy has transitioned to AUC monitoring for vancomycin. AUC/RAIMUNDO is the preferred PK/PD target and is associated with decreased risk of nephrotoxicity compared to traditional trough targets.
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
--- NOTE | 2023-07-12 12:03 | Hospitalist Progress Note ---
Date of Service July 12, 2023 Assessment & Plan (1) Closed dislocation of right hip: Plan: Patient was at [facility] rehab, and woke up on 06/27 complaining of right hip pain. Unfortunately, he suffered dislocation of right hip prosthesis that was initially placed on June 08 of this year. He subsequently had revision of the right total hip arthroplasty on June 29. Appreciate orthopedic consultation and recommendations. Coag negative Staph isolated from the right hip area at the time of surgery on June 29. Infectious disease has recommended intravenous vancomycin therapy for 6 weeks through 08/10/23, along with rifampin Then, doxycycline 100mg po bid x 1 year along with rifampin x 3 more months through 11/10/23 PICC line not yet placed due to agitation Needs once weekly CBC, CMP while on antibiotics As per Ortho: He will be weightbearing as tolerated with walker assistance and T scope brace, PT/OT, and abduction pillow use x 6 weeks in bed, pillow between knees while seated in upright chair. F/u with Ortho around 07/17 Keep silverlon dressing in place and have sutures removed this week with Ortho surgeon's approval (2) Restlessness and agitation: Plan: Has been present since admission that I have noticed, even before being started on Seroquel. He did receive a few doses of Zyprexa at the rehab prior to admission though His tremor and movements are bilateral in upper extremities and sometimes torso twists to the sides, is conscious and recognizes it is happening, it is frustrating Sometimes goes away with deep breathing and relaxing, focusing on a task, and able to feed himself without any tremor His Seroquel dose was titrated up due to agitation and not sleeping, some delirium as well----> perhaps tremor persisting because of atypical antipsychotic? Lytes fairly stable. With severe anemia requiring multiple blood transfusions, could be from iron deficiency? 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 He is expected to have behavioral dysregulation and supportive care and delirium precautions are recommended as well as trazodone 25 mg at bedtime for sleep instead of Seroquel. Avoidance of benzodiazepines is recommended but can use Seroquel as needed for agitation Neurology thinks the tremor is behavioral in origin and is secondary to agitation/overstimulation and recommends supporting his delirium as above. (3) Acute encephalopathy: Plan: Delirium developed while hospitalized. Is significantly improved with in creasing doses of Seroquel, however trying trazodone for sleep at night as he is not getting any sleep at all and has required multiple nights of IM Zyprexa, IM Haldol, and is also being given IV Ativan by nighttime staff Supportive care Start trazodone 25 mg p.o. at bedtime and uptitrate as needed Try Zyprexa 5 mg p.o. x 2 today and discontinue Seroquel. If Zyprexa helps, will switch to that as needed. Continue Seroquel 50 mg at bedtime as needed agitation if trazodone not helping with sleep and agitation Support sleep-wake cycles Give him tasks to do and distractions Get him out of bed with physical therapy is much as possible Appreciate neurology consultation Ensure bowels are moving properly, regular meals as he is doing Encouraged pain control with tramadol and Tylenol as needed with nursing staff (4) S/P total hip arthroplasty: Plan: Right total hip arthroplasty on 06/09/[address] Reynolds. Unfortunately, he suffered a dislocation of the prosthesis while at rehab at [facility]. Subsequent revision on June 29. Continue aspirin 81 mg twice daily for DVT prophylaxis, oral rifampin for concerns about biofilm developing on the prosthesis from orthopedic standpoint, and parenteral vancomycin for the next 6 weeks. He will need weekly lab studies while on antibiotics according to infectious disease (5) Acute blood loss anemia: Plan: He has received multiple units of packed red blood cells this admission. Hemoglobin now stable. Oral iron replacement has been started and also received Venofer 700mg IV total Hgb improved now up to 9.4 Follow CBC once weekly while on antibiotics (6) Iron deficiency: Plan: Received parenteral iron replacement for 3 days and hemoglobin improving (7) Frontotemporal dementia: Plan: Chronic. 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 Treated with Paxil Plan DVT proph-ASA 81mg po bid, SCDs [facility]po[facility] has determined that the patient is not suitable for their facility. His son has agreed to pursue [facility] placement at the time of discharge. Awaiting improvement from mentation standpoint but insurance authorization is being pursued Discussed care at length with son and DIL at bedside on 07/10 Admission and Anticipated Discharge Date Admission Date: June 28, 2023 Subjective Patient again was very agitated and restless through the whole night and barely slept at all despite getting IV Ativan, IM Haldol per the overnight doctor. When I saw him this morning, he was continuously crying out, sometimes with obscenities and very agitated. However, when given a tray of food in front of him, he was easily able to feed himself and was much more calm. I reviewed the neurology consultation. The patient was agreeable to taking Zyprexa after lunch to try to sleep and it required a total of 10 mg to get him to finally settle down from his significant agitation. Physical Exam Constitutional: WD/WN, vitals as above Respiratory: normal respiratory effort, lungs clear to auscultation normal respiratory effort; no cough Cardiovascular: Rate/Rhythm: regular rate and regular rhythm Heart Sounds: no murmur Extremities: no edema Gastrointestinal (Abdomen): normal bowel sounds, soft, nontender, no hepatosplenomegaly Neurologic: awake; no focal motor deficits (can move ankles and feet bilat) Psychiatric: Orientation: alert, oriented to person and cooperative Restless, agitated, frequently calling out. Easily redirectable and can calm down when focusing on a task Results & Data Results & Data Vital Signs (Past 12 Hours) Vital Signs Temp Pulse Resp BP Pulse Ox O2 Del Method 07/12/23 07:30 36.9 C 86 18 136/77 94 Room Air Laboratory Results CBC, BMP, magnesium, LFTs reviewed PG Care Time/CCT Total # of Minutes Spent Total Time Spent with Patient: Total time spent is greater than 50% in coordination of care (as documented) at patient's floor/unit and/or counseling patient: Coding Level of Care Code 81379 SUB INP/OBS CARE 2/35MIN Diagnoses Closed dislocation of right hip S73.004A Restlessness and agitation R45.1 Acute encephalopathy G93.40 S/P total hip arthroplasty Z96.649 Acute blood loss anemia D62 Iron deficiency E61.1 Frontotemporal dementia G31.09; F02.80 Depression F32.9
[2023-07-12] MEDS: OLANZapine ZYDIS 5 MG ORALLY DIS. TAB PO ONE ×2 (12:08→15:17)
[2023-07-12] MEDS: traZODone HCL 50 MG TAB PO SCH (21:42)
[2023-07-12] MEDS: QUEtiapine FUMARATE 25 MG TABLET PO PRN (21:43)
--- NOTE | 2023-07-13 19:32 | Hospitalist Progress Note ---
Date of Service July 13, 2023 Assessment & Plan (1) Closed dislocation of right hip: Plan: Patient was at [facility], and woke up on 06/27 complaining of right hip pain. Unfortunately, he suffered dislocation of right hip prosthesis that was initially placed on June 08 of this year. He subsequently had revision of the right total hip arthroplasty on June 29. Appreciate orthopedic consultation and recommendations. Coag negative Staph isolated from the right hip area at the time of surgery on June 29. Infectious disease has recommended IV vancomycin therapy for 6 weeks through 08/10/23, along with rifampin Then, doxycycline 100mg po bid x 1 year along with rifampin x 3 more months through 11/10/23 PICC line not yet placed due to agitation but can place 07/13 now that agitation improved Needs once weekly CBC, CMP while on antibiotics As per Ortho: weightbearing as tolerated with walker and T scope brace, PT/OT, and abduction pillow use x 6 weeks in bed, pillow between knees while seated in upright chair. F/u with Ortho around 07/17 Keep silverlon dressing in place and have sutures removed this week with Ortho surgeon's approval (2) Restlessness and agitation: Plan: Has been present since admission even before being started on Seroquel. He did receive a few doses of Zyprexa at the rehab prior to admission though His tremor and movements are bilateral in upper extremities and sometimes torso twists to the sides, is conscious and recognizes it is happening, it is frustrating Sometimes goes away with deep breathing and relaxing, focusing on a task, and able to feed himself without any tremor His Seroquel dose was titrated up due to agitation and not sleeping, some delirium as well----> perhaps tremor persisting because of atypical antipsychotic? Lytes fairly stable. With severe anemia requiring multiple blood transfusions, could be from iron deficiency? 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 He is expected to have behavioral dysregulation and supportive care and delirium precautions are recommended as well as trazodone 25 mg at bedtime for sleep instead of Seroquel. Avoidance of benzodiazepines is recommended but can use Seroquel as needed for agitation Neurology thinks the tremor is behavioral in origin and is secondary to agitation/overstimulation and recommends supporting his delirium as above. Having a much better day now that he slept all night after receiving trazodone and seroquel 50mg. Increase trazodone to 50mg hs and keep Zyprexa as a 5mg daily prn dose Continue supportive care, avoid overstimulation (3) Acute encephalopathy: Plan: Delirium developed while hospitalized. Is significantly improved with increasing doses of Seroquel, however trying trazodone for sleep at night as he is not getting any sleep at all and has required multiple nights of IM Zyprexa, IM Haldol, and is also being given IV Ativan by nighttime staff Improved today as above Supportive care Started trazodone 25 mg p.o. at bedtime and uptitrate to 50mg Zyprexa 5mg daily prn agitation as this med seemed to help more than Seroquel Support sleep-wake cycles Give him tasks to do and distractions, Get him out of bed with physical therapy is much as possible Appreciate neurology consultation Ensure bowels are moving properly, regular meals as he is doing Encouraged pain control with tramadol and Tylenol as needed with nursing staff (4) S/P total hip arthroplasty: Plan: Right total hip arthroplasty on 06/09/[address] Reynolds. Unfortunately, he suffered a dislocation of the prosthesis while at rehab at [facility]. Subsequent revision on June 29. Continue aspirin 81 mg twice daily for DVT prophylaxis, oral rifampin for concerns about biofilm developing on the prosthesis from orthopedic standpoint, and parenteral vancomycin for the next 6 weeks. He will need weekly lab studies while on antibiotics according to infectious disease (5) Acute blood loss anemia: Plan: He has received multiple units of packed red blood cells this admission. Hemoglobin now stable. Oral iron replacement has been started and also received Venofer 700mg IV total Hgb improved now up to 9.4 Follow CBC once weekly while on antibiotics (6) Iron deficiency: Plan: Received parenteral iron replacement for 3 days and hemoglobin improving (7) Frontotemporal dementia: Plan: Chronic. 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 Treated with Paxil Plan DVT proph-ASA 81mg po bid, SCDs Dispo-[facility] has determined that the patient is not suitable for their facility. His son has agreed to pursue [facility] placement at the time of discharge. Awaiting improvement from mentation standpoint but insurance authorization is obtained as of 07/12 Discussed care at length with son on 07/12 Admission and Anticipated Discharge Date Admission Date: June 28, 2023 Subjective Pt having his best day yet-very calm, slept mostly all night.Denies pain. Not agitated at all, tremors gone. Physical Exam Constitutional: WD/WN, vitals as above Respiratory: normal respiratory effort, lungs clear to auscultation normal respiratory effort; no cough Cardiovascular: Rate/Rhythm: regular rate and regular rhythm Heart Sounds: no murmur Extremities: no edema Gastrointestinal (Abdomen): normal bowel sounds, soft, nontender, no hepatosplenomegaly Musculoskeletal: Extremities: + extremities abnormal to inspection (right hip dressing in place c/d/i) Neurologic: awake; no focal motor deficits (can move ankles and feet bilat) and not confused Psychiatric: Orientation: alert, oriented to person, oriented to place and cooperative very calm, no tremors Genitourinary: no testicular masses, no penis abnormality (with condom catheter in place) Results & Data Results & Data Vital Signs (Past 12 Hours) Vital Signs Temp Pulse Resp BP Pulse Ox O2 Del Method 07/13/23 15:47 36.7 C 69 18 134/77 97 Room Air 07/13/23 07:41 36.8 C 86 18 156/91 H 96 Room Air PG Care Time/CCT Total # of Minutes Spent Total Time Spent with Patient: Total time spent is greater than 50% in coordination of care (as documented) at patient's floor/unit and/or counseling patient: Coding Level of Care Code 30325 SUB INP/OBS CARE 2/35MIN Diagnoses Closed dislocation of right hip S73.004A Restlessness and agitation R45.1 Acute encephalopathy G93.40 S/P total hip arthroplasty Z96.649 Acute blood loss anemia D62 Iron deficiency E61.1 Frontotemporal dementia G31.09; F02.80 Depression F32.9
[2023-07-13] MEDS: traZODone HCL 50 MG TAB PO SCH (20:12)
[2023-07-14] MEDS: OLANZapine ZYDIS 5 MG ORALLY DIS. TAB PO PRN (00:12)
[2023-07-14 08:58] LABS: Basophils # (auto) 0.07 K/uL (0.00-0.20); Eosinophils # (auto) 0.25 K/uL (0.00-0.50); Eosinophils % (auto) 3.5 %; Hematocrit (blood only) 29.5 % (42.0-52.0); Hemoglobin 9.2 g/dl (14.0-18.0); Immature Granulocytes # (auto) 0.08 K/uL (0.01-0.20); Immature Granulocytes % (auto) 1.1 %; Lymphocytes # (auto) 1.52 K/uL (1.20-3.40); Lymphocytes % (auto) 21.1 %; Mean Corpuscular Hemoglobin 28.3 pg (25.0-34.0); Mean Corpuscular Hgb Conc 31.2 g/dL (32.0-36.0); Mean Corpuscular Volume 90.8 fL (80.0-100.0); Mean Platelet Volume 8.5 fL (9.4-12.4); Monocytes # (auto) 0.67 K/uL (0.11-0.59); Monocytes % (auto) 9.3 %; Platelet Count 483 K/uL (130-400); RDW Coefficient of Variation 14.3 % (11.5-14.5); RDW Standard Deviation 46.4 fL (36.4-46.3); Red Blood Count 3.25 M/uL (4.70-6.10); White Blood Count 7.19 K/ul (4.8-10.8)
[2023-07-14 09:10] LABS: BUN Creatinine Ratio 17.9 (10-20); Calcium 9.3 mg/dl (8.6-10.3); Creatinine Clr Calc Pharmacy 99.3 ml/min; Est GFR (African American) 112.8 ml/min; Est GFR (Non-African American) 97.4 ml/min; Potassium 4.4 mmol/L (3.5-5.1)
--- NOTE | 2023-07-14 09:34 | Orthopedic Progress Note ---
Date of Service July 14, 2023 Assessment & Plan (1) History of revision of total replacement of right hip joint: Plan: He will be weightbearing as tolerated with walker assistance and T scope brace PT/OT Abduction pillow use x 6 weeks in bed, pillow between knees while seated in upright chair. Recommend continuing infectious disease's recommendations for IV antibiotics x 6 weeks, continue rifampin 6 months while on IV antibiotics, then transitioning to doxycycline 100mg BID x 1 year once IV antibiotics are completed. Recommend he be followed by infectious disease during this time as well Will need LFT, Chem panel monitored weekly while on IV antibiotics and rifampin. DVT prophylaxis with aspirin and EMILEE stockings Pain control and psych meds per primary Follow up with [facility] in 4 weeks from today for Post op follow up with Dr Reynolds with x rays of right hip Sutures removed today and steri strip applied Transfer to [place] [facility] possible today pending patients behavior With questions contact our clinic at [phone] Admission and Anticipated Discharge Date Admission Date: June 28, 2023 Subjective Pt seen and examined bedside. Confused. He says that he is having pain in his hip. Denies N/t down his leg or any calf pain. Physical Exam Physical Exam: Patient yelling upon entering the room. Was calm during visit. Lower Extremity: Dressing removed, incision well approximated, nearly healed, no signs of infection. No bruising or swelling. Pt has full ROM of ankle and all 5 digits. Calf supple and non tender. Sensation in tact distally. Skin pink and perfusable. SCDs in place. Pt able to tolerated gentle ROM of hip in abduction, adduction to neutral, flexion and slight internal and external rotation. Pt unable to do SLR. Sutures removed and steri strips applied. Results & Data Vital Signs (Past 12 Hours) Vital Signs Temp Pulse Resp BP Pulse Ox O2 Del Method 07/14/23 08:23 36.8 C 82 17 155/86 H 94 Room Air
--- NOTE | 2023-07-14 11:01 | Psychiatric Consultation ---
Date of Consultation July 14, 2023 Impression / Recommendations Impression This is a 68-year-old white male with frontotemporal dementia and involuntary movement disorder. Seroquel appears to be home medication that was discontinued in the hospital due to concerns about involuntary movement. The patient had reported being stable on Seroquel in the past. In the context of frontotemporal dementia this is consistent with treatment recommendations. (1) Frontotemporal dementia: Plan 07/14/23: -Team may need to reach out to her outpatient provider to gather detailed information about involuntary movement disorder. Patient may have a choreoathetoid movement from a primary movement disorder diagnosis like Aurelio or neuroacanthosis. In the meantime avoid other antipsychotics especially Haldol and antipsychotics with strong D2 receptor antagonism. In this case Zyprexa is unlikely to be a better choice than Seroquel. Recommend resuming Seroquel. -Keeping in mind concerns about delirium in elderly hospitalized and post-op, avoid medications with strong anticholinergic effect. Paroxetine does have strong anticholinergic effect, team may choose to continue this medication if the patient had been stable on it for a long time (it is listed at as a home medication). -Avoid trazodone due possible liver dysfunction. -Recommend frequent reorientation Overall, I spent a total of 60 minutes with this case, including review of chart,review of records,direct evaluation of the patient,coordination with nursing, and documentation. Psych History Chief Complaint "[]". History of Present Illness Per hospitalis note dated 07/12/23: " . . .Has been present since admission even before being started on Seroquel. He did receive a few doses of Zyprexa at the rehab prior to admission though His tremor and movements are bilateral in upper extremities and sometimes torso twists to the sides, is conscious and recognizes it is happening, it is frustrating Sometimes goes away with deep breathing and relaxing, focusing on a task, and able to feed himself without any tremor His Seroquel dose was titrated up due to agitation and not sleeping, some delirium as well----> perhaps tremor persisting because of atypical antipsychotic? . . .Delirium developed while hospitalized. Is significantly improved with increasing doses of Seroquel, however trying trazodone for sleep at night as he is not getting any sleep at all and has required multiple nights of IM Zyprexa, IM Haldol, and is also being given IV Ativan by nighttime staff . . ." Per Neurology note dated 07/12/23: ". . 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 . .treatment is with SSRI, such as paroxetine (current med) . .. expect patient to have behavoiral dysregulation secondary to underlying FTD . . . care and delirium precuations. . ." MRI on record (04/21/23): Report states ". . . Focal encephalomalacia in the left frontal lobe is unchanged and likely chronic. . ." Imaging shows chronic fronto-temporal changes. Patient evaluated at bedside. He was calm and cooperative. Patient was alert and oriented in person and place situation. He was partially disoriented in time but able to gain orientation rapidly. There was no sign of agitation, irritability, or violent behavior. He did not appear internally preoccupied. Patient did not exhibit inappropriate/disinhibited behavior at the time of the interview. He was aware of his recent surgery, complaining of pain in the location of the surgery (hip). When asked about involuntary movements, the patient reported he has "I condition" the patient may clear that he has a provider who takes care of this "condition" but was not able to provide diagnosis. On exam the patient had dysarthria, mild tremors. 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 Allergies Allergy/AdvReac Type Severity Reaction Status Date / Time No Known Allergies Allergy Verified 06/09/23 07:48 Home Medications Medication Instructions Recorded Confirmed Type acetaminophen 500 mg tablet 500 mg PO Q8H PRN Pain 05/25/18 06/28/23 History celecoxib 100 mg capsule 100 mg PO BID 05/17/23 06/28/23 History docusate sodium 100 mg capsule 100 mg PO HS 05/17/23 06/28/23 History (Stool Softener) meclizine 12.5 mg tablet 12.5 mg PO TID PRN Vertigo 05/17/23 06/28/23 History polyethylene glycol 3350 17 17 g PO DAILY PRN Constipation 05/17/23 06/28/23 History gram/dose oral powder (Miralax) aspirin 81 mg tablet,delayed 81 mg PO BID DVT prophylaxis 30 06/10/23 06/28/23 Rx release days #60 tabs oxycodone 5 mg tablet 5 - 10 mg (1 - 2 x 5 mg) PO Q4H 06/10/23 06/28/23 Rx PRN pain #28 tabs paroxetine HCl 20 mg tablet 20 mg PO DAILY 06/28/23 06/28/23 History rosuvastatin 10 mg tablet 10 mg PO DAILY 06/28/23 06/28/23 History Patient History Medical History BPPV (benign paroxysmal positional vertigo) Frontotemporal dementia History of blood transfusion Hyperlipidemia hx of taking a statin, states he currently is not taking (05/17/23 Wendy RN) History of colon polyps Memory loss d/t brain trauma Osteoarthritis GERD (gastroesophageal reflux disease) controlled, stable per pt Chronic diarrhea Hearing deficit Depression Anxiety Brain trauma "fell off roof 2000, broke neck, brain swelling" Hypertension pt used to take lisinopril, states he currently is not taking (05/17/23 Wendy EDUARDO) Orthostatic hypotension Surgical History History of cranial surgery per pt he has "2 screws holding skull on" History of open reduction and internal fixation (ORIF) procedure right arm--hardware removed History of carpal tunnel release of both wrists History of colonoscopy History of tooth extraction all teeth History of eye surgery right eye "had to be put back in after my fall" Family History Brother Family hx colonic polyps Other No family history of adverse response to anesthesia Social History Smoking Status: Never smoker Second Hand Exposure: No; Do You Dip or Chew Tobacco: No; Hx Alcohol Use: No Hx Substance Use: No Preferred Language: Occitan Communication Ability: Effective Communication Ability Comment: unable to read well due to poor eye sight, but has drivers 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 Beliefs That Will Affect Care: None Current Living Situation: Rehab Current Living Situation Comment: [facility] health Feels Safe at Home: Yes Assistive Devices: Walker Physical Exam Vital Signs (Past 24 Hours): Last Vital Signs Temp 36.8 C 07/14/23 08:23 Pulse 82 07/14/23 08:23 Resp 17 07/14/23 08:23 BP 155/86 H 07/14/23 08:23 Pulse Ox 94 07/14/23 08:23 O2 Del Method Room Air 07/14/23 08:23 O2 Flow Rate 2 06/29/23 08:20 Results & Data (PSY) Medications Administered Acetaminophen (Acetaminophen 500 Mg Tab) 1,000 mg PO TID SAMANTHA Stop: 08/10/23 14:59 Last Admin: 07/14/23 08:44 Dose: 1,000 mg Documented By: Admin: 07/13/23 20:14 Dose: 1,000 mg Documented By: Admin: 07/13/23 12:35 Dose: 1,000 mg Documented By: Admin: 07/13/23 08:22 Dose: 1,000 mg Documented By: Admin: 07/12/23 21:44 Dose: 1,000 mg Documented By: Admin: 07/12/23 14:23 Dose: Not Given Documented By: Admin: 07/12/23 07:44 Dose: 1,000 mg Documented By: Admin: 07/11/23 20:29 Dose: 1,000 mg Documented By: Admin: 07/11/23 16:21 Dose: 1,000 mg Documented By: CRYSTAL Aspirin (Aspirin 81 Mg Ectab) 81 mg PO BID SAMANTHA Stop: 07/30/23 20:59 Last Admin: 07/14/23 08:44 Dose: 81 mg Documented By: Admin: 07/13/23 20:13 Dose: 81 mg Documented By: Admin: 07/13/23 08:22 Dose: 81 mg Documented By: Admin: 07/12/23 21:44 Dose: 81 mg Documented By: Admin: 07/12/23 07:46 Dose: 81 mg Documented By: Admin: 07/11/23 20:30 Dose: 81 mg Documented By: Admin: 07/11/23 08:07 Dose: 81 mg Documented By: Admin: 07/10/23 21:02 Dose: 81 mg Documented By: Admin: 07/10/23 07:57 Dose: 81 mg Documented By: Admin: 07/09/23 22:11 Dose: 81 mg Documented By: Admin: 07/09/23 08:35 Dose: 81 mg Documented By: Admin: 07/08/23 20:14 Dose: 81 mg Documented By: Admin: 07/08/23 08:31 Dose: 81 mg Documented By: Admin: 07/07/23 20:52 Dose: 81 mg Documented By: Admin: 07/07/23 08:52 Dose: 81 mg Documented By: Admin: 07/06/23 20:08 Dose: 81 mg Documented By: Admin: 07/06/23 08:54 Dose: 81 mg Documented By: Admin: 07/05/23 20:03 Dose: 81 mg Documented By: Admin: 07/05/23 08:19 Dose: 81 mg Documented By: Admin: 07/04/23 20:57 Dose: 81 mg Documented By: Admin: 07/04/23 08:08 Dose: 81 mg Documented By: Admin: 07/03/23 21:51 Dose: 81 mg Documented By: Admin: 07/03/23 07:44 Dose: 81 mg Documented By: Admin: 07/02/23 19:07 Dose: 81 mg Documented By: Admin: 07/02/23 08:31 Dose: Not Given Documented By: Admin: 07/01/23 19:57 Dose: 81 mg Documented By: Admin: 07/01/23 09:04 Dose: 81 mg Documented By: Admin: 06/30/23 20:35 Dose: 81 mg Documented By: JENNY Celecoxib (Celecoxib 100 Mg Cap) 100 mg PO BID SAMANTHA Stop: 07/31/23 08:59 Last Admin: 07/14/23 08:45 Dose: 100 mg Documented By: Admin: 07/13/23 20:14 Dose: 100 mg Documented By: Admin: 07/13/23 08:22 Dose: 100 mg Documented By: Admin: 07/12/23 21:42 Dose: 100 mg Documented By: Admin: 07/12/23 07:46 Dose: 100 mg Documented By: Admin: 07/11/23 20:30 Dose: 100 mg Documented By: Admin: 07/11/23 08:07 Dose: 100 mg Documented By: Admin: 07/10/23 21:01 Dose: 100 mg Documented By: Admin: 07/10/23 07:58 Dose: 100 mg Documented By: Admin: 07/09/23 22:11 Dose: 100 mg Documented By: Admin: 07/09/23 08:35 Dose: 100 mg Documented By: Admin: 07/08/23 20:14 Dose: 100 mg Documented By: Admin: 07/08/23 08:31 Dose: 100 mg Documented By: Admin: 07/07/23 20:51 Dose: 100 mg Documented By: Admin: 07/07/23 15:26 Dose: Not Given Documented By: Admin: 07/06/23 20:09 Dose: 100 mg Documented By: Admin: 07/06/23 08:54 Dose: 100 mg Documented By: Admin: 07/05/23 20:03 Dose: 100 mg Documented By: Admin: 07/05/23 08:19 Dose: 100 mg Documented By: Admin: 07/04/23 20:57 Dose: 100 mg Documented By: Admin: 07/04/23 08:08 Dose: 100 mg Documented By: Admin: 07/03/23 21:53 Dose: 100 mg Documented By: Admin: 07/03/23 07:44 Dose: 100 mg Documented By: Admin: 07/02/23 19:08 Dose: 100 mg Documented By: Admin: 07/02/23 08:34 Dose: Not Given Documented By: Admin: 07/01/23 20:01 Dose: 100 mg Documented By: Admin: 07/01/23 07:40 Dose: 100 mg Documented By: DAA Cyanocobalamin (Cyanocobalamin (B-12) 500 Mcg Tablet) 1,000 mcg PO QAM SAMANTHA Stop: 08/02/23 08:59 Last Admin: 07/14/23 08:46 Dose: 1,000 mcg Documented By: Admin: 07/13/23 08:22 Dose: 1,000 mcg Documented By: Admin: 07/12/23 07:45 Dose: 1,000 mcg Documented By: Admin: 07/11/23 08:08 Dose: 1,000 mcg Documented By: Admin: 07/10/23 07:59 Dose: 1,000 mcg Documented By: Admin: 07/09/23 08:35 Dose: 1,000 mcg Documented By: Admin: 07/08/23 08:31 Dose: 1,000 mcg Documented By: Admin: 07/07/23 15:26 Dose: Not Given Documented By: Admin: 07/06/23 08:55 Dose: 1,000 mcg Documented By: Admin: 07/05/23 08:19 Dose: 1,000 mcg Documented By: Admin: 07/04/23 08:08 Dose: 1,000 mcg Documented By: Admin: 07/03/23 08:58 Dose: 1,000 mcg Documented By: JONATHAN Docusate Sodium (Docusate Sodium 100 Mg Cap) 100 mg PO BID SAMANTHA Stop: 07/30/23 20:59 Last Admin: 07/14/23 08:44 Dose: 100 mg Documented By: Admin: 07/13/23 20:17 Dose: 100 mg Documented By: Admin: 07/13/23 08:22 Dose: 100 mg Documented By: Admin: 07/12/23 21:42 Dose: 100 mg Documented By: Admin: 07/12/23 07:58 Dose: 100 mg Documented By: Admin: 07/11/23 20:33 Dose: 100 mg Documented By: Admin: 07/11/23 08:11 Dose: 100 mg Documented By: Admin: 07/10/23 21:07 Dose: 100 mg Documented By: Admin: 07/10/23 08:03 Dose: 100 mg Documented By: Admin: 07/09/23 22:12 Dose: 100 mg Documented By: Admin: 07/09/23 08:34 Dose: 100 mg Documented By: Admin: 07/08/23 20:14 Dose: 100 mg Documented By: Admin: 07/08/23 08:31 Dose: 100 mg Documented By: Admin: 07/07/23 20:51 Dose: 100 mg Documented By: Admin: 07/07/23 15:26 Dose: Not Given Documented By: Admin: 07/06/23 20:07 Dose: 100 mg Documented By: Admin: 07/06/23 08:55 Dose: 100 mg Documented By: Admin: 07/05/23 20:01 Dose: 100 mg Documented By: Admin: 07/05/23 08:19 Dose: 100 mg Documented By: Admin: 07/04/23 22:11 Dose: Not Given Documented By: Admin: 07/04/23 08:07 Dose: 100 mg Documented By: Admin: 07/03/23 21:51 Dose: 100 mg Documented By: Admin: 07/03/23 07:43 Dose: 100 mg Documented By: Admin: 07/02/23 19:09 Dose: Not Given Documented By: Admin: 07/02/23 08:34 Dose: Not Given Documented By: Admin: 07/01/23 19:58 Dose: Not Given Documented By: Admin: 07/01/23 07:41 Dose: 100 mg Documented By: Admin: 06/30/23 21:00 Dose: Not Given Documented By: KJBeatriz Ferrous Sulfate (Ferrous Sulfate 325 Mg Tab) 325 mg PO BIDM SAMANTHA Stop: 08/03/23 16:59 Last Admin: 07/14/23 08:46 Dose: 325 mg Documented By: Admin: 07/13/23 15:40 Dose: 325 mg Documented By: Admin: 07/13/23 08:22 Dose: 325 mg Documented By: Admin: 07/12/23 18:33 Dose: 325 mg Documented By: Admin: 07/12/23 07:44 Dose: 325 mg Documented By: Admin: 07/11/23 17:10 Dose: 325 mg Documented By: Admin: 07/11/23 08:07 Dose: 325 mg Documented By: Admin: 07/10/23 17:11 Dose: 325 mg Documented By: Admin: 07/10/23 07:57 Dose: 325 mg Documented By: Admin: 07/09/23 17:39 Dose: 325 mg Documented By: Admin: 07/09/23 08:34 Dose: 325 mg Documented By: Admin: 07/08/23 17:03 Dose: 325 mg Documented By: Admin: 07/08/23 08:31 Dose: 325 mg Documented By: Admin: 07/07/23 17:51 Dose: 325 mg Documented By: Admin: 07/07/23 15:26 Dose: Not Given Documented By: Admin: 07/06/23 17:28 Dose: 325 mg Documented By: CHRIS(2) Admin: 07/06/23 08:55 Dose: 325 mg Documented By: Admin: 07/05/23 16:33 Dose: 325 mg Documented By: Admin: 07/05/23 08:18 Dose: 325 mg Documented By: Admin: 07/04/23 17:41 Dose: 325 mg Documented By: DLH Vancomycin HCl 1,250 mg/ (Sodium Chloride) 275 mls @ 200 mls/hr IV Q12H SAMANTHA Stop: 08/21/23 15:59 Last Infusion: 07/14/23 05:31 Dose: Infused Documented By: Admin: 07/14/23 04:02 Dose: 200 mls/hr Documented By: Infusion: 07/13/23 20:24 Dose: Infused Documented By: Infusion: 07/13/23 17:02 Dose: 0 mls/hr Documented By: Admin: 07/13/23 15:40 Dose: 200 mls/hr Documented By: Infusion: 07/13/23 06:11 Dose: Infused Documented By: Admin: 07/13/23 04:44 Dose: 200 mls/hr Documented By: Infusion: 07/12/23 17:35 Dose: Infused Documented By: Admin: 07/12/23 15:17 Dose: 200 mls/hr Documented By: Infusion: 07/12/23 06:15 Dose: Infused Documented By: Admin: 07/12/23 04:38 Dose: 200 mls/hr Documented By: Infusion: 07/11/23 17:59 Dose: Infused Documented By: Admin: 07/11/23 16:21 Dose: 200 mls/hr Documented By: Infusion: 07/11/23 05:29 Dose: Infused Documented By: Admin: 07/11/23 04:06 Dose: 200 mls/hr Documented By: Infusion: 07/10/23 18:39 Dose: Infused Documented By: Admin: 07/10/23 17:10 Dose: 200 mls/hr Documented By: CEF Melatonin (Melatonin 3 Mg Tab) 6 mg PO HS PRN PRN Reason: Sleep Stop: 08/01/23 00:10 Last Admin: 07/12/23 21:42 Dose: 6 mg Documented By: Admin: 07/11/23 20:28 Dose: 6 mg Documented By: Admin: 07/10/23 21:04 Dose: 6 mg Documented By: Admin: 07/09/23 02:01 Dose: 6 mg Documented By: Admin: 07/06/23 20:07 Dose: 6 mg Documented By: Admin: 07/05/23 20:02 Dose: 6 mg Documented By: Admin: 07/04/23 20:56 Dose: 6 mg Documented By: Admin: 07/02/23 00:52 Dose: 6 mg Documented By: SARAH Multivitamins (Multivitamin Tab) 1 tab PO QAM SAMANTHA Stop: 07/31/23 08:59 Last Admin: 07/14/23 08:46 Dose: 1 tab Documented By: Admin: 07/13/23 08:22 Dose: 1 tab Documented By: Admin: 07/12/23 07:46 Dose: 1 tab Documented By: Admin: 07/11/23 08:08 Dose: 1 tab Documented By: Admin: 07/10/23 08:00 Dose: 1 tab Documented By: Admin: 07/09/23 08:35 Dose: 1 tab Documented By: Admin: 07/08/23 08:31 Dose: 1 tab Documented By: Admin: 07/07/23 15:27 Dose: Not Given Documented By: Admin: 07/06/23 08:55 Dose: 1 tab Documented By: Admin: 07/05/23 08:19 Dose: 1 tab Documented By: Admin: 07/04/23 08:07 Dose: 1 tab Documented By: Admin: 07/03/23 07:43 Dose: 1 tab Documented By: Admin: 07/02/23 08:34 Dose: Not Given Documented By: Admin: 07/01/23 07:40 Dose: 1 tab Documented By: DAA Olanzapine (Olanzapine Zydis 5 Mg Orally Dis. Tab) 5 mg PO DAILY PRN PRN Reason: agitation Stop: 08/12/23 19:44 Last Admin: 07/14/23 00:12 Dose: 5 mg Documented By: LISANDRA Paroxetine HCl (Paroxetine Hcl 20 Mg Tab) 20 mg PO DAILY SAMANTHA Stop: 07/29/23 08:59 Last Admin: 07/14/23 08:45 Dose: 20 mg Documented By: Admin: 07/13/23 08:22 Dose: 20 mg Documented By: Admin: 07/12/23 07:46 Dose: 20 mg Documented By: Admin: 07/11/23 08:08 Dose: 20 mg Documented By: Admin: 07/10/23 08:00 Dose: 20 mg Documented By: Admin: 07/09/23 08:34 Dose: 20 mg Documented By: Admin: 07/08/23 08:31 Dose: 20 mg Documented By: Admin: 07/07/23 08:52 Dose: 20 mg Documented By: Admin: 07/06/23 08:54 Dose: 20 mg Documented By: Admin: 07/05/23 08:19 Dose: 20 mg Documented By: Admin: 07/04/23 08:07 Dose: 20 mg Documented By: Admin: 07/03/23 07:44 Dose: 20 mg Documented By: Admin: 07/02/23 08:34 Dose: Not Given Documented By: Admin: 07/01/23 07:41 Dose: 20 mg Documented By: DAIrene Admin: 06/30/23 15:40 Dose: Not Given Documented By: Admin: 06/29/23 10:22 Dose: 20 mg Documented By: ROHIT Rifampin (Rifampin 300 Mg Capsule) 300 mg PO BID SAMANTHA Stop: 08/15/23 20:59 Last Admin: 07/14/23 08:45 Dose: 300 mg Documented By: Admin: 07/13/23 20:13 Dose: 300 mg Documented By: Admin: 07/13/23 08:23 Dose: 300 mg Documented By: Admin: 07/12/23 21:44 Dose: 300 mg Documented By: Admin: 07/12/23 07:47 Dose: 300 mg Documented By: Admin: 07/11/23 20:30 Dose: 300 mg Documented By: Admin: 07/11/23 08:09 Dose: 300 mg Documented By: Admin: 07/10/23 21:02 Dose: 300 mg Documented By: Admin: 07/10/23 08:01 Dose: 300 mg Documented By: Admin: 07/09/23 22:12 Dose: 300 mg Documented By: Admin: 07/09/23 08:34 Dose: 300 mg Documented By: Admin: 07/08/23 20:15 Dose: 300 mg Documented By: Admin: 07/08/23 08:31 Dose: 300 mg Documented By: Admin: 07/07/23 20:51 Dose: 300 mg Documented By: Admin: 07/07/23 15:27 Dose: Not Given Documented By: Admin: 07/06/23 20:08 Dose: 300 mg Documented By: Admin: 07/06/23 08:54 Dose: 300 mg Documented By: Admin: 07/05/23 20:03 Dose: 300 mg Documented By: Admin: 07/05/23 08:19 Dose: 300 mg Documented By: Admin: 07/04/23 20:58 Dose: 300 mg Documented By: KESHAV Rosuvastatin Calcium (Rosuvastatin Calcium 10 Mg Tab) 10 mg PO DAILY SAMANTHA Stop: 07/29/23 08:59 Last Admin: 07/14/23 08:45 Dose: 10 mg Documented By: Admin: 07/13/23 08:22 Dose: 10 mg Documented By: Admin: 07/12/23 07:47 Dose: 10 mg Documented By: Admin: 07/11/23 08:09 Dose: 10 mg Documented By: Admin: 07/10/23 08:02 Dose: 10 mg Documented By: Admin: 07/09/23 08:35 Dose: 10 mg Documented By: Admin: 07/08/23 08:31 Dose: 10 mg Documented By: Admin: 07/07/23 15:27 Dose: Not Given Documented By: Admin: 07/06/23 08:55 Dose: 10 mg Documented By: Admin: 07/05/23 08:19 Dose: 10 mg Documented By: Admin: 07/04/23 08:14 Dose: 10 mg Documented By: Admin: 07/03/23 07:43 Dose: 10 mg Documented By: Admin: 07/02/23 08:34 Dose: Not Given Documented By: Admin: 07/01/23 07:43 Dose: 10 mg Documented By: Admin: 06/30/23 15:41 Dose: Not Given Documented By: Admin: 06/29/23 10:22 Dose: 10 mg Documented By: ROHIT Sennosides (Senna 8.6 Mg Tab) 17.2 mg PO HS SAMANTHA Stop: 07/30/23 20:59 Last Admin: 07/13/23 20:12 Dose: 17.2 mg Documented By: Admin: 07/12/23 21:43 Dose: 17.2 mg Documented By: Admin: 07/11/23 20:30 Dose: 17.2 mg Documented By: Admin: 07/10/23 21:02 Dose: 17.2 mg Documented By: Admin: 07/09/23 22:17 Dose: Not Given Documented By: Admin: 07/08/23 20:15 Dose: 17.2 mg Documented By: Admin: 07/07/23 20:52 Dose: 17.2 mg Documented By: Admin: 07/06/23 20:08 Dose: 17.2 mg Documented By: Admin: 07/05/23 20:05 Dose: Not Given Documented By: Admin: 07/04/23 20:57 Dose: 17.2 mg Documented By: Admin: 07/03/23 21:52 Dose: 17.2 mg Documented By: Admin: 07/02/23 19:11 Dose: 17.2 mg Documented By: Admin: 07/01/23 19:55 Dose: 17.2 mg Documented By: Admin: 06/30/23 20:35 Dose: 17.2 mg Documented By: JENNY Tramadol HCl (Tramadol Hcl 50 Mg Tablet) 50 mg PO Q6H PRN PRN Reason: Pain Stop: 08/06/23 13:36 Last Admin: 07/14/23 04:28 Dose: 50 mg Documented By: Admin: 07/13/23 21:38 Dose: 50 mg Documented By: Admin: 07/13/23 06:16 Dose: 50 mg Documented By: Admin: 07/12/23 21:41 Dose: 50 mg Documented By: Admin: 07/12/23 11:14 Dose: 50 mg Documented By: Admin: 07/12/23 02:55 Dose: 50 mg Documented By: Admin: 07/11/23 20:28 Dose: 50 mg Documented By: Admin: 07/09/23 14:26 Dose: 50 mg Documented By: Admin: 07/07/23 23:20 Dose: 50 mg Documented By: SANDY Trazodone HCl (Trazodone Hcl 50 Mg Tab) 50 mg PO HS SAMANTHA Stop: 08/12/23 20:59 Last Admin: 07/13/23 20:12 Dose: 50 mg Documented By: LISANDR[place] [address] IN/OBS CONSULT LVL 4,60M Patient Type New History Expanded Problem Focused Exam Expanded Problem Focused Medical Decision Making Moderate Complexity Diagnoses Frontotemporal dementia G31.09; F02.80 Time Spent (min) 60
--- NOTE | 2023-07-14 11:49 | Communication Note ---
Date of Service: July 14, 2023 Typical and most atypical antipsychotics increase morbidity and mortality in elderly patients with frontotemporal dementia. Patient B12 level, although reported as within normal limits by the lab, is low for neuropsychiatric purposes. Recommended level should be 378790. Recommend a one-time dose B12 injection 1000 mcg IM. Recommend getting ammonia level.
[2023-07-14] MEDS: HALOPERIDOL LACTATE 5 MG/ML 1 ML VIAL IM STA (12:26)
--- NOTE | 2023-07-14 13:28 | XRay Report ---
XR pelvis 1-2V routine CLINICAL HISTORY: 2 weeks s/p revision total hip. Right hip pain. COMPARISON STUDY: Pelvis 06/30/2023. FINDINGS: There is again noted a right total hip arthroplasty. The hardware appears intact. No abnorm al periprosthetic lucency. No acute fracture or dislocation within the pelvis or hips. Soft tissues a re unremarkable. The sacrum appears intact. Advanced osteitis pubis remains unchanged. This is likely chronic. IMPRESSION: 1. No fracture or dislocation within the pelvis or hips. 2. Right total hip arthroplasty. The hardware appears intact. ACT 112: Negative or not required by law. Electronically signed by: Walter Llanos M.D. 07/14/2023 1:27 PM
[2023-07-14] MEDS: CYANOCOBALAMIN 1000 MCG/ML VIAL IM ONE (15:51)
--- NOTE | 2023-07-14 17:29 | Hospitalist Progress Note ---
Date of Service July 14, 2023 Assessment & Plan (1) Closed dislocation of right hip: Plan: Patient was at [facility] rehab, and woke up on 06/27 complaining of right hip pain. Unfortunately, he suffered dislocation of right hip prosthesis that was initially placed on June 08 of this year. He subsequently had revision of the right total hip arthroplasty on June 29. Appreciate orthopedic consultation and recommendations. Coag negative Staph isolated from the right hip area at the time of surgery on June 29. Infectious disease has recommended IV vancomycin therapy for 6 weeks through 08/10/23, along with rifampin Then, doxycycline 100mg po bid x 1 year along with rifampin x 3 more months through 11/10/23 PICC line not yet placed due to agitation Needs once weekly CBC, CMP while on antibiotics As per Ortho: weightbearing as tolerated with walker and T scope brace, PT/OT, and abduction pillow use x 6 weeks in bed, pillow between knees while seated in upright chair. F/u with Ortho around 07/17 Keep silverlon dressing in place and have sutures removed this week with Ortho surgeon's approval (2) Restlessness and agitation: Plan: Has been present since admission even before being started on Seroquel. He did receive a few doses of Zyprexa at the rehab prior to admission though His tremor and movements are bilateral in upper extremities and sometimes torso twists to the sides, is conscious and recognizes it is happening, it is frustrating Sometimes goes away with deep breathing and relaxing, focusing on a task, and able to feed himself without any tremor His Seroquel dose was titrated up due to agitation and not sleeping, some delirium as well----> perhaps tremor persisting because of atypical antipsychotic? Lytes fairly stable. With severe anemia requiring multiple blood transfusions, could be from iron deficiency? 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 He is expected to have behavioral dysregulation and supportive care and delirium precautions are recommended as well as trazodone 25 mg at bedtime for sleep instead of Seroquel. Avoidance of benzodiazepines is recommended but can use Seroquel as needed for agitation Neurology thinks the tremor is behavioral in origin and is secondary to agitation/overstimulation and recommends supporting his delirium as above. However after making the medication adjustments per neurology recommendations, patient's agitation got worse. He was taken off of Seroquel and was started on trazodone which made his agitation worse. Psychiatry was consulted. They recommended discontinuing trazodone. They recommended against Zyprexa and Haldol. They recommended starting the patient back on Seroquel 50 mg p.o. nightly and 25 mg Seroquel as needed, not to exceed a total of 100 mg in 24 hours. Orders changed per psychiatry recommendations Continue supportive care, avoid overstimulation (3) Acute encephalopathy: Plan: Delirium developed while hospitalized. Is significantly improved with increasing doses of Seroquel, however trying trazodone for sleep at night as he is not getting any sleep at all and has required multiple nights of IM Zyprexa, IM Haldol, and is also being given IV Ativan by nighttime staff Improved today as above Supportive care Discontinue trazodone, Zyprexa, Haldol. Treat with Seroquel only Support sleep-wake cycles Give him tasks to do and distractions, Get him out of bed with physical therapy is much as possible Appreciate neurology consultation Ensure bowels are moving properly, regular meals as he is doing Encouraged pain control with tramadol and Tylenol as needed with nursing staff (4) S/P total hip arthroplasty: Plan: Right total hip arthroplasty on 06/09/[address] Reynolds. Unfortunately, he suffered a dislocation of the prosthesis while at rehab at [facility]. Subsequent revision on June 29. Continue aspirin 81 mg twice daily for DVT prophylaxis, oral rifampin for concerns about biofilm developing on the prosthesis from orthopedic standpoint, and parenteral vancomycin for the next 6 weeks. He will need weekly lab studies while on antibiotics according to infectious disease (5) Acute blood loss anemia: Plan: He has received multiple units of packed red blood cells this admission. Hemoglobin now stable. Oral iron replacement has been started and also received Venofer 700mg IV total Hgb improved now up to 9.4 Follow CBC once weekly while on antibiotics (6) Iron deficiency: Plan: Received parenteral iron replacement for 3 days and hemoglobin improving (7) Frontotemporal dementia: Plan: Chronic. 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 Treated with Paxil Plan DVT proph-ASA 81mg po bid, SCDs [facility] has determined that the patient is not suitable for their facility. His son has agreed to pursue [facility] placement at the time of discharge. Awaiting improvement from mentation standpoint but insurance authorization is obtained as of 07/12 Admission and Anticipated Discharge Date Admission Date: June 28, 2023 Subjective Patient has been very agitated overnight. Per nurse, has been yelling all night long Review of Systems Review of Systems: Unobtainable due to cognitive status Physical Exam Physical Exam: General: Awake, conversant. Pleasantly confused during my encounter Heart: S1, S2/regular rate and rhythm, no murmur rubs or gallops Lungs: Clear to auscultation bilaterally. Normal effort Abdomen: Soft/nontender/nondistended. No hepatosplenomegaly Extremities: No clubbing/cyanosis. No edema Behavior: Appropriate, cooperative Results & Data Results & Data Vital Signs (Past 12 Hours) Vital Signs Temp Pulse Resp BP Pulse Ox O2 Del Method 07/14/23 15:15 37.3 C 83 16 125/76 94 Room Air 07/14/23 08:23 36.8 C 82 17 155/86 H 94 Room Air Laboratory Results Abnormal lab results 07/14/23 Range/Units 08:31 RBC 3.25 L (4.70-6.10) M/uL Hgb 9.2 L (14.0-18.0) g/dl Hct 29.5 L (42.0-52.0) % MCHC 31.2 L (32.0-36.0) g/dL RDW Std Deviation 46.4 H (36.4-46.3) fL Plt Count 483 H (130-400) K/uL MPV 8.5 L (9.4-12.4) fL [place] # (Auto) 0.67 H (0.11-0.59) K/uL PG Care Time/CCT Total # of Minutes Spent Total Time Spent with Patient: Total time spent is greater than 50% in coordination of care (as documented) at patient's floor/unit and/or counseling patient: Coding Level of Care Code 41774 SUB INP/OBS CARE 2/35MIN Diagnoses Closed dislocation of right hip S73.004A Restlessness and agitation R45.1 Acute encephalopathy G93.40 S/P total hip arthroplasty Z96.649 Acute blood loss anemia D62 Iron deficiency E61.1 Frontotemporal dementia G31.09; F02.80 Depression F32.9
[2023-07-14] MEDS: QUEtiapine FUMARATE 25 MG TABLET PO SCH (19:52)
[2023-07-15] MEDS: QUEtiapine FUMARATE 25 MG TABLET PO PRN (02:16)
[2023-07-15] MEDS: QUEtiapine FUMARATE 25 MG TABLET PO ONE (05:45)
[2023-07-15] MEDS: MoRPHine SULFATE 2 MG/ML CARP IV STA (06:14)
[2023-07-15] MEDS ORDERED: VANCOMYCIN LEVEL ONE (15:00)
--- NOTE | 2023-07-15 16:01 | Pharmacy Report ---
Pharmacy PK ABX Note - Date of Service July 15, 2023 - Assessment and Plan Assessment 07/14: Vancomycin level = 16.4 mcg/mL; predicted AUC 548 mg/dL. Continue current regimen. 07/11: Vancomycin level =14.5mcg/mL, which predicts a therapeutic AUC of 556, c ontinue current regimen 07/09: Vancomycin level = 20.9 mcg/mL, which is associated with a slightly supratherapeutic AUC of 610. Will reduce dose slightly. 07/07: Vancomycin level = 17 mcg/ml at 08:46 AM today. 07/05: Vancomycin level today came back at ~12 mcg/ml - this dosing is correlating to goal AUC/RAIMUNDO 400-600. Plan to continue same regimen. 07/03: 68 year old M receiving started on vancomycin and rifampin for joint infection. Preliminary cultures with coagulase negative staph. Patient is s/p hip replacement 06/08. He suffered dislocation of prosthesis and required hip revision 06/29. Day # 1 of antimicrobial therapy. Plan Vancomycin * Current regimen: 1250 mg IV every 12 hours * Random level obtained today resulted as 16.4 mcg/mL. Predicted AUC at steady state: 548 mg/L.hr with probability of nephrotoxicity at 10% * Goal AUC/RAIMUNDO of 400-600 mg/L.hr * Repeat random level to be ordered later this week or sooner based on clinical status Pharmacy will continue to follow and will adjust dose/frequency as necessary. Thank you. Pharmacy has transitioned to AUC monitoring for vancomycin. AUC/RAIMUNDO is the preferred PK/PD target and is associated with decreased risk of nephrotoxicity compared to traditional trough targets.
--- NOTE | 2023-07-15 16:11 | Hospitalist Progress Note ---
Date of Service July 15, 2023 Assessment & Plan (1) Closed dislocation of right hip: Plan: Patient was at [facility], and woke up on 06/27 complaining of right hip pain. Unfortunately, he suffered dislocation of right hip prosthesis that was initially placed on June 08 of this year. He subsequently had revision of the right total hip arthroplasty on June 29. Appreciate orthopedic consultation and recommendations. Coag negative Staph isolated from the right hip area at the time of surgery on June 29. Infectious disease has recommended IV vancomycin therapy for 6 weeks through 08/10/23, along with rifampin Then, doxycycline 100mg po bid x 1 year along with rifampin x 3 more months through 11/10/23 PICC line not yet placed due to agitation Needs once weekly CBC, CMP while on antibiotics As per Ortho: weightbearing as tolerated with walker and T scope brace, PT/OT, and abduction pillow use x 6 weeks in bed, pillow between knees while seated in upright chair. F/u with Ortho around 07/17 Keep silverlon dressing in place and have sutures removed this week with Ortho surgeon's approval (2) Restlessness and agitation: Plan: Has been present since admission even before being started on Seroquel. He did receive a few doses of Zyprexa at the rehab prior to admission though His tremor and movements are bilateral in upper extremities and sometimes torso twists to the sides, is conscious and recognizes it is happening, it is frustrating Sometimes goes away with deep breathing and relaxing, focusing on a task, and able to feed himself without any tremor His Seroquel dose was titrated up due to agitation and not sleeping, some delirium as well----> perhaps tremor persisting because of atypical antipsychotic? Lytes fairly stable. With severe anemia requiring multiple blood transfusions, could be from iron deficiency? 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 He is expected to have behavioral dysregulation and supportive care and delirium precautions are recommended as well as trazodone 25 mg at bedtime for sleep instead of Seroquel. Avoidance of benzodiazepines is recommended but can use Seroquel as needed for agitation Neurology thinks the tremor is behavioral in origin and is secondary to agitation/overstimulation and recommends supporting his delirium as above. However after making the medication adjustments per neurology recommendations, patient's agitation got worse. He was taken off of Seroquel and was started on trazodone which made his agitation worse. Psychiatry was consulted. They recommended discontinuing trazodone. They recommended against Zyprexa and Haldol. They recommended starting the patient back on Seroquel 50 mg p.o. nightly and 25 mg Seroquel as needed, not to exceed a total of 100 mg in 24 hours. Orders changed per psychiatry recommendations The patient is doing better today 07/14 than yesterday 07/13. Continue Seroquel at 50 mg p.o. nightly and 25 mg as needed every 12. Continue supportive care, avoid overstimulation (3) Acute encephalopathy: Plan: Delirium developed while hospitalized. Is significantly improved with increasing doses of Seroquel, however trying trazodone for sleep at night as he is not getting any sleep at all and has required multiple nights of IM Zyprexa, IM Haldol, and is also being given IV Ativan by nighttime staff Improved today as above Supportive care Discontinue trazodone, Zyprexa, Haldol. Treat with Seroquel only Support sleep-wake cycles Give him tasks to do and distractions, Get him out of bed with physical therapy is much as possible Appreciate neurology consultation Ensure bowels are moving properly, regular meals as he is doing Encouraged pain control with tramadol and Tylenol as needed with nursing staff (4) S/P total hip arthroplasty: Plan: Right total hip arthroplasty on 06/09/[address] Reynolds. Unfortunately, he suffered a dislocation of the prosthesis [facility] at [facility]. Subsequent revision on June 29. Continue aspirin 81 mg twice daily for DVT prophylaxis, oral rifampin for concerns about biofilm developing on the prosthesis from orthopedic standpoint, and parenteral vancomycin for the next 6 weeks. He will need weekly lab studies while on antibiotics according to infectious disease (5) Acute blood loss anemia: Plan: He has received multiple units of packed red blood cells this admission. Hemoglobin now stable. Oral iron replacement has been started and also received Venofer 700mg IV total Hgb improved now up to 9.4 Follow CBC once weekly while on antibiotics (6) Iron deficiency: Plan: Received parenteral iron replacement for 3 days and hemoglobin improving (7) Frontotemporal dementia: Plan: Chronic. Supportive care, noted neurology consultation as above With a h/o TBI and ICH 20+ years ago Previously followed with [facility] (8) Depression: Plan: Stable. Treated with Paxil Plan DVT proph-ASA 81mg po bid, SCDs [facility] has determined that the patient is not suitable for their facility. His son has agreed to pursue [facility] placement at the time of discharge. Awaiting improvement from mentation standpoint but insurance authorization is obtained as of 07/12 Admission and Anticipated Discharge Date Admission Date: June 28, 2023 Subjective Patient is doing a little bit better today from an agitation perspective, per nurse. Last bowel movement was on 07/13. Review of Systems Review of Systems: Unobtainable due to cognitive status Physical Exam Physical Exam: General: Sleeping. Allowed him to sleep as he just fell asleep a little bit ago. Accompanied by sitter in the room. Heart: S1, S2/regular rate and rhythm, no murmur rubs or gallops Lungs: Clear to auscultation bilaterally. Normal effort Abdomen: Soft/nontender/nondistended. No hepatosplenomegaly Extremities: No clubbing/cyanosis. No edema Behavior: Appropriate, cooperative Results & Data Results & Data Vital Signs (Past 12 Hours) Vital Signs Temp Pulse Pulse Resp BP Pulse Ox O2 Del Method 07/15/23 15:13 37.2 C 79 16 151/84 H 99 Room Air 07/15/23 07:45 80 16 145/82 H 98 Room Air 07/15/23 07:06 36.7 C 90 18 145/82 H 94 Room Air PG Care Time/CCT Total # of Minutes Spent Total Time Spent with Patient: Total time spent is greater than 50% in coordination of care (as documented) at patient's floor/unit and/or counseling patient: Coding Level of Care Code 33174 SUB INP/OBS CARE 2/35MIN Diagnoses Closed dislocation of right hip S73.004A Restlessness and agitation R45.1 Acute encephalopathy G93.40 S/P total hip arthroplasty Z96.649 Acute blood loss anemia D62 Iron deficiency E61.1 Frontotemporal dementia G31.09; F02.80 Depression F32.9
[2023-07-16 07:20] LABS: Creatinine Clr Calc Pharmacy 110.8 ml/min; Est GFR (African American) 118.1 ml/min; Est GFR (Non-African American) 101.9 ml/min
--- NOTE | 2023-07-16 12:30 | Hospitalist Progress Note ---
Date of Service July 16, 2023 Assessment & Plan (1) Closed dislocation of right hip: Plan: Patient was at [facility] rehab, and woke up on 06/27 complaining of right hip pain. Unfortunately, he suffered dislocation of right hip prosthesis that was initially placed on June 08 of this year. He subsequently had revision of the right total hip arthroplasty on June 29. Appreciate orthopedic consultation and recommendations. Coag negative Staph isolated from the right hip area at the time of surgery on June 29. Infectious disease has recommended IV vancomycin therapy for 6 weeks through 08/10/23, along with rifampin Then, doxycycline 100mg po bid x 1 year along with rifampin x 3 more months through 11/10/23 PICC line not yet placed due to agitation Needs once weekly CBC, CMP while on antibiotics. Last labs drawn on 07/13 As per Ortho: weightbearing as tolerated with walker and T scope brace, PT/OT, and abduction pillow use x 6 weeks in bed, pillow between knees while seated in upright chair. F/u with Ortho around 07/17 Keep silverlon dressing in place and have sutures removed this week with Ortho surgeon's approval (2) Restlessness and agitation: Plan: Has been present since admission even before being started on Seroquel. He did receive a few doses of Zyprexa at the rehab prior to admission though His tremor and movements are bilateral in upper extremities and sometimes torso twists to the sides, is conscious and recognizes it is happening, it is frustrating Sometimes goes away with deep breathing and relaxing, focusing on a task, and able to feed himself without any tremor His Seroquel dose was titrated up due to agitation and not sleeping, some delirium as well----> perhaps tremor persisting because of atypical antipsychotic? Lytes fairly stable. With severe anemia requiring multiple blood transfusions, could be from iron deficiency? 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 He is expected to have behavioral dysregulation and supportive care and delirium precautions are recommended as well as trazodone 25 mg at bedtime for sleep instead of Seroquel. Avoidance of benzodiazepines is recommended but can use Seroquel as needed for agitation Neurology thinks the tremor is behavioral in origin and is secondary to agitation/overstimulation and recommends supporting his delirium as above. However after making the medication adjustments per neurology recommendations, patient's agitation got worse. He was taken off of Seroquel and was started on trazodone which made his agitation worse. Psychiatry was consulted on 07/13. They recommended discontinuing trazodone. They recommended against Zyprexa and Haldol. They recommended starting the patient back on Seroquel 50 mg p.o. nightly and 25 mg Seroquel as needed, not to exceed a total of 100 mg in 24 hours. Orders changed per psychiatry recommendations The patient is doing better today 07/14 than yesterday 07/13. Continue Seroquel at 50 mg p.o. nightly and 25 mg as needed every 12. Continue supportive care, avoid overstimulation (3) Acute encephalopathy: Plan: Delirium developed while hospitalized. Supportive care Discontinue trazodone, Zyprexa, Haldol. Treat with Seroquel only Support sleep-wake cycles Give him tasks to do and distractions, Get him out of bed with physical therapy is much as possible Appreciate neurology and psychiatry consultation Ensure bowels are moving properly, regular meals as he is doing Encouraged pain control with tramadol and Tylenol as needed with nursing staff (4) S/P total hip arthroplasty: Plan: Right total hip arthroplasty on 06/09/[address] Reynolds. Unfortunately, he suffered a dislocation of the prosthesis while at rehab at [facility]. Subsequent revision on June 29. Continue aspirin 81 mg twice daily for DVT prophylaxis, oral rifampin for concerns about biofilm developing on the prosthesis from orthopedic standpoint, and parenteral vancomycin for the next 6 weeks. He will need weekly lab studies while on antibiotics according to infectious disease (5) Acute blood loss anemia: Plan: He has received multiple units of packed red blood cells this admission. Hemoglobin now stable. Oral iron replacement has been started and also received Venofer 700mg IV total Hgb improved now up to 9.4 Follow CBC once weekly while on antibiotics (6) Iron deficiency: Plan: Received parenteral iron replacement for 3 days and hemoglobin improving (7) Frontotemporal dementia: Plan: Chronic. Supportive care, noted neurology consultation as above With a h/o TBI and ICH 20+ years ago Previously followed with [facility] (8) Depression: Plan: Stable. Treated with Paxil Plan DVT proph-ASA 81mg po bid, SCDs [facility] has determined that the patient is not suitable for their facility. His son has agreed to pursue [facility] placement at the time of discharge. Awaiting improvement from mentation standpoint but insurance authorization is obtained as of 07/12 Admission and Anticipated Discharge Date Admission Date: June 28, 2023 Subjective Per nurse, patient did not sleep well at all. He has been yelling all night. He is not violent or agitated. Review of Systems Review of Systems: All systems reviewed & are unremarkable except as noted in Subjective Physical Exam Physical Exam: General: Awake, conversant. Working with physical therapy, ready to get out of bed. Heart: S1, S2/regular rate and rhythm, no murmur rubs or gallops Lungs: Clear to auscultation bilaterally. Normal effort Abdomen: Soft/nontender/nondistended. No hepatosplenomegaly Extremities: No clubbing/cyanosis. No edema Behavior: Appropriate, cooperative Results & Data Results & Data Vital Signs (Past 12 Hours) Vital Signs Temp Pulse Resp BP Pulse Ox O2 Del Method 07/16/23 10:30 127/75 07/16/23 10:28 89/50 L 07/16/23 08:24 36.6 C 74 16 119/75 97 Room Air 07/16/23 08:00 Room Air PG Care Time/CCT Total # of Minutes Spent Total Time Spent with Patient: Total time spent is greater than 50% in coordination of care (as documented) at patient's floor/unit and/or counseling patient: Coding Level of Care Code 68139 SUB INP/OBS CARE 2/35MIN Diagnoses Closed dislocation of right hip S73.004A Restlessness and agitation R45.1 Acute encephalopathy G93.40 S/P total hip arthroplasty Z96.649 Acute blood loss anemia D62 Iron deficiency E61.1 Frontotemporal dementia G31.09; F02.80 Depression F32.9
--- NOTE | 2023-07-16 14:30 | Psychiatric Progress Note ---
Date of Service July 16, 2023 Impression / Recommendations Impression This is a 68-year-old man with frontotemporal dementia and recent involuntary movements of unknown etiology (anxiety vs medication side effect vs movement disorder). 07/16/2023: Seroquel has been well tolerated so far without any worsening of tremor-like involuntary movements but did not sleep at all last night. Given no signs of any side effects from Seroquel it is reasonable to consider a slightly higher dose in effort to help with sleep with understanding of known black box warning for increased mortality for use of any antipsychotics in an individual with an underlying dementia disorder. At this time risk benefit profile is felt to favor use of slightly higher dose of Seroquel to help with sleep. Overall, I spent a total of 25 minutes on this case including meeting with the patient, reviewing the chart, nursing report, communication with hospitalist provider and psych liason RN and documentation. (1) Frontotemporal dementia: Plan -Increase Seroquel to 75mg HS given significant insomnia, likely due to hyperactive delirium vs component of suspected FTD (attempt to keep seroquel scheduled and prn to <200mg in 24 hours) -If Seroquel at higher dose is still unsuccessful for sleep then we will likely trial low dose mirtazapine instead Interval History Identifying Information 68 yo man with history of frontotemporal dementia admitted medically for right hip dislocation. Psychiatry consulted for recommendations for medications for insomnia. Chief Complaint "I can't sleep". Subjective Subjective Patient was seen & assessed and interval progress reviewed. Has been receiving Seroquel but did not sleep at all last night even after 50mg po dose. SOIL SPECIALIST at bedside confirms he has not slept at all today either. Chon is very pleasant and appreciative of anything to help him get some sleep. He denies any significant fatigue but notes he would like to be able to sleep tonight. Procedures Performed Operation Date: 06/30/23 10:40 Actual Procedures p Right Hip Prosthetic dislocation Open Reduction with Total Hip Revision(Right) - Alec Reynolds MD Physical Exam Vital Signs (Past 24 Hours) Last Vital Signs Temp 36.6 C 07/16/23 08:24 Pulse 74 07/16/23 08:24 Resp 16 07/16/23 08:24 BP 127/75 07/16/23 10:30 Pulse Ox 97 07/16/23 08:24 O2 Del Method Room Air 07/16/23 08:24 O2 Flow Rate 2 06/29/23 08:20 Results & Data ([facility]) Laboratory Results Laboratory Results - last 24 hr 07/15/23 07/16/23 15:03 05:54 Creatinine 0.60 Est Cr Clr Drug Dosing 110.8 Est GFR ( Amer) 118.1 Est GFR (Non-Af Amer) 101.9 Random Vancomycin 16.4 Current Inpatient Medications Current Inpatient Medications: Current Inpatient Medications Acetaminophen (Acetaminophen 500 Mg Tab) 1,000 mg PO TID SAMANTHA Stop: 08/10/23 14:59 Last Admin: 07/16/23 13:32 Dose: 1,000 mg Al Hydrox/Mg Hydrox/Simethicone (Aluminum/Magnesium Susp 30 Ml Udc) 15 ml PO Q4H PRN PRN Reason: Heartburn Stop: 07/30/23 14:11 Aspirin (Aspirin 81 Mg Ectab) 81 mg PO BID SAMANTHA Stop: 07/30/23 20:59 Last Admin: 07/16/23 07:52 Dose: 81 mg Bisacodyl (Bisacodyl 10 Mg Supp) 10 mg MD DAILY PRN PRN Reason: Constipation Stop: 07/30/23 14:11 Celecoxib (Celecoxib 100 Mg Cap) 100 mg PO BID SAMANTHA Stop: 07/31/23 08:59 Last Admin: 07/16/23 07:52 Dose: 100 mg Cyanocobalamin (Cyanocobalamin (B-12) 500 Mcg Tablet) 1,000 mcg PO QAM SAMANTHA Stop: 08/02/23 08:59 Last Admin: 07/16/23 07:51 Dose: 1,000 mcg Docusate Sodium (Docusate Sodium 100 Mg Cap) 100 mg PO BID SAMANTHA Stop: 07/30/23 20:59 Last Admin: 07/16/23 07:53 Dose: Not Given Ferrous Sulfate (Ferrous Sulfate 325 Mg Tab) 325 mg PO BIDM [facility] Stop: 08/03/23 16:59 Last Admin: 07/16/23 07:52 Dose: 325 mg Vancomycin HCl 1,250 mg/ (Sodium Chloride) 275 mls @ 200 mls/hr IV Q12H SAMANTHA Stop: 08/21/23 15:59 Last Infusion: 07/16/23 05:54 Dose: Infused Magnesium Hydroxide (Magnesium Hydroxide Susp 30 Ml Udc) 30 ml PO Q6H PRN PRN Reason: Constipation Stop: 07/30/23 14:11 Melatonin (Melatonin 3 Mg Tab) 6 mg PO HS PRN PRN Reason: Sleep Stop: 08/01/23 00:10 Last Admin: 07/15/23 20:28 Dose: 6 mg Miscellaneous Information (Vancomycin Consult Active) 1 each N/A UD PRN PRN Reason: Consult Stop: 08/03/23 13:13 Multivitamins (Multivitamin Tab) 1 tab PO QAM SAMANTHA Stop: 07/31/23 08:59 Last Admin: 07/16/23 07:52 Dose: 1 tab Ondansetron HCl (Ondansetron Inj 2 Mg/Ml 2 Ml Vial) 4 mg IV Q6H PRN PRN Reason: Nausea And Vomiting Stop: 07/30/23 14:11 Paroxetine HCl (Paroxetine Hcl 20 Mg Tab) 20 mg PO DAILY SAMANTHA Stop: 07/29/23 08:59 Last Admin: 07/16/23 07:51 Dose: 20 mg Polyethylene Glycol (Polyethylene (Miralax) 17 Gm Pack) 17 gm PO DAILY PRN PRN Reason: Constipation Stop: 07/29/23 01:01 Quetiapine Fumarate (Quetiapine Fumarate 25 Mg Tablet) 50 mg PO HS SAMANTHA Stop: 08/13/23 20:59 Last Admin: 07/15/23 20:24 Dose: 50 mg Quetiapine Fumarate (Quetiapine Fumarate 25 Mg Tablet) 25 mg PO Q12H PRN PRN Reason: Agitation Stop: 08/13/23 16:18 Last Admin: 07/15/23 02:16 Dose: 25 mg Rifampin (Rifampin 300 Mg Capsule) 300 mg PO BID SAMANTHA Stop: 08/15/23 20:59 Last Admin: 07/16/23 07:52 Dose: 300 mg Rosuvastatin Calcium (Rosuvastatin Calcium 10 Mg Tab) 10 mg PO DAILY SAMANTHA Stop: 07/29/23 08:59 Last Admin: 07/16/23 07:52 Dose: 10 mg Sennosides (Senna 8.6 Mg Tab) 17.2 mg PO HS SAMANTHA Stop: 07/30/23 20:59 Last Admin: 07/15/23 20:26 Dose: 17.2 mg Tramadol HCl (Tramadol Hcl 50 Mg Tablet) 50 mg PO Q6H PRN PRN Reason: Pain Stop: 08/06/23 13:36 Last Admin: 07/16/23 13:32 Dose: 50 mg
[2023-07-16] MEDS: QUEtiapine FUMARATE 25 MG TABLET PO SCH (19:45)
--- NOTE | 2023-07-17 13:58 | Hospitalist Progress Note ---
Date of Service July 17, 2023 Assessment & Plan (1) Closed dislocation of right hip: Plan: Patient was at [facility] rehab, and woke up on 06/27 complaining of right hip pain. Unfortunately, he suffered dislocation of right hip prosthesis that was initially placed on June 08 of this year. He subsequently had revision of the right total hip arthroplasty on June 29. Appreciate orthopedic consultation and recommendations. Coag negative Staph isolated from the right hip area at the time of surgery on June 29. Infectious disease has recommended IV vancomycin therapy for 6 weeks through 08/10/23, along with rifampin Then, doxycycline 100mg po bid x 1 year along with rifampin x 3 more months through 11/10/23 PICC line not yet placed due to agitation Needs once weekly CBC, CMP while on antibiotics. Last labs drawn on 07/13 As per Ortho: weightbearing as tolerated with walker and T scope brace, PT/OT, and abduction pillow use x 6 weeks in bed, pillow between knees while seated in upright chair. F/u with Ortho around 07/17 Keep silverlon dressing in place and have sutures removed this week with Ortho surgeon's approval (2) Restlessness and agitation: Plan: Has been present since admission even before being started on Seroquel. He did receive a few doses of Zyprexa at the rehab prior to admission though His tremor and movements are bilateral in upper extremities and sometimes torso twists to the sides, is conscious and recognizes it is happening, it is frustrating Sometimes goes away with deep breathing and relaxing, focusing on a task, and able to feed himself without any tremor His Seroquel dose was titrated up due to agitation and not sleeping, some delirium as well----> perhaps tremor persisting because of atypical antipsychotic? Lytes fairly stable. With severe anemia requiring multiple blood transfusions, could be from iron deficiency? 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 He is expected to have behavioral dysregulation and supportive care and delirium precautions are recommended as well as trazodone 25 mg at bedtime for sleep instead of Seroquel. Avoidance of benzodiazepines is recommended but can use Seroquel as needed for agitation Neurology thinks the tremor is behavioral in origin and is secondary to agitation/overstimulation and recommends supporting his delirium as above. However after making the medication adjustments per neurology recommendations, patient's agitation got worse. He was taken off of Seroquel and was started on trazodone which made his agitation worse. Psychiatry was consulted on 07/13. They recommended discontinuing trazodone. They recommended against Zyprexa and Haldol. They recommended starting the patient back on Seroquel. Patient continues to be agitated. Currently on Seroquel 75 mg nightly with 25 mg of Seroquel use as needed. Psychiatry recommended not to exceed 200 mg in 24 hours. Continue supportive care, avoid overstimulation (3) Acute encephalopathy: Plan: Delirium developed while hospitalized. Supportive care Discontinue trazodone, Zyprexa, Haldol. Treat with Seroquel only Support sleep-wake cycles Give him tasks to do and distractions, Get him out of bed with physical therapy is much as possible Appreciate neurology and psychiatry consultation Ensure bowels are moving properly, regular meals as he is doing Encouraged pain control with tramadol and Tylenol as needed with nursing staff (4) S/P total hip arthroplasty: Plan: Right total hip arthroplasty on 06/09/[address] Reynolds. Unfortunately, he suffered a dislocation of the prosthesis while at rehab at [facility]. Subsequent revision on June 29. Continue aspirin 81 mg twice daily for DVT prophylaxis, oral rifampin for concerns about biofilm developing on the prosthesis from orthopedic standpoint, and parenteral vancomycin for the next 6 weeks. He will need weekly lab studies while on antibiotics according to infectious disease (5) Acute blood loss anemia: Plan: He has received multiple units of packed red blood cells this admission. Hemoglobin now stable. Oral iron replacement has been started and also received Venofer 700mg IV total Hgb improved now up to 9.4 Follow CBC once weekly while on antibiotics (6) Iron deficiency: Plan: Received parenteral iron replacement for 3 days and hemoglobin improving (7) Frontotemporal dementia: Plan: Chronic. Supportive care, noted neurology consultation as above With a h/o TBI and ICH 20+ years ago Previously followed with [facility] (8) Depression: Plan: Stable. Plan DVT proph-ASA 81mg po bid, SCDs Dispo-[facility] has determined that the patient is not suitable for their facility. His son has agreed to pursue [facility] placement at the time of discharge. Awaiting improvement from mentation standpoint but insurance authorization is obtained as of 07/12 Admission and Anticipated Discharge Date Admission Date: June 28, 2023 Subjective When I walked in the patient's room, he was yelling and screaming and slightly agitated. When I spoke to him in a soft voice, he calmed down for me and responded to my questions appropriately. As I walked out of the room, he started yelling again. Review of Systems Review of Systems: All systems reviewed & are unremarkable except as noted in Subjective Physical Exam Physical Exam: General: Awake, conversant. Heart: S1, S2/regular rate and rhythm, no murmur rubs or gallops Lungs: Clear to auscultation bilaterally. Normal effort Abdomen: Soft/nontender/nondistended. No hepatosplenomegaly Extremities: No clubbing/cyanosis. No edema Behavior: Appropriate, cooperative Results & Data Results & Data Vital Signs (Past 12 Hours) Vital Signs Pulse Resp BP 07/17/23 08:38 95 H 18 160/91 H PG Care Time/CCT Total # of Minutes Spent Total Time Spent with Patient: Total time spent is greater than 50% in coordination of care (as documented) at patient's floor/unit and/or counseling patient: Coding Level of Care Code 85991 SUB INP/OBS CARE 2/35MIN Diagnoses Closed dislocation of right hip S73.004A Restlessness and agitation R45.1 Acute encephalopathy G93.40 S/P total hip arthroplasty Z96.649 Acute blood loss anemia D62 Iron deficiency E61.1 Frontotemporal dementia G31.09; F02.80 Depression F32.9
--- NOTE | 2023-07-17 14:36 | Psychiatric Progress Note ---
Date of Service July 17, 2023 Impression / Recommendations Impression This is a 68-year-old man with frontotemporal dementia and recent involuntary movements of unknown etiology (anxiety vs medication side effect vs movement disorder). 07/17/2023: Seems to have slept a bit better with the higher dose of Seroquel and no evidence for worsening of involuntary movements. Waxing and waning orientation and periods of hyperactivity/verbal agitation consistent with delirium. Discussed with RN continuing to ensure pain control as this can worsen delirium and could be responsible for some of his calling out and yelling episodes last evening. Overall, I spent a total of 25 minutes on this case including meeting with the patient, reviewing the chart, nursing report, communication with hospitalist provider and psych liason RN and documentation. (1) Frontotemporal dementia: Plan -Continue with Seroquel 75mg HS given significant insomnia, likely due to hyperactive delirium vs component of suspected FTD (attempt to keep seroquel sc heduled and prn to <200mg in 24 hours) Interval History Identifying Information 68 yo man with history of frontotemporal dementia admitted medically for right hip dislocation. Psychiatry consulted for recommendations for medications for insomnia. Chief Complaint "I'm ok". Subjective Subjective Patient was seen & assessed and interval progress reviewed. RN notes indicate he did not sleep very well last night but daytime report varied in that there was sense he did sleep farily well overnight. Last evening was calling out loudly at times and with confusion which Seroquel did not seem to be very effective for. Mid-day he is tired and falls asleep toward end of our conversation but is very pleasant and fully oriented. States he cannot recall calling out but thinks maybe he did so due to pain in his hip. Denies any side effects from the higher dose of Seroquel. Procedures Performed Operation Date: 06/30/23 10:40 Actual Procedures p Right Hip Prosthetic dislocation Open Reduction with Total Hip Revision(Right) - Alec Reynolds MD Physical Exam Vital Signs (Past 24 Hours) Last Vital Signs Temp 36.8 C 07/16/23 19:15 Pulse 95 H 07/17/23 08:38 Resp 18 07/17/23 08:38 BP 160/91 H 07/17/23 08:38 Pulse Ox 95 07/16/23 19:15 O2 Del Method Room Air 07/16/23 19:30 O2 Flow Rate 2 06/29/23 08:20 Results & Data ([facility]) Current Inpatient Medications Current Inpatient Medications: Current Inpatient Medications Acetaminophen (Acetaminophen 500 Mg Tab) 1,000 mg PO TID SAMANTHA Stop: 08/10/23 14:59 Last Admin: 07/17/23 14:12 Dose: 1,000 mg Al Hydrox/Mg Hydrox/Simethicone (Aluminum/Magnesium Susp 30 Ml Udc) 15 ml PO Q4H PRN PRN Reason: Heartburn Stop: 07/30/23 14:11 Aspirin (Aspirin 81 Mg Ectab) 81 mg PO BID SAMANTHA Stop: 07/30/23 20:59 Last Admin: 07/17/23 09:29 Dose: 81 mg Bisacodyl (Bisacodyl 10 Mg Supp) 10 mg [place] DAILY PRN PRN Reason: Constipation Stop: 07/30/23 14:11 Celecoxib (Celecoxib 100 Mg Cap) 100 mg PO BID SAMANTHA Stop: 07/31/23 08:59 Last Admin: 07/17/23 09:28 Dose: 100 mg Cyanocobalamin (Cyanocobalamin (B-12) 500 Mcg Tablet) 1,000 mcg PO QAM SAMANTHA Stop: 08/02/23 08:59 Last Admin: 07/17/23 09:32 Dose: 1,000 mcg Docusate Sodium (Docusate Sodium 100 Mg Cap) 100 mg PO BID SAMANTHA Stop: 07/30/23 20:59 Last Admin: 07/17/23 09:38 Dose: 100 mg Ferrous Sulfate (Ferrous Sulfate 325 Mg Tab) 325 mg PO BIDM SAMANTHA Stop: 08/03/23 16:59 Last Admin: 07/17/23 09:31 Dose: 325 mg Vancomycin HCl 1,250 mg/ (Sodium Chloride) 275 mls @ 200 mls/hr IV Q12H SAMANTHA Stop: 08/21/23 15:59 Last Infusion: 07/17/23 05:57 Dose: Infused Magnesium Hydroxide (Magnesium Hydroxide Susp 30 Ml Udc) 30 ml PO Q6H PRN PRN Reason: Constipation Stop: 07/30/23 14:11 Melatonin (Melatonin 3 Mg Tab) 6 mg PO HS PRN PRN Reason: Sleep Stop: 08/01/23 00:10 Last Admin: 07/16/23 19:48 Dose: 6 mg Miscellaneous Information (Vancomycin Consult Active) 1 each N/A UD PRN PRN Reason: Consult Stop: 08/03/23 13:13 Multivitamins (Multivitamin Tab) 1 tab PO QAM [facility] Stop: 07/31/23 08:59 Last Admin: 07/17/23 09:31 Dose: 1 tab Ondansetron HCl (Ondansetron Inj 2 Mg/Ml 2 Ml Vial) 4 mg IV Q6H PRN PRN Reason: Nausea And Vomiting Stop: 07/30/23 14:11 Paroxetine HCl (Paroxetine Hcl 20 Mg Tab) 20 mg PO DAILY [facility] Stop: 07/29/23 08:59 Last Admin: 07/17/23 09:31 Dose: 20 mg Polyethylene Glycol (Polyethylene (Miralax) 17 Gm Pack) 17 gm PO DAILY PRN PRN Reason: Constipation Stop: 07/29/23 01:01 Quetiapine Fumarate (Quetiapine Fumarate 25 Mg Tablet) 25 mg PO Q12H PRN PRN Reason: Agitation Stop: 08/13/23 16:18 Last Admin: 07/17/23 09:34 Dose: 25 mg Quetiapine Fumarate (Quetiapine Fumarate 25 Mg Tablet) 75 mg PO HS [facility] Stop: 08/15/23 20:59 Last Admin: 07/16/23 19:45 Dose: 75 mg Rifampin (Rifampin 300 Mg Capsule) 300 mg PO BID [facility] Stop: 08/15/23 20:59 Last Admin: 07/17/23 09:30 Dose: 300 mg Rosuvastatin Calcium (Rosuvastatin Calcium 10 Mg Tab) 10 mg PO DAILY SAMANTHA Stop: 07/29/23 08:59 Last Admin: 07/17/23 09:30 Dose: 10 mg Sennosides (Senna 8.6 Mg Tab) 17.2 mg PO HS [facility] Stop: 07/30/23 20:59 Last Admin: 07/16/23 19:44 Dose: 17.2 mg Tramadol HCl (Tramadol Hcl 50 Mg Tablet) 50 mg PO Q6H PRN PRN Reason: Pain Stop: 08/06/23 13:36 Last Admin: 07/17/23 01:35 Dose: 50 mg
[2023-07-18 03:51] LABS: Creatinine Clr Calc Pharmacy 103.9 ml/min; Est GFR (Non-African American) 99.2 ml/min
[2023-07-18] MEDS: VANCOMYCIN LEVEL ONE (03:52)
--- NOTE | 2023-07-18 08:21 | Pharmacy Report ---
Pharmacy PK ABX Note - Date of Service July 18, 2023 - Assessment and Plan Assessment 07/15: Vancomycin level =15.2mcg/mL; predicted AUC 548 mg/dL. continue current regimen. 07/14: Vancomycin level = 16.4 mcg/mL; predicted AUC 548 mg/dL. Continue current regimen. 07/11: Vancomycin level =14.5mcg/mL, which predicts a therapeutic AUC of 556, continue current regimen 07/09: Vancomycin level = 20.9 mcg/mL, which is associated with a slightly supratherapeutic AUC of 610. Will reduce dose slightly. 07/07: Vancomycin level = 17 mcg/ml at 08:46 AM today. 07/05: Vancomycin level today came back at ~12 mcg/ml - this dosing is correlating to goal AUC/RAIMUNDO 400-600. Plan to continue same regimen. 07/03: 68 year old M receiving started on vancomycin and rifampin for joint infection. Preliminary cultures with coagulase negative staph. Patient is s/p hip replacement 06/08. He suffered dislocation of prosthesis and required hip revision 06/29. Day # 1 of antimicrobial therapy. Plan Vancomycin * Current regimen: 1250 mg IV every 12 hours * Random level obtained today resulted as 16.4 mcg/mL. Predicted AUC at steady state: 548 mg/L.hr with probability of nephrotoxicity at 10% * Goal AUC/RAIMUNDO of 400-600 mg/L.hr * Repeat random level to be ordered later this week or sooner based on clinical status Pharmacy will continue to follow and will adjust dose/frequency as necessary. Thank you. Pharmacy has transitioned to AUC monitoring for vancomycin. AUC/RAIMUNDO is the preferred PK/PD target and is associated with decreased risk of nephrotoxicity compared to traditional trough targets.
--- NOTE | 2023-07-18 10:51 | Orthopedic Progress Note ---
Date of Service July 18, 2023 Assessment & Plan (1) History of revision of total replacement of right hip joint: Plan: Patient leg externally rotated, limited ROM compared to when I previously saw him. Nurse noticed leg more internally rotated. He is not complaining of pain and no incident of fall but patient has been agitated and noncompliant previously. Will order x rays to make sure no dislocation. Will see how he does with PT and if he is able to bear weight okay. Will make Dr Reynolds aware. Admission and Anticipated Discharge Date Admission Date: June 28, 2023 Subjective Pt is sleeping. Hard to arouse Physical Exam Physical Exam: Pt sleeping, opens eyes when trying to arouse. Briefly responds that he is not having pain. Goes back to sleep during my exam. Abduction pillow in place, pneumatic boots in place. Leg is internally rotated. Does not appear to be shortened. I am able to externally rotate him to neutral only, does not appear to be in pain. Flex to 80 degrees before he arouses and points to his hip in pain. Abduction about 10 degrees no pain but unable to abduct any further.
--- NOTE | 2023-07-18 12:40 | XRay Report ---
XR pelvis 1-2V routine CLINICAL HISTORY: rule out dislocation. Right hip pain. COMPARISON STUDY: Pelvis 07/14/2023. FINDINGS: No acute fracture or dislocation within the pelvis or hips. Chronic deformity at the right medial pubic bone again noted. There is a right total hip arthroplasty. The hardware appears intact. Soft tissue swelling within the right lateral hip. IMPRESSION: 1. No acute fracture or dislocation within the pelvis or hips. 2. Right total hip arthroplasty. The hardware appears intact. ACT 112: Negative or not required by law. Electronically signed by: Walter Llanos M.D. 07/18/2023 12:39 PM
--- NOTE | 2023-07-18 15:14 | Hospitalist Progress Note ---
Date of Service July 18, 2023 Assessment & Plan (1) Closed dislocation of right hip: Plan: Patient was at [facility] rehab, and woke up on 06/27 complaining of right hip pain. Unfortunately, he suffered dislocation of right hip prosthesis that was initially placed on June 08 of this year. He subsequently had revision of the right total hip arthroplasty on June 29. Appreciate orthopedic consultation and recommendations. Coag negative Staph isolated from the right hip area at the time of surgery on June 29. Infectious disease has recommended IV vancomycin therapy for 6 weeks through 08/10/23, along with rifampin Then, doxycycline 100mg po bid x 1 year along with rifampin x 3 more months through 11/10/23 PICC line not yet placed due to agitation Needs once weekly CBC, CMP while on antibiotics. Last labs drawn on 07/13 As per Ortho: weightbearing as tolerated with walker and T scope brace, PT/OT, and abduction pillow use x 6 weeks in bed, pillow between knees while seated in upright chair. F/u with Ortho around 07/17 Keep silverlon dressing in place and have sutures removed this week with Ortho surgeon's approval (2) Restlessness and agitation: Plan: Has been present since admission even before being started on Seroquel. He did receive a few doses of Zyprexa at the rehab prior to admission though His tremor and movements are bilateral in upper extremities and sometimes torso twists to the sides, is conscious and recognizes it is happening, it is frustrating Sometimes goes away with deep breathing and relaxing, focusing on a task, and able to feed himself without any tremor His Seroquel dose was titrated up due to agitation and not sleeping, some delirium as well----> perhaps tremor persisting because of atypical antipsychotic? Lytes fairly stable. With severe anemia requiring multiple blood transfusions, could be from iron deficiency? 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 He is expected to have behavioral dysregulation and supportive care and delirium precautions are recommended as well as trazodone 25 mg at bedtime for sleep instead of Seroquel. Avoidance of benzodiazepines is recommended but can use Seroquel as needed for agitation Neurology thinks the tremor is behavioral in origin and is secondary to agitation/overstimulation and recommends supporting his delirium as above. However after making the medication adjustments per neurology recommendations, patient's agitation got worse. He was taken off of Seroquel and was started on trazodone which made his agitation worse. Psychiatry was consulted on 07/13. They recommended discontinuing trazodone. They recommended against Zyprexa and Haldol. They recommended starting the patient back on Seroquel. Patient is slightly less agitated today. He slept well through the night. Currently on Seroquel 75 mg nightly with 25 mg of Seroquel use as needed. Psychiatry recommended not to exceed 200 mg in 24 hours. Continue supportive care, avoid overstimulation (3) Acute encephalopathy: Plan: Delirium developed while hospitalized. Supportive care Discontinue trazodone, Zyprexa, Haldol. Treat with Seroquel only Support sleep-wake cycles Give him tasks to do and distractions, Get him out of bed with physical therapy is much as possible Appreciate neurology and psychiatry consultation Ensure bowels are moving properly, regular meals as he is doing Encouraged pain control with tramadol and Tylenol as needed with nursing staff (4) S/P total hip arthroplasty: Plan: Right total hip arthroplasty on 06/09/[address] Reynolds. Unfortunately, he suffered a dislocation of the prosthesis while at rehab at [facility]. Subsequent revision on June 29. Continue aspirin 81 mg twice daily for DVT prophylaxis, oral rifampin for concerns about biofilm developing on the prosthesis from orthopedic standpoint, and parenteral vancomycin for the next 6 weeks. He will need weekly lab studies while on antibiotics according to infectious disease (5) Acute blood loss anemia: Plan: He has received multiple units of packed red blood cells this admission. Hemoglobin now stable. Oral iron replacement has been started and also received Venofer 700mg IV total Hgb improved now up to 9.4 Follow CBC once weekly while on antibiotics (6) Iron deficiency: Plan: Received parenteral iron replacement for 3 days and hemoglobin improving (7) Frontotemporal dementia: Plan: Chronic. 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 Plan DVT proph-ASA 81mg po bid, SCDs Dispo-[facility] has determined that the patient is not suitable for their facility. His son has agreed to pursue [facility] placement at the time of discharge. Awaiting improvement from mentation standpoint but insurance authorization is obtained as of 07/12 Admission and Anticipated Discharge Date Admission Date: June 28, 2023 Subjective It seems from the nurses note that the patient's labs from midnight to at least 7 AM. Currently he is awake and a little bit restless. Denies any complaints to me. Sitter in the room. Review of Systems Review of Systems: All systems reviewed & are unremarkable except as noted in Subjective Physical Exam Physical Exam: General: Awake, conversant. Heart: S1, S2/regular rate and rhythm, no murmur rubs or gallops Lungs: Clear to auscultation bilaterally. Normal effort Abdomen: Soft/nontender/nondistended. No hepatosplenomegaly Extremities: No clubbing/cyanosis. No edema Behavior: Appropriate, cooperative PG Care Time/CCT Total # of Minutes Spent Total Time Spent with Patient: Total time spent is greater than 50% in coordination of care (as documented) at patient's floor/unit and/or counseling patient: Coding Level of Care Code 36286 SUB INP/OBS CARE 2/35MIN Diagnoses Closed dislocation of right hip S73.004A Restlessness and agitation R45.1 Acute encephalopathy G93.40 S/P total hip arthroplasty Z96.649 Acute blood loss anemia D62 Iron deficiency E61.1 Frontotemporal dementia G31.09; F02.80 Depression F32.9
[2023-07-19] MEDS: MoRPHine SULFATE 2 MG/ML CARP IV STA (04:38)
--- NOTE | 2023-07-19 14:47 | Hospitalist Progress Note ---
Date of Service July 19, 2023 Assessment & Plan (1) Closed dislocation of right hip: Plan: Patient was at [facility] rehab, and woke up on 06/27 complaining of right hip pain. Unfortunately, he suffered dislocation of right hip prosthesis that was initially placed on June 08 of this year. He subsequently had revision of the right total hip arthroplasty on June 29. Appreciate orthopedic consultation and recommendations. Coag negative Staph isolated from the right hip area at the time of surgery on June 29. Infectious disease has recommended IV vancomycin therapy for 6 weeks through 08/10/23, along with rifampin Then, doxycycline 100mg po bid x 1 year along with rifampin x 3 more months through 11/10/23 PICC line not yet placed due to agitation Needs once weekly CBC, CMP while on antibiotics. Last labs drawn on 07/13 As per Ortho: weightbearing as tolerated with walker and T scope brace, PT/OT, and abduction pillow use x 6 weeks in bed, pillow between knees while seated in upright chair. F/u with Ortho around 07/17 Keep silverlon dressing in place and have sutures removed this week with Ortho surgeon's approval (2) Restlessness and agitation: Plan: Has been present since admission even before being started on Seroquel. He did receive a few doses of Zyprexa at the rehab prior to admission though His tremor and movements are bilateral in upper extremities and sometimes torso twists to the sides, is conscious and recognizes it is happening, it is frustrating Sometimes goes away with deep breathing and relaxing, focusing on a task, and able to feed himself without any tremor His Seroquel dose was titrated up due to agitation and not sleeping, some delirium as well----> perhaps tremor persisting because of atypical antipsychotic? Lytes fairly stable. With severe anemia requiring multiple blood transfusions, could be from iron deficiency? 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 He is expected to have behavioral dysregulation and supportive care and delirium precautions are recommended as well as trazodone 25 mg at bedtime for sleep instead of Seroquel. Avoidance of benzodiazepines is recommended but can use Seroquel as needed for agitation Neurology thinks the tremor is behavioral in origin and is secondary to agitation/overstimulation and recommends supporting his delirium as above. However after making the medication adjustments per neurology recommendations, patient's agitation got worse. He was taken off of Seroquel and was started on trazodone which made his agitation worse. Psychiatry was consulted on 07/13. They recommended discontinuing trazodone. They recommended against Zyprexa and Haldol. They recommended starting the patient back on Seroquel. Patient is slightly less agitated today. He slept off and on through the night. Currently on Seroquel 75 mg nightly with 25 mg of Seroquel use as needed. Psychiatry recommended not to exceed 200 mg in 24 hours. Continue supportive care, avoid overstimulation (3) Acute encephalopathy: Plan: Delirium developed while hospitalized. Supportive care Discontinue trazodone, Zyprexa, Haldol. Treat with Seroquel only Support sleep-wake cycles Give him tasks to do and distractions, Get him out of bed with physical therapy is much as possible Appreciate neurology and psychiatry consultation Ensure bowels are moving properly, regular meals as he is doing Encouraged pain control with tramadol and Tylenol as needed with nursing staff (4) S/P total hip arthroplasty: Plan: Right total hip arthroplasty on 06/09/[address] Reynolds. Unfortunately, he suffered a dislocation of the prosthesis while at rehab at [facility]. Subsequent revision on June 29. Continue aspirin 81 mg twice daily for DVT prophylaxis, oral rifampin for concerns about biofilm developing on the prosthesis from orthopedic standpoint, and parenteral vancomycin for the next 6 weeks. He will need weekly lab studies while on antibiotics according to infectious disease (5) Acute blood loss anemia: Plan: He has received multiple units of packed red blood cells this admission. Hemoglobin now stable. Oral iron replacement has been started and also received Venofer 700mg IV total Hgb improved now up to 9.4 Follow CBC once weekly while on antibiotics (6) Iron deficiency: Plan: Received parenteral iron replacement for 3 days and hemoglobin improving (7) Frontotemporal dementia: Plan: Chronic. Supportive care, noted neurology consultation as above With a h/o TBI and ICH 20+ years ago Previously followed with [facility] Neurology (8) Depression: Plan: Stable. Plan DVT proph-ASA 81mg po bid, SCDs Dispo-[facility] has determined that the patient is not suitable for their facility. His son has agreed to pursue [facility] placement at the time of discharge. Awaiting improvement from mentation standpoint but insurance authorization is obtained as of 07/12 Admission and Anticipated Discharge Date Admission Date: June 28, 2023 Subjective Patient is having episodes of restlessness. Not particularly agitated today. Review of Systems Review of Systems: Unobtainable due to cognitive status Physical Exam Physical Exam: General: Awake, conversant. Heart: S1, S2/regular rate and rhythm, no murmur rubs or gallops Lungs: Clear to auscultation bilaterally. Normal effort Abdomen: Soft/nontender/nondistended. No hepatosplenomegaly Extremities: No clubbing/cyanosis. No edema Behavior: Appropriate, cooperative Results & Data Results & Data Vital Signs (Past 12 Hours) Vital Signs Temp Pulse Resp BP Pulse Ox O2 Del Method 07/19/23 14:30 37.0 C 88 17 164/86 H 97 Room Air 07/19/23 12:44 98 07/19/23 06:58 36.9 C 82 20 148/87 H 96 Room Air 07/19/23 04:50 36.6 C 85 16 136/80 96 Room Air PG Care Time/CCT Total # of Minutes Spent Total Time Spent with Patient: Total time spent is greater than 50% in coordination of care (as documented) at patient's floor/unit and/or counseling patient: Coding Level of Care Code 00633 SUB INP/OBS CARE 2/35MIN Diagnoses Closed dislocation of right hip S73.004A Restlessness and agitation R45.1 Acute encephalopathy G93.40 S/P total hip arthroplasty Z96.649 Acute blood loss anemia D62 Iron deficiency E61.1 Frontotemporal dementia G31.09; F02.80 Depression F32.9
--- NOTE | 2023-07-19 16:56 | Psychiatric Progress Note ---
Date of Service July 19, 2023 Impression / Recommendations Impression This is a 68-year-old man with frontotemporal dementia and recent involuntary movements of unknown etiology (anxiety vs medication side effect vs movement disorder). 07/19/2023: Has been sleeping better with higher dose of Seroquel but ongoing periods of hyperactive behavior or calling out. He is denying this is related to increased pain. Possible that restlessness is manifestation of akathisia from Seroquel use but more likely suspect this is a result of ongoing hyperactive delirium. He describes some anxiety and BP has been high so seems reasonable to consider trial of clonidine patch off-label for restlessness and delirium with agitation. If this is ineffective would use lowest dose of olanzapine if emergency medication required if he becomes aggressive as result of physical restlessness and confusion. Overall, I spent a total of 30 minutes on this case including meeting with the patient, reviewing the chart, nursing report, communication with hospitalist provider and psych liason RN and documentation. (1) Delirium: (2) Acute encephalopathy: (3) Frontotemporal dementia: (4) History of revision of total replacement of right hip joint: Plan -Continue with Seroquel 75mg HS given significant insomnia, likely due to hyperactive delirium vs component of suspected FTD (attempt to keep seroquel scheduled and prn to <200mg in 24 hours) -Consider starting clonidine patch 0.1mg/24 hours -For behavioral emergency would use: Olanzapine 2.5mg IM Interval History Identifying Information 68 yo man with history of frontotemporal dementia admitted medically for right hip dislocation. Psychiatry consulted for recommendations for medications for insomnia. Chief Complaint "I need to get this stuff done". Subjective Subjective Patient was seen & assessed and interval progress reviewed. Physical restlessness this afternoon, rocking back and forth and trying to get out of bed. Recieved dose of prn Seroquel 25mg po with no significant benefit. On my assessment remains restless in bed. He denies pain but reports needing to get things done and anxiety. Evidence of confusion. No signs of involuntary movements, unclear if any akathisia as he cannot describe why he is moving about in bed. Procedures Performed Operation Date: 06/30/23 10:40 Actual Procedures p Right Hip Prosthetic dislocation Open Reduction with Total Hip Revision(Right) - Alec Reynolds MD Physical Exam Vital Signs (Past 24 Hours) Last Vital Signs Temp 37.0 C 07/19/23 14:30 Pulse 88 07/19/23 14:30 Resp 17 07/19/23 14:30 BP 164/86 H 07/19/23 14:30 Pulse Ox 97 07/19/23 14:30 O2 Del Method Room Air 07/19/23 14:30 O2 Flow Rate 2 06/29/23 08:20 Results & Data ([facility]) Current Inpatient Medications Current Inpatient Medications: Current Inpatient Medications Acetaminophen (Acetaminophen 500 Mg Tab) 1,000 mg PO TID SAMANTHA Stop: 08/10/23 14:59 Last Admin: 07/19/23 14:28 Dose: 1,000 mg Al Hydrox/Mg Hydrox/Simethicone (Aluminum/Magnesium Susp 30 Ml Udc) 15 ml PO Q4H PRN PRN Reason: Heartburn Stop: 07/30/23 14:11 Aspirin (Aspirin 81 Mg Ectab) 81 mg PO BID SAMANTHA Stop: 07/30/23 20:59 Last Admin: 07/19/23 08:08 Dose: 81 mg Bisacodyl (Bisacodyl 10 Mg Supp) 10 mg TN DAILY PRN PRN Reason: Constipation Stop: 07/30/23 14:11 Celecoxib (Celecoxib 100 Mg Cap) 100 mg PO BID SAMANTHA Stop: 07/31/23 08:59 Last Admin: 07/19/23 08:08 Dose: 100 mg Clonidine HCl (Clonidine Hcl 0.1 Mg/24 Hr Transderm Sys) 1 patch TD Q7D SAMANTHA Stop: 08/18/23 16:59 Cyanocobalamin (Cyanocobalamin (B-12) 500 Mcg Tablet) 1,000 mcg PO QAM SAMANTHA Stop: 08/02/23 08:59 Last Admin: 07/19/23 08:08 Dose: 1,000 mcg Docusate Sodium (Docusate Sodium 100 Mg Cap) 100 mg PO BID SAMANTHA Stop: 07/30/23 20:59 Last Admin: 07/19/23 08:12 Dose: 100 mg Ferrous Sulfate (Ferrous Sulfate 325 Mg Tab) 325 mg PO BIDM SAMANTHA Stop: 08/03/23 16:59 Last Admin: 07/19/23 16:35 Dose: 325 mg Vancomycin HCl 1,250 mg/ (Sodium Chloride) 275 mls @ 200 mls/hr IV Q12H SAMANTHA Stop: 08/21/23 15:59 Last Infusion: 07/19/23 05:10 Dose: Infused Magnesium Hydroxide (Magnesium Hydroxide Susp 30 Ml Udc) 30 ml PO Q6H PRN PRN Reason: Constipation Stop: 07/30/23 14:11 Melatonin (Melatonin 3 Mg Tab) 6 mg PO HS PRN PRN Reason: Sleep Stop: 08/01/23 00:10 Last Admin: 07/18/23 20:45 Dose: 6 mg Miscellaneous (Remove Clonidine Patch) 1 each N/A CQWK SAMANTHA Stop: 08/18/23 16:59 Miscellaneous (Check Clonidine Patch Placement) 1 each N/A QS SAMANTHA Stop: 08/19/23 00:00 Miscellaneous Information (Vancomycin Consult Active) 1 each N/A UD PRN PRN Reason: Consult Stop: 08/03/23 13:13 Multivitamins (Multivitamin Tab) 1 tab PO QAM SAMANTHA Stop: 07/31/23 08:59 Last Admin: 07/19/23 08:08 Dose: 1 tab Olanzapine (Olanzapine 10 Mg/2.1 Ml Sdv) 2.5 mg IM NOW STA Stop: 07/19/23 16:55 Ondansetron HCl (Ondansetron Inj 2 Mg/Ml 2 Ml Vial) 4 mg IV Q6H PRN PRN Reason: Nausea And Vomiting Stop: 07/30/23 14:11 Paroxetine HCl (Paroxetine Hcl 20 Mg Tab) 20 mg PO DAILY SAMANTHA Stop: 07/29/23 08:59 Last Admin: 07/19/23 08:08 Dose: 20 mg Polyethylene Glycol (Polyethylene (Miralax) 17 Gm Pack) 17 gm PO DAILY PRN PRN Reason: Constipation Stop: 07/29/23 01:01 Quetiapine Fumarate (Quetiapine Fumarate 25 Mg Tablet) 25 mg PO Q12H PRN PRN Reason: Agitation Stop: 08/13/23 16:18 Last Admin: 07/19/23 15:04 Dose: 25 mg Quetiapine Fumarate (Quetiapine Fumarate 25 Mg Tablet) 75 mg PO HS SAMANTHA Stop: 08/15/23 20:59 Last Admin: 07/18/23 20:45 Dose: 75 mg Rifampin (Rifampin 300 Mg Capsule) 300 mg PO BID SAMANTHA Stop: 08/15/23 20:59 Last Admin: 07/19/23 08:08 Dose: 300 mg Rosuvastatin Calcium (Rosuvastatin Calcium 10 Mg Tab) 10 mg PO DAILY SAMANTHA Stop: 07/29/23 08:59 Last Admin: 07/19/23 08:09 Dose: 10 mg Sennosides (Senna 8.6 Mg Tab) 17.2 mg PO HS [facility] Stop: 07/30/23 20:59 Last Admin: 07/18/23 20:48 Dose: 17.2 mg Tramadol HCl (Tramadol Hcl 50 Mg Tablet) 50 mg PO Q6H PRN PRN Reason: Pain Stop: 08/06/23 13:36 Last Admin: 07/19/23 16:34 Dose: 50 mg
[2023-07-19] MEDS: OLANZapine 10 MG/2.1 ML SDV IM STA ×2 (17:25→23:21)
[2023-07-19] MEDS: cloNIDine HCL 0.1 MG/24 HR TRANSDERM SYS TD SCH (17:46)
[2023-07-19] MEDS: CHECK CLONIDINE PATCH PLACEMENT SCH (23:23)
[2023-07-20 09:06] LABS: Creatinine Clr Calc Pharmacy 102.3 ml/min; Est GFR (African American) 114.2 ml/min; Est GFR (Non-African American) 98.6 ml/min
--- NOTE | 2023-07-20 14:39 | Hospitalist Progress Note ---
Date of Service July 20, 2023 Assessment & Plan (1) Closed dislocation of right hip: Plan: Patient was at [facility] rehab, and woke up on 06/27 complaining of right hip pain. Unfortunately, he suffered dislocation of right hip prosthesis that was initially placed on June 08 of this year. He subsequently had revision of the right total hip arthroplasty on June 29. Appreciate orthopedic consultation and recommendations. Coag negative Staph isolated from the right hip area at the time of surgery on June 29. Infectious disease has recommended IV vancomycin therapy for 6 weeks through 08/10/23, along with rifampin Then, doxycycline 100mg po bid x 1 year along with rifampin x 3 more months through 11/10/23 PICC line not yet placed due to agitation Needs once weekly CBC, CMP while on antibiotics. Last labs drawn on 07/13 As per Ortho: weightbearing as tolerated with walker and T scope brace, PT/OT, and abduction pillow use x 6 weeks in bed, pillow between knees while seated in upright chair. F/u with Ortho around 07/17 Keep silverlon dressing in place and have sutures removed this week with Ortho surgeon's approval (2) Restlessness and agitation: Plan: Has been present since admission even before being started on Seroquel. He did receive a few doses of Zyprexa at the rehab prior to admission though His tremor and movements are bilateral in upper extremities and sometimes torso twists to the sides, is conscious and recognizes it is happening, it is frustrating Sometimes goes away with deep breathing and relaxing, focusing on a task, and able to feed himself without any tremor His Seroquel dose was titrated up due to agitation and not sleeping, some delirium as well----> perhaps tremor persisting because of atypical antipsychotic? Lytes fairly stable. With severe anemia requiring multiple blood transfusions, could be from iron deficiency? 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 He is expected to have behavioral dysregulation and supportive care and delirium precautions are recommended as well as trazodone 25 mg at bedtime for sleep instead of Seroquel. Avoidance of benzodiazepines is recommended but can use Seroquel as needed for agitation Neurology thinks the tremor is behavioral in origin and is secondary to agitation/overstimulation and recommends supporting his delirium as above. However after making the medication adjustments per neurology recommendations, patient's agitation got worse. He was taken off of Seroquel and was started on trazodone which made his agitation worse. Psychiatry was consulted on 07/13. They recommended discontinuing trazodone. They recommended against Zyprexa and Haldol. They recommended starting the patient back on Seroquel. Patient is slightly less agitated today. He slept off and on through the night. Currently on Seroquel 75 mg nightly with 25 mg of Seroquel use as needed. Psychiatry recommended not to exceed 200 mg in 24 hours. Patient was started on 0.1 mg of clonidine patch weekly. Zyprexa can be used for severe agitation, per psychiatry Continue supportive care, avoid overstimulation (3) Acute encephalopathy: Plan: Delirium developed while hospitalized. Supportive care Discontinue trazodone, Zyprexa, Haldol. Treat with Seroquel only Support sleep-wake cycles Give him tasks to do and distractions, Get him out of bed with physical therapy is much as possible Appreciate neurology and psychiatry consultation Ensure bowels are moving properly, regular meals as he is doing Encouraged pain control with tramadol and Tylenol as needed with nursing staff (4) S/P total hip arthroplasty: Plan: Right total hip arthroplasty on 06/09/[address] Reynolds. Unfortunately, he suffered a dislocation of the prosthesis while at rehab at [facility]. Subsequent revision on June 29. Continue aspirin 81 mg twice daily for DVT prophylaxis, oral rifampin for concerns about biofilm developing on the prosthesis from orthopedic standpoint, and parenteral vancomycin for the next 6 weeks. He will need weekly lab studies while on antibiotics according to infectious disease (5) Acute blood loss anemia: Plan: He has received multiple units of packed red blood cells this admission. Hemoglobin now stable. Oral iron replacement has been started and also received Venofer 700mg IV total Hgb improved now up to 9.4 Follow CBC once weekly while on antibiotics (6) Iron deficiency: Plan: Received parenteral iron replacement for 3 days and hemoglobin improving (7) Frontotemporal dementia: Plan: Chronic. Supportive care, noted neurology consultation as above With a h/o TBI and ICH 20+ years ago Previously followed with [facility] (8) Depression: Plan: Stable. Plan DVT proph-ASA 81mg po bid, SCDs [facility] has determined that the patient is not suitable for their facility. His son has agreed to pursue [facility] placement at the time of discharge. Awaiting improvement from mentation standpoint but insurance authorization is obtained as of 07/12 Admission and Anticipated Discharge Date Admission Date: June 28, 2023 Subjective Patient was sleeping when I walked in. Review of Systems Review of Systems: Unobtainable due to cognitive status Physical Exam Physical Exam: General: Sleeping Heart: S1, S2/regular rate and rhythm, no murmur rubs or gallops Lungs: Clear to auscultation bilaterally. Normal effort Abdomen: Soft/nontender/nondistended. No hepatosplenomegaly Extremities: No clubbing/cyanosis. No edema Behavior: Unable to assess as I did not wake him up Results & Data Results & Data Vital Signs (Past 12 Hours) Vital Signs Temp Pulse Pulse Resp BP Pulse Ox O2 Del Method 07/20/23 14:15 36.8 C 79 16 96/60 L 100 Room Air 07/20/23 07:32 36.6 C 85 16 128/79 96 Room Air PG Care Time/CCT Total # of Minutes Spent Total Time Spent with Patient: Total time spent is greater than 50% in coordination of care (as documented) at patient's floor/unit and/or counseling patient: Coding Level of Care Code 61417 SUB INP/OBS CARE 2/35MIN Diagnoses Closed dislocation of right hip S73.004A Restlessness and agitation R45.1 Acute encephalopathy G93.40 S/P total hip arthroplasty Z96.649 Acute blood loss anemia D62 Iron deficiency E61.1 Frontotemporal dementia G31.09; F02.80 Depression F32.9
--- NOTE | 2023-07-20 16:03 | Psychiatric Progress Note ---
Date of Service July 20, 2023 Impression / Recommendations Impression This is a 68-year-old man with frontotemporal dementia and recent involuntary movements of unknown etiology (anxiety vs medication side effect vs movement disorder). 07/20/2023: Ongoing periods of confusion and restlessness consistent with delirium, but overall less hyperactivity and agitation today. No signs of EPS from required use of IM olanzapine. Continue with po Seroquel in hope of avoiding future need for IMs. Suspect orthostatic BP due to combined effects of antipsychotic medications and clonidine patch. If BP becomes too low would discontinue clonidine patch as typically offers less benefit compared with antipsychotics for delirium with agitation. Overall, I spent a total of 28 minutes on this case including meeting with the patient, reviewing the chart, nursing report, communication with hospitalist provider and psych liason RN and documentation. (1) Delirium: (2) Acute encephalopathy: (3) Frontotemporal dementia: (4) History of revision of total replacement of right hip joint: Plan -Continue with Seroquel 75mg HS given significant insomnia, likely due to hyperactive delirium vs component of suspected FTD (attempt to keep seroquel marilea eduled and prn to <200mg in 24 hours) -Continue with clonidine patch 0.1mg/24 hours if BP is stable -For behavioral emergency would use: Olanzapine 2.5mg IM (do not exceed 5mg in 24 hours) Interval History Identifying Information 68 yo man with history of frontotemporal dementia admitted medically for right hip dislocation. Psychiatry consulted for recommendations for medications for insomnia. Chief Complaint "I'm fine". Subjective Subjective Patient was seen & assessed and interval progress reviewed. Restlessness and agitation overnight with no sleep, required olanzapine 2.5mg IM twice overnight. Today less restless, confused about where he is but knows month and year. Could not recall he had been here for his hip dislocation. Denies any muscle tension or stiffness and cooperative with exam. Procedures Performed Operation Date: 06/30/23 10:40 Actual Procedures p Right Hip Prosthetic dislocation Open Reduction with Total Hip Revision(Right) - Alec Reynolds MD Physical Exam Psychiatric Orientation: alert, oriented to time and cooperative; + not oriented to place Eye Contact: + fair eye contact Motor Behavior: no abnormal motor movements; n EPS and n tremor Speech: + abnormal rate/rhythm/volume of speech (mumbled) Vital Signs (Past 24 Hours) Last Vital Signs Temp 36.8 C 07/20/23 14:15 Pulse 79 07/20/23 14:15 Resp 16 07/20/23 14:15 BP 96/60 L 07/20/23 14:15 Pulse Ox 100 07/20/23 14:15 O2 Del Method Room Air 07/20/23 14:15 O2 Flow Rate 2 06/29/23 08:20 Results & Data ([facility]) Laboratory Results Laboratory Results - last 24 hr 07/20/23 08:20 Creatinine 0.65 Est Cr Clr Drug Dosing 102.3 Est GFR ( Amer) 114.2 Est GFR (Non-Af Amer) 98.6 Current Inpatient Medications Current Inpatient Medications: Current Inpatient Medications Acetaminophen (Acetaminophen 500 Mg Tab) 1,000 mg PO TID MARIELA Stop: 08/10/23 14:59 Last Admin: 07/20/23 10:37 Dose: 1,000 mg Al Hydrox/Mg Hydrox/Simethicone (Aluminum/Magnesium Susp 30 Ml Udc) 15 ml PO Q4H PRN PRN Reason: Heartburn Stop: 07/30/23 14:11 Aspirin (Aspirin 81 Mg Ectab) 81 mg PO BID MARIELA Stop: 07/30/23 20:59 Last Admin: 07/20/23 10:37 Dose: 81 mg Bisacodyl (Bisacodyl 10 Mg Supp) 10 mg [place] DAILY PRN PRN Reason: Constipation Stop: 07/30/23 14:11 Celecoxib (Celecoxib 100 Mg Cap) 100 mg PO BID MARIELA Stop: 07/31/23 08:59 Last Admin: 07/20/23 10:37 Dose: 100 mg Clonidine HCl (Clonidine Hcl 0.1 Mg/24 Hr Transderm Sys) 1 patch TD Q7D MARIELA Stop: 08/18/23 16:59 Last Admin: 07/19/23 17:46 Dose: 1 patch Cyanocobalamin (Cyanocobalamin (B-12) 500 Mcg Tablet) 1,000 mcg PO QAM MARIELA Stop: 08/02/23 08:59 Last Admin: 07/20/23 10:37 Dose: 1,000 mcg Docusate Sodium (Docusate Sodium 100 Mg Cap) 100 mg PO BID MARIELA Stop: 07/30/23 20:59 Last Admin: 07/20/23 10:37 Dose: 100 mg Ferrous Sulfate (Ferrous Sulfate 325 Mg Tab) 325 mg PO BIDM [facility] Stop: 08/03/23 16:59 Last Admin: 07/20/23 10:37 Dose: 325 mg Vancomycin HCl 1,250 mg/ (Sodium Chloride) 275 mls @ 200 mls/hr IV Q12H MARIELA Stop: 08/21/23 15:59 Last Infusion: 07/20/23 09:50 Dose: Infused Magnesium Hydroxide (Magnesium Hydroxide Susp 30 Ml Udc) 30 ml PO Q6H PRN PRN Reason: Constipation Stop: 07/30/23 14:11 Melatonin (Melatonin 3 Mg Tab) 6 mg PO HS PRN PRN Reason: Sleep Stop: 08/01/23 00:10 Last Admin: 07/18/23 20:45 Dose: 6 mg Miscellaneous (Remove Clonidine Patch) 1 each N/A CQWK [facility] Stop: 08/18/23 16:59 Last Admin: 07/19/23 17:46 Dose: Not Given Miscellaneous (Check Clonidine Patch Placement) 1 each N/A QS [facility] Stop: 08/19/23 00:00 Last Admin: 07/20/23 10:36 Dose: 1 each Miscellaneous Information (Vancomycin Consult Active) 1 each N/A UD PRN PRN Reason: Consult Stop: 08/03/23 13:13 Multivitamins (Multivitamin Tab) 1 tab PO QAM [facility] Stop: 07/31/23 08:59 Last Admin: 07/20/23 10:38 Dose: 1 tab Ondansetron HCl (Ondansetron Inj 2 Mg/Ml 2 Ml Vial) 4 mg IV Q6H PRN PRN Reason: Nausea And Vomiting Stop: 07/30/23 14:11 Paroxetine HCl (Paroxetine Hcl 20 Mg Tab) 20 mg PO DAILY [facility] Stop: 07/29/23 08:59 Last Admin: 07/20/23 10:38 Dose: 20 mg Polyethylene Glycol (Polyethylene (Miralax) 17 Gm Pack) 17 gm PO DAILY PRN PRN Reason: Constipation Stop: 07/29/23 01:01 Quetiapine Fumarate (Quetiapine Fumarate 25 Mg Tablet) 25 mg PO Q12H PRN PRN Reason: Agitation Stop: 08/13/23 16:18 Last Admin: 07/19/23 15:04 Dose: 25 mg Quetiapine Fumarate (Quetiapine Fumarate 25 Mg Tablet) 75 mg PO HS [facility] Stop: 08/15/23 20:59 Last Admin: 07/19/23 19:22 Dose: 75 mg Rifampin (Rifampin 300 Mg Capsule) 300 mg PO BID [facility] Stop: 08/15/23 20:59 Last Admin: 07/20/23 10:38 Dose: 300 mg Rosuvastatin Calcium (Rosuvastatin Calcium 10 Mg Tab) 10 mg PO DAILY MARIELA Stop: 07/29/23 08:59 Last Admin: 07/20/23 10:38 Dose: 10 mg Sennosides (Senna 8.6 Mg Tab) 17.2 mg PO [facility] Stop: 07/30/23 20:59 Last Admin: 07/19/23 19:24 Dose: 17.2 mg Tramadol HCl (Tramadol Hcl 50 Mg Tablet) 50 mg PO Q6H PRN PRN Reason: Pain Stop: 08/06/23 13:36 Last Admin: 07/20/23 01:47 Dose: 50 mg
--- NOTE | 2023-07-21 14:33 | Hospitalist Progress Note ---
Date of Service July 21, 2023 Assessment & Plan (1) Closed dislocation of right hip: Plan: Patient was at [facility] rehab, and woke up on 06/27 complaining of right hip pain. Unfortunately, he suffered dislocation of right hip prosthesis that was initially placed on June 08 of this year. He subsequently had revision of the right total hip arthroplasty on June 29. Appreciate orthopedic consultation and recommendations. Coag negative Staph isolated from the right hip area at the time of surgery on June 29. Infectious disease has recommended IV vancomycin therapy for 6 weeks through 08/10/23, along with rifampin Then, doxycycline 100mg po bid x 1 year along with rifampin x 3 more months through 11/10/23 PICC line not yet placed due to agitation Needs once weekly CBC, CMP while on antibiotics. Last labs drawn on 07/13 As per Ortho: weightbearing as tolerated with walker and T scope brace, PT/OT, and abduction pillow use x 6 weeks in bed, pillow between knees while seated in upright chair. F/u with Ortho around 07/17 Keep silverlon dressing in place and have sutures removed this week with Ortho surgeon's approval (2) Restlessness and agitation: Plan: Has been present since admission even before being started on Seroquel. He did receive a few doses of Zyprexa at the rehab prior to admission though His tremor and movements are bilateral in upper extremities and sometimes torso twists to the sides, is conscious and recognizes it is happening, it is frustrating Sometimes goes away with deep breathing and relaxing, focusing on a task, and able to feed himself without any tremor His Seroquel dose was titrated up due to agitation and not sleeping, some delirium as well----> perhaps tremor persisting because of atypical antipsychotic? Lytes fairly stable. With severe anemia requiring multiple blood transfusions, could be from iron deficiency? 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 He is expected to have behavioral dysregulation and supportive care and delirium precautions are recommended as well as trazodone 25 mg at bedtime for sleep instead of Seroquel. Avoidance of benzodiazepines is recommended but can use Seroquel as needed for agitation Neurology thinks the tremor is behavioral in origin and is secondary to agitation/overstimulation and recommends supporting his delirium as above. However after making the medication adjustments per neurology recommendations, patient's agitation got worse. He was taken off of Seroquel and was started on trazodone which made his agitation worse. Psychiatry was consulted on 07/13. They recommended discontinuing trazodone. They recommended against Zyprexa and Haldol. They recommended starting the patient back on Seroquel. Patient is slightly less agitated today. He slept off and on through the night. Currently on Seroquel 75 mg nightly with 25 mg of Seroquel use as needed. Psychiatry recommended not to exceed 200 mg in 24 hours. Patient was started on 0.1 mg of clonidine patch weekly. Zyprexa can be used for severe agitation, per psychiatry Continue supportive care, avoid overstimulation (3) Acute encephalopathy: Plan: Delirium developed while hospitalized. Supportive care Discontinue trazodone, Zyprexa, Haldol. Treat with Seroquel only Support sleep-wake cycles Give him tasks to do and distractions, Get him out of bed with physical therapy is much as possible Appreciate neurology and psychiatry consultation Ensure bowels are moving properly, regular meals as he is doing Encouraged pain control with tramadol and Tylenol as needed with nursing staff (4) S/P total hip arthroplasty: Plan: Right total hip arthroplasty on 06/09/[address] Reynolds. Unfortunately, he suffered a dislocation of the prosthesis while at rehab at [facility]. Subsequent revision on June 29. Continue aspirin 81 mg twice daily for DVT prophylaxis, oral rifampin for concerns about biofilm developing on the prosthesis from orthopedic standpoint, and parenteral vancomycin for the next 6 weeks. He will need weekly lab studies while on antibiotics according to infectious disease (5) Acute blood loss anemia: Plan: He has received multiple units of packed red blood cells this admission. Hemoglobin now stable. Oral iron replacement has been started and also received Venofer 700mg IV total Hgb improved now up to 9.4 Follow CBC once weekly while on antibiotics (6) Iron deficiency: Plan: Received parenteral iron replacement for 3 days and hemoglobin improving (7) Frontotemporal dementia: Plan: Chronic. Supportive care, noted neurology consultation as above With a h/o TBI and ICH 20+ years ago Previously followed with [facility] Neurology (8) Depression: Plan: Stable. Plan DVT proph-ASA 81mg po bid, SCDs [facility] has determined that the patient is not suitable for their facility. His son has agreed to pursue [facility] placement at the time of discharge. Awaiting improvement from mentation standpoint but insurance authorization is obtained as of 07/12 Admission and Anticipated Discharge Date Admission Date: June 28, 2023 Subjective Patient slept overnight. Still sleeping this morning. Review of Systems Review of Systems: Unobtainable due to cognitive status Physical Exam Physical Exam: General: Sleeping Heart: S1, S2/regular rate and rhythm, no murmur rubs or gallops Lungs: Clear to auscultation bilaterally. Normal effort Abdomen: Soft/nontender/nondistended. No hepatosplenomegaly Extremities: No clubbing/cyanosis. No edema Behavior: Unable to assess as I did not wake him up Results & Data Results & Data Vital Signs (Past 12 Hours) Vital Signs Temp Pulse Resp BP Pulse Ox O2 Del Method 07/21/23 08:00 36.6 C 74 19 111/73 95 Room Air PG Care Time/CCT Total # of Minutes Spent Total Time Spent with Patient: Total time spent is greater than 50% in coordination of care (as documented) at patient's floor/unit and/or counseling patient: Coding Level of Care Code 30065 SUB INP/OBS CARE 2/35MIN Diagnoses Closed dislocation of right hip S73.004A Restlessness and agitation R45.1 Acute encephalopathy G93.40 S/P total hip arthroplasty Z96.649 Acute blood loss anemia D62 Iron deficiency E61.1 Frontotemporal dementia G31.09; F02.80 Depression F32.9
[2023-07-22] MEDS: OLANZapine 10 MG/2.1 ML SDV IM ONE ×2 (00:46→01:06)
[2023-07-22] MEDS: MoRPHine SULFATE 2 MG/ML CARP IV STA ×2 (05:19→22:55)
[2023-07-22 06:04] LABS: Creatinine Clr Calc Pharmacy 88.7 ml/min; Est GFR (African American) 107.7 ml/min; Est GFR (Non-African American) 92.9 ml/min
[2023-07-22] MEDS: VANCOMYCIN LEVEL SCH (07:00)
--- NOTE | 2023-07-22 07:35 | Pharmacy Report ---
Pharmacy PK ABX Note - Date of Service July 22, 2023 - Assessment and Plan Assessment 07/21: Vancomycin level was 15.6 mcg/mL this AM; predicted AUC 591. Continue current regimen. 07/15: Vancomycin level =15.2mcg/mL; predicted AUC 548 mg/dL. continue current regimen. 07/14: Vancomycin level = 16.4 mcg/mL; predicted AUC 548 mg/dL. Continue current regimen. 07/11: Vancomycin level =14.5mcg/mL, which predicts a therapeutic AUC of 556, continue current regimen 07/09: Vancomycin level = 20.9 mcg/mL, which is associated with a slightly supratherapeutic AUC of 610. Will reduce dose slightly. 07/07: Vancomycin level = 17 mcg/ml at 08:46 AM today. 07/05: Vancomycin level today came back at ~12 mcg/ml - this dosing is correlating to goal AUC/RAIMUNDO 400-600. Plan to continue same regimen. 07/03: 68 year old M receiving started on vancomycin and rifampin for joint infection. Preliminary cultures with coagulase negative staph. Patient is s/p hip replacement 06/08. He suffered dislocation of prosthesis and required hip revision 06/29. Day # 1 of antimicrobial therapy. Plan Vancomycin * Current regimen: 1250 mg IV every 12 hours * Random level obtained today resulted as 15.6 mcg/mL. Predicted AUC at steady state: 591 mg/L.hr with probability of nephrotoxicity at 11% * Goal AUC/RAIMUNDO of 400-600 mg/L.hr * Repeat random level to be ordered later this week or sooner based on clinical status Pharmacy will continue to follow and will adjust dose/frequency as necessary. Thank you. Pharmacy has transitioned to AUC monitoring for vancomycin. AUC/RAIMUNDO is the preferred PK/PD target and is associated with decreased risk of nephrotoxicity compared to traditional trough targets.
[2023-07-22 08:45] LABS: Hematocrit (blood only) 30.1 % (42.0-52.0); Hemoglobin 9.7 g/dl (14.0-18.0); Mean Corpuscular Hemoglobin 29.6 pg (25.0-34.0); Mean Corpuscular Hgb Conc 32.2 g/dL (32.0-36.0); Mean Corpuscular Volume 91.8 fL (80.0-100.0); Mean Platelet Volume 9.4 fL (9.4-12.4); Platelet Count 305 K/uL (130-400); RDW Coefficient of Variation 14.8 % (11.5-14.5); RDW Standard Deviation 50.5 fL (36.4-46.3); Red Blood Count 3.28 M/uL (4.70-6.10); White Blood Count 4.72 K/ul (4.8-10.8)
[2023-07-22 08:54] LABS: BUN Creatinine Ratio 22.7 (10-20); Calcium 8.6 mg/dl (8.6-10.3); Potassium 4.2 mmol/L (3.5-5.1)
[2023-07-22 09:38] LABS: Albumin Level 3.3 gm/dl (3.4-5.0); Bilirubin Direct 0.1 mg/dl (0-0.2); Bilirubin,Total 0.3 mg/dl (0.2-1.0); Total Protein 5.7 gm/dl (6.0-8.3)
--- NOTE | 2023-07-22 10:48 | Psychiatric Progress Note ---
Date of Service July 22, 2023 Impression / Recommendations Impression This is a 68-year-old man with frontotemporal dementia and recent involuntary movements of unknown etiology (anxiety vs medication side effect vs movement disorder). 07/21/2023: Ongoing hyperactive delirium with waxing and waning confusion. Continues to have poor sleep and increased confusion and agitation at times, especially overnight. Could represent some sundowning from dementia but delirium seems more likely cause at this point. Few options in terms of medication management. One to continue with po seroquel and adjust timing or increase dose at HS. Alternatively could trial po olanzapine since he is requiring IM olanzapine most nights. Historically he had done well on Seroquel so reasonable to continue with this for now if preferred. Encouragingly no signs of any EPS even with requiring po and IM antipsychotic. Overall, I spent a total of 25 minutes on this case including meeting with the patient, reviewing the chart, nursing report, communication with hospitalist provider and psych liason RN and documentation. (1) Delirium: (2) Acute encephalopathy: (3) Frontotemporal dementia: (4) History of revision of total replacement of right hip joint: Plan -Continue with delirium prevention/management strategies including exposure to light during the day, re-orientation, attempting to keep environment calm and quiet to promote sleep at night -Melatonin HS -Can continue with Seroquel 75mg HS or consider trial with dinner. Could also consider dose increase to 100mg HS or split doing such as 25mg qAM and 75mg HS. Given he is tolerating it well would attempt to keep the dose as low as possible but ok to go above 200mg in 24 hours if necessary. -Alternatively if these adjustments are ineffective could consider use of olanzapine 5mg po HS with 2.5mg po BID prn for agitation. Would avoid going above 10mg in 24 hours from all sources of olanzapine (i.e. po and IM). -For behavioral emergency would use: Olanzapine 2.5mg IM (do not exceed 5mg in 24 hours) Interval History Identifying Information 68 yo man with history of frontotemporal dementia admitted medically for right hip dislocation. Psychiatry consulted for recommendations for medications for insomnia. Chief Complaint "Yeah tired". Subjective Subjective Patient was seen & assessed and interval progress reviewed . Awake almost all night, received prn po Seroquel as well as pain medication and required IM olanzapine dose. This morning less confused but states he is tired. Pleasant, states his hip pain is mild and "dull". Procedures Performed Operation Date: 06/30/23 10:40 Actual Procedures p Right Hip Prosthetic dislocation Open Reduction with Total Hip Revision(Right) - Alec Reynolds MD Physical Exam Psychiatric Orientation: alert, oriented to time and cooperative; + not oriented to place Eye Contact: + fair eye contact Motor Behavior: no abnormal motor movements; n EPS and n tremor Speech: + abnormal rate/rhythm/volume of speech (mumbled but understandable ) Vital Signs (Past 24 Hours) Last Vital Signs Temp 36.4 C L 07/22/23 07:30 Pulse 73 07/22/23 07:30 Resp 18 07/22/23 07:30 BP 123/81 07/22/23 07:30 Pulse Ox 98 07/22/23 07:30 O2 Del Method Room Air 07/22/23 07:30 O2 Flow Rate 2 06/29/23 08:20 Results & Data ([facility]) Laboratory Results Laboratory Results - last 24 hr 07/22/23 07/22/23 05:22 05:30 WBC 4.72 L RBC 3.28 L Hgb 9.7 L Hct 30.1 L MCV 91.8 MCH 29.6 MCHC 32.2 RDW Std Deviation 50.5 H RDW Coeff of Jeffy 14.8 H Plt Count 305 MPV 9.4 Sodium 139 Potassium 4.2 Chloride 107 Carbon Dioxide 25 Anion Gap 7 BUN 17 Creatinine 0.75 Est Cr Clr Drug Dosing 88.7 Est GFR ( Amer) 107.7 Est GFR (Non-Af Amer) 92.9 BUN/Creatinine Ratio 22.7 H Glucose 97 Calcium 8.6 Total Bilirubin 0.3 Direct Bilirubin 0.1 AST 16 ALT 10 Alkaline Phosphatase 95 Total Protein 5.7 L Albumin 3.3 L Random Vancomycin 15.6 Current Inpatient Medications Current Inpatient Medications: Current Inpatient Medications Acetaminophen (Acetaminophen 500 Mg Tab) 1,000 mg PO TID SAMANTHA Stop: 08/10/23 14:59 Last Admin: 07/22/23 07:55 Dose: 1,000 mg Al Hydrox/Mg Hydrox/Simethicone (Aluminum/Magnesium Susp 30 Ml Udc) 15 ml PO Q4H PRN PRN Reason: Heartburn Stop: 07/30/23 14:11 Aspirin (Aspirin 81 Mg Ectab) 81 mg PO BID SAMANTHA Stop: 07/30/23 20:59 Last Admin: 07/22/23 07:56 Dose: 81 mg Bisacodyl (Bisacodyl 10 Mg Supp) 10 mg MT DAILY PRN PRN Reason: Constipation Stop: 07/30/23 14:11 Celecoxib (Celecoxib 100 Mg Cap) 100 mg PO BID SAMANTHA Stop: 07/31/23 08:59 Last Admin: 07/22/23 07:56 Dose: 100 mg Clonidine HCl (Clonidine Hcl 0.1 Mg/24 Hr Transderm Sys) 1 patch TD Q7D SAMANTHA Stop: 08/18/23 16:59 Last Admin: 07/19/23 17:46 Dose: 1 patch Cyanocobalamin (Cyanocobalamin (B-12) 500 Mcg Tablet) 1,000 mcg PO QAM SAMANTHA Stop: 08/02/23 08:59 Last Admin: 07/22/23 07:56 Dose: 1,000 mcg Docusate Sodium (Docusate Sodium 100 Mg Cap) 100 mg PO BID SAMANTHA Stop: 07/30/23 20:59 Last Admin: 07/22/23 07:56 Dose: 100 mg Ferrous Sulfate (Ferrous Sulfate 325 Mg Tab) 325 mg PO BIDM [facility] Stop: 08/03/23 16:59 Last Admin: 07/22/23 07:56 Dose: 325 mg Vancomycin HCl 1,250 mg/ (Sodium Chloride) 275 mls @ 200 mls/hr IV Q12H SAMANTHA Stop: 08/21/23 15:59 Last Infusion: 07/22/23 09:58 Dose: Infused Magnesium Hydroxide (Magnesium Hydroxide Susp 30 Ml Udc) 30 ml PO Q6H PRN PRN Reason: Constipation Stop: 07/30/23 14:11 Melatonin (Melatonin 3 Mg Tab) 6 mg PO HS PRN PRN Reason: Sleep Stop: 08/01/23 00:10 Last Admin: 07/22/23 02:04 Dose: 6 mg Miscellaneous (Remove Clonidine Patch) 1 each N/A CQWK SAMANTHA Stop: 08/18/23 16:59 Last Admin: 07/19/23 17:46 Dose: Not Given Miscellaneous (Check Clonidine Patch Placement) 1 each N/A QS [facility] Stop: 08/19/23 00:00 Last Admin: 07/22/23 07:57 Dose: 1 each Miscellaneous Information (Vancomycin Consult Active) 1 each N/A UD PRN PRN Reason: Consult Stop: 08/03/23 13:13 Multivitamins (Multivitamin Tab) 1 tab PO QAM [facility] Stop: 07/31/23 08:59 Last Admin: 07/22/23 07:56 Dose: 1 tab Ondansetron HCl (Ondansetron Inj 2 Mg/Ml 2 Ml Vial) 4 mg IV Q6H PRN PRN Reason: Nausea And Vomiting Stop: 07/30/23 14:11 Paroxetine HCl (Paroxetine Hcl 20 Mg Tab) 20 mg PO DAILY [facility] Stop: 07/29/23 08:59 Last Admin: 07/22/23 07:56 Dose: 20 mg Polyethylene Glycol (Polyethylene (Miralax) 17 Gm Pack) 17 gm PO DAILY PRN PRN Reason: Constipation Stop: 07/29/23 01:01 Quetiapine Fumarate (Quetiapine Fumarate 25 Mg Tablet) 25 mg PO Q12H PRN PRN Reason: Agitation Stop: 08/13/23 16:18 Last Admin: 07/21/23 22:24 Dose: 25 mg Quetiapine Fumarate (Quetiapine Fumarate 25 Mg Tablet) 75 mg PO HS [facility] Stop: 08/15/23 20:59 Last Admin: 07/21/23 20:30 Dose: 75 mg Rifampin (Rifampin 300 Mg Capsule) 300 mg PO BID SAMANTHA Stop: 08/15/23 20:59 Last Admin: 07/22/23 07:56 Dose: 300 mg Rosuvastatin Calcium (Rosuvastatin Calcium 10 Mg Tab) 10 mg PO DAILY SAMANTHA Stop: 07/29/23 08:59 Last Admin: 07/22/23 07:56 Dose: 10 mg Sennosides (Senna 8.6 Mg Tab) 17.2 mg PO HS [facility] Stop: 07/30/23 20:59 Last Admin: 07/21/23 20:29 Dose: 17.2 mg Tramadol HCl (Tramadol Hcl 50 Mg Tablet) 50 mg PO Q6H PRN PRN Reason: Pain Stop: 08/06/23 13:36 Last Admin: 07/22/23 07:55 Dose: 50 mg
--- NOTE | 2023-07-22 15:50 | Hospitalist Progress Note ---
Date of Service July 22, 2023 Assessment & Plan (1) Closed dislocation of right hip: Plan: Patient was at [facility] rehab, and woke up on 06/27 complaining of right hip pain. Unfortunately, he suffered dislocation of right hip prosthesis that was initially placed on June 08 of this year. He subsequently had revision of the right total hip arthroplasty on June 29. Appreciate orthopedic consultation and recommendations. Coag negative Staph isolated from the right hip area at the time of surgery on June 29. Infectious disease has recommended IV vancomycin therapy for 6 weeks through 08/10/23, along with rifampin Then, doxycycline 100mg po bid x 1 year along with rifampin x 3 more months through 11/10/23 PICC line not yet placed due to agitation Needs once weekly CBC, CMP while on antibiotics. Last labs drawn 07/21 today As per Ortho: weightbearing as tolerated with walker and T scope brace, PT/OT, and abduction pillow use x 6 weeks in bed, pillow between knees while seated in upright chair. F/u with Ortho around 07/17 Keep silverlon dressing in place and have sutures removed this week with Ortho surgeon's approval (2) Restlessness and agitation: Plan: Has been present since admission even before being started on Seroquel. He did receive a few doses of Zyprexa at the rehab prior to admission though His tremor and movements are bilateral in upper extremities and sometimes torso twists to the sides, is conscious and recognizes it is happening, it is frustrating Sometimes goes away with deep breathing and relaxing, focusing on a task, and able to feed himself without any tremor His Seroquel dose was titrated up due to agitation and not sleeping, some delirium as well----> perhaps tremor persisting because of atypical antipsychotic? Lytes fairly stable. With severe anemia requiring multiple blood transfusions, could be from iron deficiency? 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 He is expected to have behavioral dysregulation and supportive care and delirium precautions are recommended as well as trazodone 25 mg at bedtime for sleep instead of Seroquel. Avoidance of benzodiazepines is recommended but can use Seroquel as needed for agitation Neurology thinks the tremor is behavioral in origin and is secondary to agitation/overstimulation and recommends supporting his delirium as above. However after making the medication adjustments per neurology recommendations, patient's agitation got worse. He was taken off of Seroquel and was started on trazodone which made his agitation worse. Psychiatry was consulted on 07/13. They recommended discontinuing trazodone. They recommended against Zyprexa and Haldol. They recommended starting the patient back on Seroquel. Patient was restless through the night and is now sleeping during the day. His sleep-wake cycle is reversed. Currently on Seroquel 75 mg nightly with 25 mg of Seroquel use as needed. Psychiatry recommended not to exceed 200 mg in 24 hours. Patient was started on 0.1 mg of clonidine patch weekly. Zyprexa can be used for severe agitation, per psychiatry. Decided to give the patient his nighttime dose of Seroquel a little bit earlier at 5 PM. Continue supportive care, avoid overstimulation (3) Acute encephalopathy: Plan: Delirium developed while hospitalized. Supportive care Discontinue trazodone, Zyprexa, Haldol. Treat with Seroquel only Support sleep-wake cycles Give him tasks to do and distractions, Get him out of bed with physical therapy is much as possible Appreciate neurology and psychiatry consultation Ensure bowels are moving properly, regular meals as he is doing Encouraged pain control with tramadol and Tylenol as needed with nursing staff (4) S/P total hip arthroplasty: Plan: Right total hip arthroplasty on 06/09/[address] Reynolds. Unfortunately, he suffered a dislocation of the prosthesis while at rehab at [facility]. Subsequent revision on June 29. Continue aspirin 81 mg twice daily for DVT prophylaxis, oral rifampin for concerns about biofilm developing on the prosthesis from orthopedic standpoint, and parenteral vancomycin for the next 6 weeks. He will need weekly lab studies while on antibiotics according to infectious disease (5) Acute blood loss anemia: Plan: He has received multiple units of packed red blood cells this admission. Hemoglobin now stable. Oral iron replacement has been started and also received Venofer 700mg IV total Hgb improved now up to 9.4 Follow CBC once weekly while on antibiotics (6) Iron deficiency: Plan: Received parenteral iron replacement for 3 days and hemoglobin improving (7) Frontotemporal dementia: Plan: Chronic. Supportive care, noted neurology consultation as above With a h/o TBI and ICH 20+ years ago Previously followed with [facility] (8) Depression: Plan: Stable. Plan DVT proph-ASA 81mg po bid, [facility] not [facility] for their facility. His son has agreed to pursue [place] [facility] placement at the time of discharge. Awaiting improvement from mentation standpoint but insurance authorization is obtained as of 07/12 Admission and Anticipated Discharge Date Admission Date: June 28, 2023 Subjective Patient was restless overnight. Sleeping this morning. Review of Systems Review of Systems: Unobtainable due to cognitive status Physical Exam Physical Exam: General: Sleeping Heart: S1, S2/regular rate and rhythm, no murmur rubs or gallops Lungs: Clear to auscultation bilaterally. Normal effort Abdomen: Soft/nontender/nondistended. No hepatosplenomegaly Extremities: No clubbing/cyanosis. No edema Behavior: Unable to assess as I did not wake him up Results & Data Results & Data Vital Signs (Past 12 Hours) Vital Signs Temp Pulse Resp BP BP Pulse Ox O2 Del Method 07/22/23 15:07 36.7 C 71 16 130/86 100 Room Air 07/22/23 07:30 36.4 C L 73 18 123/81 98 Room Air 07/22/23 06:55 36.5 C 77 18 137/86 97 Room Air Laboratory Results Abnormal lab results 07/22/23 07/22/23 Range/Units 05:22 05:30 WBC 4.72 L (4.8-10.8) K/ul RBC 3.28 L (4.70-6.10) M/uL Hgb 9.7 L (14.0-18.0) g/dl Hct 30.1 L (42.0-52.0) % RDW Std Deviation 50.5 H (36.4-46.3) fL RDW Coeff of Jeffy 14.8 H (11.5-14.5) % BUN/Creatinine Ratio 22.7 H (10-20) Total Protein 5.7 L (6.0-8.3) gm/dl Albumin 3.3 L (3.4-5.0) gm/dl PG Care Time/CCT Total # of Minutes Spent Total Time Spent with Patient: Total time spent is greater than 50% in coordination of care (as documented) at patient's floor/unit and/or counseling patient: Coding Level of Care Code 61108 SUB INP/OBS CARE 2/35MIN Diagnoses Closed dislocation of right hip S73.004A Restlessness and agitation R45.1 Acute encephalopathy G93.40 S/P total hip arthroplasty Z96.649 Acute blood loss anemia D62 Iron deficiency E61.1 Frontotemporal dementia G31.09; F02.80 Depression F32.9
[2023-07-22] MEDS: QUEtiapine FUMARATE 25 MG TABLET PO SCH (17:19)
[2023-07-23] MEDS: OLANZapine 5 MG TABLET PO STA (00:07)
[2023-07-23] MEDS: MoRPHine SULFATE 2 MG/ML CARP IV STA (02:48)
[2023-07-23] MEDS: QUEtiapine FUMARATE 25 MG TABLET PO SCH (12:16)
--- NOTE | 2023-07-23 12:19 | Hospitalist Progress Note ---
Date of Service July 23, 2023 Assessment & Plan (1) Closed dislocation of right hip: Plan: Patient was at [facility] rehab, and woke up on 06/27 complaining of right hip pain. Unfortunately, he suffered dislocation of right hip prosthesis that was initially placed on June 08 of this year. He subsequently had revision of the right total hip arthroplasty on June 29. Appreciate orthopedic consultation and recommendations. Coag negative Staph isolated from the right hip area at the time of surgery on June 29. Infectious disease has recommended IV vancomycin therapy for 6 weeks through 08/10/23, along with rifampin Then, doxycycline 100mg po bid x 1 year along with rifampin x 3 more months through 11/10/23 PICC line not yet placed due to agitation Needs once weekly CBC, CMP while on antibiotics. Last labs drawn 07/21 today As per Ortho: weightbearing as tolerated with walker and T scope brace, PT/OT, and abduction pillow use x 6 weeks in bed, pillow between knees while seated in upright chair. F/u with Ortho around 07/17 Keep silverlon dressing in place and have sutures removed this week with Ortho surgeon's approval (2) Restlessness and agitation: Plan: Has been present since admission even before being started on Seroquel. He did receive a few doses of Zyprexa at the rehab prior to admission though His tremor and movements are bilateral in upper extremities and sometimes torso twists to the sides, is conscious and recognizes it is happening, it is frustrating Sometimes goes away with deep breathing and relaxing, focusing on a task, and able to feed himself without any tremor His Seroquel dose was titrated up due to agitation and not sleeping, some delirium as well----> perhaps tremor persisting because of atypical antipsychotic? Lytes fairly stable. With severe anemia requiring multiple blood transfusions, could be from iron deficiency? 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 He is expected to have behavioral dysregulation and supportive care and delirium precautions are recommended as well as trazodone 25 mg at bedtime for sleep instead of Seroquel. Avoidance of benzodiazepines is recommended but can use Seroquel as needed for agitation Neurology thinks the tremor is behavioral in origin and is secondary to agitation/overstimulation and recommends supporting his delirium as above. However after making the medication adjustments per neurology recommendations, patient's agitation got worse. He was taken off of Seroquel and was started on trazodone which made his agitation worse. Psychiatry was consulted on 07/13. They recommended discontinuing trazodone. They recommended against Zyprexa and Haldol. They recommended starting the patient back on Seroquel. Patient was restless through the night . His sleep-wake cycle is reversed. Currently on Seroquel 75 mg nightly with 25 mg of Seroquel use as needed. Psychiatry recommended not to exceed 200 mg in 24 hours. Patient was started on 0.1 mg of clonidine patch weekly. Zyprexa can be used for severe agitation, per psychiatry. Decided to give the patient his nighttime dose of Seroquel a little bit earlier at 5 PM and add 25 mg of Seroquel every morning Continue supportive care, avoid overstimulation (3) Acute encephalopathy: Plan: Delirium developed while hospitalized. Supportive care Discontinue trazodone, Zyprexa, Haldol. Treat with Seroquel only Support sleep-wake cycles Give him tasks to do and distractions, Get him out of bed with physical therapy is much as possible Appreciate neurology and psychiatry consultation Ensure bowels are moving properly, regular meals as he is doing Encouraged pain control with tramadol and Tylenol as needed with nursing staff (4) S/P total hip arthroplasty: Plan: Right total hip arthroplasty on 06/09/[address] Reynolds. Unfortunately, he suffered a dislocation of the prosthesis while at rehab at [facility]. Subsequent revision on June 29. Continue aspirin 81 mg twice daily for DVT prophylaxis, oral rifampin for concerns about biofilm developing on the prosthesis from orthopedic standpoint, and parenteral vancomycin for the next 6 weeks. He will need weekly lab studies while on antibiotics according to infectious disease (5) Acute blood loss anemia: Plan: He has received multiple units of packed red blood cells this admission. Hemoglobin now stable. Oral iron replacement has been started and also received Venofer 700mg IV total Hgb improved now up to 9.4 Follow CBC once weekly while on antibiotics (6) Iron deficiency: Plan: Received parenteral iron replacement for 3 days and hemoglobin improving (7) Frontotemporal dementia: Plan: Chronic. Supportive care, noted neurology consultation as above With a h/o TBI and ICH 20+ years ago Previously followed with [facility] (8) Depression: Plan: Stable. Plan DVT proph-ASA 81mg po bid, SCDs [facility] has determined that the patient is not suitable for their facility. His son has agreed to pursue [place] placement at the time of discharge. Awaiting improvement from mentation standpoint but insurance authorization is obtained as of 07/12 Admission and Anticipated Discharge Date Admission Date: June 28, 2023 Subjective Patient did not sleep all night despite taking Seroquel earlier. He is still restless. Review of Systems Review of Systems: All systems reviewed & are unremarkable except as noted in Subjective Physical Exam Physical Exam: General: Awake, conversant. Slightly restless but not agitated or combative Heart: S1, S2/regular rate and rhythm, no murmur rubs or gallops Lungs: Clear to auscultation bilaterally. Normal effort Abdomen: Soft/nontender/nondistended. No hepatosplenomegaly Extremities: No clubbing/cyanosis. No edema Behavior: Appropriate, cooperative Results & Data Results & Data Vital Signs (Past 12 Hours) Vital Signs Temp Pulse Resp BP Pulse Ox O2 Del Method 07/23/23 07:32 36.8 C 75 18 159/89 H 99 Room Air PG Care Time/CCT Total # of Minutes Spent Total Time Spent with Patient: Total time spent is greater than 50% in coordination of care (as documented) at patient's floor/unit and/or counseling patient: Coding Level of Care Code 51068 SUB INP/OBS CARE 2/35MIN Diagnoses Closed dislocation of right hip S73.004A Restlessness and agitation R45.1 Acute encephalopathy G93.40 S/P total hip arthroplasty Z96.649 Acute blood loss anemia D62 Iron deficiency E61.1 Frontotemporal dementia G31.09; F02.80 Depression F32.9
[2023-07-23] MEDS: OLANZapine 10 MG/2.1 ML SDV IM STA (15:59)
[2023-07-24 08:29] LABS: Creatinine Clr Calc Pharmacy 107.3 ml/min; Est GFR (African American) 116.5 ml/min; Est GFR (Non-African American) 100.5 ml/min
[2023-07-24] MEDS: OLANZapine 10 MG/2.1 ML SDV IM PRN (09:59)
--- NOTE | 2023-07-24 14:48 | Hospitalist Progress Note ---
Date of Service July 24, 2023 Assessment & Plan (1) Closed dislocation of right hip: Plan: Patient was at [facility], and woke up on 06/27 complaining of right hip pain. Unfortunately, he suffered dislocation of right hip prosthesis that was initially placed on June 08 of this year. He subsequently had revision of the right total hip arthroplasty on June 29. Appreciate orthopedic consultation and recommendations. Coag negative Staph isolated from the right hip area at the time of surgery on June 29. Infectious disease has recommended IV vancomycin therapy for 6 weeks through 08/10/23, along with rifampin Then, doxycycline 100mg po bid x 1 year along with rifampin x 3 more months through 11/10/23 PICC line not yet placed due to agitation Needs once weekly CBC, CMP while on antibiotics. Last labs drawn 07/21 today As per Ortho: weightbearing as tolerated with walker and T scope brace, PT/OT, and abduction pillow use x 6 weeks in bed, pillow between knees while seated in upright chair. F/u with Ortho around 07/17 Keep silverlon dressing in place and have sutures removed this week with Ortho surgeon's approval (2) Restlessness and agitation: Plan: Has been present since admission even before being started on Seroquel. He did receive a few doses of Zyprexa at the rehab prior to admission though His tremor and movements are bilateral in upper extremities and sometimes torso twists to the sides, is conscious and recognizes it is happening, it is frustrating Sometimes goes away with deep breathing and relaxing, focusing on a task, and able to feed himself without any tremor His Seroquel dose was titrated up due to agitation and not sleeping, some delirium as well----> perhaps tremor persisting because of atypical antipsychotic? Lytes fairly stable. With severe anemia requiring multiple blood transfusions, could be from iron deficiency? 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 He is expected to have behavioral dysregulation and supportive care and delirium precautions are recommended as well as trazodone 25 mg at bedtime for sleep instead of Seroquel. Avoidance of benzodiazepines is recommended but can use Seroquel as needed for agitation Neurology thinks the tremor is behavioral in origin and is secondary to agitation/overstimulation and recommends supporting his delirium as above. However after making the medication adjustments per neurology recommendations, patient's agitation got worse. He was taken off of Seroquel and was started on trazodone which made his agitation worse. Psychiatry was consulted on 07/13. They recommended discontinuing trazodone. They recommended against Zyprexa and Haldol. They recommended starting the patient back on Seroquel. Patient was restless through the night . His sleep-wake cycle is reversed. Currently on Seroquel 75 mg nightly with 25 mg of Seroquel use as needed. Psychiatry recommended not to exceed 200 mg in 24 hours. Patient was started on 0.1 mg of clonidine patch weekly. Zyprexa can be used for severe agitation, per psychiatry. Decided to give the patient his nighttime dose of Seroquel a little bit earlier at 5 PM and add 25 mg of Seroquel every morning. Added Zyprexa 2.5 mg every 12 as needed IM Continue supportive care, avoid overstimulation (3) Acute encephalopathy: Plan: Delirium developed while hospitalized. Supportive care Discontinue trazodone, Zyprexa, Haldol. Treat with Seroquel only Support sleep-wake cycles Give him tasks to do and distractions, Get him out of bed with physical therapy is much as possible Appreciate neurology and psychiatry consultation Ensure bowels are moving properly, regular meals as he is doing Encouraged pain control with tramadol and Tylenol as needed with nursing staff (4) S/P total hip arthroplasty: Plan: Right total hip arthroplasty on 06/09/[address] Reynolds. Unfortunately, he suffered a dislocation of the prosthesis while at rehab at [facility]. Subsequent revision on June 29. Continue aspirin 81 mg twice daily for DVT prophylaxis, oral rifampin for concerns about biofilm developing on the prosthesis from orthopedic standpoint, and parenteral vancomycin for the next 6 weeks. He will need weekly lab studies while on antibiotics according to infectious disease (5) Acute blood loss anemia: Plan: He has received multiple units of packed red blood cells this admission. Hemoglobin now stable. Oral iron replacement has been started and also received Venofer 700mg IV total Hgb improved now up to 9.4 Follow CBC once weekly while on antibiotics (6) Iron deficiency: Plan: Received parenteral iron replacement for 3 days and hemoglobin improving (7) Frontotemporal dementia: Plan: Chronic. Supportive care, noted neurology consultation as above With a h/o TBI and ICH 20+ years ago Previously followed with [facility] (8) Depression: Plan: Stable. Plan DVT proph-ASA 81mg po bid, SCDs [facility] has determined that the patient is not suitable for their facility. His son has agreed to pursue [facility] placement at the time of discharge. Awaiting improvement from mentation standpoint but insurance authorization is obtained as of 07/12 Admission and Anticipated Discharge Date Admission Date: June 28, 2023 Subjective Patient has had moments of agitation. Screaming and yelling in the room. Zypr exa worked well yesterday. Review of Systems Review of Systems: Unobtainable due to cognitive status Physical Exam Physical Exam: General: Awake, conversant. Slightly restless but not agitated or combative Heart: S1, S2/regular rate and rhythm, no murmur rubs or gallops Lungs: Clear to auscultation bilaterally. Normal effort Abdomen: Soft/nontender/nondistended. No hepatosplenomegaly Extremities: No clubbing/cyanosis. No edema Behavior: Appropriate, cooperative Results & Data Results & Data Vital Signs (Past 12 Hours) Vital Signs Temp Pulse Resp BP Pulse Ox O2 Del Method 07/24/23 07:15 36.9 C 73 16 125/80 97 Room Air PG Care Time/CCT Total # of Minutes Spent Total Time Spent with Patient: Total time spent is greater than 50% in coordination of care (as documented) at patient's floor/unit and/or counseling patient: Coding Level of Care Code 92290 SUB INP/OBS CARE 2/35MIN Diagnoses Closed dislocation of right hip S73.004A Restlessness and agitation R45.1 Acute encephalopathy G93.40 S/P total hip arthroplasty Z96.649 Acute blood loss anemia D62 Iron deficiency E61.1 Frontotemporal dementia G31.09; F02.80 Depression F32.9
--- NOTE | 2023-07-25 15:56 | Hospitalist Progress Note ---
Date of Service July 25, 2023 Assessment & Plan (1) Closed dislocation of right hip: Plan: Patient was at [facility], and woke up on 06/27 complaining of right hip pain. Unfortunately, he suffered dislocation of right hip prosthesis that was initially placed on June 08 of this year. He subsequently had revision of the right total hip arthroplasty on June 29. Appreciate orthopedic consultation and recommendations. Coag negative Staph isolated from the right hip area at the time of surgery on June 29. Infectious disease has recommended IV vancomycin therapy for 6 weeks through 08/10/23, along with rifampin Then, doxycycline 100mg po bid x 1 year along with rifampin x 3 more months through 11/10/23 PICC line not yet placed due to agitation Needs once weekly CBC, CMP while on antibiotics. Last labs drawn 07/21 today As per Ortho: weightbearing as tolerated with walker and T scope brace, PT/OT, and abduction pillow use x 6 weeks in bed, pillow between knees while seated in upright chair. F/u with Ortho around 07/17 Keep silverlon dressing in place and have sutures removed this week with Ortho surgeon's approval (2) Restlessness and agitation: Plan: Has been present since admission even before being started on Seroquel. He did receive a few doses of Zyprexa at the rehab prior to admission though His tremor and movements are bilateral in upper extremities and sometimes torso twists to the sides, is conscious and recognizes it is happening, it is frustrating Sometimes goes away with deep breathing and relaxing, focusing on a task, and able to feed himself without any tremor His Seroquel dose was titrated up due to agitation and not sleeping, some delirium as well----> perhaps tremor persisting because of atypical antipsychotic? Lytes fairly stable. With severe anemia requiring multiple blood transfusions, could be from iron deficiency? 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 He is expected to have behavioral dysregulation and supportive care and delirium precautions are recommended as well as trazodone 25 mg at bedtime for sleep instead of Seroquel. Avoidance of benzodiazepines is recommended but can use Seroquel as needed for agitation Neurology thinks the tremor is behavioral in origin and is secondary to agitation/overstimulation and recommends supporting his delirium as above. However after making the medication adjustments per neurology recommendations, patient's agitation got worse. He was taken off of Seroquel and was started on trazodone which made his agitation worse. Psychiatry was consulted on 07/13. They recommended discontinuing trazodone. They recommended against Zyprexa and Haldol. They recommended starting the patient back on Seroquel. Patient was restless through the night . His sleep-wake cycle is reversed. Currently on Seroquel 75 mg nightly with 25 mg of Seroquel use as needed. Psychiatry recommended not to exceed 200 mg in 24 hours. Patient was started on 0.1 mg of clonidine patch weekly. Zyprexa can be used for severe agitation, per psychiatry. Decided to give the patient his nighttime dose of Seroquel a little bit earlier at 5 PM and add 25 mg of Seroquel every morning. Added Zyprexa 2.5 mg every 12 as needed IM Today 07/24, he is much more calm and composed. He is able to hold a conversation. Per nurse, his son brought him his hearing aids yesterday 07/23 and since then he has been much more cooperative. Continue supportive care, avoid overstimulation (3) Acute encephalopathy: Plan: Delirium developed while hospitalized. Supportive care Discontinue trazodone, Zyprexa, Haldol. Treat with Seroquel only Support sleep-wake cycles Give him tasks to do and distractions, Get him out of bed with physical therapy is much as possible Appreciate neurology and psychiatry consultation Ensure bowels are moving properly, regular meals as he is doing Encouraged pain control with tramadol and Tylenol as needed with nursing staff (4) S/P total hip arthroplasty: Plan: Right total hip arthroplasty on 06/09/[address] Reynolds. Unfortunately, he suffered a dislocation of the prosthesis while at rehab at [facility]. Subsequent revision on June 29. Continue aspirin 81 mg twice daily for DVT prophylaxis, oral rifampin for concerns about biofilm developing on the prosthesis from orthopedic standpoint, and parenteral vancomycin for the next 6 weeks. He will need weekly lab studies while on antibiotics according to infectious disease (5) Acute blood loss anemia: Plan: He has received multiple units of packed red blood cells this admission. Hemoglobin now stable. Oral iron replacement has been started and also received Venofer 700mg IV total Hgb improved now up to 9.4 Follow CBC once weekly while on antibiotics (6) Iron deficiency: Plan: Received parenteral iron replacement for 3 days and hemoglobin improving (7) Frontotemporal dementia: Plan: Chronic. Supportive care, noted neurology consultation as above With a h/o TBI and ICH 20+ years ago Previously followed with [facility] (8) Depression: Plan: Stable. Plan DVT proph-ASA 81mg po bid, SCDs [facility] has determined that the patient is not suitable for their facility. His son has agreed to pursue [facility] placement at the time of d ischarge. Awaiting improvement from mentation standpoint but insurance authorization is obtained as of 07/12 Admission and Anticipated Discharge Date Admission Date: June 28, 2023 Subjective Patient is sitting up in the recliner. He is able to hold a conversation today. Much calmer. He was able to recognize me saying "you are the doctor". Per nurse, his son brought his hearing aids yesterday 07/23 and since then he has been much less agitated. Review of Systems Review of Systems: All systems reviewed & are unremarkable except as noted in Subjective Physical Exam Physical Exam: General: Awake, conversant. Heart: S1, S2/regular rate and rhythm, no murmur rubs or gallops Lungs: Clear to auscultation bilaterally. Normal effort Abdomen: Soft/nontender/nondistended. No hepatosplenomegaly Extremities: No clubbing/cyanosis. No edema Behavior: Appropriate, cooperative Results & Data Results & Data Vital Signs (Past 12 Hours) Vital Signs Temp Pulse Resp BP BP Pulse Ox O2 Del Method 07/25/23 15:27 37.3 C 74 18 108/67 97 Room Air 07/25/23 07:11 36.6 C 83 18 158/91 H 98 Room Air PG Care Time/CCT Total # of Minutes Spent Total Time Spent with Patient: Total time spent is greater than 50% in coordination of care (as documented) at patient's floor/unit and/or counseling patient: Coding Level of Care Code 83949 SUB INP/OBS CARE 2/35MIN Diagnoses Closed dislocation of right hip S73.004A Restlessness and agitation R45.1 Acute encephalopathy G93.40 S/P total hip arthroplasty Z96.649 Acute blood loss anemia D62 Iron deficiency E61.1 Frontotemporal dementia G31.09; F02.80 Depression F32.9
[2023-07-26 07:00] LABS: Creatinine Clr Calc Pharmacy 96.4 ml/min; Est GFR (African American) 111.5 ml/min; Est GFR (Non-African American) 96.2 ml/min
--- NOTE | 2023-07-26 14:54 | Hospitalist Progress Note ---
Date of Service July 26, 2023 Assessment & Plan (1) Closed dislocation of right hip: Plan: Patient was at [facility], and woke up on 06/27 complaining of right hip pain. Unfortunately, he suffered dislocation of right hip prosthesis that was initially placed on June 08 of this year. He subsequently had revision of the right total hip arthroplasty on June 29. Appreciate orthopedic consultation and recommendations. Coag negative Staph isolated from the right hip area at the time of surgery on June 29. Infectious disease has recommended IV vancomycin therapy for 6 weeks through 08/10/23, along with rifampin Then, doxycycline 100mg po bid x 1 year along with rifampin x 3 more months through 11/10/23 PICC line not yet placed due to agitation Needs once weekly CBC, CMP while on antibiotics. Last labs drawn 07/21 As per Ortho: weightbearing as tolerated with walker and T scope brace, PT/OT, and abduction pillow use x 6 weeks in bed, pillow between knees while seated in upright chair. F/u with Ortho around 07/17 Keep silverlon dressing in place and have sutures removed this week with Ortho surgeon's approval (2) Restlessness and agitation: Plan: Has been present since admission even before being started on Seroquel. He did receive a few doses of Zyprexa at the rehab prior to admission though His tremor and movements are bilateral in upper extremities and sometimes torso twists to the sides, is conscious and recognizes it is happening, it is frustrating Sometimes goes away with deep breathing and relaxing, focusing on a task, and able to feed himself without any tremor His Seroquel dose was titrated up due to agitation and not sleeping, some delirium as well----> perhaps tremor persisting because of atypical antipsychotic? Lytes fairly stable. With severe anemia requiring multiple blood transfusions, could be from iron deficiency? Also received 3 IV iron infusions without improvement Consult Neuro 07/11 for further input appreciated-thinks this is behavioral v ariant frontotemporal dementia without semantic speech issues or memory impairment-treatment with SSRI such as Paxil which she currently is on is recommended. He is expected to have behavioral dysregulation and supportive care and delirium precautions are recommended as well as trazodone 25 mg at bedtime for sleep instead of Seroquel. Avoidance of benzodiazepines is recommended but can use Seroquel as needed for agitation Neurology thinks the tremor is behavioral in origin and is secondary to agitation/overstimulation and recommends supporting his delirium as above. However after making the medication adjustments per neurology recommendations, patient's agitation got worse. He was taken off of Seroquel and was started on trazodone which made his agitation worse. Psychiatry was consulted on 07/13. They recommended discontinuing trazodone. They recommended against Zyprexa and Haldol. They recommended starting the patient back on Seroquel. Patient was restless through the night . His sleep-wake cycle is reversed. Currently on Seroquel 75 mg nightly with 25 mg of Seroquel use as needed. Psychiatry recommended not to exceed 200 mg in 24 hours. Patient was started on 0.1 mg of clonidine patch weekly. Zyprexa can be used for severe agitation, per psychiatry. Decided to give the patient his nighttime dose of Seroquel a little bit earlier at 5 PM and add 25 mg of Seroquel every morning. Added Zyprexa 2.5 mg every 12 as needed IM On 07/24 he was calm and composed during the daytime. However, at night he went back to his agitated state requiring IM Zyprexa. Continue supportive care, avoid overstimulation (3) Acute encephalopathy: Plan: Delirium developed while hospitalized. Supportive care Discontinue trazodone, Zyprexa, Haldol. Treat with Seroquel only Support sleep-wake cycles Give him tasks to do and distractions, Get him out of bed with physical therapy is much as possible Appreciate neurology and psychiatry consultation Ensure bowels are moving properly, regular meals as he is doing Encouraged pain control with tramadol and Tylenol as needed with nursing staff (4) S/P total hip arthroplasty: Plan: Right total hip arthroplasty on 06/09/[address] Reynolds. Unfortunately, he suffered a dislocation of the prosthesis while at rehab at [facility]. Subsequent revision on June 29. Continue aspirin 81 mg twice daily for DVT prophylaxis, oral rifampin for concerns about biofilm developing on the prosthesis from orthopedic standpoint, and parenteral vancomycin for the next 6 weeks. He will need weekly lab studies while on antibiotics according to infectious disease (5) Acute blood loss anemia: Plan: He has received multiple units of packed red blood cells this admission. Hemoglobin now stable. Oral iron replacement has been started and also received Venofer 700mg IV total Hgb improved now up to 9.4 Follow CBC once weekly while on antibiotics (6) Iron deficiency: Plan: Received parenteral iron replacement for 3 days and hemoglobin improving (7) Frontotemporal dementia: Plan: Chronic. Supportive care, noted neurology consultation as above With a h/o TBI and ICH 20+ years ago Previously followed with [facility] (8) Depression: Plan: Stable. Plan DVT proph-ASA 81mg po bid, SCDs [facility] has determined that the patient is not suitable for their facility. His son has agreed to pursue [facility] placement at the time of discharge. Awaiting improvement from mentation standpoint but insurance au thorization is obtained as of 07/12 Admission and Anticipated Discharge Date Admission Date: June 28, 2023 Subjective Patient seemed to be doing well yesterday during the daytime. However, overnight he went back to his agitated state with screaming and yelling and throwing objects at staff, requiring IM Zyprexa. This morning, he is on his recliner. Able to hold a conversation. Confused. Review of Systems Review of Systems: All systems reviewed & are unremarkable except as noted in Subjective Physical Exam Physical Exam: General: Awake, conversant. Heart: S1, S2/regular rate and rhythm, no murmur rubs or gallops Lungs: Clear to auscultation bilaterally. Normal effort Abdomen: Soft/nontender/nondistended. No hepatosplenomegaly Extremities: No clubbing/cyanosis. No edema Behavior: Appropriate, cooperative Results & Data Results & Data Vital Signs (Past 12 Hours) Vital Signs Temp Pulse Resp BP Pulse Ox O2 Del Method 07/26/23 13:45 36.7 C 71 18 107/63 97 Room Air 07/26/23 08:00 Room Air 07/26/23 07:24 36.5 C 86 18 149/86 H 98 Room Air PG Care Time/CCT Total # of Minutes Spent Total Time Spent with Patient: Total time spent is greater than 50% in coordination of care (as documented) at patient's floor/unit and/or counseling patient: Coding Level of Care Code 38538 SUB INP/OBS CARE 2/35MIN Diagnoses Closed dislocation of right hip S73.004A Restlessness and agitation R45.1 Acute encephalopathy G93.40 S/P total hip arthroplasty Z96.649 Acute blood loss anemia D62 Iron deficiency E61.1 Frontotemporal dementia G31.09; F02.80 Depression F32.9
--- NOTE | 2023-07-27 09:34 | Pharmacy Report ---
Pharmacy PK ABX Note - Date of Service July 27, 2023 - Assessment and Plan Assessment 07/26: Vancomycin level was 16.3 mcg/mL this AM; predicted AUC 555. Continue current regimen 07/21: Vancomycin level was 15.6 mcg/mL this AM; predicted AUC 591. Continue current regimen. 07/15: Vancomycin level =15.2mcg/mL; predicted AUC 548 mg/dL. continue current regimen. 07/14: Vancomycin level = 16.4 mcg/mL; predicted AUC 548 mg/dL. Continue current regimen. 07/11: Vancomycin level =14.5mcg/mL, which predicts a therapeutic AUC of 556, continue current regimen 07/09: Vancomycin level = 20.9 mcg/mL, which is associated with a slightly supratherapeutic AUC of 610. Will reduce dose slightly. 07/07: Vancomycin level = 17 mcg/ml at 08:46 AM today. 07/05: Vancomycin level today came back at ~12 mcg/ml - this dosing is correlating to goal AUC/RAIMUNDO 400-600. Plan to continue same regimen. 07/03: 68 year old M receiving started on vancomycin and rifampin for joint infection. Preliminary cultures with coagulase negative staph. Patient is s/p hip replacement 06/08. He suffered dislocation of prosthesis and required hip revision 06/29. Day # 1 of antimicrobial therapy. Plan Vancomycin * Current regimen: 1250 mg IV every 12 hours * Random level obtained today resulted as 16.3 mcg/mL. Predicted AUC at steady state: 555 mg/L.hr with probability of nephrotoxicity at 10% * Goal AUC/RAIMUNDO of 400-600 mg/L.hr * Repeat random level to be ordered later this week or sooner based on clinical status Pharmacy will continue to follow and will adjust dose/frequency as necessary. Thank you. Pharmacy has transitioned to AUC monitoring for vancomycin. AUC/RAIMUNDO is the preferred PK/PD target and is associated with decreased risk of nephrotoxicity compared to traditional trough targets.
--- NOTE | 2023-07-27 15:02 | Hospitalist Progress Note ---
Date of Service July 27, 2023 Assessment & Plan (1) Closed dislocation of right hip: Plan: Patient was at [facility]hab, and woke up on 06/27 complaining of right hip pain. Unfortunately, he suffered dislocation of right hip prosthesis that was initially placed on June 08 of this year. He subsequently had revision of the right total hip arthroplasty on June 29. Appreciate orthopedic consultation and recommendations. Coag negative Staph isolated from the right hip area at the time of surgery on June 29. Infectious disease has recommended IV vancomycin therapy for 6 weeks through 08/10/23, along with rifampin Then, doxycycline 100mg po bid x 1 year along with rifampin x 3 more months through 11/10/23 PICC line not yet placed due to agitation Needs once weekly CBC, CMP while on antibiotics. Last labs drawn 07/21 As per Ortho: weightbearing as tolerated with walker and T scope brace, PT/OT, and abduction pillow use x 6 weeks in bed, pillow between knees while seated in upright chair. F/u with Ortho around 07/17 but patient never discharged from the hospital. Orthopedics saw the patient in the hospital on 07/17. (2) Restlessness and agitation: Plan: Has been present since admission even before being started on Seroquel. He did receive a few doses of Zyprexa at the rehab prior to admission though His tremor and movements are bilateral in upper extremities and sometimes torso twists to the sides, is conscious and recognizes it is happening, it is frustrating Sometimes goes away with deep breathing and relaxing, focusing on a task, and able to feed himself without any tremor His Seroquel dose was titrated up due to agitation and not sleeping, some delirium as well----> perhaps tremor persisting because of atypical antipsychotic? Lytes fairly stable. With severe anemia requiring multiple blood transfusions, could be from iron deficiency? 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 He is expected to have behavioral dysregulation and supportive care and delirium precautions are recommended as well as trazodone 25 mg at bedtime for sleep instead of Seroquel. Avoidance of benzodiazepines is recommended but can use Seroquel as needed for agitation Neurology thinks the tremor is behavioral in origin and is secondary to agitation/overstimulation and recommends supporting his delirium as above. However after making the medication adjustments per neurology recommendations, patient's agitation got worse. He was taken off of Seroquel and was started on trazodone which made his agitation worse. Psychiatry was consulted on 07/13. They recommended discontinuing trazodone. They recommended against Zyprexa and Haldol. They recommended starting the patient back on Seroquel. Patient was restless through the night . His sleep-wake cycle is reversed. Currently on Seroquel 75 mg nightly with 25 mg of Seroquel use as needed. Psychiatry recommended not to exceed 200 mg in 24 hours. Patient was started on 0.1 mg of clonidine patch weekly. Zyprexa can be used for severe agitation, per psychiatry. Decided to give the patient his nighttime dose of Seroquel a little bit earlier at 5 PM and add 25 mg of Seroquel every morning. Added Zyprexa 2.5 mg every 12 as needed IM On 07/24 and 07/25 he was calm and composed during the daytime. However, at night he went back to his agitated state requiring IM Zyprexa. Continue supportive care, avoid overstimulation (3) Acute encephalopathy: Plan: Delirium developed while hospitalized. Supportive care Discontinue trazodone, Zyprexa, Haldol. Treat with Seroquel only Support sleep-wake cycles Give him tasks to do and distractions, Get him out of bed with physical therapy is much as possible Appreciate neurology and psychiatry consultation Ensure bowels are moving properly, regular meals as he is doing Encouraged pain control with tramadol and Tylenol as needed with nursing staff (4) S/P total hip arthroplasty: Plan: Right total hip arthroplasty on 06/09/[address] Reynolds. Unfortunately, he suffered a dislocation of the prosthesis while at rehab at [facility]. Subsequent revision on June 29. Continue aspirin 81 mg twice daily for DVT prophylaxis, oral rifampin for concerns about biofilm developing on the prosthesis from orthopedic standpoint, and parenteral vancomycin for the next 6 weeks. He will need weekly lab studies while on antibiotics according to infectious disease (5) Acute blood loss anemia: Plan: He has received multiple units of packed red blood cells this admission. Hemoglobin now stable. Oral iron replacement has been started and also received Venofer 700mg IV total Hgb improved now up to 9.4 Follow CBC once weekly while on antibiotics (6) Iron deficiency: Plan: Received parenteral iron replacement for 3 days and hemoglobin improving (7) Frontotemporal dementia: Plan: Chronic. 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 Plan DVT proph-ASA 81mg po bid, SCDs [facility] has determined that the patient is not suitable for their facility. His son has agreed to pursue [facility] placement at the time of discharge. Awaiting improvement from mentation standpoint but insurance authorization is obtained as of 07/12 Admission and Anticipated Discharge Date Admission Date: June 28, 2023 Subjective Patient is sitting on the recliner. Smiling at jokes. Calm and composed. But overnight, he was very agitated requiring Zyprexa. Review of Systems Review of Systems: All systems reviewed & are unremarkable except as noted in Subjective Physical Exam Physical Exam: General: Awake, conversant. Heart: S1, S2/regular rate and rhythm, no murmur rubs or gallops Lungs: Clear to auscultation bilaterally. Normal effort Abdomen: Soft/nontender/nondistended. No hepatosplenomegaly Extremities: No clubbing/cyanosis. No edema Behavior: Appropriate, cooperative Results & Data Results & Data Vital Signs (Past 12 Hours) Vital Signs Temp Pulse Resp BP Pulse Ox O2 Del Method 07/27/23 08:00 Room Air 07/27/23 08:00 36.8 C 79 18 130/81 96 Room Air PG Care Time/CCT Total # of Minutes Spent Total Time Spent with Patient: Total time spent is greater than 50% in coordination of care (as documented) at patient's floor/unit and/or counseling patient: Coding Level of Care Code 72806 SUB INP/OBS CARE 2/35MIN Diagnoses Closed dislocation of right hip S73.004A Restlessness and agitation R45.1 Acute encephalopathy G93.40 S/P total hip arthroplasty Z96.649 Acute blood loss anemia D62 Iron deficiency E61.1 Frontotemporal dementia G31.09; F02.80 Depression F32.9
[2023-07-28 06:49] LABS: Creatinine Clr Calc Pharmacy 100.8 ml/min; Est GFR (African American) 113.5 ml/min
--- NOTE | 2023-07-28 14:35 | Psychiatric Progress Note ---
Date of Service July 28, 2023 Impression / Recommendations Impression 68-year-old male arrived on 06/28/2023 for dislocation of the right hip prosthesis and received revision surgery on 06/30/2023. Was found to have staff isolated in the right hip and treated with IV antibiotics. 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 Psychiatry consulted for agitation recommendations. 07/28/2023: Ongoing hyperactive delirium predominantly at night resulting in increased confusion and agitation and poor sleep. Would benefit from a decrease in sedating and anticholinergic medication during the day and scheduling sedating medication at night for improved sleep/wake cycle. Unlikely that Quetiapine or Olanzapine at the current doses would precipitate EPS. (1) Acute hyperactive delirium due to multiple etiologies: (2) Frontotemporal dementia: (3) History of revision of total replacement of right hip joint: Plan -Continue with delirium prevention/management strategies including exposure to light during the day, re-orientation, attempting to keep environment calm and quiet to promote sleep at night -Decrease Paroxetine to 10mg QAM -Discontinue Quetiapine 25mg QAM -Quetiapine 75 to 100mg QHS -Melatonin HS -Continue Olanzapine 2.5mg IM Q8hr for agitation Interval History Identifying Information 68-year-old male arrived on 06/28/2023 for dislocation of the right hip prosthesis and received revision surgery on 06/30/2023. Was found to have staff isolated in the right hip and treated with IV antibiotics. 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 Psychiatry consulted for agitation recommendations. Chief Complaint Agitation recommendations Subjective Subjective Chart review: Patient presented with agitated episodes the last 2 nights with verbal and physical aggression towards care staff and required olanzapine 2.5 mg IM for behavioral control. On exam patient is alert and oriented to name year month city and current condition. He does not remember the events of last night. He denies suicidal ideation. Denies having a history of depression or psychiatric problems. He confirms that his head trauma was falling off the roof in 2000. He denies having significant memory or concentration problems after his head trauma. He reports 3 out of 10 right hip pain. On 3 item recall he remembered 2 words. He presents a bright affect and appears to be in good spirits. He endorses having confusion late at night. Procedures Performed Operation Date: 06/30/23 10:40 Actual Procedures p Right Hip Prosthetic dislocation Open Reduction with Total Hip Revision(Right) - Alec Reynolds MD Physical Exam Psychiatric Orientation: alert and cooperative Apperance: + disheveled Eye Contact: + fair eye contact Motor Behavior: no abnormal motor movements; n EPS and n tremor Speech: + abnormal rate/rhythm/volume of speech (mumbled but understandable ) slowed Affect: + constricted affect fair Thought Process: linear/logical thought process unremarkable Suicidal Thoughts: denies suicidal thoughts Homicidal Thoughts: denies homicidal thoughts denies unable to recall nightly events limited poor, nightly delirium and aggression Vital Signs (Past 24 Hours) Last Vital Signs Temp 36.8 C 07/28/23 07:49 Pulse 85 07/28/23 07:49 Resp 18 07/28/23 07:49 BP 139/82 07/28/23 07:49 Pulse Ox 99 07/28/23 07:49 O2 Del Method Room Air 07/28/23 07:49 O2 Flow Rate 2 06/29/23 08:20 Results & Data ([facility]) Laboratory Results Laboratory Results - last 24 hr 07/28/23 05:22 Creatinine 0.66 Est Cr Clr Drug Dosing 100.8 Est GFR ( Amer) 113.5 Est GFR (Non-Af Amer) 98.0 Current Inpatient Medications Current Inpatient Medications: Current Inpatient Medications Acetaminophen (Acetaminophen 500 Mg Tab) 1,000 mg PO TID [facility] Stop: 08/10/23 14:59 Last Admin: 07/28/23 10:29 Dose: 1,000 mg Al Hydrox/Mg Hydrox/Simethicone (Aluminum/Magnesium Susp 30 Ml Udc) 15 ml PO Q4H PRN PRN Reason: Heartburn Stop: 07/30/23 14:11 Aspirin (Aspirin 81 Mg Ectab) 81 mg PO BID [facility] Stop: 07/30/23 20:59 Last Admin: 07/28/23 07:39 Dose: 81 mg Bisacodyl (Bisacodyl 10 Mg Supp) 10 mg [place] DAILY PRN PRN Reason: Constipation Stop: 07/30/23 14:11 Celecoxib (Celecoxib 100 Mg Cap) 100 mg PO BID [facility]ANTH[facility] Stop: 07/31/23 08:59 Last Admin: 07/28/23 07:39 Dose: 100 mg Clonidine HCl (Clonidine Hcl 0.1 Mg/24 Hr Transderm Sys) 1 patch TD Q7D [facility] Stop: 08/18/23 16:59 Last Admin: 07/26/23 16:20 Dose: 1 patch Cyanocobalamin (Cyanocobalamin (B-12) 500 Mcg Tablet) 1,000 mcg PO QAM [facility] Stop: 08/02/23 08:59 Last Admin: 07/28/23 07:40 Dose: 1,000 mcg Docusate Sodium (Docusate Sodium 100 Mg Cap) 100 mg PO BID [facility] Stop: 07/30/23 20:59 Last Admin: 07/28/23 07:41 Dose: Not Given Ferrous Sulfate (Ferrous Sulfate 325 Mg Tab) 325 mg PO BIDM [facility] Stop: 08/03/23 16:59 Last Admin: 07/28/23 07:39 Dose: 325 mg Vancomycin HCl 1,250 mg/ (Sodium Chloride) 275 mls @ 200 mls/hr IV Q12H [facility] Stop: 08/21/23 15:59 Last Infusion: 07/28/23 09:53 Dose: Infused Magnesium Hydroxide (Magnesium Hydroxide Susp 30 Ml Udc) 30 ml PO Q6H PRN PRN Reason: Constipation Stop: 07/30/23 14:11 Melatonin (Melatonin 3 Mg Tab) 6 mg PO HS PRN PRN Reason: Sleep Stop: 08/01/23 00:10 Last Admin: 07/27/23 20:24 Dose: 6 mg Miscellaneous (Remove Clonidine Patch) 1 each N/A CQWK [facility] Stop: 08/18/23 16:59 Last Admin: 07/26/23 16:21 Dose: Not Given Miscellaneous (Check Clonidine Patch Placement) 1 each N/A QS [facility] Stop: 08/19/23 00:00 Last Admin: 07/28/23 07:39 Dose: 1 each Miscellaneous Information (Vancomycin Consult Active) 1 each N/A UD PRN PRN Reason: Consult Stop: 08/03/23 13:13 Multivitamins (Multivitamin Tab) 1 tab PO QAM [facility] Stop: 07/31/23 08:59 Last Admin: 07/28/23 07:40 Dose: 1 tab Olanzapine (Olanzapine 10 Mg/2.1 Ml Sdv) 2.5 mg IM Q12 PRN PRN Reason: Agitation Stop: 08/23/23 09:50 Last Admin: 07/27/23 21:02 Dose: 2.5 mg Ondansetron HCl (Ondansetron Inj 2 Mg/Ml 2 Ml Vial) 4 mg IV Q6H PRN PRN Reason: Nausea And Vomiting Stop: 07/30/23 14:11 Paroxetine HCl (Paroxetine Hcl 20 Mg Tab) 20 mg PO DAILY [facility] Stop: 07/29/23 08:59 Last Admin: 07/28/23 07:40 Dose: 20 mg Polyethylene Glycol (Polyethylene (Miralax) 17 Gm Pack) 17 gm PO DAILY PRN PRN Reason: Constipation Stop: 07/29/23 01:01 Quetiapine Fumarate (Quetiapine Fumarate 25 Mg Tablet) 25 mg PO Q12H PRN PRN Reason: Agitation Stop: 08/13/23 16:18 Last Admin: 07/26/23 02:18 Dose: 25 mg Quetiapine Fumarate (Quetiapine Fumarate 25 Mg Tablet) 75 mg PO TODAY@1800 [facility] Stop: 08/21/23 17:59 Last Admin: 07/27/23 17:19 Dose: 75 mg Quetiapine Fumarate (Quetiapine Fumarate 25 Mg Tablet) 25 mg PO QAM [facility] Stop: 08/22/23 12:14 Last Admin: 07/28/23 07:40 Dose: 25 mg Rifampin (Rifampin 300 Mg Capsule) 300 mg PO BID [facility] Stop: 08/15/23 20:59 Last Admin: 07/28/23 07:40 Dose: 300 mg Rosuvastatin Calcium (Rosuvastatin Calcium 10 Mg Tab) 10 mg PO DAILY [facility] Stop: 07/29/23 08:59 Last Admin: 07/28/23 07:40 Dose: 10 mg Sennosides (Senna 8.6 Mg Tab) 17.2 mg PO HS [facility] Stop: 07/30/23 20:59 Last Admin: 07/27/23 20:25 Dose: 17.2 mg Tramadol HCl (Tramadol Hcl 50 Mg Tablet) 50 mg PO Q6H PRN PRN Reason: Pain Stop: 08/06/23 13:36 Last Admin: 07/28/23 07:38 Dose: 50 mg
--- NOTE | 2023-07-28 16:37 | Hospitalist Progress Note ---
Date of Service July 28, 2023 Assessment & Plan (1) Closed dislocation of right hip: Plan: Patient was at [facility] rehab, and woke up on 06/27 complaining of right hip pain. Unfortunately, he suffered dislocation of right hip prosthesis that was initially placed on June 08 of this year. He subsequently had revision of the right total hip arthroplasty on June 29. Appreciate orthopedic consultation and recommendations. Coag negative Staph isolated from the right hip area at the time of surgery on June 29. Infectious disease has recommended IV vancomycin therapy for 6 weeks through 08/10/23, along with rifampin Then, doxycycline 100mg po bid x 1 year along with rifampin x 3 more months through 11/10/23 PICC line not yet placed due to agitation Needs once weekly CBC, CMP while on antibiotics. Last labs drawn 07/21. Repeat labs ordered for tomorrow 07/28 As per Ortho: weightbearing as tolerated with walker and T scope brace, PT/OT, and abduction pillow use x 6 weeks in bed, pillow between knees while seated in upright chair. F/u with Ortho around 07/17 but patient never discharged from the hospital. Orthopedics saw the patient in the hospital on 07/17. (2) Restlessness and agitation: Plan: Has been present since admission even before being started on Seroquel. He did receive a few doses of Zyprexa at the rehab prior to admission though His tremor and movements are bilateral in upper extremities and sometimes torso twists to the sides, is conscious and recognizes it is happening, it is frustrating Sometimes goes away with deep breathing and relaxing, focusing on a task, and able to feed himself without any tremor His Seroquel dose was titrated up due to agitation and not sleeping, some delirium as well----> perhaps tremor persisting because of atypical antipsychotic? Lytes fairly stable. With severe anemia requiring multiple blood transfusions, could be from iron deficiency? 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 He is expected to have behavioral dysregulation and supportive care and delirium precautions are recommended as well as trazodone 25 mg at bedtime for sleep instead of Seroquel. Avoidance of benzodiazepines is recommended but can use Seroquel as needed for agitation Neurology thinks the tremor is behavioral in origin and is secondary to agitation/overstimulation and recommends supporting his delirium as above. However after making the medication adjustments per neurology recommendations, patient's agitation got worse. He was taken off of Seroquel and was started on trazodone which made his agitation worse. Psychiatry was consulted on 07/13. They recommended discontinuing trazodone. They recommended against Zyprexa and Haldol. They recommended starting the patient back on Seroquel. Patient was restless through the night . His sleep-wake cycle is reversed. Currently on Seroquel 75 mg nightly with 25 mg of Seroquel use as needed. Psychiatry recommended not to exceed 200 mg in 24 hours. Patient was started on 0.1 mg of clonidine patch weekly. Zyprexa can be used for severe agitation, per psychiatry. Decided to give the patient his nighttime dose of Seroquel a little bit earlier at 5 PM and add 25 mg of Seroquel every morning. Added Zyprexa 2.5 mg every 12 as needed IM On 07/24, 07/25, 07/26 he was calm and composed during the daytime. However, at night he went back to his agitated state requiring IM Zyprexa. Psychiatry recommended decreasing paroxetine to 10 mg every morning, discontinuing quetiapine 25 mg every morning, increasing quetiapine 75 to 100 mg nightly. These changes were ordered. Continue supportive care, avoid overstimulation (3) Acute encephalopathy: Plan: Delirium developed while hospitalized. Supportive care Discontinue trazodone, Zyprexa, Haldol. Treat with Seroquel only Support sleep-wake cycles Give him tasks to do and distractions, Get him out of bed with physical therapy is much as possible Appreciate neurology and psychiatry consultation Ensure bowels are moving properly, regular meals as he is doing Encouraged pain control with tramadol and Tylenol as needed with nursing staff (4) S/P total hip arthroplasty: Plan: Right total hip arthroplasty on 06/09/[address] Reynolds. Unfortunately, he suffered a dislocation of the prosthesis while at rehab at [facility]. Subsequent revision on June 29. Continue aspirin 81 mg twice daily for DVT prophylaxis, oral rifampin for concerns about biofilm developing on the prosthesis from orthopedic standpoint, and parenteral vancomycin for 6 weeks. He will need weekly lab studies while on antibiotics according to infectious disease (5) Acute blood loss anemia: Plan: He has received multiple units of packed red blood cells this admission. Hemoglobin now stable. Oral iron replacement has been started and also received Venofer 700mg IV total Hgb improved Follow CBC once weekly while on antibiotics (6) Iron deficiency: Plan: Received parenteral iron replacement for 3 days and hemoglobin improving (7) Frontotemporal dementia: Plan: Chronic. 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 Plan DVT proph-ASA 81mg po bid, SCDs Dispo-will need to be revisited once agitation under control. Admission and Anticipated Discharge Date Admission Date: June 28, 2023 Subjective Patient has been quite cooperative during the daytime for the last 2 or 3 days but agitated overnight. Review of Systems Review of Systems: All systems reviewed & are unremarkable except as noted in Subjective Physical Exam Physical Exam: General: Awake, conversant. Heart: S1, S2/regular rate and rhythm, no murmur rubs or gallops Lungs: Clear to auscultation bilaterally. Normal effort Abdomen: Soft/nontender/nondistended. No hepatosplenomegaly Extremities: No clubbing/cyanosis. No edema Behavior: Appropriate, cooperative Results & Data Results & Data Vital Signs (Past 12 Hours) Vital Signs Temp Pulse Resp BP Pulse Ox O2 Del Method 07/28/23 07:49 36.8 C 85 18 139/82 99 Room Air PG Care Time/CCT Total # of Minutes Spent Total Time Spent with Patient: Total time spent is greater than 50% in coordination of care (as documented) at patient's floor/unit and/or counseling patient: Coding Level of Care Code 27629 SUB INP/OBS CARE 2/35MIN Diagnoses Closed dislocation of right hip S73.004A Restlessness and agitation R45.1 Acute encephalopathy G93.40 S/P total hip arthroplasty Z96.649 Acute blood loss anemia D62 Iron deficiency E61.1 Frontotemporal dementia G31.09; F02.80 Depression F32.9
[2023-07-28] MEDS: QUEtiapine FUMARATE 100 MG TABLET PO SCH (17:29)
[2023-07-29] MEDS: PARoxetine HCL 10 MG TAB PO SCH (07:42)
[2023-07-29 08:22] LABS: Basophils # (auto) 0.06 K/uL (0.00-0.20); Basophils % (auto) 1.2 %; Eosinophils # (auto) 0.13 K/uL (0.00-0.50); Eosinophils % (auto) 2.6 %; Hematocrit (blood only) 33.2 % (42.0-52.0); Hemoglobin 10.7 g/dl (14.0-18.0); Immature Granulocytes # (auto) 0.02 K/uL (0.01-0.20); Immature Granulocytes % (auto) 0.4 %; Lymphocytes % (auto) 18.1 %; Mean Corpuscular Hemoglobin 29.3 pg (25.0-34.0); Mean Corpuscular Hgb Conc 32.2 g/dL (32.0-36.0); Monocytes # (auto) 0.58 K/uL (0.11-0.59); Monocytes % (auto) 11.6 %; Neutrophils # (auto) 3.29 K/uL (1.40-6.50); Neutrophils % (auto) 66.1 %; Platelet Count 193 K/uL (130-400); RDW Coefficient of Variation 14.7 % (11.5-14.5); Red Blood Count 3.65 M/uL (4.70-6.10); White Blood Count 4.98 K/ul (4.8-10.8)
[2023-07-29 09:10] LABS: Albumin Globulin Ratio 1.3 (0.9-2); Albumin Level 3.8 gm/dl (3.4-5.0); BUN Creatinine Ratio 18.8 (10-20); Bilirubin,Total 0.4 mg/dl (0.2-1.0); Calcium 9.1 mg/dl (8.6-10.3); Creatinine Clr Calc Pharmacy 96.4 ml/min; Est GFR (African American) 111.5 ml/min; Est GFR (Non-African American) 96.2 ml/min; Globulin 2.9 gm/dl (2.5-4.0); Potassium 3.7 mmol/L (3.5-5.1); Total Protein 6.7 gm/dl (6.0-8.3)
--- NOTE | 2023-07-29 12:39 | Hospitalist Progress Note ---
Date of Service July 29, 2023 Assessment & Plan (1) Closed dislocation of right hip: Plan: Patient was at [facility] rehab, and woke up on 06/27 complaining of right hip pain. Unfortunately, he suffered dislocation of right hip prosthesis that was initially placed on June 08 of this year. He subsequently had revision of the right total hip arthroplasty on June 29. Appreciate orthopedic consultation and recommendations. Coag negative Staph isolated from the right hip area at the time of surgery on June 29. Infectious disease has recommended IV vancomycin therapy for 6 weeks through 08/10/23, along with rifampin Then, doxycycline 100mg po bid x 1 year along with rifampin x 3 more months through 11/10/23 PICC line not yet placed due to agitation Needs once weekly CBC, CMP while on antibiotics. Last labs drawn 07/21. Repeat labs ordered for tomorrow 07/28 As per Ortho: weightbearing as tolerated with walker and T scope brace, PT/OT, and abduction pillow use x 6 weeks in bed, pillow between knees while seated in upright chair. F/u with Ortho around 07/17 but patient never discharged from the hospital. Orthopedics saw the patient in the hospital on 07/17. (2) Restlessness and agitation: Plan: Has been present since admission even before being started on Seroquel. He did receive a few doses of Zyprexa at the rehab prior to admission though His tremor and movements are bilateral in upper extremities and sometimes torso twists to the sides, is conscious and recognizes it is happening, it is frustrating Sometimes goes away with deep breathing and relaxing, focusing on a task, and able to feed himself without any tremor His Seroquel dose was titrated up due to agitation and not sleeping, some delirium as well----> perhaps tremor persisting because of atypical antipsychoti c? Lytes fairly stable. With severe anemia requiring multiple blood transfusions, could be from iron deficiency? 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 He is expected to have behavioral dysregulation and supportive care and delirium precautions are recommended as well as trazodone 25 mg at bedtime for sleep instead of Seroquel. Avoidance of benzodiazepines is recommended but can use Seroquel as needed for agitation Neurology thinks the tremor is behavioral in origin and is secondary to agitation/overstimulation and recommends supporting his delirium as above. However after making the medication adjustments per neurology recommendations, patient's agitation got worse. He was taken off of Seroquel and was started on trazodone which made his agitation worse. Psychiatry was consulted on 07/13. They recommended discontinuing trazodone. They recommended against Zyprexa and Haldol. They recommended starting the patient back on Seroquel. Patient was restless through the night . His sleep-wake cycle is reversed. Currently on Seroquel 75 mg nightly with 25 mg of Seroquel use as needed. Psychiatry recommended not to exceed 200 mg in 24 hours. Patient was started on 0.1 mg of clonidine patch weekly. Zyprexa can be used for severe agitation, per psychiatry. Decided to give the patient his nighttime dose of Seroquel a little bit earlier at 5 PM and add 25 mg of Seroquel every morning. Added Zyprexa 2.5 mg every 12 as needed IM On 07/24, 07/25, 07/26 he was calm and composed during the daytime. However, at night he went back to his agitated state requiring IM Zyprexa. Psychiatry recommended decreasing paroxetine to 10 mg every morning, discontinuing quetiapine 25 mg every morning, increasing quetiapine 75 to 100 mg nightly. These changes were ordered. Pt became agitated night 07/27-. Nursing contacted psych and they are aware, await further input Continue supportive care, avoid overstimulation (3) Acute encephalopathy: Plan: Delirium developed while hospitalized. Supportive care medication adjustment as per psych Support sleep-wake cycles Give him tasks to do and distractions, Get him out of bed with physical therapy is much as possible Appreciate neurology and psychiatry consultation Ensure bowels are moving properly, regular meals as he is doing Encouraged pain control with tramadol and Tylenol as needed with nursing staff (4) S/P total hip arthroplasty: Plan: Right total hip arthroplasty on 06/09/[address] Reynolds. Unfortunately, he suffered a dislocation of the prosthesis while at rehab at [facility]. Subsequent revision on June 29. Continue aspirin 81 mg twice daily for DVT prophylaxis, oral rifampin for concerns about biofilm developing on the prosthesis from orthopedic standpoint, and parenteral vancomycin for 6 weeks. He will need weekly lab studies while on antibiotics according to infectious disease (5) Acute blood loss anemia: Plan: He has received multiple units of packed red blood cells this admission. Hemoglobin now stable. Oral iron replacement has been started and also received Venofer 700mg IV total Hgb improved Follow CBC once weekly while on antibiotics 5/10 Hgb 10.7 (6) Iron deficiency: Plan: Received parenteral iron replacement for 3 days and hemoglobin improving (7) Frontotemporal dementia: Plan: Chronic. 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 Plan DVT proph-ASA 81mg po bid, SCDs Dispo-will need to be revisited once agitation under control. Admission and Anticipated Discharge Date Admission Date: June 28, 2023 Subjective Patient has been quite cooperative during the daytime for the last 2 or 3 days but agitated overnight. Currently calm Physical Exam Physical Exam: General: Awake, conversant. Heart: S1, S2/regular rate and rhythm, no murmur rubs or gallops Lungs: Clear to auscultation bilaterally. Normal effort Abdomen: Soft/nontender/nondistended. No hepatosplenomegaly Extremities: No clubbing/cyanosis. No edema Behavior: Appropriate, cooperative Constitutional: WD/WN, vitals as above Respiratory: normal respiratory effort, lungs clear to auscultation normal respiratory effort; no cough Cardiovascular: Rate/Rhythm: regular rate and regular rhythm Heart Sounds: no murmur Extremities: no edema Gastrointestinal (Abdomen): normal bowel sounds, soft, nontender, no hepatosplenomegaly Musculoskeletal: Extremities: + leg internally rotated (right) and + leg foreshortened (right); + extremities abnormal to inspection (right hip dressing in place c/d/i) Neurologic: awake; no focal motor deficits (can move ankles and feet bilat) and not confused Motor/Sensory: + abnormal movement (bilat UEs with uncontrollable movements,shaking,raising arms up) Psychiatric: Orientation: alert, oriented to person, oriented to place, cooperative and + guarded; + not oriented x 3 Apperance: + disheveled Genitourinary: no testicular masses, no penis abnormality (with condom catheter in place) Results & Data Results & Data Vital Signs (Past 12 Hours) Vital Signs Temp Pulse Resp BP BP Pulse Ox O2 Del Method 07/29/23 12:04 36.8 C 85 16 123/73 94 Room Air 07/29/23 07:04 36.8 C 82 16 131/84 95 Room Air PG Care Time/CCT Total # of Minutes Spent Total Time Spent with Patient: Total time spent is greater than 50% in coordination of care (as documented) at patient's floor/unit and/or counseling patient: Coding Level of Care Code 88179 SUB INP/OBS CARE 2/35MIN Diagnoses Closed dislocation of right hip, initial encounter S73.004A Encounter type: initial encounter Restlessness and agitation R45.1 Acute encephalopathy G93.40 Status post total replacement of right hip Z96.641 Laterality: right Acute blood loss anemia D62 Iron deficiency E61.1 Frontotemporal dementia G31.09; F02.80 Persistent depressive disorder F34.1 Depression Type: persistent depressive disorder (1) Closed dislocation of right hip Encounter type: initial encounter Qualified Code(s): S73.004A - Unspecified dislocation of right hip, initial encounter (4) S/P total hip arthroplasty Laterality: right Qualified Code(s): Z96.641 - Presence of right artificial hip joint (8) Depression Depression Type: persistent depressive disorder Qualified Code(s): F34.1 - Dysthymic disorder
[2023-07-31] MEDS: ASPIRIN 81 MG ECTAB PO SCH (08:17)
[2023-07-31] MEDS: DOCUSATE SODIUM 100 MG CAP PO SCH (08:23)
--- NOTE | 2023-07-31 12:02 | Hospitalist Progress Note ---
Date of Service July 31, 2023 Assessment & Plan (1) Closed dislocation of right hip: Plan: Patient was at [facility], and woke up on 06/27 complaining of right hip pain. Unfortunately, he suffered dislocation of right hip prosthesis that was initially placed on June 08 of this year. He subsequently had revision of the right total hip arthroplasty on June 29. Appreciate orthopedic consultation and recommendations. Coag negative Staph isolated from the right hip area at the time of surgery on June 29. Infectious disease has recommended IV vancomycin therapy for 6 weeks through 08/10/23, along with rifampin Then, doxycycline 100mg po bid x 1 year along with rifampin x 3 more months through 11/10/23 PICC line not yet placed due to agitation Needs once weekly CBC, CMP while on antibiotics. Last labs drawn 07/28. Will need repeat on 08/04 As per Ortho: weightbearing as tolerated with walker and T scope brace, PT/OT, and abduction pillow use x 6 weeks in bed, pillow between knees while seated in upright chair. F/u with Ortho around 07/17 but patient never discharged from the hospital. Orthopedics saw the patient in the hospital on 07/17. (2) Restlessness and agitation: Plan: Has been present since admission even before being started on Seroquel. He did receive a few doses of Zyprexa at the rehab prior to admission though His tremor and movements are bilateral in upper extremities and sometimes torso twists to the sides, is conscious and recognizes it is happening, it is frustrating Sometimes goes away with deep breathing and relaxing, focusing on a task, and able to feed himself without any tremor His Seroquel dose was titrated up due to agitation and not sleeping, some delirium as well----> perhaps tremor persisting because of atypical antipsychotic? Lytes fairly stable. With severe anemia requiring multiple blood transfusions, could be from iron deficiency? 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 He is expected to have behavioral dysregulation and supportive care and delirium precautions are recommended as well as trazodone 25 mg at bedtime for sleep instead of Seroquel. Avoidance of benzodiazepines is recommended but can use Seroquel as needed for agitation Neurology thinks the tremor is behavioral in origin and is secondary to agitation/overstimulation and recommends supporting his delirium as above. However after making the medication adjustments per neurology recommendations, patient's agitation got worse. He was taken off of Seroquel and was started on trazodone which made his agitation worse. Psychiatry was consulted on 07/13. They recommended discontinuing trazodone. They recommended against Zyprexa and Haldol. They recommended starting the patient back on Seroquel. Patient remains restless through nights . His sleep-wake cycle is reversed. On 07/24, 07/25, 07/26 he was calm and composed during the daytime. However, at night he went back to his agitated state requiring IM Zyprexa. Psychiatry recommended decreasing paroxetine to 10 mg every morning, discontinuing quetiapine 25 mg every morning, increasing quetiapine 75 to 100 mg nightly. These changes were ordered. Pt became agitated night 07/27-. Nursing contacted psych and they are aware, await further input Currently on Seroquel 100 mg @1800, Seroquel 25 mg q12h prn Paxil 10 mg daily Zyprexa 2.5 mg q12h prn Catapres-TTS 1 qweekly Continue supportive care, avoid overstimulation (3) Acute encephalopathy: Plan: Delirium developed while hospitalized. Supportive care medication adjustment as per psych Support sleep-wake cycles Give him tasks to do and distractions, Get him out of bed with physical therapy is much as possible Appreciate neurology and psychiatry consultation Ensure bowels are moving properly, regular meals as he is doing Encouraged pain control with tramadol and Tylenol as needed with nursing staff (4) S/P total hip arthroplasty: Plan: Right total hip arthroplasty on 06/09/[address] Reynolds. Unfortunately, he suffered a dislocation of the prosthesis while at rehab at [facility]. Subsequent revision on June 29. Continue aspirin 81 mg twice daily for DVT prophylaxis, oral rifampin for concerns about biofilm developing on the prosthesis from orthopedic standpoint, and parenteral vancomycin for 6 weeks. He will need weekly lab studies while on antibiotics according to infectious disease (5) Acute blood loss anemia: Plan: He has received multiple units of packed red blood cells this admission. Hemoglobin now stable. Oral iron replacement has been started and also received Venofer Hgb improved Follow CBC once weekly while on antibiotics 5/10 Hgb 10.7 (6) Iron deficiency: Plan: Received parenteral iron replacement for 3 days and hemoglobin improving (7) Frontotemporal dementia: Plan: Chronic. Supportive care, noted neurology consultation as above With a h/o TBI and ICH 20+ years ago Previously followed with [facility] Neurology (8) Depression: Plan: Stable. Plan DVT proph-ASA 81mg po bid, SCDs Dispo-will need to be revisited once agitation under control. Admission and Anticipated Discharge Date Admission Date: June 28, 2023 Subjective Patient has been quite cooperative during the daytime for the last 2 or 3 days but agitated overnight. Currently calm Physical Exam Physical Exam: General: Awake, conversant. Heart: S1, S2/regular rate and rhythm, no murmur rubs or gallops Lungs: Clear to auscultation bilaterally. Normal effort Abdomen: Soft/nontender/nondistended. No hepatosplenomegaly Extremities: No clubbing/cyanosis. No edema Behavior: Appropriate, cooperative Constitutional: WD/WN, vitals as above Respiratory: normal respiratory effort, lungs clear to auscultation normal respiratory effort; no cough Cardiovascular: Rate/Rhythm: regular rate and regular rhythm Heart Sounds: no murmur Extremities: no edema Gastrointestinal (Abdomen): normal bowel sounds, soft, nontender, no hepatosplenomegaly Musculoskeletal: Extremities: + leg internally rotated (right) and + leg foreshortened (right); + extremities abnormal to inspection (right hip dressing in place c/d/i) Neurologic: awake; no focal motor deficits (can move ankles and feet bilat) and not confused Motor/Sensory: + abnormal movement (bilat UEs with uncontrollable movements,shaking,raising arms up) Psychiatric: Orientation: alert, oriented to person, oriented to place, cooperative and + guarded; + not oriented x 3 Apperance: + disheveled Genitourinary: no testicular masses, no penis abnormality (with condom catheter in place) Results & Data Results & Data Vital Signs (Past 12 Hours) Vital Signs Temp Pulse Resp BP Pulse Ox O2 Del Method 07/31/23 07:23 36.4 C L 74 16 165/89 H 96 Room Air PG Care Time/CCT Total # of Minutes Spent Total Time Spent with Patient: Total time spent is greater than 50% in coordination of care (as documented) at patient's floor/unit and/or counseling patient: Coding Level of Care Code 58269 SUB INP/OBS CARE MIN Diagnoses Closed dislocation of right hip, initial encounter S73.004A Encounter type: initial encounter Restlessness and agitation R45.1 Acute encephalopathy G93.40 Status post total replacement of right hip Z96.641 Laterality: right Acute blood loss anemia D62 Iron deficiency E61.1 Frontotemporal dementia G31.09; F02.80 Persistent depressive disorder F34.1 Depression Type: persistent depressive disorder (1) Closed dislocation of right hip Encounter type: initial encounter Qualified Code(s): S73.004A - Unspecified dislocation of right hip, initial encounter (4) S/P total hip arthroplasty Laterality: right Qualified Code(s): Z96.641 - Presence of right artificial hip joint (8) Depression Depression Type: persistent depressive disorder Qualified Code(s): F34.1 - Dysthymic disorder
--- NOTE | 2023-07-31 17:40 | XRay Report ---
XR hip RT min 2V CLINICAL HISTORY: post surgical, r/o dislocation TECHNIQUE: 2 views of the right hip were obtained. Comparison: Comparison is made to hip and pelvis radiographs 07/18/2023 FINDINGS: There is no evidence of an acute fracture. Total hip arthoplasty hardware is seen without perihardwar e lucency or hardware fracture. No soft tissue abnormality is seen. IMPRESSION: No acute abnormalities, in particular no evidence of dislocation. ACT 112: Negative or not required by law. Electronically signed by: Elia Whitehead M.D. 07/31/2023 5:38 PM
[2023-07-31] MEDS: SENNA 8.6 MG TAB PO SCH (20:02)
[2023-07-31] MEDS: CELECOXIB 100 MG CAP PO SCH (23:00)
[2023-08-01] MEDS: MELATONIN 3 MG TAB PO PRN (01:38)
[2023-08-01] MEDS: QUEtiapine FUMARATE 25 MG TABLET PO ONE (02:38)
--- NOTE | 2023-08-01 02:39 | Communication Note ---
Date of Service: August 01, 2023 I was notified by nursing that Mr. Karimi was becoming increasingly aggressive and trying to hit staff. Patient's nurse expressed concern that although IM Zyprexa is ordered for severe agitation, she and several other nursing staff have given the IM Zyprexa previously and feel it made no difference in his aggression. They have noticed some improvement in his aggression with the Seroquel, so I have ordered an additional dose of the Seroquel to be given now as the staff with ongoing experience caring for Mr. Karimi have never seen improvement with the Zyprexa and his level of aggression tonight must be addressed for the safety of himself and nursing. Any further recommendations from psychiatry and/or day time hospitalist are appreciated.
[2023-08-01 07:50] LABS: Creatinine Clr Calc Pharmacy 102.3 ml/min; Est GFR (African American) 114.2 ml/min; Est GFR (Non-African American) 98.6 ml/min
[2023-08-01] MEDS: MULTIVITAMIN TAB PO SCH (08:08)
--- NOTE | 2023-08-01 08:35 | Pharmacy Report ---
Pharmacy PK ABX Note - Date of Service August 01, 2023 - Assessment and Plan Assessment 07/31: Vancomycin level was 14.8 mcg/mL this AM; predicted AUC 530. Continue current regimen. 07/26: Vancomycin level was 16.3 mcg/mL this AM; predicted AUC 555. Continue c urrent regimen. 07/21: Vancomycin level was 15.6 mcg/mL this AM; predicted AUC 591. Continue current regimen. 07/15: Vancomycin level =15.2mcg/mL; predicted AUC 548 mg/dL. continue current regimen. 07/14: Vancomycin level = 16.4 mcg/mL; predicted AUC 548 mg/dL. Continue current regimen. 07/11: Vancomycin level =14.5mcg/mL, which predicts a therapeutic AUC of 556, continue current regimen 07/09: Vancomycin level = 20.9 mcg/mL, which is associated with a slightly supratherapeutic AUC of 610. Will reduce dose slightly. 07/07: Vancomycin level = 17 mcg/ml at 08:46 AM today. 07/05: Vancomycin level today came back at ~12 mcg/ml - this dosing is correlating to goal AUC/RAIMUNDO 400-600. Plan to continue same regimen. 07/03: 68 year old M receiving started on vancomycin and rifampin for joint infection. Preliminary cultures with coagulase negative staph. Patient is s/p hip replacement 06/08. He suffered dislocation of prosthesis and required hip revision 06/29. Day # 1 of antimicrobial therapy. Plan Vancomycin * Current regimen: 1250 mg IV every 12 hours * Random level obtained today resulted as 14.8 mcg/mL. Predicted AUC at steady state: 530 mg/L.hr with probability of nephrotoxicity at 9% * Goal AUC/RAIMUNDO of 400-600 mg/L.hr * SCr every other day * Repeat trough in 4 days Pharmacy will continue to follow and will adjust dose/frequency as necessary. Thank you. Pharmacy has transitioned to AUC monitoring for vancomycin. AUC/RAIMUNDO is the preferred PK/PD target and is associated with decreased risk of nephrotoxicity compared to traditional trough targets.
--- NOTE | 2023-08-01 13:20 | Hospitalist Progress Note ---
Date of Service August 01, 2023 Assessment & Plan (1) Closed dislocation of right hip: Plan: Patient was at [facility], and woke up on 06/27 complaining of right hip pain. Unfortunately, he suffered dislocation of right hip prosthesis that was initially placed on June 08 of this year. He subsequently had revision of the right total hip arthroplasty on June 29. Appreciate orthopedic consultation and recommendations. Coag negative Staph isolated from the right hip area at the time of surgery on June 29. Infectious disease has recommended IV vancomycin therapy for 6 weeks through 08/10/23, along with rifampin Then, doxycycline 100mg po bid x 1 year along with rifampin x 3 more months through 11/10/23 PICC line not yet placed due to agitation Needs once weekly CBC, CMP while on antibiotics. Last labs drawn 07/28. Will need repeat on 08/04 Pharm report 07/31: Vancomycin level was 14.8 mcg/mL this AM; predicted AUC 530. Continue current regimen. As per Ortho: weightbearing as tolerated with walker and T scope brace, PT/OT, and abduction pillow use x 6 weeks in bed, pillow between knees while seated in upright chair. F/u with Ortho around 07/17 but patient never discharged from the hospital. Orthopedics saw the patient in the hospital on 07/17. Nursing was concerned last evening 07/30 regarding patient's ambulation and requested a repeat hip x-ray to confirm stability of Rt hip: No acute abnormalities, in particular no evidence of dislocation. (2) Restlessness and agitation: Plan: Has been present since admission even before being started on Seroquel. He did receive a few doses of Zyprexa at the rehab prior to admission though His tremor and movements are bilateral in upper extremities and sometimes torso twists to the sides, is conscious and recognizes it is happening, it is frustrating Sometimes goes away with deep breathing and relaxing, focusing on a task, and able to feed himself without any tremor His Seroquel dose was titrated up due to agitation and not sleeping, some delirium as well----> perhaps tremor persisting because of atypical antipsychotic? Lytes fairly stable. With severe anemia requiring multiple blood transfusions, could be from iron deficiency? 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 He is expected to have behavioral dysregulation and supportive care and delirium precautions are recommended as well as trazodone 25 mg at bedtime for sleep instead of Seroquel. Avoidance of benzodiazepines is recommended but can use Seroquel as needed for agitation Neurology thinks the tremor is behavioral in origin and is secondary to agitation/overstimulation and recommends supporting his delirium as above. However after making the medication adjustments per neurology recommendations, patient's agitation got worse. He was taken off of Seroquel and was started on trazodone which made his agitation worse. Psychiatry was consulted on 07/13. They recommended discontinuing trazodone. They recommended against Zyprexa and Haldol. They recommended starting the patient back on Seroquel. Patient remains restless through nights . His sleep-wake cycle is reversed. On 07/24, 07/25, 07/26 he was calm and composed during the daytime. However, at night he went back to his agitated state requiring IM Zyprexa. Psychiatry recommended decreasing paroxetine to 10 mg every morning, discontinuing quetiapine 25 mg every morning, increasing quetiapine 75 to 100 mg nightly. These changes were ordered. Pt became agitated night 07/27-. Nursing contacted psych and they are aware, await further input Currently on Seroquel 100 mg @1800, Seroquel 25 mg q12h prn Paxil 10 mg daily Zyprexa 2.5 mg q12h prn Catapres-TTS 1 qweekly Continue supportive care, avoid overstimulation. Await further input from psych regarding medication management (3) Acute encephalopathy: Plan: Delirium developed while hospitalized. Supportive care medication adjustment as per psych Support sleep-wake cycles Give him tasks to do and distractions, Get him out of bed with physical therapy is much as possible Appreciate neurology and psychiatry consultation Ensure bowels are moving properly, regular meals as he is doing Encouraged pain control with tramadol and Tylenol as needed with nursing staff (4) S/P total hip arthroplasty: Plan: Right total hip arthroplasty on 06/09/[address] Reynolds. Unfortunately, he suffered a dislocation of the prosthesis [facility] Subsequent revision on June 29. Continue aspirin 81 mg twice daily for DVT prophylaxis, oral rifampin for concerns about biofilm developing on the prosthesis from orthopedic standpoint, and parenteral vancomycin for 6 weeks. He will need weekly lab studies while on antibiotics according to infectious disease (5) Acute blood loss anemia: Plan: He has received multiple units of packed red blood cells this admission. Hemoglobin now stable. Oral iron replacement has been started and also received Venofer Hgb improved Follow CBC once weekly while on antibiotics 07/28 Hgb 10.7, appears stable, should be repeated on 08/04 (6) Iron deficiency: Plan: Received parenteral iron replacement for 3 days and hemoglobin improving (7) Frontotemporal dementia: Plan: Chronic. 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 Plan DVT proph-ASA 81mg po bid, SCDs Dispo-will need to be revisited once agitation under control. Admission and Anticipated Discharge Date Admission Date: June 28, 2023 Subjective Patient has been quite cooperative during the daytime for the last 2 or 3 days but agitated overnight. Currently calm, but as per nursing, continues to become agitated at night Physical Exam Physical Exam: General: Awake, conversant. Heart: S1, S2/regular rate and rhythm, no murmur rubs or gallops Lungs: Clear to auscultation bilaterally. Normal effort Abdomen: Soft/nontender/nondistended. No hepatosplenomegaly Extremities: No clubbing/cyanosis. No edema Behavior: Appropriate, cooperative Constitutional: WD/WN, vitals as above Respiratory: normal respiratory effort, lungs clear to auscultation normal respiratory effort; no cough Cardiovascular: Rate/Rhythm: regular rate and regular rhythm Heart Sounds: no murmur Extremities: no edema Gastrointestinal (Abdomen): normal bowel sounds, soft, nontender, no hepatosplenomegaly Musculoskeletal: Extremities: + leg internally rotated (right) and + leg foreshortened (right); + extremities abnormal to inspection (right hip dressing in place c/d/i) Neurologic: awake; no focal motor deficits (can move ankles and feet bilat) and not confused Motor/Sensory: + abnormal movement (bilat UEs with uncontrollable movements,shaking,raising arms up) Psychiatric: Orientation: alert, oriented to person, oriented to place, cooperative and + guarded; + not oriented x 3 Apperance: + disheveled Genitourinary: no testicular masses, no penis abnormality (with condom catheter in place) Results & Data Results & Data Vital Signs (Past 12 Hours) Vital Signs Temp Pulse Resp BP BP Pulse Ox O2 Del Method 08/01/23 09:44 138/90 08/01/23 09:35 114/73 08/01/23 09:35 166/97 H 08/01/23 08:17 36.5 C 88 20 152/92 H Room Air 08/01/23 06:48 36.5 C 74 16 142/87 H 98 Room Air PG Care Time/CCT Total # of Minutes Spent Total Time Spent with Patient: Total time spent is greater than 50% in coordination of care (as documented) at patient's floor/unit and/or counseling patient: Coding Level of Care Code 63535 SUB INP/OBS CARE 2/35MIN Diagnoses Closed dislocation of right hip, initial encounter S73.004A Encounter type: initial encounter Restlessness and agitation R45.1 Acute encephalopathy G93.40 Status post total replacement of right hip Z96.641 Laterality: right Acute blood loss anemia D62 Iron deficiency E61.1 Frontotemporal dementia G31.09; F02.80 Persistent depressive disorder F34.1 Depression Type: persistent depressive disorder (1) Closed dislocation of right hip Encounter type: initial encounter Qualified Code(s): S73.004A - Unspecified dislocation of right hip, initial encounter (4) S/P total hip arthroplasty Laterality: right Qualified Code(s): Z96.641 - Presence of right artificial hip joint (8) Depression Depression Type: persistent depressive disorder Qualified Code(s): F34.1 - Dysthymic disorder
--- NOTE | 2023-08-01 13:35 | Psychiatric Progress Note ---
Date of Service August 01, 2023 Impression / Recommendations Impression 68-year-old man admitted on 06/28/2023 for dislocation of the right hip prosthesis and received revision surgery on 06/30/2023. Was found to have infection in the right hip and treated with IV antibiotics. 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 Psychiatry consulted for agitation recommendations. 08/01/2023: Continues to have episodes of confusion at night consistent with ongoing hyperactive delirium and possible contribution of sundowning from dementia. Unfortunately even with continued adjustments to Seroquel dosing and timing he continues to have periods of agitation. Reportedly shows little benefit from olanzapine IM. Seroquel seems to work best. Given report that behaviors tend to worsen in the late afternoon could consider addition scheduled dose and recommend trial of ziprasidone for acute agitation. Overall, I spent a total of 30 minutes with this case including review of chart records, review of labwork, direct evaluation of the patient at bedside, counseling the patient, discussion of the patient with the Nurse, discussion with the psychiatric liason during clinical rounds and documentation in the electronic health record. (1) Acute hyperactive delirium due to multiple etiologies: (2) Frontotemporal dementia: (3) History of revision of total replacement of right hip joint: Plan -Continue with delirium prevention/management strategies including exposure to light during the day, re-orientation, attempting to keep environment calm and quiet to promote sleep at night -Continue with Seroquel 100mg HS -Consider addition of Seroquel 25mg qafternoon before confusion worsens -Option for Seroquel 50mg BID prn for acute agitation if he will accept po medication -Continue with Melatonin HS -For behavioral emergency: would discontinue olanzapine. Instead could trial ziprasidone 10mg IM q2h prn (do not exceed 40mg in 24 hours). Goal remains to avoid IM medication when possible. Interval History Identifying Information 68-year-old male arrived on 06/28/2023 for dislocation of the right hip prosthesis and received revision surgery on 06/30/2023. Was found to have staff isolated in the right hip and treated with IV antibiotics. 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 Psychiatry consulted for agitation recommendations. Chief Complaint "I'm good". Subjective Subjective Patient was seen & assessed and interval progress reviewed. Significant confusion and agitation over night. He received additional dose of po seroquel as nursing has felt that olanzapine IM seems to offer little to no benefit. Today he has no recollection of events from last night. Pleasant, watching TV, recalls his lunch. Denies any tremor, muscle stiffness, dizziness or other medication side effects. Procedures Performed Operation Date: 06/30/23 10:40 Actual Procedures p Right Hip Prosthetic dislocation Open Reduction with Total Hip Revision(Right) - Alec Reynolds MD Physical Exam Psychiatric Orientation: alert, oriented x 3 and cooperative Eye Contact: + fair eye contact Motor Behavior: no abnormal motor movements; n EPS and n tremor Speech: + abnormal rate/rhythm/volume of speech (mumbled but understandable ) Vital Signs (Past 24 Hours) Last Vital Signs Temp 36.5 C 08/01/23 08:17 Pulse 88 08/01/23 08:17 Resp 20 08/01/23 08:17 BP 138/90 08/01/23 09:44 Pulse Ox 98 08/01/23 06:48 O2 Del Method Room Air 08/01/23 08:17 O2 Flow Rate 2 06/29/23 08:20 Results & Data ([facility]) Laboratory Results Laboratory Results - last 24 hr 08/01/23 06:33 Creatinine 0.65 Est Cr Clr Drug Dosing 102.3 Est GFR ( Amer) 114.2 Est GFR (Non-Af Amer) 98.6 Random Vancomycin 14.8 Current Inpatient Medications Current Inpatient Medications: Current Inpatient Medications Acetaminophen (Acetaminophen 500 Mg Tab) 1,000 mg PO TID SAMANTHA Stop: 08/10/23 14:59 Last Admin: 08/01/23 07:14 Dose: 1,000 mg Aspirin (Aspirin 81 Mg Ectab) 81 mg PO BID SAMANTHA Stop: 08/30/23 08:59 Last Admin: 08/01/23 08:06 Dose: 81 mg Celecoxib (Celecoxib 100 Mg Cap) 100 mg PO BID SAMANTHA Stop: 08/30/23 22:49 Last Admin: 08/01/23 08:08 Dose: 100 mg Clonidine HCl (Clonidine Hcl 0.1 Mg/24 Hr Transderm Sys) 1 patch TD Q7D SAMANTHA Stop: 08/18/23 16:59 Last Admin: 07/26/23 16:20 Dose: 1 patch Cyanocobalamin (Cyanocobalamin (B-12) 500 Mcg Tablet) 1,000 mcg PO QAM [facility] Stop: 08/02/23 08:59 Last Admin: 08/01/23 08:07 Dose: 1,000 mcg Docusate Sodium (Docusate Sodium 100 Mg Cap) 100 mg PO BID [facility] Stop: 08/30/23 08:59 Last Admin: 08/01/23 08:06 Dose: 100 mg Ferrous Sulfate (Ferrous Sulfate 325 Mg Tab) 325 mg PO BIDM [facility] Stop: 08/03/23 16:59 Last Admin: 08/01/23 08:06 Dose: 325 mg Vancomycin HCl 1,250 mg/ (Sodium Chloride) 275 mls @ 200 mls/hr IV Q12H SAMANTHA Stop: 08/21/23 15:59 Last Infusion: 08/01/23 09:33 Dose: Infused Melatonin (Melatonin 3 Mg Tab) 6 mg PO HS PRN PRN Reason: Sleep Stop: 08/30/23 22:49 Last Admin: 08/01/23 01:38 Dose: 6 mg Miscellaneous (Remove Clonidine Patch) 1 each N/A CQWK [facility] Stop: 08/18/23 16:59 Last Admin: 07/26/23 16:21 Dose: Not Given Miscellaneous (Check Clonidine Patch Placement) 1 each N/A QS [facility] Stop: 08/19/23 00:00 Last Admin: 08/01/23 08:45 Dose: 1 each Miscellaneous Information (Vancomycin Consult Active) 1 each N/A UD PRN PRN Reason: Consult Stop: 08/03/23 13:13 Multivitamins (Multivitamin Tab) 1 tab PO QAM [facility] Stop: 08/31/23 08:59 Last Admin: 08/01/23 08:08 Dose: 1 tab Olanzapine (Olanzapine 10 Mg/2.1 Ml Sdv) 2.5 mg IM Q12 PRN PRN Reason: Agitation Stop: 08/23/23 09:50 Last Admin: 07/28/23 23:42 Dose: 2.5 mg Paroxetine HCl (Paroxetine Hcl 10 Mg Tab) 10 mg PO DAILY [facility] Stop: 08/27/23 16:32 Last Admin: 08/01/23 08:09 Dose: 10 mg Quetiapine Fumarate (Quetiapine Fumarate 25 Mg Tablet) 25 mg PO Q12H PRN PRN Reason: Agitation Stop: 08/13/23 16:18 Last Admin: 08/01/23 00:36 Dose: 25 mg Quetiapine Fumarate (Quetiapine Fumarate 100 Mg Tablet) 100 mg PO TODAY@1800 [facility] Stop: 08/27/23 17:59 Last Admin: 07/31/23 17:46 Dose: 100 mg Rifampin (Rifampin 300 Mg Capsule) 300 mg PO BID [facility] Stop: 08/15/23 20:59 Last Admin: 08/01/23 08:07 Dose: 300 mg Sennosides (Senna 8.6 Mg Tab) 17.2 mg PO HS [facility] Stop: 08/30/23 20:59 Last Admin: 07/31/23 20:02 Dose: 17.2 mg Tramadol HCl (Tramadol Hcl 50 Mg Tablet) 50 mg PO Q6H PRN PRN Reason: Pain Stop: 08/06/23 13:36 Last Admin: 08/01/23 12:54 Dose: 50 mg
[2023-08-01] MEDS: QUEtiapine FUMARATE 25 MG TABLET PO PRN (23:31)
--- NOTE | 2023-08-02 12:46 | Hospitalist Progress Note ---
Date of Service August 02, 2023 Assessment & Plan (1) Closed dislocation of right hip: Plan: Patient was at [facility], and woke up on 06/27 complaining of right hip pain. Unfortunately, he suffered dislocation of right hip prosthesis that was initially placed on June 08 of this year. He subsequently had revision of the right total hip arthroplasty on June 29. Appreciate orthopedic consultation and recommendations. Coag negative Staph isolated from the right hip area at the time of surgery on June 29. Infectious disease has recommended IV vancomycin therapy for 6 weeks through 08/10/23, along with rifampin Then, doxycycline 100mg po bid x 1 year along with rifampin x 3 more months through 11/10/23 PICC line not yet placed due to agitation Needs once weekly CBC, CMP while on antibiotics. Last labs drawn 07/28. Will need repeat on 08/04 Pharm on consult for Vanc As per Ortho: weightbearing as tolerated with walker and T scope brace, PT/OT, and abduction pillow use x 6 weeks in bed, pillow between knees while seated in upright chair. F/u with Ortho around 07/17 but patient never discharged from the hospital. Orthopedics saw the patient in the hospital on 07/17. A repeat hip x-ray to confirm stability of Rt hip: No acute abnormalities, in particular no evidence of dislocation. (2) Restlessness and agitation: Plan: Seen and evaluated by Psych, they recommend Seroquel 100mg daily and 25mg Q12 hrs PRN and also Ziprasidone 10mg IM Q2h PRN for agitaion (3) Acute encephalopathy: Plan: Delirium developed while hospitalized. Supportive care medication adjustment as per psych Support sleep-wake cycles Give him tasks to do and distractions, Get him out of bed with physical therapy is much as possible Appreciate neurology and psychiatry consultation Ensure bowels are moving properly, regular meals as he is doing Encouraged pain control with tramadol and Tylenol as needed with nursing staff (4) S/P total hip arthroplasty: Plan: Right total hip arthroplasty on 06/09/[address] Reynolds. Unfortunately, he suffered a dislocation of the prosthesis while at rehab at [facility]. Subsequent revision on June 29. Continue aspirin 81 mg twice daily for DVT prophylaxis, oral rifampin for concerns about biofilm developing on the prosthesis from orthopedic standpoint, and parenteral vancomycin for 6 weeks. He will need weekly lab studies while on antibiotics according to infectious disease (5) Acute blood loss anemia: Plan: Hb stable s/p multiple blood transfusions Monitor H and H Transfuse if Hb<7 (6) Iron deficiency: Plan: Received parenteral iron replacement for 3 days and hemoglobin improving (7) Frontotemporal dementia: Plan: Chronic. 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 Plan DVT proph-ASA 81mg po bid, SCDs Dispo-will need to be revisited once agitation under control. Admission and Anticipated Discharge Date Admission Date: June 28, 2023 Subjective Patient seen and examined, lying quietly on the couch does not appear to be in any distress, 1 is to 1 sitter by the bedside. Review of Systems Review of Systems: Unable to obtain Physical Exam Physical Exam: The patient is sleeping HEENT--PERRL, EOMI, mucous membranes and oropharynx mildly dry Neck--supple. No JVD. No bruits. Thyroid normal, trachea midline, no adenopathy. Heart--normal S1 and S2. No murmurs, rubs or gallops. Lungs--clear bilaterally, no respiratory distress, no accessory muscle use. Abdomen--normal bowel sounds and soft. Extremities--no cyanosis or clubbing. No edema. Dermatologic--normal skin turgor, normal color, no abnormal lymph nodes, no rash. Neurologic--cranial nerves II through XII grossly intact. Rheumatologic--normal range of motion. Psychiatric--unable to assess Results & Data Results & Data Vital Signs (Past 12 Hours) Vital Signs Temp Pulse Resp BP Pulse Ox O2 Del Method 08/02/23 06:59 97.9 F 88 19 156/89 H 98 Room Air PG Care Time/CCT Total # of Minutes Spent Total Time Spent with Patient: Total time spent is greater than 50% in coordination of care (as documented) at patient's floor/unit and/or counseling patient: Coding Level of Care Code 46129 SUB INP/OBS CARE 2/35MIN Diagnoses Closed dislocation of right hip, initial encounter S73.004A Encounter type: initial encounter Restlessness and agitation R45.1 Acute encephalopathy G93.40 Status post total replacement of right hip Z96.641 Laterality: right Acute blood loss anemia D62 Iron deficiency E61.1 Frontotemporal dementia G31.09; F02.80 Persistent depressive disorder F34.1 Depression Type: persistent depressive disorder Time Spent (min) 35 (1) Closed dislocation of right hip Encounter type: initial encounter Qualified Code(s): S73.004A - Unspecified dislocation of right hip, initial encounter (4) S/P total hip arthroplasty Laterality: right Qualified Code(s): Z96.641 - Presence of right artificial hip joint (8) Depression Depression Type: persistent depressive disorder Qualified Code(s): F34.1 - Dysthymic disorder
[2023-08-02] MEDS: QUEtiapine FUMARATE 25 MG TABLET PO SCH (13:08)
[2023-08-02] MEDS ORDERED: QUEtiapine FUMARATE 25 MG TABLET PO SCH (21:00)
[2023-08-03 07:03] LABS: Creatinine Clr Calc Pharmacy 96.4 ml/min; Est GFR (African American) 111.5 ml/min; Est GFR (Non-African American) 96.2 ml/min
[2023-08-03] MEDS: LIDOCAINE 5% 1 PATCH TD PRN (09:03)
--- NOTE | 2023-08-03 11:10 | Hospitalist Progress Note ---
Date of Service August 03, 2023 Assessment & Plan (1) Closed dislocation of right hip: Plan: Patient was at [facility], and woke up on 06/27 complaining of right hip pain. Unfortunately, he suffered dislocation of right hip prosthesis that was initially placed on June 08 of this year. He subsequently had revision of the right total hip arthroplasty on June 29. Appreciate orthopedic consultation and recommendations. Coag negative Staph isolated from the right hip area at the time of surgery on June 29. Infectious disease has recommended IV vancomycin therapy for 6 weeks through 08/10/23, along with rifampin Then, doxycycline 100mg po bid x 1 year along with rifampin x 3 more months through 11/10/23 PICC line not yet placed due to agitation Needs once weekly CBC, CMP while on antibiotics. Last labs drawn 07/28. Will need repeat on 08/04 Pharm on consult for Vanc As per Ortho: weightbearing as tolerated with walker and T scope brace, PT/OT, and abduction pillow use x 6 weeks in bed, pillow between knees while seated in upright chair. F/u with Ortho around 07/17 but patient never discharged from the hospital. Orthopedics saw the patient in the hospital on 07/17. A repeat hip x-ray to confirm stability of Rt hip: No acute abnormalities, in particular no evidence of dislocation. (2) Restlessness and agitation: Plan: Seen and evaluated by Psych, they recommend Seroquel 100mg daily and 25mg Q12 hrs PRN and also Ziprasidone 10mg IM Q2h PRN for agitaion (3) Acute encephalopathy: Plan: Delirium developed while hospitalized. Supportive care medication adjustment as per psych Support sleep-wake cycles Give him tasks to do and distractions, Get him out of bed with physical therapy is much as possible Appreciate neurology and psychiatry consultation Ensure bowels are moving properly, regular meals as he is doing Encouraged pain control with tramadol and Tylenol as needed with nursing staff (4) S/P total hip arthroplasty: Plan: Right total hip arthroplasty on 06/09/[address] Reynolds. Unfortunately, he suffered a dislocation of the prosthesis while at rehab at [facility] Subsequent revision on June 29. Continue aspirin 81 mg twice daily for DVT prophylaxis, oral rifampin for concerns about biofilm developing on the prosthesis from orthopedic standpoint, and parenteral vancomycin for 6 weeks. He will need weekly lab studies while on antibiotics according to infectious disease (5) Acute blood loss anemia: Plan: Hb stable s/p multiple blood transfusions Monitor H and H Transfuse if Hb<7 (6) Iron deficiency: Plan: Received parenteral iron replacement for 3 days and hemoglobin improving (7) Frontotemporal dementia: Plan: Chronic. Supportive care, noted neurology consultation as above With a h/o TBI and ICH 20+ years ago Previously followed with [facility] (8) Depression: Plan: Stable. Plan DVT proph-ASA 81mg po bid, SCDs Dispo-will need to be revisited once agitation under control. Rehab or SNF will not be able to accept patient if he is still getting IV or IM medications and also if he still has one-to-one sitter Admission and Anticipated Discharge Date Admission Date: June 28, 2023 Subjective Patient seen and examined, lying quietly on the couch does not appear to be in any distress, 1 is to 1 sitter by the bedside.Patient more awake and alert today denies any new complaints Review of Systems Review of Systems: All systems reviewed are negative, apart from the ones contained in the history. Physical Exam Physical Exam: The patient is awake, alert HEENT--PERRL, EOMI, mucous membranes and oropharynx mildly dry Neck--supple. No JVD. No bruits. Thyroid normal, trachea midline, no adenopathy. Heart--normal S1 and S2. No murmurs, rubs or gallops. Lungs--clear bilaterally, no respiratory distress, no accessory muscle use. Abdomen--normal bowel sounds and soft. Extremities--no cyanosis or clubbing. No edema. Dermatologic--normal skin turgor, normal color, no abnormal lymph nodes, no rash. Neurologic--cranial nerves II through XII grossly intact. Rheumatologic--normal range of motion. Psychiatric--anxious Results & Data Results & Data Vital Signs (Past 12 Hours) Vital Signs Temp Pulse Resp BP Pulse Ox O2 Del Method 08/03/23 08:46 94.1 F L 90 16 162/82 H 97 Room Air 08/03/23 07:34 98.8 F 101 H 21 146/89 H 95 Room Air PG Care Time/CCT Total # of Minutes Spent Total Time Spent with Patient: Total time spent is greater than 50% in coordination of care (as documented) at patient's floor/unit and/or counseling patient: Coding Level of Care Code 72020 SUB INP/OBS CARE 2/35MIN Diagnoses Closed dislocation of right hip, initial encounter S73.004A Encounter type: initial encounter Restlessness and agitation R45.1 Acute encephalopathy G93.40 Status post total replacement of right hip Z96.641 Laterality: right Acute blood loss anemia D62 Iron deficiency E61.1 Frontotemporal dementia G31.09; F02.80 Persistent depressive disorder F34.1 Depression Type: persistent depressive disorder Time Spent (min) 35 (1) Closed dislocation of right hip Encounter type: initial encounter Qualified Code(s): S73.004A - Unspecified dislocation of right hip, initial encounter (4) S/P total hip arthroplasty Laterality: right Qualified Code(s): Z96.641 - Presence of right artificial hip joint (8) Depression Depression Type: persistent depressive disorder Qualified Code(s): F34.1 - Dysthymic disorder
[2023-08-03] MEDS: ZIPRASIDONE 20 MG/ML SDV IM PRN (14:52)
[2023-08-03] MEDS: diphenhydrAMINE 50 MG/ML VIAL IV ONE (19:01)
--- NOTE | 2023-08-04 11:01 | Hospitalist Progress Note ---
Date of Service August 04, 2023 Assessment & Plan (1) Closed dislocation of right hip: Plan: Patient was at [facility], and woke up on 06/27 complaining of right hip pain. Unfortunately, he suffered dislocation of right hip prosthesis that was initially placed on June 08 of this year. He subsequently had revision of the right total hip arthroplasty on June 29. Appreciate orthopedic consultation and recommendations. Coag negative Staph isolated from the right hip area at the time of surgery on June 29. Infectious disease has recommended IV vancomycin therapy for 6 weeks through 08/10/23, along with rifampin Then, doxycycline 100mg po bid x 1 year along with rifampin x 3 more months through 11/10/23 PICC line not yet placed due to agitation Needs once weekly CBC, CMP while on antibiotics. Last labs drawn 07/28. Will need repeat on 08/04 Pharm on consult for Vanc As per Ortho: weightbearing as tolerated with walker and T scope brace, PT/OT, and abduction pillow use x 6 weeks in bed, pillow between knees while seated in upright chair. F/u with Ortho around 07/17 but patient never discharged from the hospital. Orthopedics saw the patient in the hospital on 07/17. A repeat hip x-ray to confirm stability of Rt hip: No acute abnormalities, in particular no evidence of dislocation. (2) Restlessness and agitation: Plan: Seen and evaluated by Psych, they recommend Seroquel 100mg daily and 25mg Q12 hrs PRN and also Ziprasidone 10mg IM Q2h PRN for agitaion (3) Acute encephalopathy: Plan: Delirium developed while hospitalized. Supportive care medication adjustment as per psych Support sleep-wake cycles Give him tasks to do and distractions, Get him out of bed with physical therapy is much as possible Appreciate neurology and psychiatry consultation Ensure bowels are moving properly, regular meals as he is doing Encouraged pain control with tramadol and Tylenol as needed with nursing staff (4) S/P total hip arthroplasty: Plan: Right total hip arthroplasty on 06/09/[address] Reynolds. Unfortunately, he suffered a dislocation of the prosthesis while at rehab at [facility]. Subsequent revision on June 29. Continue aspirin 81 mg twice daily for DVT prophylaxis, oral rifampin for concerns about biofilm developing on the prosthesis from orthopedic standpoint, and parenteral vancomycin for 6 weeks. He will need weekly lab studies while on antibiotics according to infectious disease (5) Acute blood loss anemia: Plan: Hb stable s/p multiple blood transfusions Monitor H and H Transfuse if Hb<7 (6) Iron deficiency: Plan: Received parenteral iron replacement for 3 days and hemoglobin improving (7) Frontotemporal dementia: Plan: Chronic. Supportive care, noted neurology consultation as above With a h/o TBI and ICH 20+ years ago Previously followed with [facility]rology (8) Depression: Plan: Stable. Plan DVT proph-ASA 81mg po bid, SCDs Dispo-will need to be revisited once agitation under control. Rehab or SNF will not be able to accept patient if he is still getting IV or IM medications and also if he still has one-to-one sitter Admission and Anticipated Discharge Date Admission Date: June 28, 2023 Subjective Patient seen and examined, did not report that episodes of severe agitation and violence last night. Patient had to be put on restraints. Review of Systems Review of Systems: All systems reviewed are negative, apart from the ones contained in the history. Physical Exam Physical Exam: The patient is awake, alert HEENT--PERRL, EOMI, mucous membranes and oropharynx mildly dry Neck--supple. No JVD. No bruits. Thyroid normal, trachea midline, no adenopathy. Heart--normal S1 and S2. No murmurs, rubs or gallops. Lungs--clear bilaterally, no respiratory distress, no accessory muscle use. Abdomen--normal bowel sounds and soft. Extremities--no cyanosis or clubbing. No edema. Dermatologic--normal skin turgor, normal color, no abnormal lymph nodes, no rash. Neurologic--cranial nerves II through XII grossly intact. Rheumatologic--normal range of motion. Psychiatric--anxious Results & Data Results & Data Vital Signs (Past 12 Hours) Vital Signs Temp Pulse Pulse Resp BP BP Pulse Ox 08/04/23 07:51 97.9 F 77 18 154/88 H 100 08/03/23 23:03 97.7 F 84 16 152/88 H 96 O2 Del Method 08/04/23 07:51 Room Air 08/03/23 23:03 Room Air PG Care Time/CCT Total # of Minutes Spent Total Time Spent with Patient: Total time spent is greater than 50% in coordination of care (as documented) at patient's floor/unit and/or counseling patient: Coding Level of Care Code 71025 SUB INP/OBS CARE 2/35MIN Diagnoses Closed dislocation of right hip, initial encounter S73.004A Encounter type: initial encounter Restlessness and agitation R45.1 Acute encephalopathy G93.40 Status post total replacement of right hip Z96.641 Laterality: right Acute blood loss anemia D62 Iron deficiency E61.1 Frontotemporal dementia G31.09; F02.80 Persistent depressive disorder F34.1 Depression Type: persistent depressive disorder Time Spent (min) 35 (1) Closed dislocation of right hip Encounter type: initial encounter Qualified Code(s): S73.004A - Unspecified dislocation of right hip, initial encounter (4) S/P total hip arthroplasty Laterality: right Qualified Code(s): Z96.641 - Presence of right artificial hip joint (8) Depression Depression Type: persistent depressive disorder Qualified Code(s): F34.1 - Dysthymic disorder
[2023-08-05 06:40] LABS: Hematocrit (blood only) 32.7 % (42.0-52.0); Hemoglobin 10.9 g/dl (14.0-18.0); Mean Corpuscular Hemoglobin 29.5 pg (25.0-34.0); Mean Corpuscular Hgb Conc 33.3 g/dL (32.0-36.0); Mean Corpuscular Volume 88.6 fL (80.0-100.0); Mean Platelet Volume 8.6 fL (9.4-12.4); Platelet Count 235 K/uL (130-400); RDW Standard Deviation 48.4 fL (36.4-46.3); Red Blood Count 3.69 M/uL (4.70-6.10); White Blood Count 5.74 K/ul (4.8-10.8)
[2023-08-05 07:00] LABS: BUN Creatinine Ratio 26.8 (10-20); Calcium 9.4 mg/dl (8.6-10.3); Creatinine Clr Calc Pharmacy 81.1 ml/min; Est GFR (African American) 103.8 ml/min; Est GFR (Non-African American) 89.6 ml/min; Potassium 3.9 mmol/L (3.5-5.1)
[2023-08-05] MEDS: VANCOMYCIN LEVEL ONE (09:06)
--- NOTE | 2023-08-05 10:08 | Pharmacy Report ---
Pharmacy PK ABX Note - Date of Service August 05, 2023 - Assessment and Plan Assessment 08/04: Vancomycin level was 20.4 mcg/mL this AM; which is associated with a supratherapeutic AUC of 672. Will reduce dose slightly. 07/31: Vancomycin level was 14.8 mcg/mL this AM; predicted AUC 530. Continue current regimen. 07/26: Vancomycin level was 16.3 mcg/mL this AM; predicted AUC 555. Continue current regimen. 07/21: Vancomycin level was 15.6 mcg/mL this AM; predicted AUC 591. Continue current regimen. 07/15: Vancomycin level =15.2mcg/mL; predicted AUC 548 mg/dL. continue current regimen. 07/14: Vancomycin level = 16.4 mcg/mL; predicted AUC 548 mg/dL. Continue current regimen. 07/11: Vancomycin level =14.5mcg/mL, which predicts a therapeutic AUC of 556, continue current regimen 07/09: Vancomycin level = 20.9 mcg/mL, which is associated with a slightly supratherapeutic AUC of 610. Will reduce dose slightly. 07/07: Vancomycin level = 17 mcg/ml at 08:46 AM today. 07/05: Vancomycin level today came back at ~12 mcg/ml - this dosing is correlating to goal AUC/RAIMUNDO 400-600. Plan to continue same regimen. 07/03: 68 year old M receiving started on vancomycin and rifampin for joint infection. Preliminary cultures with coagulase negative staph. Patient is s/p hip replacement 06/08. He suffered dislocation of prosthesis and required hip revision 06/29. Day # 1 of antimicrobial therapy. Plan Vancomycin * Adjusted regimen: 1000 mg IV every 12 hours starting today 9am * Random level obtained today resulted as 20.4 mcg/mL. Predicted AUC at steady state: 547 mg/L.hr with probability of nephrotoxicity at 11% * Goal AUC/RAIMUNDO of 400-600 mg/L.hr * SCr every other day * Repeat random scheduled for 08/06 Pharmacy will continue to follow and will adjust dose/frequency as necessary. Thank you. Pharmacy has transitioned to AUC monitoring for vancomycin. AUC/RAIMUNDO is the preferred PK/PD target and is associated with decreased risk of nephrotoxicity compared to traditional trough targets.
[2023-08-05] MEDS: VANCOMYCIN HCL 1,000 MG in SODIUM CHLORIDE 0.9% 250 ML IV SCH (10:13)
--- NOTE | 2023-08-05 10:42 | Hospitalist Progress Note ---
Date of Service August 05, 2023 Assessment & Plan (1) Closed dislocation of right hip: Plan: Patient was at [facility], and woke up on 06/27 complaining of right hip pain. Unfortunately, he suffered dislocation of right hip prosthesis that was initially placed on June 08 of this year. He subsequently had revision of the right total hip arthroplasty on June 29. Appreciate orthopedic consultation and recommendations. Coag negative Staph isolated from the right hip area at the time of surgery on June 29. Infectious disease has recommended IV vancomycin therapy for 6 weeks through 08/10/23, along with rifampin Then, doxycycline 100mg po bid x 1 year along with rifampin x 3 more months through 11/10/23 PICC line not yet placed due to agitation Needs once weekly CBC, CMP while on antibiotics. Last labs drawn 08/04 Pharm on consult for Vanc As per Ortho: weightbearing as tolerated with walker and T scope brace, PT/OT, and abduction pillow use x 6 weeks in bed, pillow between knees while seated in upright chair. F/u with Ortho around 07/17 but patient never discharged from the hospital. Orthopedics saw the patient in the hospital on 07/17. A repeat hip x-ray to confirm stability of Rt hip: No acute abnormalities, in particular no evidence of dislocation. (2) Restlessness and agitation: Plan: Seen and evaluated by Psych, they recommend Seroquel 100mg daily and 25mg Q12 hrs PRN and also Ziprasidone 10mg IM Q2h PRN for agitaion (3) Acute encephalopathy: Plan: Delirium developed while hospitalized. Supportive care medication adjustment as per psych Support sleep-wake cycles Give him tasks to do and distractions, Get him out of bed with physical therapy is much as possible Appreciate neurology and psychiatry consultation Ensure bowels are moving properly, regular meals as he is doing Encouraged pain control with tramadol and Tylenol as needed with nursing staff (4) S/P total hip arthroplasty: Plan: Right total hip arthroplasty on 06/09/[address] Reynolds. Unfortunately, he suffered a dislocation of the prosthesis while at rehab at [facility]. Subsequent revision on June 29. Continue aspirin 81 mg twice daily for DVT prophylaxis, oral rifampin for concerns about biofilm developing on the prosthesis from orthopedic standpoint, and parenteral vancomycin for 6 weeks. He will need weekly lab studies while on antibiotics according to infectious disease (5) Acute blood loss anemia: Plan: Hb stable s/p multiple blood transfusions Monitor H and H Transfuse if Hb<7 (6) Iron deficiency: Plan: Received parenteral iron replacement for 3 days and hemoglobin improving (7) Frontotemporal dementia: Plan: Chronic. Supportive care, noted neurology consultation as above With a h/o TBI and ICH 20+ years ago Previously followed with [facility] (8) Depression: Plan: Stable. Plan DVT proph-ASA 81mg po bid, SCDs Dispo-will need to be revisited once agitation under control. Rehab or SNF will not be able to accept patient if he is still getting IV or IM medications and also if he still has one-to-one sitter Admission and Anticipated Discharge Date Admission Date: June 28, 2023 Subjective Patient seen and examined, did not report that episodes of severe agitation and violence last night. Patient had to be put on restraints. Review of Systems Review of Systems: All systems reviewed are negative, apart from the ones contained in the history. Physical Exam Physical Exam: The patient is awake, alert HEENT--PERRL, EOMI, mucous membranes and oropharynx mildly dry Neck--supple. No JVD. No bruits. Thyroid normal, trachea midline, no adenopathy. Heart--normal S1 and S2. No murmurs, rubs or gallops. Lungs--clear bilaterally, no respiratory distress, no accessory muscle use. Abdomen--normal bowel sounds and soft. Extremities--no cyanosis or clubbing. No edema. Dermatologic--normal skin turgor, normal color, no abnormal lymph nodes, no rash. Neurologic--cranial nerves II through XII grossly intact. Rheumatologic--normal range of motion. Psychiatric--anxious Results & Data Results & Data Vital Signs (Past 12 Hours) Vital Signs Temp Pulse Resp BP Pulse Ox O2 Del Method 08/05/23 06:29 98.4 F 91 H 18 133/79 96 Room Air PG Care Time/CCT Total # of Minutes Spent Total Time Spent with Patient: Total time spent is greater than 50% in coordination of care (as documented) at patient's floor/unit and/or counseling patient: Coding Level of Care Code 16792 SUB INP/OBS CARE 2/35MIN Diagnoses Closed dislocation of right hip, initial encounter S73.004A Encounter type: initial encounter Restlessness and agitation R45.1 Acute encephalopathy G93.40 Status post total replacement of right hip Z96.641 Laterality: right Acute blood loss anemia D62 Iron deficiency E61.1 Frontotemporal dementia G31.09; F02.80 Persistent depressive disorder F34.1 Depression Type: persistent depressive disorder Time Spent (min) 35 (1) Closed dislocation of right hip Encounter type: initial encounter Qualified Code(s): S73.004A - Unspecified dislocation of right hip, initial encounter (4) S/P total hip arthroplasty Laterality: right Qualified Code(s): Z96.641 - Presence of right artificial hip joint (8) Depression Depression Type: persistent depressive disorder Qualified Code(s): F34.1 - Dysthymic disorder
[2023-08-06 07:39] LABS: Creatinine Clr Calc Pharmacy 85.3 ml/min; Est GFR (Non-African American) 91.5 ml/min
--- NOTE | 2023-08-06 10:02 | Hospitalist Progress Note ---
Date of Service August 06, 2023 Assessment & Plan (1) Closed dislocation of right hip: Plan: Patient was at [facility], and woke up on 06/27 complaining of right hip pain. Unfortunately, he suffered dislocation of right hip prosthesis that was initially placed on June 08 of this year. He subsequently had revision of the right total hip arthroplasty on June 29. Appreciate orthopedic consultation and recommendations. Coag negative Staph isolated from the right hip area at the time of surgery on June 29. Infectious disease has recommended IV vancomycin therapy for 6 weeks through 08/10/23, along with rifampin Then, doxycycline 100mg po bid x 1 year along with rifampin x 3 more months through 11/10/23 PICC line not yet placed due to agitation Needs once weekly CBC, CMP while on antibiotics. Last labs drawn 08/04 Pharm on consult for Vanc As per Ortho: weightbearing as tolerated with walker and T scope brace, PT/OT, and abduction pillow use x 6 weeks in bed, pillow between knees while seated in upright chair. F/u with Ortho around 07/17 but patient never discharged from the hospital. Orthopedics saw the patient in the hospital on 07/17. A repeat hip x-ray to confirm stability of Rt hip: No acute abnormalities, in particular no evidence of dislocation. (2) Restlessness and agitation: Plan: Seen and evaluated by Psych, they recommend Seroquel 100mg daily and 25mg Q12 hrs PRN and also Ziprasidone 10mg IM Q2h PRN for agitaion (3) Acute encephalopathy: Plan: Delirium developed while hospitalized. Supportive care medication adjustment as per psych Support sleep-wake cycles Give him tasks to do and distractions, Get him out of bed with physical therapy is much as possible Appreciate neurology and psychiatry consultation Ensure bowels are moving properly, regular meals as he is doing Encouraged pain control with tramadol and Tylenol as needed with nursing staff Continue re orientation (4) S/P total hip arthroplasty: Plan: Right total hip arthroplasty on 06/09/[address] Reynolds. Unfortunately, he suffered a dislocation of the prosthesis while at rehab at [facility]. Subsequent revision on June 29. Continue aspirin 81 mg twice daily for DVT prophylaxis, oral rifampin for concerns about biofilm developing on the prosthesis from orthopedic standpoint, and parenteral vancomycin for 6 weeks. He will need weekly lab studies while on antibiotics according to infectious disease (5) Acute blood loss anemia: Plan: Hb stable s/p multiple blood transfusions Monitor H and H Transfuse if Hb<7 (6) Iron deficiency: Plan: Received parenteral iron replacement (7) Frontotemporal dementia: Plan: Chronic. Supportive care, noted neurology consultation as above With a h/o TBI and ICH 20+ years ago Previously followed with [facility] (8) Depression: Plan: Stable. Plan DVT proph-ASA 81mg po bid, SCDs Dispo-will need to be revisited once agitation under control. Rehab or SNF will not be able to accept patient if he is still getting IV or IM medications and also if he still has one-to-one sitter or on restraints Admission and Anticipated Discharge Date Admission Date: June 28, 2023 Subjective Patient seen and examined, off restraints, although a bit agitated, but not overtly aggressive Review of Systems Review of Systems: All systems reviewed are negative, apart from the ones contained in the history. Physical Exam Physical Exam: The patient is awake, alert HEENT--PERRL, EOMI, mucous membranes and oropharynx mildly dry Neck--supple. No JVD. No bruits. Thyroid normal, trachea midline, no adenopathy. Heart--normal S1 and S2. No murmurs, rubs or gallops. Lungs--clear bilaterally, no respiratory distress, no accessory muscle use. Abdomen--normal bowel sounds and soft. Extremities--no cyanosis or clubbing. No edema. Dermatologic--normal skin turgor, normal color, no abnormal lymph nodes, no rash. Neurologic--cranial nerves II through XII grossly intact. Rheumatologic--normal range of motion. Psychiatric--anxious Results & Data Results & Data Vital Signs (Past 12 Hours) Vital Signs Temp Pulse Resp BP Pulse Ox O2 Del Method 08/06/23 07:00 97.9 F 105 H 18 151/100 H 99 Room Air PG Care Time/CCT Total # of Minutes Spent Total Time Spent with Patient: Total time spent is greater than 50% in coordination of care (as documented) at patient's floor/unit and/or counseling patient: Coding Level of Care Code 30994 SUB INP/OBS CARE 2/35MIN Diagnoses Closed dislocation of right hip, initial encounter S73.004A Encounter type: initial encounter Restlessness and agitation R45.1 Acute encephalopathy G93.40 Status post total replacement of right hip Z96.641 Laterality: right Acute blood loss anemia D62 Iron deficiency E61.1 Frontotemporal dementia G31.09; F02.80 Persistent depressive disorder F34.1 Depression Type: persistent depressive disorder Time Spent (min) 35 (1) Closed dislocation of right hip Encounter type: initial encounter Qualified Code(s): S73.004A - Unspecified dislocation of right hip, initial encounter (4) S/P total hip arthroplasty Laterality: right Qualified Code(s): Z96.641 - Presence of right artificial hip joint (8) Depression Depression Type: persistent depressive disorder Qualified Code(s): F34.1 - Dysthymic disorder
[2023-08-06] MEDS: cloNIDine HCL 0.1 MG TAB PO SCH (19:26)
[2023-08-07] MEDS: traMADol HCL 50 MG TABLET PO STA (04:38)
[2023-08-07] MEDS: traMADol HCL 50 MG TABLET ONE (04:59)
[2023-08-07] MEDS: QUEtiapine FUMARATE 25 MG TABLET PO SCH (06:18)
[2023-08-07 09:09] LABS: Creatinine Clr Calc Pharmacy 84.2 ml/min; Est GFR (African American) 105.4 ml/min
[2023-08-07] MEDS: VANCOMYCIN LEVEL ONE (09:20)
--- NOTE | 2023-08-07 09:35 | Hospitalist Progress Note ---
Date of Service August 07, 2023 Assessment & Plan (1) Closed dislocation of right hip: Plan: Patient was at [facility], and woke up on 06/27 complaining of right hip pain. Unfortunately, he suffered dislocation of right hip prosthesis that was initially placed on June 08 of this year. He subsequently had revision of the right total hip arthroplasty on June 29. Appreciate orthopedic consultation and recommendations. Coag negative Staph isolated from the right hip area at the time of surgery on June 29. Infectious disease has recommended IV vancomycin therapy for 6 weeks through 08/10/23, along with rifampin Then, doxycycline 100mg po bid x 1 year along with rifampin x 3 more months through 11/10/23 PICC line not yet placed due to agitation Needs once weekly CBC, CMP while on antibiotics. Last labs drawn 08/04 Pharm on consult for Vanc As per Ortho: weightbearing as tolerated with walker and T scope brace, PT/OT, and abduction pillow use x 6 weeks in bed, pillow between knees while seated in upright chair. F/u with Ortho around 07/17 but patient never discharged from the hospital. Orthopedics saw the patient in the hospital on 07/17. A repeat hip x-ray to confirm stability of Rt hip: No acute abnormalities, in particular no evidence of dislocation. (2) Restlessness and agitation: Plan: Seen and evaluated by Psych, they recommend Seroquel 100mg daily and 25mg Q12 hrs PRN and also Ziprasidone 10mg IM Q2h PRN for agitaion (3) Acute encephalopathy: Plan: Delirium developed while hospitalized. Supportive care medication adjustment as per psych Support sleep-wake cycles Give him tasks to do and distractions, Get him out of bed with physical therapy is much as possible Appreciate neurology and psychiatry consultation Ensure bowels are moving properly, regular meals as he is doing Encouraged pain control with tramadol and Tylenol as needed with nursing staff Continue re orientation (4) S/P total hip arthroplasty: Plan: Right total hip arthroplasty on 06/09/[address] Reynolds. Unfortunately, he suffered a dislocation of the prosthesis while at rehab at [facility]. Subsequent revision on June 29. Continue aspirin 81 mg twice daily for DVT prophylaxis, oral rifampin for concerns about biofilm developing on the prosthesis from orthopedic standpoint, and parenteral vancomycin for 6 weeks. He will need weekly lab studies while on antibiotics according to infectious disease (5) Acute blood loss anemia: Plan: Hb stable s/p multiple blood transfusions Monitor H and H Transfuse if Hb<7 (6) Iron deficiency: Plan: Received parenteral iron replacement (7) Frontotemporal dementia: Plan: Chronic. Supportive care, noted neurology consultation as above With a h/o TBI and ICH 20+ years ago Previously followed with [facility]rology (8) Depression: Plan: Stable. (9) Hypertension: Plan: BP is poorly controlled On Clonidine PO 0.1mg BID I am not sure if he takes his oral pills regularly will add a patch Plan DVT proph-ASA 81mg po bid, SCDs Dispo-will need to be revisited once agitation under control. Today is day 40 in the hospital Rehab or SNF will not be able to accept patient if he is still getting IV or IM medications and also if he still has one-to-one sitter or on restraints Admission and Anticipated Discharge Date Admission Date: June 28, 2023 Subjective Patient seen and examined, off restraints, although a bit agitated, but not overtly aggressive Review of Systems Review of Systems: All systems reviewed are negative, apart from the ones contained in the history. Physical Exam Physical Exam: The patient is awake, alert HEENT--PERRL, EOMI, mucous membranes and oropharynx mildly dry Neck--supple. No JVD. No bruits. Thyroid normal, trachea midline, no adenopathy. Heart--normal S1 and S2. No murmurs, rubs or gallops. Lungs--clear bilaterally, no respiratory distress, no accessory muscle use. Abdomen--normal bowel sounds and soft. Extremities--no cyanosis or clubbing. No edema. Dermatologic--normal skin turgor, normal color, no abnormal lymph nodes, no rash. Neurologic--cranial nerves II through XII grossly intact. Rheumatologic--normal range of motion. Psychiatric--anxious Results & Data Results & Data Vital Signs (Past 12 Hours) Vital Signs Temp Pulse Resp BP Pulse Ox O2 Del Method 08/07/23 07:39 98.2 F 88 16 180/102 H 100 Room Air PG Care Time/CCT Total # of Minutes Spent Total Time Spent with Patient: Total time spent is greater than 50% in coordination of care (as documented) at patient's floor/unit and/or counseling patient: Coding Level of Care Code 69970 SUB INP/OBS CARE 35MIN Diagnoses Closed dislocation of right hip, initial encounter S73.004A Encounter type: initial encounter Restlessness and agitation R45.1 Acute encephalopathy G93.40 Status post total replacement of right hip Z96.641 Laterality: right Acute blood loss anemia D62 Iron deficiency E61.1 Frontotemporal dementia G31.09; F02.80 Persistent depressive disorder F34.1 Depression Type: persistent depressive disorder Hypertension I10 Time Spent (min) 35 (1) Closed dislocation of right hip Encounter type: initial encounter Qualified Code(s): S73.004A - Unspecified dislocation of right hip, initial encounter (4) S/P total hip arthroplasty Laterality: right Qualified Code(s): Z96.641 - Presence of right artificial hip joint (8) Depression Depression Type: persistent depressive disorder Qualified Code(s): F34.1 - Dysthymic disorder
[2023-08-07] MEDS: diphenhydrAMINE 50 MG/ML VIAL IV STA (09:57)
--- NOTE | 2023-08-07 10:06 | Pharmacy Report ---
Pharmacy PK ABX Note - Date of Service August 07, 2023 - Assessment and Plan Assessment 08/06: 6 weeks vancomycin to be completed 08/09 then, doxycycline 100mg po bid x 1 year along with rifampin x 3 more months through 11/10/23. Renal function stable. 08/04: Vancomycin level was 20.4 mcg/mL this AM; which is associated with a supratherapeutic AUC of 672. Will reduce dose slightly. 07/31: Vancomycin level was 14.8 mcg/mL this AM; predicted AUC 530. Continue current regimen. 07/26: Vancomycin level was 16.3 mcg/mL this AM; predicted AUC 555. Continue current regimen. 07/21: Vancomycin level was 15.6 mcg/mL this AM; predicted AUC 591. Continue current regimen. 07/15: Vancomycin level =15.2mcg/mL; predicted AUC 548 mg/dL. continue current regimen. 07/14: Vancomycin level = 16.4 mcg/mL; predicted AUC 548 mg/dL. Continue current regimen. 07/11: Vancomycin level =14.5mcg/mL, which predicts a therapeutic AUC of 556, continue current regimen 07/09: Vancomycin level = 20.9 mcg/mL, which is associated with a slightly supratherapeutic AUC of 610. Will reduce dose slightly. 07/07: Vancomycin level = 17 mcg/ml at 08:46 AM today. 07/05: Vancomycin level today came back at ~12 mcg/ml - this dosing is correlating to goal AUC/RAIMUNDO 400-600. Plan to continue same regimen. 07/03: 68 year old M receiving started on vancomycin and rifampin for joint infection. Patient is s/p hip replacement 06/08. He suffered dislocation of prosthesis and required hip revision 06/29. Day # 1 of antimicrobial therapy. Plan Vancomycin * Current regimen: 1000 mg IV every 12 hours * Trough level obtained 08/07/23 resulted as 14.9 mcg/mL. This is predicted to achieve target AUC/RAIMUNDO of 400-600 mg/L.hr * Predicted AUC at steady state: 523 mg/L.hr * Continue 1000 mg IV every 12 hours * Vancomycin treatment to be completed 08/09 - no further levels needed Pharmacy will continue to follow and will adjust dose/frequency as necessary. Thank you. Pharmacy has transitioned to AUC monitoring for vancomycin. AUC/RAIMUNDO is the preferred PK/PD target and is associated with decreased risk of nephrotoxicity compared to traditional trough targets.
[2023-08-07] MEDS: CHECK CLONIDINE PATCH PLACEMENT SCH (17:34)
[2023-08-08 06:48] LABS: Creatinine Clr Calc Pharmacy 82.1 ml/min; Est GFR (African American) 104.4 ml/min
[2023-08-08 08:41] LABS: Basophils # (auto) 0.05 K/uL (0.00-0.20); Basophils % (auto) 1.2 %; Eosinophils # (auto) 0.17 K/uL (0.00-0.50); Eosinophils % (auto) 3.9 %; Hematocrit (blood only) 32.5 % (42.0-52.0); Hemoglobin 10.7 g/dl (14.0-18.0); Immature Granulocytes # (auto) 0.02 K/uL (0.01-0.20); Immature Granulocytes % (auto) 0.5 %; Lymphocytes # (auto) 1.25 K/uL (1.20-3.40); Mean Corpuscular Hemoglobin 29.5 pg (25.0-34.0); Mean Corpuscular Hgb Conc 32.9 g/dL (32.0-36.0); Mean Corpuscular Volume 89.5 fL (80.0-100.0); Mean Platelet Volume 8.6 fL (9.4-12.4); Monocytes % (auto) 9.3 %; Neutrophils # (auto) 2.42 K/uL (1.40-6.50); Neutrophils % (auto) 56.1 %; Platelet Count 221 K/uL (130-400); RDW Coefficient of Variation 14.8 % (11.5-14.5); RDW Standard Deviation 48.8 fL (36.4-46.3); Red Blood Count 3.63 M/uL (4.70-6.10); White Blood Count 4.31 K/ul (4.8-10.8)
--- NOTE | 2023-08-08 09:33 | CT Scan Report ---
CT head/brain wo con CLINICAL HISTORY: altered mental status Technique: Contiguous axial CT images of the head were acquired from the base of the skull to the ej yeyo without intravenous contrast administration. Images were viewed in brain, subdural and bone [facility]. Automated dose lowering techniques and/or adjustment according to patient size were utilized for this exam. Comparison: Comparison is made to CT head 06/12/2023 Findings: Areas of decreased attenuation are present in the periventricular and subcortical white matter bilate rally consistent with small vessel ischemic disease. Generalized cerebral atrophy with commensurate e nlargement of the ventricles, sulci, and cisterns is also present. There is no acute intracranial hem orrhage or evidence of acute territorial infarction. No shift of the midline structures, mass effect, or extra-axial abnormalities are shown. Atherosclerotic calcifications are present in the intracran ial segments of the internal carotid arteries. Chronic encephalomalacia in the left frontal lobe. Imaged portions of the paranasal sinuses and mastoid air cells are clear. The orbits appear normal. There are no acute fractures of the calvaria or scalp swelling. Impression: No acute intracranial hemorrhage, no evidence of acute territorial infarction or other acute intracra nial disease process. ACT 112: Negative or not required by law. Electronically signed by: Elia Whitehead M.D. 08/08/2023 9:32 AM
--- NOTE | 2023-08-08 10:26 | Hospitalist Progress Note ---
Date of Service August 08, 2023 Assessment & Plan (1) Acute encephalopathy: Plan: I was called to the patient's bedside by the RN upon arrival, patient was somnolent and very difficult to arouse, stat blood glucose was 92 saturating well on room air, stat CT scan of the head did not show any acute pathology This is most likely the accumulative effects of the [employer] medications he is been getting to calm him down continue Supportive care medication adjustment as per psych Support sleep-wake cycles Give him tasks to do and distractions, Get him out of bed with physical therapy is much as possible Appreciate neurology and psychiatry consultation Ensure bowels are moving properly, regular meals as he is doing Encouraged pain control with tramadol and Tylenol as needed with nursing staff Continue re orientation (2) Closed dislocation of right hip: Plan: Patient was at [facility], and woke up on 06/27 complaining of right hip pain. Unfortunately, he suffered dislocation of right hip prosthesis that was initially placed on June 08 of this year. He subsequently had revision of the right total hip arthroplasty on June 29. Appreciate orthopedic consultation and recommendations. Coag negative Staph isolated from the right hip area at the time of surgery on June 29. Infectious disease has recommended IV vancomycin therapy for 6 weeks through 08/10/23, along with rifampin Then, doxycycline 100mg po bid x 1 year along with rifampin x 3 more months through 11/10/23 PICC line not yet placed due to agitation Needs once weekly CBC, CMP while on antibiotics. Last labs drawn 08/04 Pharm on consult for Vanc As per Ortho: weightbearing as tolerated with walker and T scope brace, PT/OT, and abduction pillow use x 6 weeks in bed, pillow between knees while seated in upright chair. F/u with Ortho around 07/17 but patient never discharged from the hospital. Orthopedics saw the patient in the hospital on 07/17. A repeat hip x-ray to confirm stability of Rt hip: No acute abnormalities, in particular no evidence of dislocation. (3) Restlessness and agitation: Plan: Seen and evaluated by Psych, they recommend Seroquel 100mg daily and 25mg Q12 hrs PRN and also Ziprasidone 10mg IM Q2h PRN for agitaion (4) S/P total hip arthroplasty: Plan: Right total hip arthroplasty on 06/09/[address] Reynolds. Unfortunately, he suffered a dislocation of the prosthesis while at rehab at [facility]. Subsequent revision on June 29. Continue aspirin 81 mg twice daily for DVT prophylaxis, oral rifampin for concerns about biofilm developing on the prosthesis from orthopedic standpoint, and parenteral vancomycin for 6 weeks. He will need weekly lab studies while on antibiotics according to infectious disease (5) Acute blood loss anemia: Plan: Hb stable s/p multiple blood transfusions Monitor H and H Transfuse if Hb<7 (6) Iron deficiency: Plan: Received parenteral iron replacement (7) Frontotemporal dementia: Plan: Chronic. Supportive care, noted neurology consultation as above With a h/o TBI and ICH 20+ years ago Previously followed with [facility]rology (8) Depression: Plan: Stable. (9) Hypertension: Plan: BP is poorly controlled On Clonidine PO 0.1mg BID I am not sure if he takes his oral pills regularly will add a patch Plan DVT proph-ASA 81mg po bid, SCDs Dispo-will need to be revisited once agitation under control. Today is day 40 in the hospital Rehab or SNF will not be able to accept patient if he is still getting IV or IM medications and also if he still has one-to-one sitter or on restraints Admission and Anticipated Discharge Date Admission Date: June 28, 2023 Subjective Patient seen and examined, I was called to the patient's bedside by the RN upon arrival, patient was somnolent and very difficult to arouse, stat blood glucose was 92 saturating well on room air, stat CT scan of the head did not show any acute pathology Review of Systems Review of Systems: All systems reviewed are negative, apart from the ones contained in the history. Physical Exam Physical Exam: The patient is awake, alert HEENT--PERRL, EOMI, mucous membranes and oropharynx mildly dry Neck--supple. No JVD. No bruits. Thyroid normal, trachea midline, no adenopathy. Heart--normal S1 and S2. No murmurs, rubs or gallops. Lungs--clear bilaterally, no respiratory distress, no accessory muscle use. Abdomen--normal bowel sounds and soft. Extremities--no cyanosis or clubbing. No edema. Dermatologic--normal skin turgor, normal color, no abnormal lymph nodes, no rash. Neurologic--cranial nerves II through XII grossly intact. Rheumatologic--normal range of motion. Psychiatric--anxious Results & Data Results & Data Vital Signs (Past 12 Hours) Vital Signs Temp Pulse Resp BP Pulse Ox O2 Del Method 08/08/23 07:09 98.8 F 60 16 128/82 98 Room Air PG Care Time/CCT Total # of Minutes Spent Total Time Spent with Patient: Total time spent is greater than 50% in coordination of care (as documented) at patient's floor/unit and/or counseling patient: Coding Level of Care Code 30550 SUB INP/OBS CARE 2/35MIN Diagnoses Acute encephalopathy G93.40 Closed dislocation of right hip, initial encounter S73.004A Encounter type: initial encounter Restlessness and agitation R45.1 Status post total replacement of right hip Z96.641 Laterality: right Acute blood loss anemia D62 Iron deficiency E61.1 Frontotemporal dementia G31.09; F02.80 Persistent depressive disorder F34.1 Depression Type: persistent depressive disorder Hypertension I10 Time Spent (min) 35 (2) Closed dislocation of right hip Encounter type: initial encounter Qualified Code(s): S73.004A - Unspecified dislocation of right hip, initial encounter (4) S/P total hip arthroplasty Laterality: right Qualified Code(s): Z96.641 - Presence of right artificial hip joint (8) Depression Depression Type: persistent depressive disorder Qualified Code(s): F34.1 - Dysthymic disorder
[2023-08-09 06:00] LABS: Creatinine Clr Calc Pharmacy 76.4 ml/min; Est GFR (African American) 101.3 ml/min; Est GFR (Non-African American) 87.4 ml/min
--- NOTE | 2023-08-09 11:49 | Hospitalist Progress Note ---
Date of Service August 09, 2023 Assessment & Plan (1) Acute encephalopathy: Plan: This morning, patient was awake, alert and oriented Participating in PT Continue re orientation (2) Closed dislocation of right hip: Plan: Patient was at [facility], and woke up on 06/27 complaining of right hip pain. Unfortunately, he suffered dislocation of right hip prosthesis that was initially placed on June 08 of this year. He subsequently had revision of the right total hip arthroplasty on June 29. Appreciate orthopedic consultation and recommendations. Coag negative Staph isolated from the right hip area at the time of surgery on June 29. Infectious disease has recommended IV vancomycin therapy for 6 weeks through 08/10/23, along with rifampin Then, doxycycline 100mg po bid x 1 year along with rifampin x 3 more months through 11/10/23 PICC line not yet placed due to agitation Needs once weekly CBC, CMP while on antibiotics. Last labs drawn 08/04 Pharm on consult for Vanc As per Ortho: weightbearing as tolerated with walker and T scope brace, PT/OT, and abduction pillow use x 6 weeks in bed, pillow between knees while seated in upright chair. F/u with Ortho around 07/17 but patient never discharged from the hospital. Orthopedics saw the patient in the hospital on 07/17. A repeat hip x-ray to confirm stability of Rt hip: No acute abnormalities, in particular no evidence of dislocation. (3) Restlessness and agitation: Plan: Seen and evaluated by Psych, they recommend Seroquel 100mg daily and 25mg Q12 hrs PRN and also Ziprasidone 10mg IM Q2h PRN for agitaion (4) S/P total hip arthroplasty: Plan: Right total hip arthroplasty on 06/09/[address] Reynolds. Unfortunately, he suffered a dislocation of the prosthesis while at rehab at [facility]. Subsequent revision on June 29. Continue aspirin 81 mg twice daily for DVT prophylaxis, oral rifampin for concerns about biofilm developing on the prosthesis from orthopedic standpoint, and parenteral vancomycin for 6 weeks. He will need weekly lab studies while on antibiotics according to infectious disease (5) Acute blood loss anemia: Plan: Hb stable s/p multiple blood transfusions Monitor H and H Transfuse if Hb<7 (6) Iron deficiency: Plan: Received parenteral iron replacement (7) Frontotemporal dementia: Plan: Chronic. Supportive care, noted neurology consultation as above With a h/o TBI and ICH 20+ years ago Previously followed with [facility] Neurology (8) Depression: Plan: Stable. (9) Hypertension: Plan: BP is poorly controlled On Clonidine PO 0.1mg BID I am not sure if he takes his oral pills regularly will add a patch Plan DVT proph-ASA 81mg po bid, SCDs Hopefully discharge him to SNF soon. He has not required 1:1 sitter and I believe he didnt get any IM or IV meds yesterday for agitation Admission and Anticipated Discharge Date Admission Date: June 28, 2023 Subjective Patient seen and examined,awake and alert, participating in PT today Review of Systems Review of Systems: All systems reviewed are negative, apart from the ones contained in the history. Physical Exam Physical Exam: The patient is awake, alert HEENT--PERRL, EOMI, mucous membranes and oropharynx mildly dry Neck--supple. No JVD. No bruits. Thyroid normal, trachea midline, no adenopathy. Heart--normal S1 and S2. No murmurs, rubs or gallops. Lungs--clear bilaterally, no respiratory distress, no accessory muscle use. Abdomen--normal bowel sounds and soft. Extremities--no cyanosis or clubbing. No edema. poor muscle tone Dermatologic--normal skin turgor, normal color, no abnormal lymph nodes, no rash. Neurologic--cranial nerves II through XII grossly intact. Rheumatologic--normal range of motion. Psychiatric--anxious Results & Data Results & Data Vital Signs (Past 12 Hours) Vital Signs Temp Pulse Resp BP Pulse Ox O2 Del Method 08/09/23 07:07 98.4 F 67 18 120/76 98 Room Air PG Care Time/CCT Total # of Minutes Spent Total Time Spent with Patient: Total time spent is greater than 50% in coordination of care (as documented) at patient's floor/unit and/or counseling patient: Coding Level of Care Code 06560 SUB INP/OBS CARE 2/35MIN Diagnoses Acute encephalopathy G93.40 Closed dislocation of right hip, initial encounter S73.004A Encounter type: initial encounter Restlessness and agitation R45.1 Status post total replacement of right hip Z96.641 Laterality: right Acute blood loss anemia D62 Iron deficiency E61.1 Frontotemporal dementia G31.09; F02.80 Persistent depressive disorder F34.1 Depression Type: persistent depressive disorder Hypertension I10 Time Spent (min) 35 (2) Closed dislocation of right hip Encounter type: initial encounter Qualified Code(s): S73.004A - Unspecified dislocation of right hip, initial encounter (4) S/P total hip arthroplasty Laterality: right Qualified Code(s): Z96.641 - Presence of right artificial hip joint (8) Depression Depression Type: persistent depressive disorder Qualified Code(s): F34.1 - Dysthymic disorder
[2023-08-10] MEDS ORDERED: MELATONIN 3 MG TAB PO PRN (01:43)
[2023-08-10] MEDS: MELATONIN 3 MG TAB PO ONE (03:03)
--- NOTE | 2023-08-10 09:51 | Orthopedic Progress Note ---
Date of Service August 10, 2023 Assessment & Plan (1) S/P total hip arthroplasty: Plan: Patient is now 6 weeks out from his revision surgery. His wound is healing well. no current signs of infection. Appreciate infectious disease managing his positive culture at the time of revision surgery. At this time may discontinue the hip brace. Should continue to observe posterior hip precautions and use a walker with ambulation, however. Continue physical therapy AP pelvis x-ray ordered today as part of routine postoperative imaging. Do not expect to find any problems. Would prefer to have the Lincoln catheter discontinued if okay with internal medicine. DVT prophylaxis per internal medicine. Next follow-up with orthopedics should be in approximately 6 weeks in my office with x-rays. (2) Dislocation of internal right hip prosthesis: (3) History of revision of total replacement of right hip joint: Admission and Anticipated Discharge Date Admission Date: June 28, 2023 Subjective Patient seen and examined on a.m. rounds. Mentally he is a lot better today, continues to be better each time I see him. Apparently he is doing much better with physical therapy as well. In speaking with his nurse he had a medical "reset" on Tuesday and has been without one-to-one sitter since that time. Denies any pain in his hip today. Physical Exam Physical Exam: In general he is alert and conversational this morning. He answers all que stions appropriately. Right hip exam shows his incision to be well-healed. No redness swelling or evidence of infection. Distally neurovascularly intact. He does have a Lincoln catheter in his bladder. Results & Data Vital Signs (Past 12 Hours) Vital Signs Temp Pulse Resp BP Pulse Ox O2 Del Method 08/10/23 09:18 66 147/91 H 08/10/23 08:25 36.7 C 63 16 162/91 H 99 Room Air 08/10/23 00:02 62 123/70 (1) S/P total hip arthroplasty Laterality: right Qualified Code(s): Z96.641 - Presence of right artificial hip joint
--- NOTE | 2023-08-10 12:22 | Hospitalist Progress Note ---
Date of Service August 10, 2023 Assessment & Plan (1) Acute encephalopathy: Plan: This morning, patient was awake, alert and oriented Participating in PT Continue re orientation Has not required a one-to-one sitter and also has not required IM or IV medications for agitation (2) Closed dislocation of right hip: Plan: Patient was at [facility], and woke up on 06/27 complaining of right hip pain. Unfortunately, he suffered dislocation of right hip prosthesis that was initially placed on June 08 of this year. He subsequently had revision of the right total hip arthroplasty on June 29. Appreciate orthopedic consultation and recommendations. Coag negative Staph isolated from the right hip area at the time of surgery on June 29. Infectious disease has recommended IV vancomycin therapy for 6 weeks, end date today 08/10/23, along with rifampin Then, doxycycline 100mg po bid x 1 year along with rifampin x 3 more months through 11/10/23 PICC line not yet placed due to agitation Needs once weekly CBC, CMP while on antibiotics. Last labs drawn 08/04 Pharm on consult for Vanc As per Ortho: weightbearing as tolerated with walker and T scope brace, PT/OT, and abduction pillow use x 6 weeks in bed, pillow between knees while seated in upright chair. A repeat hip x-ray to confirm stability of Rt hip: No acute abnormalities, in particular no evidence of dislocation. (3) Restlessness and agitation: Plan: Seen and evaluated by Psych, they recommend Seroquel 100mg daily and 25mg Q12 hrs PRN and also Ziprasidone 10mg IM Q2h PRN for agitaion (4) S/P total hip arthroplasty: Plan: Right total hip arthroplasty on 06/09/[address] Reynolds. Unfortunately, he suffered a dislocation of the prosthesis while at rehab at [facility]. Subsequent revision on June 29. Continue aspirin 81 mg twice daily for DVT prophylaxis, oral rifampin for concerns about biofilm developing on the prosthesis from orthopedic standpoint, and parenteral vancomycin for 6 weeks. He will need weekly lab studies while on antibiotics according to infectious disease (5) Acute blood loss anemia: Plan: Hb stable s/p multiple blood transfusions Monitor H and H Transfuse if Hb<7 (6) Iron deficiency: Plan: Received parenteral iron replacement (7) Frontotemporal dementia: Plan: Chronic. Supportive care, noted neurology consultation as above With a h/o TBI and ICH 20+ years ago Previously followed with [facility] (8) Depression: Plan: Stable. (9) Hypertension: Plan: BP is poorly controlled On Clonidine PO 0.1mg BID I am not sure if he takes his oral pills regularly will add a patch Plan DVT proph-ASA 81mg po bid, SCDs Hopefully discharge him to SNF soon. He has not required 1:1 sitter he didnt get any IM or IV meds yesterday for agitation Admission and Anticipated Discharge Date Admission Date: June 28, 2023 Subjective Patient seen and examined, was participating in physical therapy, has not needed a one-to-one sitter in the past couple of days Review of Systems Review of Systems: All systems reviewed are negative, apart from the ones contained in the history. Physical Exam Physical Exam: The patient is awake, alert HEENT--PERRL, EOMI, mucous membranes and oropharynx mildly dry Neck--supple. No JVD. No bruits. Thyroid normal, trachea midline, no adenopathy. Heart--normal S1 and S2. No murmurs, rubs or gallops. Lungs--clear bilaterally, no respiratory distress, no accessory muscle use. Abdomen--normal bowel sounds and soft. Extremities--no cyanosis or clubbing. No edema. poor muscle tone Dermatologic--normal skin turgor, normal color, no abnormal lymph nodes, no rash. Neurologic--cranial nerves II through XII grossly intact. Rheumatologic--normal range of motion. Psychiatric--anxious Results & Data Results & Data Vital Signs (Past 12 Hours) Vital Signs Temp Pulse Resp BP Pulse Ox O2 Del Method 08/10/23 09:18 66 147/91 H 08/10/23 08:25 98.1 F 63 16 162/91 H 99 Room Air PG Care Time/CCT Total # of Minutes Spent Total Time Spent with Patient: Total time spent is greater than 50% in coordination of care (as documented) at patient's floor/unit and/or counseling patient: Coding Level of Care Code 33068 SUB INP/OBS CARE 2/35MIN Diagnoses Acute encephalopathy G93.40 Closed dislocation of right hip, initial encounter S73.004A Encounter type: initial encounter Restlessness and agitation R45.1 Status post total replacement of right hip Z96.641 Laterality: right Acute blood loss anemia D62 Iron deficiency E61.1 Frontotemporal dementia G31.09; F02.80 Persistent depressive disorder F34.1 Depression Type: persistent depressive disorder Hypertension I10 Time Spent (min) 35 (2) Closed dislocation of right hip Encounter type: initial encounter Qualified Code(s): S73.004A - Unspecified dislocation of right hip, initial encounter (4) S/P total hip arthroplasty Laterality: right Qualified Code(s): Z96.641 - Presence of right artificial hip joint (8) Depression Depression Type: persistent depressive disorder Qualified Code(s): F34.1 - Dysthymic disorder
--- NOTE | 2023-08-10 13:09 | XRay Report ---
XR pelvis 1-2V routine CLINICAL HISTORY: 6 weeks s/p revision DARIEL for dislocation TECHNIQUE: A single frontal view of the pelvis was obtained. Comparison: Comparison is made to right hip radiograph 07/31/2023 FINDINGS: There is no evidence of an acute fracture. There is a right hip total arthroplasty. Degenerative jack ges are seen in the pubic symphysis and lumbar spine. No soft tissue abnormality is seen. IMPRESSION: Expected postoperative changes of total hip arthroplasty without acute abnormality. ACT 112: Negative or not required by law. Electronically signed by: Elia Whitehead M.D. 08/10/2023 1:08 PM
[2023-08-10] MEDS: ACETAMINOPHEN 500 MG TAB PO PRN (21:23)
[2023-08-11] MEDS: MELATONIN 3 MG TAB PO PRN (00:25)
[2023-08-11] MEDS: DICLOFENAC SOD 1% GEL 100 GM TUBE EXT PRN (02:10)
[2023-08-11] MEDS: diphenhydrAMINE Capsule 25 MG CAP PO ONE ×2 (07:46→14:30)
[2023-08-11] MEDS: DOXYCYCLINE HYCLATE 100 MG CAP PO SCH (08:24)
--- NOTE | 2023-08-11 11:44 | Hospitalist Progress Note ---
Date of Service August 11, 2023 Assessment & Plan (1) Acute encephalopathy: Plan: This morning, patient was awake, alert and oriented, but a little agitated and anxious Participating in PT Continue re orientation Has not required a one-to-one sitter and also has not required IM or IV medications for agitation in 3 days (2) Closed dislocation of right hip: Plan: Patient was at [facility], and woke up on 06/27 complaining of right hip pain. Unfortunately, he suffered dislocation of right hip prosthesis that was initially placed on June 08 of this year. He subsequently had revision of the right total hip arthroplasty on June 29. Appreciate orthopedic consultation and recommendations. Coag negative Staph isolated from the right hip area at the time of surgery on June 29. Infectious disease has recommended IV vancomycin therapy for 6 weeks, end date today 08/10/23, along with rifampin Then, doxycycline 100mg po bid x 1 year along with rifampin x 3 more months through 11/10/23 PICC line not yet placed due to agitation Needs once weekly CBC, CMP while on antibiotics. Last labs drawn 08/04 Pharm on consult for Vanc As per Ortho: weightbearing as tolerated with walker and T scope brace, PT/OT, and abduction pillow use x 6 weeks in bed, pillow between knees while seated in upright chair. A repeat hip x-ray to confirm stability of Rt hip: No acute abnormalities, in particular no evidence of dislocation. (3) Restlessness and agitation: Plan: Seen and evaluated by Psych, they recommend Seroquel 100mg daily and 25mg Q12 hrs PRN and also Ziprasidone 10mg IM Q2h PRN for agitaion (4) S/P total hip arthroplasty: Plan: Right total hip arthroplasty on 06/09/[address] Reynolds. Unfortunately, he suffered a dislocation of the prosthesis while at rehab at [facility]. Subsequent revision on June 29. Continue aspirin 81 mg twice daily for DVT prophylaxis, oral rifampin for concerns about biofilm developing on the prosthesis from orthopedic standpoint, and parenteral vancomycin for 6 weeks. He will need weekly lab studies while on antibiotics according to infectious disease (5) Acute blood loss anemia: Plan: Hb stable s/p multiple blood transfusions Monitor H and H Transfuse if Hb<7 (6) Iron deficiency: Plan: Received parenteral iron replacement (7) Frontotemporal dementia: Plan: Chronic. Supportive care, noted neurology consultation as above With a h/o TBI and ICH 20+ years ago Previously followed with [facility] (8) Depression: Plan: Stable. (9) Hypertension: Plan: BP is poorly controlled On Clonidine PO 0.1mg BID I am not sure if he takes his oral pills regularly will add a patch Plan DVT proph-ASA 81mg po bid, SCDs Hopefully discharge him to SNF soon. He has not required 1:1 sitter he didnt get any IM or IV meds for 3 days Admission and Anticipated Discharge Date Admission Date: June 28, 2023 Subjective Patient seen and examined, was participating in physical therapy, has not needed a one-to-one sitter in the past 3 of days, although was getting agitated this morning Review of Systems Review of Systems: All systems reviewed are negative, apart from the ones contained in the history. Physical Exam Physical Exam: The patient is awake, alert HEENT--PERRL, EOMI, mucous membranes and oropharynx mildly dry Neck--supple. No JVD. No bruits. Thyroid normal, trachea midline, no adenopathy. Heart--normal S1 and S2. No murmurs, rubs or gallops. Lungs--clear bilaterally, no respiratory distress, no accessory muscle use. Abdomen--normal bowel sounds and soft. Extremities--no cyanosis or clubbing. No edema. poor muscle tone Dermatologic--normal skin turgor, normal color, no abnormal lymph nodes, no rash. Neurologic--cranial nerves II through XII grossly intact. Rheumatologic--normal range of motion. Psychiatric--anxious Results & Data Results & Data Vital Signs (Past 12 Hours) Vital Signs Temp Pulse Resp BP Pulse Ox O2 Del Method 08/11/23 07:31 98.4 F 96 H 20 169/93 H 93 Room Air PG Care Time/CCT Total # of Minutes Spent Total Time Spent with Patient: Total time spent is greater than 50% in coordination of care (as documented) at patient's floor/unit and/or counseling patient: Coding Level of Care Code 59213 SUB INP/OBS CARE 2/35MIN Diagnoses Acute encephalopathy G93.40 Closed dislocation of right hip, initial encounter S73.004A Encounter type: initial encounter Restlessness and agitation R45.1 Status post total replacement of right hip Z96.641 Laterality: right Acute blood loss anemia D62 Iron deficiency E61.1 Frontotemporal dementia G31.09; F02.80 Persistent depressive disorder F34.1 Depression Type: persistent depressive disorder Hypertension I10 Time Spent (min) 35 (2) Closed dislocation of right hip Encounter type: initial encounter Qualified Code(s): S73.004A - Unspecified dislocation of right hip, initial encounter (4) S/P total hip arthroplasty Laterality: right Qualified Code(s): Z96.641 - Presence of right artificial hip joint (8) Depression Depression Type: persistent depressive disorder Qualified Code(s): F34.1 - Dysthymic disorder
[2023-08-11] MEDS: bisacodyL 10 MG SUPP PR STA (13:46)
[2023-08-12 06:33] LABS: Hematocrit (blood only) 32.4 % (42.0-52.0); Hemoglobin 10.6 g/dl (14.0-18.0); Mean Corpuscular Hemoglobin 29.2 pg (25.0-34.0); Mean Corpuscular Hgb Conc 32.7 g/dL (32.0-36.0); Mean Corpuscular Volume 89.3 fL (80.0-100.0); Mean Platelet Volume 9.4 fL (9.4-12.4); Platelet Count 252 K/uL (130-400); RDW Coefficient of Variation 14.8 % (11.5-14.5); RDW Standard Deviation 48.8 fL (36.4-46.3); Red Blood Count 3.63 M/uL (4.70-6.10); White Blood Count 6.08 K/ul (4.8-10.8)
[2023-08-12 07:01] LABS: BUN Creatinine Ratio 21.7 (10-20); Calcium 8.6 mg/dl (8.6-10.3); Creatinine Clr Calc Pharmacy 96.4 ml/min; Est GFR (African American) 111.5 ml/min; Est GFR (Non-African American) 96.2 ml/min
[2023-08-12] MEDS: diphenhydrAMINE 50 MG/ML VIAL IV STA (07:51)
--- NOTE | 2023-08-12 10:36 | CT Scan Report ---
CT head/brain wo con CLINICAL HISTORY: fall Technique: Contiguous axial CT images of the head were acquired from the base of the skull to the ej yeyo without intravenous contrast administration. Images were viewed in brain, subdural and bone [facility]. Automated dose lowering techniques and/or adjustment according to patient size were utilized for this exam. Comparison: Comparison is made to CT head 08/08/2023 Findings: Areas of decreased attenuation are present in the periventricular and subcortical white matter bilate rally consistent with small vessel ischemic disease. Generalized cerebral atrophy with commensurate e nlargement of the ventricles, sulci, and cisterns is also present. There is no acute intracranial hem orrhage or evidence of acute territorial infarction. No shift of the midline structures, mass effect, or extra-axial abnormalities are shown. Atherosclerotic calcifications are present in the intracran ial segments of the internal carotid arteries. Right frontal encephalomalacia is seen. Imaged portions of the paranasal sinuses and mastoid air cells are clear. The orbits appear normal. There are no acute fractures of the calvaria or scalp swelling. Patient is noted to be edentulous. Impression: No acute intracranial hemorrhage, skull fractures, or scalp swelling. ACT 112: Negative or not required by law. Electronically signed by: Elia Whitehead M.D. 08/12/2023 10:35 AM
--- NOTE | 2023-08-12 10:44 | Hospitalist Progress Note ---
Date of Service August 12, 2023 Assessment & Plan (1) Fall: Plan: Had an unwitnessed fall this morning, 08/[address] head (2) Acute encephalopathy: Plan: This morning a little agitated and anxious Continue re orientation Has not required a one-to-one sitter and also has not required IM or IV medications for agitation in 4 days (thats a precondition for him getting accepted at rehab) (3) Closed dislocation of right hip: Plan: Patient was at [facility], and woke up on 06/27 complaining of right hip pain. Unfortunately, he suffered dislocation of right hip prosthesis that was initially placed on June 08 of this year. He subsequently had revision of the right total hip arthroplasty on June 29. Appreciate orthopedic consultation and recommendations. Coag negative Staph isolated from the right hip area at the time of surgery on June 29. Infectious disease has recommended IV vancomycin therapy for 6 weeks, end date today 08/10/23, along with rifampin Then, doxycycline 100mg po bid x 1 year along with rifampin x 3 more months through 11/10/23 PICC line not yet placed due to agitation Needs once weekly CBC, CMP while on antibiotics. Last labs drawn 08/04 Pharm on consult for Vanc As per Ortho: weightbearing as tolerated with walker and T scope brace, PT/OT, and abduction pillow use x 6 weeks in bed, pillow between knees while seated in upright chair. A repeat hip x-ray to confirm stability of Rt hip: No acute abnormalities, in particular no evidence of dislocation. (4) Restlessness and agitation: Plan: Seen and evaluated by Psych, they recommend Seroquel 100mg daily and 25mg Q12 hrs PRN and also Ziprasidone 10mg IM Q2h PRN for agitaion (5) S/P total hip arthroplasty: Plan: Right total hip arthroplasty on 06/09/[address] Reynolds. Unfortunately, he suffered a dislocation of the prosthesis while at rehab at [facility]. Subsequent revision on June 29. Continue aspirin 81 mg twice daily for DVT prophylaxis, oral rifampin for concerns about biofilm developing on the prosthesis from orthopedic standpoint, and parenteral vancomycin for 6 weeks. He will need weekly lab studies while on antibiotics according to infectious disease (6) Acute blood loss anemia: Plan: Hb stable s/p multiple blood transfusions Monitor H and H Transfuse if Hb<7 (7) Iron deficiency: Plan: Received parenteral iron replacement (8) Frontotemporal dementia: Plan: Chronic. Supportive care, noted neurology consultation as above With a h/o TBI and ICH 20+ years ago Previously followed with [facility] (9) Depression: Plan: Stable. (10) Hypertension: Plan: BP is poorly controlled On Clonidine PO 0.1mg BID I am not sure if he takes his oral pills regularly will add a patch Plan DVT proph-ASA 81mg po bid, SCDs Hopefully discharge him to SNF soon. He has not required 1:1 sitter he didnt get any IM or IV meds for 4 days. Although he has started getting a little agitated again. [facility] said they want to monitor him through the weekend Admission and Anticipated Discharge Date Admission Date: June 28, 2023 Subjective Patient seen and examined, patient has been getting more agitated, although not combative as has been reported. he had an unwitnessed fall this morning, will obtain a CT head Review of Systems Review of Systems: All systems reviewed are negative, apart from the ones contained in the history. Physical Exam Physical Exam: The patient is awake, alert HEENT--PERRL, EOMI, mucous membranes and oropharynx mildly dry Neck--supple. No JVD. No bruits. Thyroid normal, trachea midline, no adenopathy. Heart--normal S1 and S2. No murmurs, rubs or gallops. Lungs--clear bilaterally, no respiratory distress, no accessory muscle use. Abdomen--normal bowel sounds and soft. Extremities--no cyanosis or clubbing. No edema. poor muscle tone Dermatologic--normal skin turgor, normal color, no abnormal lymph nodes, no rash. Neurologic--cranial nerves II through XII grossly intact. Rheumatologic--normal range of motion. Psychiatric--anxious Results & Data Results & Data Vital Signs (Past 12 Hours) Vital Signs Temp Pulse Resp BP Pulse Ox O2 Del Method 08/12/23 08:12 97.9 F 75 18 127/63 97 Room Air PG Care Time/CCT Total # of Minutes Spent Total Time Spent with Patient: Total time spent is greater than 50% in coordination of care (as documented) at patient's floor/unit and/or counseling patient: Coding Level of Care Code 08722 SUB INP/OBS CARE 2/35MIN Diagnoses Fall W19.XXXA Acute encephalopathy G93.40 Closed dislocation of right hip, initial encounter S73.004A Encounter type: initial encounter Restlessness and agitation R45.1 Status post total replacement of right hip Z96.641 Laterality: right Acute blood loss anemia D62 Iron deficiency E61.1 Frontotemporal dementia G31.09; F02.80 Persistent depressive disorder F34.1 Depression Type: persistent depressive disorder Hypertension I10 Time Spent (min) 35 (3) Closed dislocation of right hip Encounter type: initial encounter Qualified Code(s): S73.004A - Unspecified dislocation of right hip, initial encounter (5) S/P total hip arthroplasty Laterality: right Qualified Code(s): Z96.641 - Presence of right artificial hip joint (9) Depression Depression Type: persistent depressive disorder Qualified Code(s): F34.1 - Dysthymic disorder
[2023-08-13] MEDS: QUEtiapine FUMARATE 25 MG TABLET PO PRN (12:28)
--- NOTE | 2023-08-13 13:18 | Psychiatric Progress Note ---
Date of Service August 13, 2023 Impression / Recommendations Impression 68-year-old man admitted on 06/28/2023 for dislocation of the right hip prosthesis and received revision surgery on 06/30/2023. Was found to have infection in the right hip and treated with IV antibiotics. 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 Psychiatry consulted for agitation recommendations.Diagnostically consistent with encephalopathy/delirium superimposed on dementia with behavioral disturbance. 08/13/2023: Ongoing delirium and dementia with significant sleep/wake shift and periods of agitation and confusion. Does seem to have some benefit from IM ziprasidone but often requires two doses of 10mg. Given that he has been tolerating this without signs of any significant side effects would encourage increasing the dose to 20mg in effort to better control his symptoms and reduce need for subjecting him to multiple injections. Unfortunately there are no known medications to cure or shorten the duration of delirium; rather antipsychotics are used at times to help with sleep/appetite/psychomotor agitation and hallucinations if these symptoms are causing significant distress and/or interfering with acute safety. Duration of delirium varies broadly with persistent delirium (defined as lasting for weeks or months) occurring frequently with [id number]% of patients exhibiting some symptoms of delirium at 6 months after symptom onset, see:Luis Daniel Rangel., Lencho Parker., Mara Borges.et al.Delirium.[place] Rev Dis Primers6, 90 (2020). [email or web address]. Goal in dementia is to avoid medication management of behaviors if possible by maximizing non-pharmacologic strategies for behavioral management. However, given worsening agitation/aggression use of a scheduled antipsychotic has felt to be necessary as risk/benefit profile favors treatment. Note all antipsychotic medications carry black box warning for increased risk of all-cause mortality in setting of dementia. Antipsychotic trials at this point have included: seroquel po, olanzapine IM (showed no benefit) and ziprasidone IM (some benefit) Overall, I spent a total of 35 minutes with this case including review of chart records, review of labwork, direct evaluation of the patient at bedside, discussion of the patient with the Nurse, discussion with the psychiatric liason during clinical rounds and documentation in the electronic health record. (1) Acute hyperactive delirium due to multiple etiologies: (2) Frontotemporal dementia: (3) History of revision of total replacement of right hip joint: Plan -1-on-1 prn for agitation/confusion Antipsychotic medication options are varied and unfortunately there is no way to determine which would be most effective except via trials: * Could continue titration of seroquel though this may worsen daytime sedation and increase sleep/wake cycle disturbance and has not seemed to be particularly beneficial. * Alternatively could trial olanzapine 5mg HS po to see if this offers increased sedation with option for olanzapine ODT 2.5mg BID prn for agitation. * Alternatively could trial ziprasidone 20mg qdinner po and titrate if effective * Alternatively could trial risperidone 0.5mg HS and titrate to 0.5mg BID or 1mg HS based on response. -Continue medical workup to rule out and treat any underlying causes contributing to potential delirium, avoid or limit use of deliriogenic medications (benzodiazepines, opioids, anticholinergics including Benadryl as this can worsen and prolong delirium and adds to confusion in dementia) -Continue with delirium prevention measures: raising blinds during the day, closing at night, frequent re-orientation, contact with family/friends, explaining procedures/nursing care measures prior to physical contact, correct any hearing and visual impairments -For behavioral emergency: ziprasidone 20mg IM (DO NOT exceed 40mg per 24 hours ). Interval History Identifying Information 68-year-old male arrived on 06/28/2023 for dislocation of the right hip prosthesis and received revision surgery on 06/30/2023. Was found to have staff isolated in the right hip and treated with IV antibiotics. 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 Psychiatry consulted for agitation recommendations. Chief Complaint sleeping Subjective Subjective Patient was seen & assessed and interval progress reviewed. Periods of restlessness, confusion and agitation persist despite use of scheduled antipsychotic medication and attempts to address delirium. Requiring ziprasidone 10mg IM x2 on most occasions when it is used. Benadryl recently used with limited effect and recent fall. Continues to be awake most of the night with shifted sleep/wake cycle. Procedures Performed Operation Date: 06/30/23 10:40 Actual Procedures p Right Hip Prosthetic dislocation Open Reduction with Total Hip Revision(Right) - Alec Reynolds MD Physical Exam Vital Signs (Past 24 Hours) Last Vital Signs Temp 36.8 C 08/13/23 07:53 Pulse 72 08/13/23 07:53 Resp 16 08/13/23 07:53 BP 120/74 08/13/23 07:53 Pulse Ox 98 08/13/23 07:53 O2 Del Method Room Air 08/13/23 07:53 O2 Flow Rate 2 06/29/23 08:20 Results & Data ([facility]) Current Inpatient Medications Current Inpatient Medications: Current Inpatient Medications Acetaminophen (Acetaminophen 500 Mg Tab) 1,000 mg PO Q8H PRN PRN Reason: pain Stop: 09/09/23 15:17 Last Admin: 08/12/23 07:50 Dose: 1,000 mg Aspirin (Aspirin 81 Mg Ectab) 81 mg PO BID SAMANTHA Stop: 08/30/23 08:59 Last Admin: 08/13/23 07:30 Dose: 81 mg Celecoxib (Celecoxib 100 Mg Cap) 100 mg PO BID [facility] Stop: 08/30/23 22:49 Last Admin: 08/13/23 07:30 Dose: 100 mg Clonidine HCl (Clonidine Hcl 0.1 Mg Tab) 0.1 mg PO BID SAMANTHA Stop: 09/05/23 20:59 Last Admin: 08/13/23 07:30 Dose: 0.1 mg Clonidine HCl (Clonidine Hcl 0.2 Mg/24 Hr Transderm Sys) 1 patch TD Q7D [facility] Stop: 09/06/23 09:44 Last Admin: 08/07/23 10:22 Dose: 1 patch Diclofenac Sodium (Diclofenac Sod 1% Gel 100 Gm Tube) 2 gm EXT Q6H PRN; Protocol PRN Reason: pain Stop: 09/02/23 04:14 Last Admin: 08/11/23 02:10 Dose: 2 gm Docusate Sodium (Docusate Sodium 100 Mg Cap) 100 mg PO BID SAMANTHA Stop: 08/30/23 08:59 Last Admin: 08/13/23 07:31 Dose: 100 mg Doxycycline Hyclate (Doxycycline Hyclate 100 Mg Cap) 100 mg PO BID [facility] Stop: 08/09/24 23:59 Last Admin: 08/13/23 07:30 Dose: 100 mg Melatonin (Melatonin 3 Mg Tab) 9 mg PO HS PRN PRN Reason: Sleep Stop: 09/10/23 19:59 Miscellaneous (Remove Clonidine Patch) 1 each N/A CQWK SAMANTHA Stop: 09/06/23 09:44 Last Admin: 08/07/23 09:57 Dose: 1 each Miscellaneous (Check Clonidine Patch Placement) 1 each N/A QS [facility] Stop: 09/06/23 15:59 Last Admin: 08/13/23 07:31 Dose: 1 each Multivitamins (Multivitamin Tab) 1 tab PO QAM [facility] Stop: 08/31/23 08:59 Last Admin: 08/13/23 07:31 Dose: 1 tab Olanzapine (Olanzapine 10 Mg/2.1 Ml Sdv) 2.5 mg IM Q12 PRN PRN Reason: Agitation Stop: 08/23/23 09:50 Last Admin: 07/28/23 23:42 Dose: 2.5 mg Quetiapine Fumarate (Quetiapine Fumarate 100 Mg Tablet) 100 mg PO TODAY@1800 [facility] Stop: 08/27/23 17:59 Last Admin: 08/12/23 18:09 Dose: 100 mg Quetiapine Fumarate (Quetiapine Fumarate 25 Mg Tablet) 50 mg PO DAILYBB [facility] Stop: 09/06/23 06:29 Last Admin: 08/12/23 18:03 Dose: 50 mg Quetiapine Fumarate (Quetiapine Fumarate 25 Mg Tablet) 25 mg PO Q12 PRN PRN Reason: Agitation Stop: 09/12/23 20:59 Last Admin: 08/13/23 12:28 Dose: 25 mg Rifampin (Rifampin 300 Mg Capsule) 300 mg PO BID [facility] Stop: 11/10/23 23:59 Last Admin: 08/13/23 07:30 Dose: 300 mg Sennosides (Senna 8.6 Mg Tab) 17.2 mg PO HS [facility] Stop: 08/30/23 20:59 Last Admin: 08/12/23 22:09 Dose: Not Given Ziprasidone (Ziprasidone 20 Mg/Ml Sdv) 10 mg IM Q2H PRN PRN Reason: Agitation Stop: 09/01/23 08:29 Last Admin: 08/12/23 18:28 Dose: 10 mg
--- NOTE | 2023-08-13 16:40 | Hospitalist Progress Note ---
Date of Service August 13, 2023 Assessment & Plan (1) Fall: Plan: Had an unwitnessed fall this morning, 08/11 CT head was negative Orthostatic vital signs are positive. Most likely reason for fall Treated with IV fluid (2) Orthostatic hypotension: Plan: Likely secondary to dehydration Start IV fluids (3) Acute encephalopathy: Plan: This morning a little agitated and anxious Continue re orientation Has not required a one-to-one sitter and also has not required IM or IV medications for agitation a few days days (thats a precondition for him getting accepted at rehab) (4) Closed dislocation of right hip: Plan: Patient was at [facility], and woke up on 06/27 complaining of right hip pain. Unfortunately, he suffered dislocation of right hip prosthesis that was initially placed on June 08 of this year. He subsequently had revision of the right total hip arthroplasty on June 29. Appreciate orthopedic consultation and recommendations. Coag negative Staph isolated from the right hip area at the time of surgery on June 29. Infectious disease has recommended IV vancomycin therapy for 6 weeks, end date 08/10/23, along with rifampin. Completed antibiotics IV. Then, doxycycline 100mg po bid x 1 year along with rifampin x 3 more months through 11/10/23 As per Ortho: weightbearing as tolerated with walker and T scope brace, PT/OT, and abduction pillow use x 6 weeks in bed, pillow between knees while seated in upright chair. A repeat hip x-ray to confirm stability of Rt hip: No acute abnormalities, in particular no evidence of dislocation. (5) Restlessness and agitation: Plan: Seen and evaluated by Psych Currently on Seroquel 100 mg every afternoon, 50 mg every morning. I ordered 25 mg Seroquel doses as needed to be used maximum twice so that the maximum dose does not exceed 200 mg. (6) S/P total hip arthroplasty: Plan: Right total hip arthroplasty on 06/09/[address] Reynolds. Unfortunately, he suffered a dislocation of the prosthesis while at rehab at [facility]. Subsequent revision on June 29. Continue aspirin 81 mg twice daily for DVT prophylaxis, oral rifampin for concerns about biofilm developing on the prosthesis from orthopedic standpoint (7) Acute blood loss anemia: Plan: Hb stable s/p multiple blood transfusions Monitor H and H Transfuse if Hb<7 (8) Iron deficiency: Plan: Received parenteral iron replacement (9) Frontotemporal dementia: Plan: Chronic. Supportive care, noted neurology consultation as above With a h/o TBI and ICH 20+ years ago Previously followed with [facility] (10) Depression: Plan: Stable. (11) Hypertension: Plan: BP is poorly controlled On Clonidine PO 0.1mg BID I am not sure if he takes his oral pills regularly will add a patch Plan DVT proph-ASA 81mg po bid, SCDs Hopefully discharge him to SNF soon. He has not required 1:1 sitter he didnt get any IM or IV meds for 4 days. Although he has started getting a little agitated again. Center care said they want to monitor him through the weekend Admission and Anticipated Discharge Date Admission Date: June 28, 2023 Subjective Patient tells me that he feels dizzy. He had a fall yesterday Review of Systems Review of Systems: All systems reviewed & are unremarkable except as noted in Subjective Physical Exam Physical Exam: General: Awake, conversant. Heart: S1, S2/regular rate and rhythm, no murmur rubs or gallops Lungs: Clear to auscultation bilaterally. Normal effort Abdomen: Soft/nontender/nondistended. No hepatosplenomegaly Extremities: No clubbing/cyanosis. No edema Behavior: Appropriate, cooperative Results & Data Results & Data Vital Signs (Past 12 Hours) Vital Signs Temp Pulse Resp BP Pulse Ox O2 Del Method 08/13/23 07:53 36.8 C 72 16 120/74 98 Room Air PG Care Time/CCT Total # of Minutes Spent Total Time Spent with Patient: Total time spent is greater than 50% in coordination of care (as documented) at patient's floor/unit and/or counseling patient: Coding Level of Care Code 57221 SUB INP/OBS CARE 2/35MIN Diagnoses Fall W19.XXXA Orthostatic hypotension I95.1 Acute encephalopathy G93.40 Closed dislocation of right hip, initial encounter S73.004A Encounter type: initial encounter Restlessness and agitation R45.1 Status post total replacement of right hip Z96.641 Laterality: right Acute blood loss anemia D62 Iron deficiency E61.1 Frontotemporal dementia G31.09; F02.80 Persistent depressive disorder F34.1 Depression Type: persistent depressive disorder Hypertension I10 (4) Closed dislocation of right hip Encounter type: initial encounter Qualified Code(s): S73.004A - Unspecified dislocation of right hip, initial encounter (6) S/P total hip arthroplasty Laterality: right Qualified Code(s): Z96.641 - Presence of right artificial hip joint (10) Depression Depression Type: persistent depressive disorder Qualified Code(s): F34.1 - Dysthymic disorder
[2023-08-13] MEDS: SODIUM CHLORIDE 0.9% 1,000 ML IV SCH (17:54)
--- NOTE | 2023-08-14 15:49 | Hospitalist Progress Note ---
Date of Service August 14, 2023 Assessment & Plan (1) Fall: Plan: Had an unwitnessed fall the morning of 08/11 CT head was negative Orthostatic vital signs are positive. Most likely reason for fall Treated with IV fluid IV site infiltrated. IV fluid held for the time being. IV team tried to put another line in but the patient is way too agitated. Will keep the IV out until patient is calmer Will encourage p.o. fluid intake Bedrest since the patient is still orthostatic (2) Orthostatic hypotension: Plan: Likely secondary to dehydration Will push for p.o. fluid intake Please see problem #1 (3) Acute encephalopathy: Plan: This morning a little agitated and anxious Continue re orientation Has not required a one-to-one sitter and also has not required IM or IV medications for agitation a few days days (thats a precondition for him getting accepted at rehab) (4) Closed dislocation of right hip: Plan: Patient was at [facility], and woke up on 06/27 complaining of right hip pain. Unfortunately, he suffered dislocation of right hip prosthesis that was initially placed on June 08 of this year. He subsequently had revision of the right total hip arthroplasty on June 29. Appreciate orthopedic consultation and recommendations. Coag negative Staph isolated from the right hip area at the time of surgery on June 29. Infectious disease has recommended IV vancomycin therapy for 6 weeks, end date 08/10/23, along with rifampin. Completed antibiotics IV. Then, doxycycline 100mg po bid x 1 year along with rifampin x 3 more months through 11/10/23 As per Ortho: weightbearing as tolerated with walker and T scope brace, PT/OT, and abduction pillow use x 6 weeks in bed, pillow between knees while seated in upright chair. A repeat hip x-ray to confirm stability of Rt hip: No acute abnormalities, in particular no evidence of dislocation. (5) Restlessness and agitation: Plan: Seen and evaluated by Psych Currently on Seroquel 100 mg every afternoon, 50 mg every morning. I ordered 25 mg Seroquel doses as needed to be used maximum twice so that the maximum dose does not exceed 200 mg. (6) S/P total hip arthroplasty: Plan: Right total hip arthroplasty on 06/09/[address] Reynolds. Unfortunately, he suffered a dislocation of the prosthesis while at rehab at [facility]. Subsequent revision on June 29. Continue aspirin 81 mg twice daily for DVT prophylaxis, oral rifampin for concerns about biofilm developing on the prosthesis from orthopedic standpoint (7) Acute blood loss anemia: Plan: Hb stable s/p multiple blood transfusions Monitor H and H Transfuse if Hb<7 (8) Iron deficiency: Plan: Received parenteral iron replacement (9) Frontotemporal dementia: Plan: Chronic. Supportive care, noted neurology consultation as above With a h/o TBI and ICH 20+ years ago Previously followed with [facility] (10) Depression: Plan: Stable. (11) Hypertension: Plan: BP is poorly controlled On Clonidine PO 0.1mg BID I am not sure if he takes his oral pills regularly will add a patch Plan DVT proph-ASA 81mg po bid, SCDs Admission and Anticipated Discharge Date Admission Date: June 28, 2023 Subjective Patient was started on IV fluids. However his IV infiltrated. IV fluids on hold now. Review of Systems Review of Systems: Unobtainable due to cognitive status Physical Exam Physical Exam: General: Awake, conversant. Heart: S1, S2/regular rate and rhythm, no murmur rubs or gallops Lungs: Clear to auscultation bilaterally. Normal effort Abdomen: Soft/nontender/nondistended. No hepatosplenomegaly Extremities: No clubbing/cyanosis. No edema Behavior: Appropriate, cooperative Results & Data Results & Data Vital Signs (Past 12 Hours) Vital Signs Temp Pulse Resp BP Pulse Ox O2 Del Method 08/14/23 15:07 36.8 C 08/14/23 07:27 36.9 C 95 H 18 126/66 99 Room Air PG Care Time/CCT Total # of Minutes Spent Total Time Spent with Patient: Total time spent is greater than 50% in coordination of care (as documented) at patient's floor/unit and/or counseling patient: Coding Level of Care Code 06467 SUB INP/OBS CARE 2/35MIN Diagnoses Fall W19.XXXA Orthostatic hypotension I95.1 Acute encephalopathy G93.40 Closed dislocation of right hip, initial encounter S73.004A Encounter type: initial encounter Restlessness and agitation R45.1 Status post total replacement of right hip Z96.641 Laterality: right Acute blood loss anemia D62 Iron deficiency E61.1 Frontotemporal dementia G31.09; F02.80 Persistent depressive disorder F34.1 Depression Type: persistent depressive disorder Hypertension I10 (4) Closed dislocation of right hip Encounter type: initial encounter Qualified Code(s): S73.004A - Unspecified dislocation of right hip, initial encounter (6) S/P total hip arthroplasty Laterality: right Qualified Code(s): Z96.641 - Presence of right artificial hip joint (10) Depression Depression Type: persistent depressive disorder Qualified Code(s): F34.1 - Dysthymic disorder
[2023-08-14] MEDS: MELATONIN 3 MG TAB PO PRN (20:02)
--- NOTE | 2023-08-15 13:45 | Hospitalist Progress Note ---
Date of Service August 15, 2023 Assessment & Plan (1) Fall: Plan: Had an unwitnessed fall the morning of 08/11 CT head was negative Orthostatic vital signs are positive. Most likely reason for fall Treated with IV fluid Recheck orthostatic vital signs tomorrow after fluid resuscitated (2) Orthostatic hypotension: Plan: Likely secondary to dehydration Will hydrate Please see problem #1 (3) Acute encephalopathy: Plan: This morning a little agitated and anxious Continue re orientation Has not required a one-to-one sitter and also has not required IM or IV medications for agitation a few days days (thats a precondition for him getting accepted at rehab) (4) Closed dislocation of right hip: Plan: Patient was at [facility], and woke up on 06/27 complaining of right hip pain. Unfortunately, he suffered dislocation of right hip prosthesis that was initially placed on June 08 of this year. He subsequently had revision of the right total hip arthroplasty on June 29. Appreciate orthopedic consultation and recommendations. Coag negative Staph isolated from the right hip area at the time of surgery on June 29. Infectious disease has recommended IV vancomycin therapy for 6 weeks, end date 08/10/23, along with rifampin. Completed antibiotics IV. Then, doxycycline 100mg po bid x 1 year along with rifampin x 3 more months through 11/10/23 As per Ortho: weightbearing as tolerated with walker and T scope brace, PT/OT, and abduction pillow use x 6 weeks in bed, pillow between knees while seated in upright chair. A repeat hip x-ray to confirm stability of Rt hip: No acute abnormalities, in particular no evidence of dislocation. (5) Restlessness and agitation: Plan: Seen and evaluated by Psych Currently on Seroquel 100 mg every afternoon, 50 mg every morning. I ordered 25 mg Seroquel doses as needed to be used maximum twice so that the maximum dose does not exceed 200 mg. (6) S/P total hip arthroplasty: Plan: Right total hip arthroplasty on 06/09/[address] Reynolds. Unfortunately, he suffered a dislocation of the prosthesis while at rehab at [facility]. Subsequent revision on June 29. Continue aspirin 81 mg twice daily for DVT prophylaxis, oral rifampin for concerns about biofilm developing on the prosthesis from orthopedic standpoint (7) Acute blood loss anemia: Plan: Hb stable s/p multiple blood transfusions Monitor H and H Transfuse if Hb<7 (8) Iron deficiency: Plan: Received parenteral iron replacement (9) Frontotemporal dementia: Plan: Chronic. Supportive care, noted neurology consultation as above With a h/o TBI and ICH 20+ years ago Previously followed with [facility] (10) Depression: Plan: Stable. (11) Hypertension: Plan: BP is poorly controlled On Clonidine PO 0.1mg BID I am not sure if he takes his oral pills regularly will add a patch Plan DVT proph-ASA 81mg po bid, SCDs Admission and Anticipated Discharge Date Admission Date: June 28, 2023 Subjective Patient appeared to be cooperative this morning. An IV line was able to be placed. IV fluids were resumed. He denied chest pain or shortness of breath. Review of Systems Review of Systems: Unobtainable due to cognitive status Physical Exam Physical Exam: General: Awake, conversant. Heart: S1, S2/regular rate and rhythm, no murmur rubs or gallops Lungs: Clear to auscultation bilaterally. Normal effort Abdomen: Soft/nontender/nondistended. No hepatosplenomegaly Extremities: No clubbing/cyanosis. No edema Behavior: Appropriate, cooperative Results & Data Results & Data Vital Signs (Past 12 Hours) Vital Signs Temp Pulse Resp BP Pulse Ox O2 Del Method 08/15/23 07:47 36.9 C 66 16 120/72 97 Room Air PG Care Time/CCT Total # of Minutes Spent Total Time Spent with Patient: Total time spent is greater than 50% in coordination of care (as documented) at patient's floor/unit and/or counseling patient: Coding Level of Care Code 30923 SUB INP/OBS CARE 2/35MIN Diagnoses Fall W19.XXXA Orthostatic hypotension I95.1 Acute encephalopathy G93.40 Closed dislocation of right hip, initial encounter S73.004A Encounter type: initial encounter Restlessness and agitation R45.1 Status post total replacement of right hip Z96.641 Laterality: right Acute blood loss anemia D62 Iron deficiency E61.1 Frontotemporal dementia G31.09; F02.80 Persistent depressive disorder F34.1 Depression Type: persistent depressive disorder Hypertension I10 (4) Closed dislocation of right hip Encounter type: initial encounter Qualified Code(s): S73.004A - Unspecified dislocation of right hip, initial encounter (6) S/P total hip arthroplasty Laterality: right Qualified Code(s): Z96.641 - Presence of right artificial hip joint (10) Depression Depression Type: persistent depressive disorder Qualified Code(s): F34.1 - Dysthymic disorder
[2023-08-15] MEDS: hydrALAZINE 10 MG TAB PO ONE (15:59)
--- NOTE | 2023-08-16 10:03 | Orthopedic Progress Note ---
Date of Service August 16, 2023 Assessment & Plan (1) History of revision of total replacement of right hip joint: Plan: Total hip precautions PT/OT DVT prophylaxis with aspirin Pain control with Tylenol May discontinue use of T scope brace Abduction pillow use When cleared medically patient will be [facility] to [facility] jail facility or acute rehab facility Follow-up at [facility] orthopedics in 6 weeks Admission and Anticipated Discharge Date Admission Date: June 28, 2023 Subjective This 68-year-old male is approximately 7 weeks status post revision right hip arthroplasty. Currently he is alert and oriented and very pleasant. States he really does not have any pain in his right leg but just has weakness. He states that today he hopes he can get up and partake in physical therapy. Patient denies chest pain, shortness of breath, fever, chills, sweats or numbness or tingling in his right lower extremity. Review of Systems Review of Systems: All systems reviewed & are unremarkable except as noted in Subjective Physical Exam Physical Exam: Right lower extremity: Surgical incision site is closed completely with no palpable fluctuance or drainage. Patient is unable to perform an active straight leg raise test. He is able to actively dorsi and plantarflex his foot. I was able to passively straighten his leg near 0 degrees of extension. Patient had no pain with logroll testing. He tolerated light passive hip flexion beyond 80 degrees and only felt a slight pulling sensation with light passive internal and external hip rotation. He was neurovascularly intact in the right lower extremity. Results & Data Vital Signs (Past 12 Hours) Vital Signs Temp Pulse Resp BP Pulse Ox O2 Del Method 08/16/23 07:26 36.7 C 76 16 174/96 H 98 Room Air Diagnostic Findings Laboratory Results WBC 6.08 K/ul (4.8-10.8) 08/12/23 06:04 RBC 3.63 M/uL (4.70-6.10) L 08/12/23 06:04 Hgb 10.6 g/dl (14.0-18.0) L 08/12/23 06:04 Hct 32.4 % (42.0-52.0) L 08/12/23 06:04 MCV 89.3 fL (80.0-100.0) 08/12/23 06:04 MCH 29.2 pg (25.0-34.0) 08/12/23 06:04 MCHC 32.7 g/dL (32.0-36.0) 08/12/23 06:04 RDW Std Deviation 48.8 fL (36.4-46.3) H 08/12/23 06:04 RDW Coeff of Jeffy 14.8 % (11.5-14.5) H 08/12/23 06:04 Plt Count 252 K/uL (130-400) 08/12/23 06:04 MPV 9.4 fL (9.4-12.4) 08/12/23 06:04 Immature Gran % (Auto) 0.5 % 08/08/23 08:18 Neut % (Auto) 56.1 % 08/08/23 08:18 Lymph % (Auto) 29.0 % 08/08/23 08:18 [place] % (Auto) 9.3 % 08/08/23 08:18 Eos % (Auto) 3.9 % 08/08/23 08:18 Baso % (Auto) 1.2 % 08/08/23 08:18 Reticulocyte % (Auto) 3.94 % (0.50-2.00) H 06/28/23 19:59 Neut # (Auto) 2.42 K/uL (1.40-6.50) 08/08/23 08:18 Lymph # (Auto) 1.25 K/uL (1.20-3.40) 08/08/23 08:18 [place] # (Auto) 0.40 K/uL (0.11-0.59) 08/08/23 08:18 Eos # (Auto) 0.17 K/uL (0.00-0.50) 08/08/23 08:18 Baso # (Auto) 0.05 K/uL (0.00-0.20) 08/08/23 08:18 Reticulocyte # 0.090 10^6/uL (0.020-0.100) 06/28/23 19:59 Immature Gran # (Auto) 0.02 K/uL (0.01-0.20) 08/08/23 08:18 Polychromasia 1+ 07/01/23 04:31 Peripher Smr Path Cons 06/28/23 19:59 Sodium 134 mmol/L (136-145) L 08/12/23 06:04 Potassium 4.0 mmol/L (3.5-5.1) 08/12/23 06:04 Chloride 102 mmol/L (98-107) 08/12/23 06:04 Carbon Dioxide 27 mmol/L (21-32) 08/12/23 06:04 Anion Gap 5 (3-11) 08/12/23 06:04 BUN 15 mg/dl (6-23) 08/12/23 06:04 Creatinine 0.69 mg/dl (0.6-1.4) 08/12/23 06:04 Est Cr Clr Drug Dosing 96.4 ml/min 08/12/23 06:04 Est GFR ( Amer) 111.5 ml/min 08/12/23 06:04 Est GFR (Non-Af Amer) 96.2 ml/min 08/12/23 06:04 BUN/Creatinine Ratio 21.7 (10-20) H 08/12/23 06:04 Glucose 104 mg/dl (70-99(Fasting)) H 08/12/23 06:04 POC Glucose 92 mg/dl (70-99) 08/08/23 08:13 Calcium 8.6 mg/dl (8.6-10.3) 08/12/23 06:04 Magnesium 1.8 mg/dl (1.7-2.4) 07/12/23 03:23 Iron 34 mcg/dl (35-175) L 06/29/23 17:38 TIBC 231 mcg/dl (250-450) L 06/29/23 17:38 Unsaturated IBC 197 mcg/dl (155-355) 06/29/23 17:38 Transferrin % Sat 15 % (20-50) L 06/29/23 17:38 Ferritin 413.4 ng/ml (8-388) H 06/28/23 19:59 Total Bilirubin 0.4 mg/dl (0.2-1.0) 07/29/23 08:06 Direct Bilirubin 0.1 mg/dl (0-0.2) 07/22/23 05:22 AST 18 U/L (13-39) 07/29/23 08:06 ALT 10 U/L (7-52) 07/29/23 08:06 Alkaline Phosphatase 103 U/L (34-104) 07/29/23 08:06 B-Natriuretic Peptide 12 pg/ml (0-100) 08/08/23 08:18 Total Protein 6.7 gm/dl (6.0-8.3) 07/29/23 08:06 Total Protein (PEP) 5.9 g/dL (6.1-8.1) L 06/30/23 05:53 Albumin 3.8 gm/dl (3.4-5.0) 07/29/23 08:06 Albumin (PEP) 2.9 g/dL (3.8-4.8) L 06/30/23 05:53 Globulin 2.9 gm/dl (2.5-4.0) 07/29/23 08:06 Albumin/Globulin Ratio 1.3 (0.9-2) 07/29/23 08:06 Gnaip-1-Mtrozqfia 0.5 g/dL (0.2-0.3) H 06/30/23 05:53 Ztzvo-0-Sclrqwfxv 0.9 g/dL (0.5-0.9) 06/30/23 05:53 Bfqo-6-Qvqazqky 0.4 g/dL (0.4-0.6) 06/30/23 05:53 Baon-7-Ypasblbw 0.4 g/dL (0.2-0.5) 06/30/23 05:53 Gamma Globulins 0.9 g/dL (0.8-1.7) 06/30/23 05:53 Monoclonal Peak 3 DNR g/dL (NONE DETECTED) 06/30/23 05:53 Ser Monoclonl Protein 0.4 g/dL (NONE DETECTED) H 06/30/23 05:53 Ser Monoclonal Prot 2 DNR g/dL (NONE DETECTED) 06/30/23 05:53 PEP Interpretation SEE NOTE 06/30/23 05:53 Vitamin B12 252 pg/ml (180-914) 06/29/23 17:38 Folate 17.41 ng/ml (>5.38) 06/29/23 17:38 Urine Color Dark Yellow 06/29/23 Unknown Urine Appearance Clear (Clear) 06/29/23 Unknown Urine pH 6.0 (4.5-7.5) 06/29/23 Unknown Ur Specific Bourg 1.031 (1.000-1.030) H 06/29/23 Unknown Urine Protein 1+ (Negative) H 06/29/23 Unknown Urine Glucose (UA) Negative (Negative) 06/29/23 Unknown Urine Ketones Trace (Negative) H 06/29/23 Unknown Urine Blood Negative (Negative) 06/29/23 Unknown Urine Nitrite Negative (Negative) 06/29/23 Unknown Urine Bilirubin Negative (Negative) 06/29/23 Unknown Urine Urobilinogen Negative (Negative) 06/29/23 Unknown Ur Leukocyte Esterase Negative (Negative) 06/29/23 Unknown Urine WBC (Auto) 0-5 /hpf (0-5) 06/29/23 Unknown Urine RBC (Auto) 0-2 /hpf (0-2) 06/29/23 Unknown U Hyaline Cast (Auto) 0-2 /lpf (0-2) 06/29/23 Unknown U Epithel Cells (Auto) 0-2 /hpf (0-2) 06/29/23 Unknown Urine Bacteria (Auto) None Seen (None Seen) 06/29/23 Unknown Urine Mucus Present (None Prsent) A 06/29/23 Unknown Nasal Screen MRSA (PCR) Negative (Negative) 06/29/23 Unknown Stool Occult Bld Scrn Cancelled 06/29/23 Unknown Random Vancomycin 14.9 mcg/ml (10-20) 08/07/23 08:24 Blood Type A Positive 06/28/23 23:35 Antibody Screen NEGATIVE 06/28/23 23:35 Crossmatch See Detail 06/28/23 23:35 Impressions Hip/Pelvis X-Ray 06/28/23 19:05 XR hip RT 2V w pelvis HISTORY: 68 years-old Male r/o dislocation acute right hip pain COMPARISON: 06/09/2023 TECHNIQUE: AP view of the pelvis with 2 views of the right hip FINDINGS: Right hip arthroplasty. There is superior and posterior dislocation of the femoral head component without acute fracture identified. Soft tissue swelling surrounds the right hip. 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 IMPRESSION: Dislocation of the right hip arthroplasty. ACT 112: Negative or not required by law. The above report was generated using voice recognition software. It may contain grammatical, syntax or spelling errors. Electronically signed by: Saran Menard M.D. 06/29/2023 7:26 AM Hip X-Ray 07/31/23 15:51 XR hip RT min 2V CLINICAL HISTORY: post surgical, r/o dislocation TECHNIQUE: 2 views of the right hip were obtained. Comparison: Comparison is made to hip and pelvis radiographs 07/18/2023 FINDINGS: There is no evidence of an acute fracture. Total hip arthoplasty hardware is seen without perihardware lucency or hardware fracture. No soft tissue abnormality is seen. IMPRESSION: No acute abnormalities, in particular no evidence of dislocation. ACT 112: Negative or not required by law. Electronically signed by: Elia Whitehead M.D. 07/31/2023 5:38 PM Pelvis X-Ray 08/10/23 09:51 XR pelvis 1-2V routine CLINICAL HISTORY: 6 weeks s/p revision DARIEL for dislocation TECHNIQUE: A single frontal view of the pelvis was obtained. Comparison: Comparison is made to right hip radiograph 07/31/2023 FINDINGS: There is no evidence of an acute fracture. There is a right hip total arthroplasty. Degenerative changes are seen in the pubic symphysis and lumbar spine. No soft tissue abnormality is seen. IMPRESSION: Expected postoperative changes of total hip arthroplasty without acute abnormality. ACT 112: Negative or not required by law. Electronically signed by: Elia Whitehead M.D. 08/10/2023 1:[address] 08/12/23 07:26 CT head/brain wo con CLINICAL HISTORY: fall Technique: Contiguous axial CT images of the head were acquired from the base of the skull to the vertex without intravenous contrast administration. Images were viewed in brain, subdural and bone windows. Automated dose lowering techniques and/or adjustment according to patient size were utilized for this exam. Comparison: Comparison is made to CT head 08/08/2023 Findings: Areas of decreased attenuation are present in the periventricular and subcortical white matter bilaterally consistent with small vessel ischemic disease. Generalized cerebral atrophy with commensurate enlargement of the ventricles, sulci, and cisterns is also present. There is no acute intracranial hemorrhage or evidence of acute territorial infarction. No shift of the midline structures, mass effect, or extra-axial abnormalities are shown. Atherosclerotic calcifications are present in the intracranial segments of the internal carotid arteries. Right frontal encephalomalacia is seen. Imaged portions of the paranasal sinuses and mastoid air cells are clear. The orbits appear normal. There are no acute fractures of the calvaria or scalp swelling. Patient is noted to be edentulous. Impression: No acute intracranial hemorrhage, skull fractures, or scalp swelling. ACT 112: Negative or not required by law. Electronically signed by: Elia Whitehead M.D. 08/12/2023 10:35 AM
[2023-08-16] MEDS ORDERED: risperiDONE 0.25 MG TAB PO PRN (10:10)
--- NOTE | 2023-08-16 15:20 | Hospitalist Progress Note ---
Date of Service August 16, 2023 Assessment & Plan (1) Fall: Plan: Had an unwitnessed fall the morning of 08/11 CT head was negative Orthostatic vital signs were positive. Most likely reason for fall Treated with IV fluid Orthostatic vital signs rechecked today. He is not orthostatic anymore. Most likely orthostatic hypotension resolved with hydration. Discontinue IV fluids Discontinue clonidine Recheck orthostatic vital signs tomorrow. If remains orthostatic, his psych meds will need to be changed from Seroquel to Risperdal. (2) Orthostatic hypotension: Plan: Likely secondary to dehydration Resolved with hydration Please see problem #1 (3) Acute encephalopathy: Plan: This morning a little agitated and anxious Continue re orientation Has not required a one-to-one sitter and also has not required IM or IV medications for agitation a few days days (thats a precondition for him getting accepted at rehab) (4) Closed dislocation of right hip: Plan: Patient was at [facility], and woke up on 06/27 complaining of right hip pain. Unfortunately, he suffered dislocation of right hip prosthesis that was initially placed on June 08 of this year. He subsequently had revision of the right total hip arthroplasty on June 29. Appreciate orthopedic consultation and recommendations. Coag negative Staph isolated from the right hip area at the time of surgery on June 29. Infectious disease has recommended IV vancomycin therapy for 6 weeks, end date 08/10/23, along with rifampin. Completed antibiotics IV. Then, doxycycline 100mg po bid x 1 year along with rifampin x 3 more months through 11/10/23 As per Ortho: weightbearing as tolerated with walker and T scope brace, PT/OT, and abduction pillow use x 6 weeks in bed, pillow between knees while seated in upright chair. A repeat hip x-ray to confirm stability of Rt hip: No acute abnormalities, in particular no evidence of dislocation. (5) Restlessness and agitation: Plan: Seen and evaluated by Psych Currently on Seroquel 100 mg every afternoon, 50 mg every morning. I ordered 25 mg Seroquel doses as needed to be used maximum twice so that the maximum dose does not exceed 200 mg. Will try to continue Seroquel since this is keeping his agitation fairly controlled. If remains orthostatic tomorrow, may need to switch from Seroquel to Risperdal Discontinue clonidine (6) S/P total hip arthroplasty: Plan: Right total hip arthroplasty on 06/09/[address] Reynolds. Unfortunately, he suffered a dislocation of the prosthesis while at rehab at [facility]. Subsequent revision on June 29. Continue aspirin 81 mg twice daily for DVT prophylaxis, oral rifampin for concerns about biofilm developing on the prosthesis from orthopedic standpoint (7) Acute blood loss anemia: Plan: Hb stable s/p multiple blood transfusions Monitor H and H Transfuse if Hb<7 (8) Iron deficiency: Plan: Received parenteral iron replacement (9) Frontotemporal dementia: Plan: Chronic. Supportive care, noted neurology consultation as above With a h/o TBI and ICH 20+ years ago Previously followed with [facility] (10) Depression: Plan: Stable. (11) Hypertension: Plan: Discontinue clonidine because of orthostatic hypotension Plan DVT proph-ASA 81mg po bid, SCDs Admission and Anticipated Discharge Date Admission Date: June 28, 2023 Subjective Patient appears to be cooperative today. Noted that he had been orthostatic the last few days. He was given IV fluids. Recheck orthostatic vital signs today. Not orthostatic today after hydration. Review of Systems Review of Systems: All systems reviewed & are unremarkable except as noted in Subjective Physical Exam Physical Exam: General: Awake, conversant. Heart: S1, S2/regular rate and rhythm, no murmur rubs or gallops Lungs: Clear to auscultation bilaterally. Normal effort Abdomen: Soft/nontender/nondistended. No hepatosplenomegaly Extremities: No clubbing/cyanosis. No edema Behavior: Appropriate, cooperative Results & Data Results & Data Vital Signs (Past 12 Hours) Vital Signs Temp Pulse Resp BP Pulse Ox O2 Del Method 08/16/23 07:26 36.7 C 76 16 174/96 H 98 Room Air PG Care Time/CCT Total # of Minutes Spent Total Time Spent with Patient: Total time spent is greater than 50% in coordination of care (as documented) at patient's floor/unit and/or counseling patient: Coding Level of Care Code 70830 SUB INP/OBS CARE 2/35MIN Diagnoses Fall W19.XXXA Orthostatic hypotension I95.1 Acute encephalopathy G93.40 Closed dislocation of right hip, initial encounter S73.004A Encounter type: initial encounter Restlessness and agitation R45.1 Status post total replacement of right hip Z96.641 Laterality: right Acute blood loss anemia D62 Iron deficiency E61.1 Frontotemporal dementia G31.09; F02.80 Persistent depressive disorder F34.1 Depression Type: persistent depressive disorder Hypertension I10 (4) Closed dislocation of right hip Encounter type: initial encounter Qualified Code(s): S73.004A - Unspecified dislocation of right hip, initial encounter (6) S/P total hip arthroplasty Laterality: right Qualified Code(s): Z96.641 - Presence of right artificial hip joint (10) Depression Depression Type: persistent depressive disorder Qualified Code(s): F34.1 - Dysthymic disorder
[2023-08-16] MEDS: QUEtiapine FUMARATE 100 MG TABLET PO SCH (17:43)
[2023-08-16] MEDS: QUEtiapine FUMARATE 25 MG TABLET PO PRN (22:23)
[2023-08-17] MEDS: QUEtiapine FUMARATE 25 MG TABLET PO SCH (05:16)
--- NOTE | 2023-08-17 15:27 | Hospitalist Progress Note ---
Date of Service August 17, 2023 Assessment & Plan (1) Fall: Plan: Had an unwitnessed fall the morning of 08/11 CT head was negative Orthostatic vital signs were positive. Most likely reason for fall Treated with IV fluid His orthostatic vital signs are positive again today despite treating dehydration and discontinuing clonidine Will need to change his psych meds from Seroquel to Risperdal today. (2) Orthostatic hypotension: Plan: Likely secondary to dehydration Improved with hydration but still orthostatic Please see problem #1 (3) Acute encephalopathy: Plan: This morning a little agitated and anxious Continue re orientation Has not required a one-to-one sitter and also has not required IM or IV medications for agitation a few days days (thats a precondition for him getting accepted at rehab) (4) Closed dislocation of right hip: Plan: Patient was at [facility], and woke up on 06/27 complaining of right hip pain. Unfortunately, he suffered dislocation of right hip prosthesis that was initially placed on June 08 of this year. He subsequently had revision of the right total hip arthroplasty on June 29. Appreciate orthopedic consultation and recommendations. Coag negative Staph isolated from the right hip area at the time of surgery on June 29. Infectious disease has recommended IV vancomycin therapy for 6 weeks, end date 08/10/23, along with rifampin. Completed antibiotics IV. Then, doxycycline 100mg po bid x 1 year along with rifampin x 3 more months through 11/10/23 As per Ortho: weightbearing as tolerated with walker and T scope brace, PT/OT, and abduction pillow use x 6 weeks in bed, pillow between knees while seated in upright chair. A repeat hip x-ray to confirm stability of Rt hip: No acute abnormalities, in particular no evidence of dislocation. (5) Restlessness and agitation: Plan: Seen and evaluated by Psych Patient was being treated with Seroquel Orthostatic hypotension did not improve with hydration and discontinuing clon idine Will need to switch from Seroquel to Risperdal Discussed with psychiatry who recommended the change (6) S/P total hip arthroplasty: Plan: Right total hip arthroplasty on 06/09/[address] Reynolds. Unfortunately, he suffered a dislocation of the prosthesis while at rehab at [facility]. Subsequent revision on June 29. Continue aspirin 81 mg twice daily for DVT prophylaxis, oral rifampin for concerns about biofilm developing on the prosthesis from orthopedic standpoint (7) Acute blood loss anemia: Plan: Hb stable s/p multiple blood transfusions Monitor H and H Transfuse if Hb<7 (8) Iron deficiency: Plan: Received parenteral iron replacement (9) Frontotemporal dementia: Plan: Chronic. Supportive care, noted neurology consultation as above With a h/o TBI and ICH 20+ years ago Previously followed with [facility] (10) Depression: Plan: Stable. (11) Hypertension: Plan: Discontinued clonidine because of orthostatic hypotension Plan DVT proph-ASA 81mg po bid, SCDs Admission and Anticipated Discharge Date Admission Date: June 28, 2023 Subjective Patient does not have any major complaints today. Fairly cooperative. Orthostatic vital signs are positive again today. Review of Systems Review of Systems: All systems reviewed & are unremarkable except as noted in Subjective Physical Exam Physical Exam: General: Awake, conversant. Heart: S1, S2/regular rate and rhythm, no murmur rubs or gallops Lungs: Clear to auscultation bilaterally. Normal effort Abdomen: Soft/nontender/nondistended. No hepatosplenomegaly Extremities: No clubbing/cyanosis. No edema Behavior: Appropriate, cooperative Results & Data Results & Data Vital Signs (Past 12 Hours) Vital Signs Temp Pulse Resp BP BP Pulse Ox O2 Del Method 08/17/23 14:44 36.7 C 87 16 156/67 H 97 Room Air 08/17/23 13:49 99 08/17/23 07:13 36.9 C 81 17 153/92 H 100 Room Air PG Care Time/CCT Total # of Minutes Spent Total Time Spent with Patient: Total time spent is greater than 50% in coordination of care (as documented) at patient's floor/unit and/or counseling patient: Coding Level of Care Code 24077 SUB INP/OBS CARE 2/35MIN Diagnoses Fall W19.XXXA Orthostatic hypotension I95.1 Acute encephalopathy G93.40 Closed dislocation of right hip, initial encounter S73.004A Encounter type: initial encounter Restlessness and agitation R45.1 Status post total replacement of right hip Z96.641 Laterality: right Acute blood loss anemia D62 Iron deficiency E61.1 Frontotemporal dementia G31.09; F02.80 Persistent depressive disorder F34.1 Depression Type: persistent depressive disorder Hypertension I10 (4) Closed dislocation of right hip Encounter type: initial encounter Qualified Code(s): S73.004A - Unspecified dislocation of right hip, initial encounter (6) S/P total hip arthroplasty Laterality: right Qualified Code(s): Z96.641 - Presence of right artificial hip joint (10) Depression Depression Type: persistent depressive disorder Qualified Code(s): F34.1 - Dysthymic disorder
[2023-08-17] MEDS: risperiDONE 0.5 MG TABLET PO SCH (19:41)
[2023-08-18] MEDS: risperiDONE 0.25 MG TAB PO PRN (07:38)
--- NOTE | 2023-08-18 14:26 | Hospitalist Progress Note ---
Date of Service August 18, 2023 Assessment & Plan (1) Fall: Plan: Had an unwitnessed fall the morning of 08/11 and another fall on 08/16 CT head was negative Orthostatic vital signs were positive. likely reason for fall Treated with IV fluid His orthostatic vital signs are positive again today despite treating dehydration and discontinuing clonidine Changed psych meds from Seroquel to Risperdal 08/16. (2) Orthostatic hypotension: Plan: Likely secondary to dehydration Improved with hydration but still orthostatic Please see problem #1 (3) Acute encephalopathy: Plan: This morning a little agitated and anxious Continue re orientation Has not required a one-to-one sitter and also has not required IM or IV medications for agitation a few days days (thats a precondition for him getting accepted at rehab) (4) Closed dislocation of right hip: Plan: Patient was at [facility], and woke up on 06/27 complaining of right hip pain. Unfortunately, he suffered dislocation of right hip prosthesis that was initially placed on June 08 of this year. He subsequently had revision of the right total hip arthroplasty on June 29. Appreciate orthopedic consultation and recommendations. Coag negative Staph isolated from the right hip area at the time of surgery on June 29. Infectious disease has recommended IV vancomycin therapy for 6 weeks, end date 08/10/23, along with rifampin. Completed antibiotics IV. Then, doxycycline 100mg po bid x 1 year along with rifampin x 3 more months through 11/10/23 As per Ortho: weightbearing as tolerated with walker and T scope brace, PT/OT, and abduction pillow use x 6 weeks in bed, pillow between knees while seated in upright chair. A repeat hip x-ray to confirm stability of Rt hip: No acute abnormalities, in particular no evidence of dislocation. (5) Restlessness and agitation: Plan: Seen and evaluated by Psych Patient was being treated with Seroquel Orthostatic hypotension did not improve with hydration and discontinuing clonidine Switched from Seroquel to Risperdal Discussed with psychiatry who recommended the change (6) S/P total hip arthroplasty: Plan: Right total hip arthroplasty on 06/09/[address] Reynolds. Unfortunately, he suffered a dislocation of the prosthesis while at rehab at [facility]. Subsequent revision on June 29. Continue aspirin 81 mg twice daily for DVT prophylaxis, oral rifampin for concerns about biofilm developing on the prosthesis from orthopedic standpoint (7) Acute blood loss anemia: Plan: Hb stable s/p multiple blood transfusions Monitor H and H Transfuse if Hb<7 (8) Iron deficiency: Plan: Received parenteral iron replacement (9) Frontotemporal dementia: Plan: Chronic. Supportive care, noted neurology consultation as above With a h/o TBI and ICH 20+ years ago Previously followed with [facility] (10) Depression: Plan: Stable. (11) Hypertension: Plan: Discontinued clonidine because of orthostatic hypotension Plan DVT proph-ASA 81mg po bid, SCDs Admission and Anticipated Discharge Date Admission Date: June 28, 2023 Subjective Patient had a fall last night. Apparently patient was found to be on the floor when the nurse walked in. No one with positive fall. Unsure if this was a mechanical fall for the patient was orthostatic. Per nurse, the patient is very impulsive and does not ask for help. He just gets up. The patient is cooperative today. He was explained that he should ask for help when he needs to get out of bed for his chair. Review of Systems Review of Systems: All systems reviewed & are unremarkable except as noted in Subjective Physical Exam Physical Exam: General: Awake, conversant. Heart: S1, S2/regular rate and rhythm, no murmur rubs or gallops Lungs: Clear to auscultation bilaterally. Normal effort Abdomen: Soft/nontender/nondistended. No hepatosplenomegaly Extremities: No clubbing/cyanosis. No edema Behavior: Appropriate, cooperative Results & Data Results & Data Vital Signs (Past 12 Hours) Vital Signs Temp Pulse Resp BP BP Pulse Ox O2 Del Method 08/18/23 08:26 158/88 H 08/18/23 07:25 36.7 C 80 17 185/104 H 96 Room Air PG Care Time/CCT Total # of Minutes Spent Total Time Spent with Patient: Total time spent is greater than 50% in coordination of care (as documented) at patient's floor/unit and/or counseling patient: Coding Level of Care Code 75608 SUB INP/OBS CARE 2/35MIN Diagnoses Fall W19.XXXA Orthostatic hypotension I95.1 Acute encephalopathy G93.40 Closed dislocation of right hip, initial encounter S73.004A Encounter type: initial encounter Restlessness and agitation R45.1 Status post total replacement of right hip Z96.641 Laterality: right Acute blood loss anemia D62 Iron deficiency E61.1 Frontotemporal dementia G31.09; F02.80 Persistent depressive disorder F34.1 Depression Type: persistent depressive disorder Hypertension I10 (4) Closed dislocation of right hip Encounter type: initial encounter Qualified Code(s): S73.004A - Unspecified dislocation of right hip, initial encounter (6) S/P total hip arthroplasty Laterality: right Qualified Code(s): Z96.641 - Presence of right artificial hip joint (10) Depression Depression Type: persistent depressive disorder Qualified Code(s): F34.1 - Dysthymic disorder
[2023-08-19 07:20] LABS: Hematocrit (blood only) 34.6 % (42.0-52.0); Hemoglobin 11.7 g/dl (14.0-18.0); Mean Corpuscular Hemoglobin 29.7 pg (25.0-34.0); Mean Corpuscular Hgb Conc 33.8 g/dL (32.0-36.0); Mean Corpuscular Volume 87.8 fL (80.0-100.0); Mean Platelet Volume 9.1 fL (9.4-12.4); Platelet Count 281 K/uL (130-400); RDW Coefficient of Variation 14.8 % (11.5-14.5); RDW Standard Deviation 47.5 fL (36.4-46.3); Red Blood Count 3.94 M/uL (4.70-6.10); White Blood Count 8.88 K/ul (4.8-10.8)
[2023-08-19 07:53] LABS: BUN Creatinine Ratio 38.3 (10-20); Calcium 9.1 mg/dl (8.6-10.3); Creatinine Clr Calc Pharmacy 82.1 ml/min; Est GFR (African American) 104.4 ml/min; Potassium 4.2 mmol/L (3.5-5.1)
[2023-08-19 08:16] VITALS: BP 121/67; PULSE 88; RESP 15; TEMP 97.9; O2SAT 99
--- NOTE | 2023-08-19 14:27 | Discharge Summary ---
Date of Service August 19, 2023 Admission HPI Per Admitting Provider Chon is a 68-year-old male with PMH of orthostatic hypotension, frontotemporal dementia, and BPPV. He presented via EMS from [facility] for right hip pain on 06/27. EMS took an x-ray and found that the right hip was dislocated. Patient has consistently reported 5/10 pain in his right hip and lower back. He is a poor historian at this time. Patient had recent hip surgery with Dr. Colon on 06/08; right hip arthroplasty. He was then discharged from [facility] on 06/13. Per [facility] staff, patient reportedly fell on Saturday 06/24, but then was able to participate in physical therapy and perform maneuvers such as a stand and pivot with two-person assistance from bed to wheelchair without pain or difficulty. Nursing staff also reported that the patient would occasionally "thrash" in the middle of the night. It is believed that the patient woke up with a rate hip dislocation. At present, patient is unable to explain what happened today. He received propofol in the ED prior to attempted hip reduction; however this was not successful. Patient's vitals are stable at time of admission. ED course: Propofol 100 mg IV ROS: Patient endorses Patient denies Phone discussion with patient's son and [id number] to provide them an update regarding OR time for tomorrow. Note: Blood consent form was obtained over the phone, as patient does not exhibit capacity to make medical decision at time of admission. Case was discussed with patient's son (Chon Jerez) and patient's [id number] (Angelica) over the phone. While there is no power of medical grade shoemaker paperwork at present, Chon Jerez is patient's only living child. Over the phone, it was reported that the patient did have a blood transfusion around 20 years ago after falling off the roof and sustaining a traumatic injury. While he has never made his wishes known regarding blood transfusions ahead of time, his son believes that he would be okay with a blood transfusion if needed. Both Dr. Debora Shepard and patient's nurse (Tushar Guthrie RN) were present to witness and verify this phone call conversation. Please call patient's son and/or patient's [id number] following surgery to provide updates, and ask for one of them to come in and sign blood consent form. Please see Dr. Shepard's attestation for any additional changes to treatment plan. Principal Diagnosis Right hip prosthesis dislocation requiring revision of the right total hip arthroplasty on June 29 Septic arthritis of the right hip with coag negative staph Frontotemporal dementia with agitation Orthostatic hypotension, likely due to medications like Seroquel, clonidine. Improved Discharge Exam General: Awake, conversant. Heart: S1, S2/regular rate and rhythm, no murmur rubs or gallops Lungs: Clear to auscultation bilaterally. Normal effort Abdomen: Soft/nontender/nondistended. No hepatosplenomegaly Extremities: No clubbing/cyanosis. No edema Behavior: Appropriate, cooperative Discharge Data Allergies Allergy/AdvReac Type Severity Reaction Status Date / Time No Known Allergies Allergy Verified 06/09/23 07:48 Consultations 06/28/23 21:37 Consult Orthopedic Surgery Stat ED Decision to Admit Stat 07/04/23 13:12 Consult Infectious Diseases Routine 07/11/23 17:48 Consult Neurology Routine 07/14/23 10:34 Consult Psychiatry Routine Procedures Performed Operation Date: 06/30/23 10:40 Actual Procedures p Right Hip Prosthetic dislocation Open Reduction with Total Hip Revision(Right) - Alec Reynolds MD Ordered Studies 06/29/23 07:00 FL hip RT 1V Routine 08/08/23 08:23 CT head/brain wo con Stat 08/12/23 07:26 CT head/brain wo con Urgent Hospital Course (1) Fall: Had an unwitnessed fall the morning of 08/11 and another fall on 08/16 CT head was negative Orthostatic vital signs were positive. likely reason for fall Treated with IV fluid His orthostatic vital signs were positive again despite treating dehydration and discontinuing clonidine Changed psych meds from Seroquel to Risperdal 08/16 Removing all offending agents that could lead to orthostatic hypotension (2) Orthostatic hypotension: Likely secondary to dehydration Improved with hydration but still orthostatic Removed all other offending agents like clonidine and Seroquel Was not orthostatic on repeat checks today Will discharge the patient today If remains orthostatic, midodrine can be considered Normal pharmacologic lifestyle modifications can be attempted as well. please see discharge instructions Please see problem #1 (3) Acute encephalopathy: This morning a little agitated and anxious Continue re orientation Has not required a one-to-one sitter and also has not required IM or IV medications for agitation a few days days (thats a precondition for him getting accepted at rehab) (4) Closed dislocation of right hip: Patient was at [facility], and woke up on 06/27 complaining of right hip pain. Unfortunately, he suffered dislocation of right hip prosthesis that was initially placed on June 08 of this year. He subsequently had revision of the right total hip arthroplasty on June 29. Appreciate orthopedic consultation and recommendations. Coag negative Staph isolated from the right hip area at the time of surgery on June 29. Infectious disease has recommended IV vancomycin therapy for 6 weeks, end date 08/10/23, along with rifampin. Completed antibiotics IV. Then, doxycycline 100mg po bid x 1 year until June 2024 along with rifampin x 3 more months through 11/10/23 As per Ortho: weightbearing as tolerated with walker and T scope brace, PT/OT, and abduction pillow use x 6 weeks in bed, pillow between knees while seated in upright chair. A repeat hip x-ray to confirm stability of Rt hip: No acute abnormalities, in particular no evidence of dislocation. (5) Restlessness and agitation: Seen and evaluated by Psych Patient was being treated with Seroquel Orthostatic hypotension did not improve with hydration and discontinuing clonidine Switched from Seroquel to Risperdal Discussed with psychiatry who recommended the change (6) S/P total hip arthroplasty: Right total hip arthroplasty on 06/09/[address] Reynolds. Unfortunately, he suffered a dislocation of the prosthesis while at rehab at [facility]. Subsequent revision on June 29. Continue aspirin 81 mg twice daily for DVT prophylaxis, oral rifampin for concerns about biofilm developing on the prosthesis from orthopedic standpoint (7) Acute blood loss anemia: Hb stable s/p multiple blood transfusions Monitor H and H Transfuse if Hb<7 (8) Iron deficiency: Received parenteral iron replacement (9) Frontotemporal dementia: Chronic. Supportive care, noted neurology consultation as above With a h/o TBI and ICH 20+ years ago Previously followed with [facility] (10) Depression: Stable. (11) Hypertension: Discontinued clonidine because of orthostatic hypotension Plan DVT proph-ASA 81mg po bid, SCDs Total Time Total Time Spent Total Time Spent (In Minutes): 35 Discharge Plan Discharge Items Patient Disposition: Transfer Inpatient Rehab Fac Reason For Visit: RIGHT HIP DISLOCATION Discharge Diagnosis: Right hip prosthesis dislocation requiring revision of the right total hip arthroplasty on June 29 Septic arthritis of the right hip with coag negative staph Frontotemporal dementia with agitation Orthostatic hypotension, likely due to medications like Seroquel, clonidine. Improved Condition on Discharge: Good Activity: As commented below Lifting: None Bathing: Keep incision dry Bathing Comment: He May shower Sexual Activity: Wait until after follow-up appointment Exercise/Sports: Wait until after follow-up appointment Weightbearing: Right weightbearing Weightbearing Comment: as tolerated with walker assistance and T-scope hip brace Non-emergency contact: Surgeon Call non-emergency contact if: you have any medication questions, your pain is not controlled, your temperature is above 101.5, your wound has increased drainage and your wound pain has increased Follow-up/Referrals: Meet Luque PA-C [Physician Director Of Cardiology] - 09/13/23 4:00 pm Renee Galan DO [Primary Care Provider] - Alec Reynolds MD [Physician] - None Diet: Regular Addtl Attending Provider Instructions: Follow-up with urology in 1 week for [place] catheter management Advised to continue doxycycline 100 mg p.o. twice daily for 1 year till June 2024 along with rifampin for 3 months through 11/10/2023 Advised to note that you have orthostatic hypotension. The medications that were thought to be causing this have been removed. Midodrine can be considered in future. Orthostatic hypotension means that your blood pressure drops when you sit up from a lying position and/or when you stand up from a sitting position. - There are some lifestyle modifications that will help with your condition: * Wearing waist high compression stockings. * Staying hydrated * Avoiding alcohol * Increasing salt in diet * Eating small meals if blood pressure drops after eating meals * Exercising * Getting up slowly. Moving slowly from a lying to standing position. Also when getting out of bed, sit on the edge of the bed for a minute before standing * Raising the head end of the bed during sleeping Addtl [employer] D[employer] Provider Instructions: Weightbearing as tolerated with walker assistance and T scope brace x6 weeks PT/OT Abduction pillow use x 6 weeks Continue antibiotics per infectious disease Patient signed consent for PICC line placement. DVT prophylaxis with aspirin and EMILEE stockings Pain control and psych meds per primary Follow up with [facility] in 4 week for Post op follow up with Dr Reynolds with right hip x rays Patient is able to shower and get incision wet with warm soapy water. Pat dry. Steri strips on for 7-10 days With questions contact our clinic at [phone] Pending Studies at Discharge: No Stand-Alone Forms: My [facility] Ryla, Smoking Cessation Skilled Items Patient informed of condition?: Yes DNR: No Discharge Level of Care: Acute rehab Communicable Disease: No Discharge Prognosis: Stable Lines: Saline Lock Urinary Catheter: No Medications and DC Order Prescriptions: New aspirin 81 mg Tablet,Delayed Release (Dr/Ec) 81 mg PO BID 30 Days Qty: 60 0RF rifampin 300 mg Capsule 300 mg PO BID 30 Days Qty: 60 0RF doxycycline hyclate 100 mg Capsule 100 mg PO BID 30 Days Qty: 60 0RF risperidone 0.25 mg Tablet 0.25 mg PO BID PRN (Reason: agitation) Qty: 14 0RF risperidone 0.5 mg Tablet 0.5 mg PO HS 30 Days Qty: 30 0RF Continued acetaminophen 500 mg Tablet 500 mg PO Q8H PRN (Reason: Pain) meclizine 12.5 mg Tablet 12.5 mg PO TID PRN (Reason: Vertigo) celecoxib 100 mg Capsule 100 mg PO BID docusate sodium [Stool Softener] 100 mg Capsule 100 mg PO HS polyethylene glycol 3350 [Miralax] 17 gram/dose Powder 17 g PO DAILY PRN (Reason: Constipation) aspirin 81 mg Tablet,Delayed Release (Dr/Ec) 81 mg PO BID 30 Days Qty: 60 0RF oxycodone 5 mg Tablet 5 - 10 mg PO Q4H MDD 6 tabs PRN (Reason: pain) Qty: 28 0RF paroxetine HCl 20 mg tablet 20 mg PO DAILY rosuvastatin 10 mg tablet 10 mg PO DAILY Discharge Orders: Discharge Order (Routine); Ordered 08/19/23 Ordered By: Gregorio Moreland/Gem Patient Handouts: Exercises to Prevent Falls Admission Data Admit Date/Time: 06/28/23 23:35 Attending Provider: Gregorio Angel Admit Provider: Debora Shepard Primary Care Provider: Renee Galan Providers: [facility]; Bharti Spencer at [place]; Alec Reynolds; Debora Shepard; Tani Emanuel; Norma Ureña; Talib Hernandez; Edgar Buckley Jr; Beatriz Graham; Alejandra Esteves Coding Level of Care Code 25176 INP/OBS DISCH >30 MIN Diagnoses Fall W19.XXXA Orthostatic hypotension I95.1 Acute encephalopathy G93.40 Closed dislocation of right hip, initial encounter S73.004A Encounter type: initial encounter Restlessness and agitation R45.1 Status post total replacement of right hip Z96.641 Laterality: right Acute blood loss anemia D62 Iron deficiency E61.1 Frontotemporal dementia G31.09; F02.80 Persistent depressive disorder F34.1 Depression Type: persistent depressive disorder Hypertension I10
== END 2023-08-19 15:22 | DRG 467 ==
LOC: ED 18:11 → 4W 23:35 → SUATTDRO 23:35 → 4W 06-29 02:27 → 3E 07-08 15:42